=== PATIENT | male | born 1965 | race Caucasian/White ===

== ENCOUNTER 2019-04-23 13:45 | Inpatient (IN) | payer OTHER ==
[~2019-04-23] VITALS: Ht 172.7 cm; Wt 72.6 kg
[2019-04-23 15:04] LABS: BASO % 0 % (0-3); EOS # 0.4 x10^3/uL (0.0-0.7); EOS % 5 % (0-3); HEMATOCRIT 30.9 % (39.0-53.0); HEMOGLOBIN 10.3 g/dL (13.0-17.5); LYMPH % 12 % (24-48); MEAN CORPUSCULAR HEMOGLOBIN 29 pg (25-35); MEAN CORPUSCULAR HGB CONC 33 g/dL (31-37); MEAN CORPUSCULAR VOLUME 88 fL (79-100); MONO # 0.8 x10^3/uL (0.0-1.1); MONO % 10 % (0-9); NEUT % 73 % (31-73); PLATELET COUNT 408 x10^3/uL (140-400); RED BLOOD COUNT 3.52 x10^6/uL (4.30-5.70); RED CELL DISTRIBUTION WIDTH 15.2 % (11.5-14.5); WHITE BLOOD COUNT 8.2 x10^3/uL (4.0-11.0)
[2019-04-23 15:12] LABS: CALCIUM 8.6 mg/dL (8.5-10.1); CREATININE 0.8 mg/dL (0.7-1.3); GFR 100.4; POTASSIUM 4.1 mmol/L (3.5-5.1)
[2019-04-23 15:13] LABS: PROTHROMBIN TIME PATIENT 14.2 SEC (11.7-14.0)
[2019-04-23 15:22] LABS: ALBUMIN/GLOBULIN RATIO 0.5 (1.0-1.7); TOTAL BILIRUBIN 0.3 mg/dL (0.2-1.0); TOTAL PROTEIN 6.1 g/dL (6.4-8.2)
[2019-04-23] MEDS ORDERED: IV NORMAL SALINE 1000ML BAG 1,000 ML IV ONE (16:00)
[2019-04-23] MEDS ORDERED: IOHEXOL 300 MG/ML 100ML VIAL. IV ONE (16:00)
[2019-04-23] MEDS ORDERED: CONTRAST GIVEN. MC PRN (16:00)
[2019-04-23] MEDS ORDERED: ONDANSETRON PF 4 MG/2 ML VIAL. IV ONE (16:00)
[2019-04-23] MEDS ORDERED: MORPHINE SULFATE 4 MG/ML VIAL. IV ONE (16:00)
--- NOTE | 2019-04-23 16:48 | RAD ---
CT ABD PELV W/ IV CONTRST ONLY Indication: Ulcerative colitis. Abdominal pain. Weight loss. Bloody stools. Exposure: One or more of the following individualized dose reduction techniques were utilized for this examination: 1. Automated exposure control 2. Adjustment of the mA and/or kV according to patient size 3. Use of iterative reconstruction technique. Technique: Intravenous contrast was given. No oral contrast per request. Comparison: March 14, 2014. FINDINGS: A small left lung base posterior groundglass opacity only partially visualized on the uppermost slice, about 8 mm. Minimal nodularity in the right lung base, measures 2 mm. Low-density lesion of the right lobe of the liver measuring 3.2 cm, with another lesion posterior to this measuring 2.7 cm. In retrospect these are probably unchanged since the noncontrast exam of March 14, 2014. These likely represent hemangiomas. The spleen is not enlarged. Pancreas unremarkable. No evidence of adrenal mass. Kidneys demonstrate symmetric enhancement without hydronephrosis. Tiny subcentimeter lesion upper pole left kidney too small to characterize but possibly a cyst. No calcified gallstone. Aorta is calcified and ectatic, no evidence of aneurysm. Small mesenteric lymph nodes measure up to 7 mm short axis on the right. No pathologic lymph node enlargement is seen. No significant small bowel distention. Moderate wall thickening and edema throughout the entire colon and rectum. There is not much stranding in the paracolonic fat. The appendix appears unremarkable. Mild wall thickening and submucosal edema is seen within the distalmost terminal ileum. No evidence of pneumoperitoneum or ascites. Prostate gland measures 5.1 cm wide. Urinary bladder is not distended. There are degenerative changes of the spine. IMPRESSION: 1. Diffuse moderate wall thickening and edema of the entire colon and rectum, most compatible with acute colitis. Mild adjacent ileitis. 2. Small groundglass opacity in the left lung base only partially visualized uncertain etiology. Follow-up CT chest in 2 or 3 months could be of benefit for further evaluation, and could also evaluate the nodularity in the right lung base. 3. Low-density lesions in the liver, most likely hemangiomas and appears similar at least as compared with the prior noncontrast CT scan. Electronically signed by: Armando Bernstein MD (04/23/2019 4:45 PM) [id number]
--- NOTE | 2019-04-23 16:51 | PHYS DOC ---
Past Medical History Past Medical History: Other Additional Past Medical Histor: ulcerative colitis, retinal detachment Past Surgical History: Other Additional Past Surgical Histo: colonoscopy, eye surg Alcohol Use: None Drug Use: None Adult General Chief Complaint Chief Complaint: ABDOMINAL PAIN, [facility] HPI Patient is a 53 year old male who presented ER for evaluation of abdominal pain, nausea vomiting, diarrhea for about 3 weeks. Symptom had getting progressively worse the last few day. Patient was down in [place] for work, was seen and admitted to hospital., Had CT scan of abdomen and pelvic, colonoscopy done, evaluated by GI specialist, diagnosed with ulcerative colitis, put on bentyl and prednisone tapered dose. He was then seen by Dr. COLLADO, GI specialist here, put on APRISO. Patient is not getting better so he came here for evaluation. Review of Systems Review of Systems Constitutional: Denies fever or chills [] Eyes: Denies change in visual acuity, redness, or eye pain [] HENT: Denies nasal congestion or sore throat [] Respiratory: Denies cough or shortness of breath [] Cardiovascular: No additional information not addressed in HPI [] GI: POSITIVE FOR abdominal pain, nausea, vomiting, bloody stools or diarrhea [] : Denies dysuria or hematuria [] Musculoskeletal: Denies back pain or joint pain [] Integument: Denies rash or skin lesions [] Neurologic: Denies headache, focal weakness or sensory changes [] Endocrine: Denies polyuria or polydipsia [] All other systems were reviewed and found to be within normal limits, except as documented in this note. Current Medications Current Medications Current Medications Medications (Trade) Dose Ordered Sig/[facility] Start Time Stop Time Status Last Admin Dose Admin Fentanyl Citrate (Fentanyl 2ml Vial) 75 mcg 1X ONCE 04/23/19 17:30 04/23/19 17:31 Info (CONTRAST GIVEN -- Rx MONITORING) 1 each PRN DAILY PRN 04/23/19 16:00 04/25/19 15:59 Iohexol (Omnipaque 300 Mg/ml) 75 ml 1X ONCE 04/23/19 16:00 04/23/19 16:01 DC 04/23/19 16:11 75 ML Methylprednisolone Sodium Succinate (SOLU-Medrol 125MG VIAL) 125 mg 1X ONCE 04/23/19 17:30 04/23/19 17:31 Morphine Sulfate (Morphine Sulfate) 4 mg 1X ONCE 04/23/19 16:00 04/23/19 16:01 DC 04/23/19 16:25 4 MG Ondansetron HCl (Zofran) 8 mg 1X ONCE 04/23/19 16:00 04/23/19 16:01 DC 04/23/19 16:24 8 MG Sodium Chloride 1,000 ml @ 1,000 mls/hr 1X ONCE 04/23/19 16:00 04/23/19 16:59 DC 04/23/19 16:25 1,000 MLS/HR Allergies Allergies Allergies Coded Allergies Type Severity Reaction Last Updated Verified No Known Drug Allergies 04/23/19 No Physical Exam Physical Exam Constitutional: Well developed, well nourished, no acute distress, non-toxic appearance. [] HENT: Normocephalic, atraumatic, bilateral external ears normal, oropharynx is Dry. no oral exudates, nose normal. [] Eyes: PERRLA, EOMI, conjunctiva normal, no discharge. [] Neck: Normal range of motion, no tenderness, supple, no stridor. [] Cardiovascular:Heart rate regular rhythm, no murmur [] Lungs & Thorax: Bilateral breath sounds clear to auscultation [] Abdomen: Bowel sounds normal, soft, There is diffuse abdominal tenderness to palpation, no masses, no pulsatile masses. [] Skin: Warm, dry, no erythema, no rash. [] Back: No tenderness, no CVA tenderness. [] Extremities: No tenderness, no cyanosis, no clubbing, ROM intact, no edema. [] Neurologic: Alert and oriented X 3, normal motor function, normal sensory function, no focal deficits noted. [] Psychologic: Affect normal, judgement normal, mood normal. [] Current Patient Data Vital Signs Vital Signs Date Time Temp Pulse Resp B/P (MAP) Pulse Ox O2 Delivery O2 Flow Rate FiO2 04/23/19 17:00 78 16 113/66 (82) 96 Room Air 04/23/19 13:52 98.2 98.2 Lab Values Laboratory Tests Test 04/23/19 14:55 White Blood Count 8.2 x10^3/uL (4.0-11.0) Red Blood Count 3.52 x10^6/uL (4.30-5.70) L Hemoglobin 10.3 g/dL (13.0-17.5) L Hematocrit 30.9 % (39.0-53.0) L Mean Corpuscular Volume 88 fL (79-100) Mean Corpuscular Hemoglobin 29 pg (25-35) Mean Corpuscular Hemoglobin Concent 33 g/dL (31-37) Red Cell Distribution Width 15.2 % (11.5-14.5) H Platelet Count 408 x10^3/uL (140-400) H Neutrophils (%) (Auto) 73 % (31-73) Lymphocytes (%) (Auto) 12 % (24-48) L Monocytes (%) (Auto) 10 % (0-9) H Eosinophils (%) (Auto) 5 % (0-3) H Basophils (%) (Auto) 0 % (0-3) Neutrophils # (Auto) 6.0 x10^3uL (1.8-7.7) Lymphocytes # (Auto) 1.0 x10^3/uL (1.0-4.8) Monocytes # (Auto) 0.8 x10^3/uL (0.0-1.1) Eosinophils # (Auto) 0.4 x10^3/uL (0.0-0.7) Basophils # (Auto) 0.0 x10^3/uL (0.0-0.2) Prothrombin Time 14.2 SEC (11.7-14.0) H Prothrombin Time INR 1.1 (0.8-1.1) PTT 30 SEC (24-38) Sodium Level 136 mmol/L (136-145) Potassium Level 4.1 mmol/L (3.5-5.1) Chloride Level 100 mmol/L (98-107) Carbon Dioxide Level 30 mmol/L (21-32) Anion Gap 6 (6-14) Blood Urea Nitrogen 11 mg/dL (8-26) Creatinine 0.8 mg/dL (0.7-1.3) Estimated GFR (Cockcroft-Gault) 100.4 BUN/Creatinine Ratio 14 (6-20) Glucose Level 100 mg/dL (70-99) H Calcium Level 8.6 mg/dL (8.5-10.1) Total Bilirubin 0.3 mg/dL (0.2-1.0) Aspartate Amino Transferase (AST) 17 U/L (15-37) Alanine Aminotransferase (ALT) 38 U/L (16-63) Alkaline Phosphatase 93 U/L (46-116) Total Protein 6.1 g/dL (6.4-8.2) L Albumin 2.0 g/dL (3.4-5.0) L Albumin/Globulin Ratio 0.5 (1.0-1.7) L Lipase 634 U/L (73-393) H Laboratory Tests 04/23/19 14:55 Laboratory Tests 04/23/19 14:55 EKG EKG [] Radiology/Procedures Radiology/Procedures [][facility] [address] [place] [address] IMAGING REPORT Signed PATIENT: SANDRINE VELAZQUEZ ACCOUNT: [id number] : 1965 LOCATION: ER AGE: 53 SEX: M EXAM STATUS: REG ER ORD. PHYSICIAN: DIANA SORTO DO REASON: ABDOMINAL PAIN PROCEDURE: CT ABD PELV W/ IV CONTRST ONLY CT ABD PELV W/ IV CONTRST ONLY Indication: Ulcerative colitis. Abdominal pain. Weight loss. Bloody stools. Exposure: One or more of the following individualized dose reduction techniques were utilized for this examination: 1. Automated exposure control 2. Adjustment of the mA and/or kV according to patient size 3. Use of iterative reconstruction technique. Technique: Intravenous contrast was given. No oral contrast per request. Comparison: March 14, 2014. FINDINGS: A small left lung base posterior groundglass opacity only partially visualized on the uppermost slice, about 8 mm. Minimal nodularity in the right lung base, measures 2 mm. Low-density lesion of the right lobe of the liver measuring 3.2 cm, with another lesion posterior to this measuring 2.7 cm. In retrospect these are probably unchanged since the noncontrast exam of March 14, 2014. These likely represent hemangiomas. The spleen is not enlarged. Pancreas unremarkable. No evidence of adrenal mass. Kidneys demonstrate symmetric enhancement without hydronephrosis. Tiny subcentimeter lesion upper pole left kidney too small to characterize but possibly a cyst. No calcified gallstone. Aorta is calcified and ectatic, no evidence of aneurysm. Small mesenteric lymph nodes measure up to 7 mm short axis on the right. No pathologic lymph node enlargement is seen. No significant small bowel distention. Moderate wall thickening and edema throughout the entire colon and rectum. There is not much stranding in the paracolonic fat. The appendix appears unremarkable. Mild wall thickening and submucosal edema is seen within the distalmost terminal ileum. No evidence of pneumoperitoneum or ascites. Prostate gland measures 5.1 cm wide. Urinary bladder is not distended. There are degenerative changes of the spine. IMPRESSION: 1. Diffuse moderate wall thickening and edema of the entire colon and rectum, most compatible with acute colitis. Mild adjacent ileitis. 2. Small groundglass opacity in the left lung base only partially visualized uncertain etiology. Follow-up CT chest in 2 or 3 months could be of benefit for further evaluation, and could also evaluate the nodularity in the right lung base. 3. Low-density lesions in the liver, most likely hemangiomas and appears similar at least as compared with the prior noncontrast CT scan. Electronically signed by: Armando Bernstein MD (04/23/2019 4:45 PM) [facility] DICTATED and SIGNED BY: ARMANDO BERNSTEIN MD DATE: 04/23/19 164 Course & Med Decision Making Course & Med Decision Making Pertinent Labs and Imaging studies reviewed. (See chart for details) [] Dragon Disclaimer Dragon Disclaimer This electronic medical record was generated, in whole or in part, using a voice recognition dictation system. Departure Departure Impression: Primary Impression: Ulcerative colitis Disposition: ADMITTED INPATIENT Admitting Physician: NIRAJ Condition: STABLE Referrals: NON,STAFF (PCP) DIANA SORTO DO Apr 23, 2019 16:51
[2019-04-23] MEDS ORDERED: ONDANSETRON PF 4 MG/2 ML VIAL. IV PRN ×2 (17:30→17:45)
[2019-04-23] MEDS ORDERED: methylPREDNISolone SOD SUCC PF 125 MG/2 ML VIAL. IV ONE (17:30)
[2019-04-23] MEDS ORDERED: fentaNYL PF VIAL 100 MCG/2 ML VIAL IV ONE (17:30)
[2019-04-23] MEDS ORDERED: MORPHINE SULFATE 4 MG/ML VIAL. IV PRN (17:30)
[2019-04-23] MEDS ORDERED: diphenhydrAMINE 50 MG/ML VIAL IVP PRN (17:45)
--- NOTE | 2019-04-23 17:47 | PDOC1 ---
History and Physical Date of Admission Date of Admission DATE: 04/23/19 TIME: 17:43 Identification/Chief Complaint Chief Complaint Bloody diarrhea and diffuse abdominal pain Source Source: Caregiver, Chart review, Patient History of Present Illness History of Present Illness 53-year-old white male, recently diagnosed with ulcerative colitis in [place] when he was there for work, dx via colonoscopy, appropriately discharged on Bentyl, mesalamine and pred etc. Symptoms started a week ago but worsened this weekend including diffuse abdominal pain, bloody diarrhea, 1 out of 3 bowels are bloody, moves 8 bowels today So far potassium and creatinine okay, hemoglobin 10, hemodynamically stable, but diffuse tenderness on mild palpation. CAT scan shows whole large colon is edematous Initially did not want to be nothing by mouth but after discussion of CAT scan findings and education, agreeable Agreeable to be admitted with GI consult, nothing by mouth, IV fluids Full code I see at the ER with family at bedside NO fx of of IBD He has no other history aside from recent diagnosis of UC Past Medical History Cardiovascular: No pertinent hx Pulmonary: No pertinent hx GI: Inflam bowel disease, Other Heme/Onc: No pertinent hx Hepatobiliary: No pertinent hx Psych: No pertinent hx Rheumatologic: No pertinent hx Infectious disease: No pertinent hx ENT: No pertinent hx Renal/: No pertinent hx Endocrine: No pertinent hx Dermatology: No pertinent hx Past Surgical History Past Surgical History: No pertinent history Family History Family History: No Significant Social History Smoke: Quit ALCOHOL: none Drugs: None Current Problem List Problem List Problems Medical Problems: (1) Ulcerative colitis Status: Acute Current Medications Current Medications Current Medications Sodium Chloride 1,000 ml @ 1,000 mls/hr 1X ONCE IV Last administered on 04/23/19at 16:25; Start 04/23/19 at 16:00; Stop 04/23/19 at 16:59; Status DC Ondansetron HCl (Zofran) 8 mg 1X ONCE IV Last administered on 04/23/19at 16:24; Start 04/23/19 at 16:00; Stop 04/23/19 at 16:01; Status DC Morphine Sulfate (Morphine Sulfate) 4 mg 1X ONCE IV Last administered on 04/23/19at 16:25; Start 04/23/19 at 16:00; Stop 04/23/19 at 16:01; Status DC Iohexol (Omnipaque 300 Mg/ml) 75 ml 1X ONCE IV Last administered on 04/23/19at 16:11; Start 04/23/19 at 16:00; Stop 04/23/19 at 16:01; Status DC Info (CONTRAST GIVEN -- Rx MONITORING) 1 each PRN DAILY PRN MC SEE COMMENTS; Start 04/23/19 at 16:00; Stop 04/25/19 at 15:59 Methylprednisolone Sodium Succinate (SOLU-Medrol 125MG VIAL) 125 mg 1X ONCE IV ; Start 04/23/19 at 17:30; Stop 04/23/19 at 17:31; Status DC Fentanyl Citrate (Fentanyl 2ml Vial) 75 mcg 1X ONCE IV ; Start 04/23/19 at 17:30; Stop 04/23/19 at 17:31; Status DC Ondansetron HCl (Zofran) 4 mg PRN Q8HRS PRN IV NAUSEA/VOMITING; Start 04/23/19 at 17:30; Stop 04/24/19 at 17:29 Morphine Sulfate (Morphine Sulfate) 4 mg PRN Q6HRS PRN IV PAIN; Start 04/23/19 at 17:30; Stop 04/24/19 at 17:29 Sodium Chloride 1,000 ml @ 100 mls/hr Q10H IV ; Start 04/23/19 at 18:00; Stop 04/24/19 at 17:59 Allergies Allergies: Coded Allergies: No Known Drug Allergies (Unverified , 04/23/19) ROS Review of System As per history of present illness, the rest of ROS 14 point negative Physical Exam General: Alert, Oriented X3, Cooperative, No acute distress HEENT: Atraumatic, PERRLA Lungs: Clear to auscultation, Normal air movement Heart: S1S2, RRR, no thrills, no rubs, no gallops, no murmurs Cardiovascular: S1 Abdomen: Soft, Other (diffuse tenderness on light touch, normoactive bowel sounds, but not an acute abdomen) Male Genitals Exam: normal genitalia, normal prostate PELVIC: Nml ext genitalia Extremities: No clubbing, No cyanosis, No edema, Normal pulses, No tenderness/swelling Skin: No rashes, No breakdown, No significant lesion Neuro: Normal gait, Normal speech, Strength at 5/5 X4 ext, Normal tone, Sensation intact, Cranial nerves 3-12 NL, Reflexes 2+ Psych/Mental Status: Mental status NL, Mood NL Vitals Vitals Vital Signs Date Time Temp Pulse Resp B/P (MAP) Pulse Ox O2 Delivery O2 Flow Rate FiO2 04/23/19 17:00 78 16 113/66 (82) 96 Room Air 04/23/19 13:52 98.2 98.2 Labs Labs Laboratory Tests Test 04/23/19 14:55 White Blood Count 8.2 x10^3/uL (4.0-11.0) Red Blood Count 3.52 x10^6/uL (4.30-5.70) Hemoglobin 10.3 g/dL (13.0-17.5) Hematocrit 30.9 % (39.0-53.0) Mean Corpuscular Volume 88 fL (79-100) Mean Corpuscular Hemoglobin 29 pg (25-35) Mean Corpuscular Hemoglobin Concent 33 g/dL (31-37) Red Cell Distribution Width 15.2 % (11.5-14.5) Platelet Count 408 x10^3/uL (140-400) Neutrophils (%) (Auto) 73 % (31-73) Lymphocytes (%) (Auto) 12 % (24-48) Monocytes (%) (Auto) 10 % (0-9) Eosinophils (%) (Auto) 5 % (0-3) Basophils (%) (Auto) 0 % (0-3) Neutrophils # (Auto) 6.0 x10^3uL (1.8-7.7) Lymphocytes # (Auto) 1.0 x10^3/uL (1.0-4.8) Monocytes # (Auto) 0.8 x10^3/uL (0.0-1.1) Eosinophils # (Auto) 0.4 x10^3/uL (0.0-0.7) Basophils # (Auto) 0.0 x10^3/uL (0.0-0.2) Prothrombin Time 14.2 SEC (11.7-14.0) Prothromb Time International Ratio 1.1 (0.8-1.1) Activated Partial Thromboplast Time 30 SEC (24-38) Sodium Level 136 mmol/L (136-145) Potassium Level 4.1 mmol/L (3.5-5.1) Chloride Level 100 mmol/L (98-107) Carbon Dioxide Level 30 mmol/L (21-32) Anion Gap 6 (6-14) Blood Urea Nitrogen 11 mg/dL (8-26) Creatinine 0.8 mg/dL (0.7-1.3) Estimated GFR (Cockcroft-Gault) 100.4 BUN/Creatinine Ratio 14 (6-20) Glucose Level 100 mg/dL (70-99) Calcium Level 8.6 mg/dL (8.5-10.1) Total Bilirubin 0.3 mg/dL (0.2-1.0) Aspartate Amino Transf (AST/SGOT) 17 U/L (15-37) Alanine Aminotransferase (ALT/SGPT) 38 U/L (16-63) Alkaline Phosphatase 93 U/L (46-116) Total Protein 6.1 g/dL (6.4-8.2) Albumin 2.0 g/dL (3.4-5.0) Albumin/Globulin Ratio 0.5 (1.0-1.7) Lipase 634 U/L (73-393) Laboratory Tests Test 04/23/19 14:55 White Blood Count 8.2 x10^3/uL (4.0-11.0) Red Blood Count 3.52 x10^6/uL (4.30-5.70) Hemoglobin 10.3 g/dL (13.0-17.5) Hematocrit 30.9 % (39.0-53.0) Mean Corpuscular Volume 88 fL (79-100) Mean Corpuscular Hemoglobin 29 pg (25-35) Mean Corpuscular Hemoglobin Concent 33 g/dL (31-37) Red Cell Distribution Width 15.2 % (11.5-14.5) Platelet Count 408 x10^3/uL (140-400) Neutrophils (%) (Auto) 73 % (31-73) Lymphocytes (%) (Auto) 12 % (24-48) Monocytes (%) (Auto) 10 % (0-9) Eosinophils (%) (Auto) 5 % (0-3) Basophils (%) (Auto) 0 % (0-3) Neutrophils # (Auto) 6.0 x10^3uL (1.8-7.7) Lymphocytes # (Auto) 1.0 x10^3/uL (1.0-4.8) Monocytes # (Auto) 0.8 x10^3/uL (0.0-1.1) Eosinophils # (Auto) 0.4 x10^3/uL (0.0-0.7) Basophils # (Auto) 0.0 x10^3/uL (0.0-0.2) Prothrombin Time 14.2 SEC (11.7-14.0) Prothromb Time International Ratio 1.1 (0.8-1.1) Activated Partial Thromboplast Time 30 SEC (24-38) Sodium Level 136 mmol/L (136-145) Potassium Level 4.1 mmol/L (3.5-5.1) Chloride Level 100 mmol/L (98-107) Carbon Dioxide Level 30 mmol/L (21-32) Anion Gap 6 (6-14) Blood Urea Nitrogen 11 mg/dL (8-26) Creatinine 0.8 mg/dL (0.7-1.3) Estimated GFR (Cockcroft-Gault) 100.4 BUN/Creatinine Ratio 14 (6-20) Glucose Level 100 mg/dL (70-99) Calcium Level 8.6 mg/dL (8.5-10.1) Total Bilirubin 0.3 mg/dL (0.2-1.0) Aspartate Amino Transf (AST/SGOT) 17 U/L (15-37) Alanine Aminotransferase (ALT/SGPT) 38 U/L (16-63) Alkaline Phosphatase 93 U/L (46-116) Total Protein 6.1 g/dL (6.4-8.2) Albumin 2.0 g/dL (3.4-5.0) Albumin/Globulin Ratio 0.5 (1.0-1.7) Lipase 634 U/L (73-393) VTE Prophylaxis Ordered VTE Prophylaxis Devices: Contraindicated VTE Pharmacological Prophylaxi: Contraindicated Assessment/Plan Assessment/Plan Ulcerative colitis flare whole large intestines are edematous on CT SIRS POA, no sepsis Anemia secondary to blood loss, bloody diarrhea Ex-smoker PLAN: bowel rest, IVF, pain control, consult GI Check H&H tomorrow, transfuse if needed Solu-Medrol IV Pain control I defer mesalamine suppository to GI if needed 2 MN FUll code Seen at ER LANEY DIXON MD Apr 23, 2019 17:47
[2019-04-23] MEDS: IV NORMAL SALINE 1000ML BAG 1,000 ML IV SCH (18:00)
[2019-04-23 19:00] VITALS: BP 109/63
[2019-04-23] MEDS: FAMOTIDINE 20 MG/2 ML VIAL IVP SCH (21:24)
[2019-04-23] MEDS ORDERED: MESA0.372 PO (21:28)
[2019-04-23] MEDS ORDERED: DICY10CA3 PO (21:29)
[2019-04-23 23:00] VITALS: BP 99/61
[2019-04-23] MEDS: methylPREDNISolone SOD SUCC PF 40 MG/ML VIAL. IV SCH (23:00)
[2019-04-24] MEDS: IV NORMAL SALINE 1000ML BAG 1,000 ML IV SCH ×3 (01:25→20:51)
[2019-04-24] MEDS: fentaNYL PF VIAL 100 MCG/2 ML VIAL IV PRN ×3 (01:37→22:22)
[2019-04-24 03:00] VITALS: BP 90/58
[2019-04-24 04:02] LABS: HEMOGLOBIN 9.2 g/dL (13.0-17.5)
[2019-04-24] MEDS: methylPREDNISolone SOD SUCC PF 40 MG/ML VIAL. IV SCH ×3 (05:59→21:53)
[2019-04-24 07:00] VITALS: BP 93/59
[2019-04-24] MEDS ORDERED: C.DIFF MED SCREEN BY RX. MC ONE (09:00)
[2019-04-24] MEDS: FAMOTIDINE 20 MG/2 ML VIAL IVP SCH ×2 (09:07→20:42)
--- NOTE | 2019-04-24 09:59 | PDOC2 ---
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 Cannot remember extent of disease on colonoscopy. Also had a CT. Was prescribed an antibiotic, mesalamine, dicyclomine, and prednisone taper. Follow-up w/ Dr. Llanes 1-2 weeks ago and was given Apriso. Symptoms were getting slightly better but then much worse after ran out of prednisone while taking 20mg QD (started w/ 40mg) on Tuesday. Diffuse abd pain, gas (worse in evening), liquid stools (8-10 daily - small w/ red blood every third stool), tenesmus, decreased appetite, weight loss (30 pounds), insomnia, fatigue. H/o GERD controlled w/ Prilosec (hasn't taken x 4 days). No dysphagia, vomiting, or hematemesis. No melena. Had EGD ~20 years ago maybe. Reports normal colonoscopy w/ Dr. Llanes except for a couple polyps ~2 years ago. No GB, liver, pancreas, or PUD history. NPO w/ IV steroids and H2 sienna here. C Diff ordered. Hgb 10.3 to 9.2, normal LFTs, lipase 634. CT as below. PMH: PMH: GERD, UC, retinal detachment/surgery FH: Family History: Cancer (paternal uncle - pancreatic) Social History: Smoke: Quit ALCOHOL: rare Drugs: None ROS: GEN: +fatigue HEENT: Denies blurred vision, sore throat CV: Denies chest pain RESP: Denies shortness of air, cough GI: Per HPI : Denies hematuria, dysuria ENDO: +weight loss NEURO: Denies confusion, dizziness MSK: Denies weakness, joint pain/swelling SKIN: Denies jaundice, pruritus Vitals: Vitals: Vital Signs Date Time Temp Pulse Resp B/P (MAP) Pulse Ox O2 Delivery O2 Flow Rate FiO2 04/24/19 07:00 97.9 60 14 93/59 (70) 93 Room Air 97.9 Labs: Labs: Laboratory Tests Test 04/23/19 14:55 04/24/19 03:25 White Blood Count 8.2 x10^3/uL (4.0-11.0) Red Blood Count 3.52 x10^6/uL (4.30-5.70) Hemoglobin 10.3 g/dL (13.0-17.5) 9.2 g/dL (13.0-17.5) Hematocrit 30.9 % (39.0-53.0) 28.0 % (39.0-53.0) Mean Corpuscular Volume 88 fL (79-100) Mean Corpuscular Hemoglobin 29 pg (25-35) Mean Corpuscular Hemoglobin Concent 33 g/dL (31-37) 33 g/dL (31-37) Red Cell Distribution Width 15.2 % (11.5-14.5) Platelet Count 408 x10^3/uL (140-400) Neutrophils (%) (Auto) 73 % (31-73) Lymphocytes (%) (Auto) 12 % (24-48) Monocytes (%) (Auto) 10 % (0-9) Eosinophils (%) (Auto) 5 % (0-3) Basophils (%) (Auto) 0 % (0-3) Neutrophils # (Auto) 6.0 x10^3uL (1.8-7.7) Lymphocytes # (Auto) 1.0 x10^3/uL (1.0-4.8) Monocytes # (Auto) 0.8 x10^3/uL (0.0-1.1) Eosinophils # (Auto) 0.4 x10^3/uL (0.0-0.7) Basophils # (Auto) 0.0 x10^3/uL (0.0-0.2) Erythrocyte Sedimentation Rate 8 (0-15) Prothrombin Time 14.2 SEC (11.7-14.0) Prothromb Time International Ratio 1.1 (0.8-1.1) Activated Partial Thromboplast Time 30 SEC (24-38) Sodium Level 136 mmol/L (136-145) Potassium Level 4.1 mmol/L (3.5-5.1) Chloride Level 100 mmol/L (98-107) Carbon Dioxide Level 30 mmol/L (21-32) Anion Gap 6 (6-14) Blood Urea Nitrogen 11 mg/dL (8-26) Creatinine 0.8 mg/dL (0.7-1.3) Estimated GFR (Cockcroft-Gault) 100.4 BUN/Creatinine Ratio 14 (6-20) Glucose Level 100 mg/dL (70-99) Calcium Level 8.6 mg/dL (8.5-10.1) Total Bilirubin 0.3 mg/dL (0.2-1.0) Aspartate Amino Transf (AST/SGOT) 17 U/L (15-37) Alanine Aminotransferase (ALT/SGPT) 38 U/L (16-63) Alkaline Phosphatase 93 U/L (46-116) Total Protein 6.1 g/dL (6.4-8.2) Albumin 2.0 g/dL (3.4-5.0) Albumin/Globulin Ratio 0.5 (1.0-1.7) Lipase 634 U/L (73-393) Allergies: Coded Allergies: No Known Drug Allergies (Unverified , 04/23/19) Medications: Current Medications Medications (Trade) Dose Ordered Sig/Laurent Route PRN Reason Start Time Stop Time Status Last Admin Dose Admin Sodium Chloride 1,000 ml @ 1,000 mls/hr 1X ONCE IV 04/23/19 16:00 04/23/19 16:59 DC 04/23/19 16:25 Ondansetron HCl (Zofran) 8 mg 1X ONCE IV 04/23/19 16:00 04/23/19 16:01 DC 04/23/19 16:24 Morphine Sulfate (Morphine Sulfate) 4 mg 1X ONCE IV 04/23/19 16:00 04/23/19 16:01 DC 04/23/19 16:25 Iohexol (Omnipaque 300 Mg/ml) 75 ml 1X ONCE IV 04/23/19 16:00 04/23/19 16:01 DC 04/23/19 16:11 Methylprednisolone Sodium Succinate (SOLU-Medrol 125MG VIAL) 125 mg 1X ONCE IV 04/23/19 17:30 04/23/19 17:31 DC 04/23/19 17:30 Fentanyl Citrate (Fentanyl 2ml Vial) 75 mcg 1X ONCE IV 04/23/19 17:30 04/23/19 17:31 DC 04/23/19 17:30 Morphine Sulfate (Morphine Sulfate) 4 mg PRN Q6HRS PRN IV PAIN 04/23/19 17:30 04/24/19 17:29 04/24/19 09:40 Sodium Chloride 1,000 ml @ 100 mls/hr Q10H IV 04/23/19 18:00 04/24/19 17:59 04/24/19 01:25 Famotidine (Pepcid Vial) 20 mg BID IVP 04/23/19 21:00 04/24/19 09:07 Fentanyl Citrate (Fentanyl 2ml Vial) 50 mcg PRN Q2HR PRN IV PAIN 04/23/19 17:45 04/24/19 01:37 Methylprednisolone Sodium Succinate (SOLU-Medrol 40MG VIAL) 40 mg Q8HRS IV 04/23/19 22:00 04/24/19 05:59 Imaging: Imaging: CT A/P IMPRESSION: 1. Diffuse moderate wall thickening and edema of the entire colon and rectum, most compatible with acute colitis. Mild adjacent ileitis. 2. Small groundglass opacity in the left lung base only partially visualized uncertain etiology. Follow-up CT chest in 2 or 3 months could be of benefit for further evaluation, and could also evaluate the nodularity in the right lung base. 3. Low-density lesions in the liver, most likely hemangiomas and appears similar at least as compared with the prior noncontrast CT scan. PE: GEN: NAD HEENT: Atraumatic, PERRL LUNGS: CTAB HEART: RRR ABD: NABS, S/ND, diffusely sore, periumbilical area worse EXTREMITY: No edema SKIN: No rashes, no jaundice NEURO/PSYCH: A & O �3 A/P: A/P: Abd pain, diarrhea, anorexia Recent UC diagnosis Abnormal CT w/ pancolitis and ileitis Anemia Mildly elevated lipase - unclear significance GERD - controlled w/ PPI CRC screen - UTD -- Try clears. Agree w/ steroids and acid-visitor information assistant. Await C Diff. Will ask for records from [place]. Can resume mesalamine, will add stool culture, etc. HALIE GROSS Apr 24, 2019 09:59
[2019-04-24 11:00] VITALS: BP 99/63
--- NOTE | 2019-04-24 11:42 | PDOC ---
[employer] PROGRESS NOTE Chief Complaint Chief Complaint Ulcerative colitis flare History of Present Illness History of Present Illness Patient seen and examined Vitals Vitals Vital Signs Date Time Temp Pulse Resp B/P (MAP) Pulse Ox O2 Delivery O2 Flow Rate FiO2 04/24/19 08:00 Room Air 04/24/19 07:00 97.9 60 14 93/59 (70) 93 97.9 Physical Exam General: Alert, Oriented X3, Cooperative, No acute distress Heart: Regular rate, Normal S1 Lungs: Clear Abdomen: Soft, Other (diffuse tenderness on light touch, normoactive bowel sounds, but not an acute abdomen) Extremities: No clubbing, No cyanosis, No edema, Normal pulses, No tenderness/swelling Skin: No rashes, No breakdown, No significant lesion Labs Labs: Laboratory Tests Test 04/23/19 14:55 04/24/19 03:25 White Blood Count 8.2 x10^3/uL (4.0-11.0) Red Blood Count 3.52 x10^6/uL (4.30-5.70) Hemoglobin 10.3 g/dL (13.0-17.5) 9.2 g/dL (13.0-17.5) Hematocrit 30.9 % (39.0-53.0) 28.0 % (39.0-53.0) Mean Corpuscular Volume 88 fL (79-100) Mean Corpuscular Hemoglobin 29 pg (25-35) Mean Corpuscular Hemoglobin Concent 33 g/dL (31-37) 33 g/dL (31-37) Red Cell Distribution Width 15.2 % (11.5-14.5) Platelet Count 408 x10^3/uL (140-400) Neutrophils (%) (Auto) 73 % (31-73) Lymphocytes (%) (Auto) 12 % (24-48) Monocytes (%) (Auto) 10 % (0-9) Eosinophils (%) (Auto) 5 % (0-3) Basophils (%) (Auto) 0 % (0-3) Neutrophils # (Auto) 6.0 x10^3uL (1.8-7.7) Lymphocytes # (Auto) 1.0 x10^3/uL (1.0-4.8) Monocytes # (Auto) 0.8 x10^3/uL (0.0-1.1) Eosinophils # (Auto) 0.4 x10^3/uL (0.0-0.7) Basophils # (Auto) 0.0 x10^3/uL (0.0-0.2) Erythrocyte Sedimentation Rate 8 (0-15) Prothrombin Time 14.2 SEC (11.7-14.0) Prothromb Time International Ratio 1.1 (0.8-1.1) Activated Partial Thromboplast Time 30 SEC (24-38) Sodium Level 136 mmol/L (136-145) Potassium Level 4.1 mmol/L (3.5-5.1) Chloride Level 100 mmol/L (98-107) Carbon Dioxide Level 30 mmol/L (21-32) Anion Gap 6 (6-14) Blood Urea Nitrogen 11 mg/dL (8-26) Creatinine 0.8 mg/dL (0.7-1.3) Estimated GFR (Cockcroft-Gault) 100.4 BUN/Creatinine Ratio 14 (6-20) Glucose Level 100 mg/dL (70-99) Calcium Level 8.6 mg/dL (8.5-10.1) Total Bilirubin 0.3 mg/dL (0.2-1.0) Aspartate Amino Transf (AST/SGOT) 17 U/L (15-37) Alanine Aminotransferase (ALT/SGPT) 38 U/L (16-63) Alkaline Phosphatase 93 U/L (46-116) Total Protein 6.1 g/dL (6.4-8.2) Albumin 2.0 g/dL (3.4-5.0) Albumin/Globulin Ratio 0.5 (1.0-1.7) Lipase 634 U/L (73-393) Assessment and Plan Assessmemt and Plan Problems Medical Problems: (1) Ulcerative colitis Status: Acute Ulcerative colitis flare whole large intestines are edematous on CT SIRS POA, no sepsis Anemia secondary to blood loss, bloody diarrhea Ex-smoker PLAN: bowel rest, IVF, pain control, consult GI Labs Solu-Medrol IV Pain control GI following Comment Review of Relevant I have reviewed the following items maria teresa (where applicable) has been applied. Labs Laboratory Tests Test 04/23/19 14:55 04/24/19 03:25 White Blood Count 8.2 x10^3/uL (4.0-11.0) Red Blood Count 3.52 x10^6/uL (4.30-5.70) Hemoglobin 10.3 g/dL (13.0-17.5) 9.2 g/dL (13.0-17.5) Hematocrit 30.9 % (39.0-53.0) 28.0 % (39.0-53.0) Mean Corpuscular Volume 88 fL (79-100) Mean Corpuscular Hemoglobin 29 pg (25-35) Mean Corpuscular Hemoglobin Concent 33 g/dL (31-37) 33 g/dL (31-37) Red Cell Distribution Width 15.2 % (11.5-14.5) Platelet Count 408 x10^3/uL (140-400) Neutrophils (%) (Auto) 73 % (31-73) Lymphocytes (%) (Auto) 12 % (24-48) Monocytes (%) (Auto) 10 % (0-9) Eosinophils (%) (Auto) 5 % (0-3) Basophils (%) (Auto) 0 % (0-3) Neutrophils # (Auto) 6.0 x10^3uL (1.8-7.7) Lymphocytes # (Auto) 1.0 x10^3/uL (1.0-4.8) Monocytes # (Auto) 0.8 x10^3/uL (0.0-1.1) Eosinophils # (Auto) 0.4 x10^3/uL (0.0-0.7) Basophils # (Auto) 0.0 x10^3/uL (0.0-0.2) Erythrocyte Sedimentation Rate 8 (0-15) Prothrombin Time 14.2 SEC (11.7-14.0) Prothromb Time International Ratio 1.1 (0.8-1.1) Activated Partial Thromboplast Time 30 SEC (24-38) Sodium Level 136 mmol/L (136-145) Potassium Level 4.1 mmol/L (3.5-5.1) Chloride Level 100 mmol/L (98-107) Carbon Dioxide Level 30 mmol/L (21-32) Anion Gap 6 (6-14) Blood Urea Nitrogen 11 mg/dL (8-26) Creatinine 0.8 mg/dL (0.7-1.3) Estimated GFR (Cockcroft-Gault) 100.4 BUN/Creatinine Ratio 14 (6-20) Glucose Level 100 mg/dL (70-99) Calcium Level 8.6 mg/dL (8.5-10.1) Total Bilirubin 0.3 mg/dL (0.2-1.0) Aspartate Amino Transf (AST/SGOT) 17 U/L (15-37) Alanine Aminotransferase (ALT/SGPT) 38 U/L (16-63) Alkaline Phosphatase 93 U/L (46-116) Total Protein 6.1 g/dL (6.4-8.2) Albumin 2.0 g/dL (3.4-5.0) Albumin/Globulin Ratio 0.5 (1.0-1.7) Lipase 634 U/L (73-393) Laboratory Tests Test 04/23/19 14:55 04/24/19 03:25 White Blood Count 8.2 x10^3/uL (4.0-11.0) Red Blood Count 3.52 x10^6/uL (4.30-5.70) Hemoglobin 10.3 g/dL (13.0-17.5) 9.2 g/dL (13.0-17.5) Hematocrit 30.9 % (39.0-53.0) 28.0 % (39.0-53.0) Mean Corpuscular Volume 88 fL (79-100) Mean Corpuscular Hemoglobin 29 pg (25-35) Mean Corpuscular Hemoglobin Concent 33 g/dL (31-37) 33 g/dL (31-37) Red Cell Distribution Width 15.2 % (11.5-14.5) Platelet Count 408 x10^3/uL (140-400) Neutrophils (%) (Auto) 73 % (31-73) Lymphocytes (%) (Auto) 12 % (24-48) Monocytes (%) (Auto) 10 % (0-9) Eosinophils (%) (Auto) 5 % (0-3) Basophils (%) (Auto) 0 % (0-3) Neutrophils # (Auto) 6.0 x10^3uL (1.8-7.7) Lymphocytes # (Auto) 1.0 x10^3/uL (1.0-4.8) Monocytes # (Auto) 0.8 x10^3/uL (0.0-1.1) Eosinophils # (Auto) 0.4 x10^3/uL (0.0-0.7) Basophils # (Auto) 0.0 x10^3/uL (0.0-0.2) Erythrocyte Sedimentation Rate 8 (0-15) Prothrombin Time 14.2 SEC (11.7-14.0) Prothromb Time International Ratio 1.1 (0.8-1.1) Activated Partial Thromboplast Time 30 SEC (24-38) Sodium Level 136 mmol/L (136-145) Potassium Level 4.1 mmol/L (3.5-5.1) Chloride Level 100 mmol/L (98-107) Carbon Dioxide Level 30 mmol/L (21-32) Anion Gap 6 (6-14) Blood Urea Nitrogen 11 mg/dL (8-26) Creatinine 0.8 mg/dL (0.7-1.3) Estimated GFR (Cockcroft-Gault) 100.4 BUN/Creatinine Ratio 14 (6-20) Glucose Level 100 mg/dL (70-99) Calcium Level 8.6 mg/dL (8.5-10.1) Total Bilirubin 0.3 mg/dL (0.2-1.0) Aspartate Amino Transf (AST/SGOT) 17 U/L (15-37) Alanine Aminotransferase (ALT/SGPT) 38 U/L (16-63) Alkaline Phosphatase 93 U/L (46-116) Total Protein 6.1 g/dL (6.4-8.2) Albumin 2.0 g/dL (3.4-5.0) Albumin/Globulin Ratio 0.5 (1.0-1.7) Lipase 634 U/L (73-393) Medications Current Medications Sodium Chloride 1,000 ml @ 1,000 mls/hr 1X ONCE IV Last administered on 04/23/19at 16:25; Start 04/23/19 at 16:00; Stop 04/23/19 at 16:59; Status DC Ondansetron HCl (Zofran) 8 mg 1X ONCE IV Last administered on 04/23/19at 16:24; Start 04/23/19 at 16:00; Stop 04/23/19 at 16:01; Status DC Morphine Sulfate (Morphine Sulfate) 4 mg 1X ONCE IV Last administered on 04/23/19at 16:25; Start 04/23/19 at 16:00; Stop 04/23/19 at 16:01; Status DC Iohexol (Omnipaque 300 Mg/ml) 75 ml 1X ONCE IV Last administered on 04/23/19at 16:11; Start 04/23/19 at 16:00; Stop 04/23/19 at 16:01; Status DC Info (CONTRAST GIVEN -- Rx MONITORING) 1 each PRN DAILY PRN MC SEE COMMENTS; Start 04/23/19 at 16:00; Stop 04/25/19 at 15:59 Methylprednisolone Sodium Succinate (SOLU-Medrol 125MG VIAL) 125 mg 1X ONCE IV Last administered on 04/23/19at 17:30; Start 04/23/19 at 17:30; Stop 04/23/19 at 17:31; Status DC Fentanyl Citrate (Fentanyl 2ml Vial) 75 mcg 1X ONCE IV Last administered on 04/23/19at 17:30; Start 04/23/19 at 17:30; Stop 04/23/19 at 17:31; Status DC Ondansetron HCl (Zofran) 4 mg PRN Q8HRS PRN IV NAUSEA/VOMITING; Start 04/23/19 at 17:30; Stop 04/23/19 at 17:43; Status DC Morphine Sulfate (Morphine Sulfate) 4 mg PRN Q6HRS PRN IV PAIN Last administered on 04/24/19at 09:40; Start 04/23/19 at 17:30; Stop 04/24/19 at 17:29 Sodium Chloride 1,000 ml @ 100 mls/hr Q10H IV Last administered on 04/24/19at 01:25; Start 04/23/19 at 18:00; Stop 04/24/19 at 17:59 Ondansetron HCl (Zofran) 4 mg PRN Q6HRS PRN IV NAUSEA/VOMITING; Start 04/23/19 at 17:45 Famotidine (Pepcid Vial) 20 mg BID IVP Last administered on 04/24/19at 09:07; Start 04/23/19 at 21:00 Fentanyl Citrate (Fentanyl 2ml Vial) 50 mcg PRN Q2HR PRN IV PAIN Last administered on 04/24/19at 01:37; Start 04/23/19 at 17:45 Methylprednisolone Sodium Succinate (SOLU-Medrol 40MG VIAL) 40 mg Q8HRS IV Last administered on 04/24/19at 05:59; Start 04/23/19 at 22:00 Diphenhydramine HCl (Benadryl) 25 mg PRN QHS PRN IVP INSOMNIA; Start 04/23/19 at 17:45 Pharmacy Consult (C.diff Med Screen By Rx) 1 each 1X ONCE MC Last administered on 04/24/19at 09:00; Start 04/24/19 at 09:00; Stop 04/24/19 at 09:01; Status DC Mesalamine (Delzicol) 800 mg TID PO ; Start 04/24/19 at 14:00 Active Scripts Active Reported Dicyclomine Hcl 10 Mg Capsule 1 Cap PO TID Apriso (Mesalamine) 0.375 Gm Cap.er.24h 2 Cap PO BID Vitals/I & O Vital Sign - Last 24 Hours 04/23/19 04/23/19 04/23/19 04/23/19 13:52 15:45 16:25 17:00 Temp 98.2 98.2 Pulse 89 75 78 Resp 16 16 16 16 B/P (MAP) 120/74 (89) 115/64 (81) 113/66 (82) Pulse Ox 96 95 98 96 O2 Delivery Room Air Room Air Room Air Room Air 04/23/19 04/23/19 04/23/19 04/23/19 17:30 18:45 19:00 23:00 Temp 98.4 98.1 98.4 98.1 Pulse 87 75 71 Resp 16 16 18 18 B/P (MAP) 122/76 (91) 109/63 (78) 99/61 (74) Pulse Ox 95 95 95 95 O2 Delivery Room Air Room Air Room Air Room Air 04/24/19 04/24/19 04/24/19 03:00 07:00 08:00 Temp 97.7 97.9 97.7 97.9 Pulse 61 60 Resp 18 14 B/P (MAP) 90/58 (69) 93/59 (70) Pulse Ox 97 93 O2 Delivery Room Air Room Air Room Air Intake and Output 04/23/19 04/23/19 04/24/19 14:59 22:59 06:59 Intake Total 0 ml 1000 ml Balance 0 ml 1000 ml PEARL MACK K III DO Apr 24, 2019 11:42
--- NOTE | 2019-04-24 14:16 | NUR ---
Pharmacy Medication Review S: Consulted for medication review re: C.diff Risk Assessment score of 5 O: SANDRINE VELAZQUEZ is a 53 year old with: Previous C.diff infection: No Previous hospitalization: Within 30 days Recent antibiotics: Within 30 days Use of gastric acid suppressor: Yes Transfer from CT/LTAC: No Current antibiotic regimen: NONE Current acid suppression regimen: FAMOTIDINE A: Patient has been identified as having risk factors for C.diff infection as noted above. P: Antibiotic Regimen recommendation made: N/A Probiotic ordered: N/A PPI changed to [id number]: N/A LASHAY PATEL [facility], 04/24/19 [id number]
[2019-04-24] MEDS: MESALAMINE 400 MG CAP.DRTAB. PO SCH ×2 (14:32→20:41)
[2019-04-24 15:00] VITALS: BP 106/63
[2019-04-24 19:00] VITALS: BP 97/57
[2019-04-24 23:00] VITALS: BP 105/62
[2019-04-25 03:00] VITALS: BP 105/57
[2019-04-25] MEDS: methylPREDNISolone SOD SUCC PF 40 MG/ML VIAL. IV SCH ×3 (05:58→21:59)
[2019-04-25] MEDS: IV NORMAL SALINE 1000ML BAG 1,000 ML IV SCH ×2 (06:58→17:36)
[2019-04-25 07:00] VITALS: BP 110/70
[2019-04-25] MEDS: MESALAMINE 400 MG CAP.DRTAB. PO SCH ×3 (08:22→19:35)
[2019-04-25] MEDS: FAMOTIDINE 20 MG/2 ML VIAL IVP SCH ×2 (08:22→19:36)
[2019-04-25] MEDS: fentaNYL PF VIAL 100 MCG/2 ML VIAL IV PRN ×4 (09:08→21:58)
--- NOTE | 2019-04-25 09:13 | PDOC ---
Subjective: Subjective: Feels "terrible." Has gas pains, diarrhea ongoing (says twice overnight - small amounts w/ non-productive urges), using Fentanyl for pain. Jello and sprite are "crap," cold water makes everything worse. Wants to know how long he's going to be here because this is costing him money. Does admit he's sleeping better. Objective: Objective: No records received from [place]. I review the papers he has in his backpack - list of stool tests (he does not know results). He was prescribed prednisone and Lialda (which was too expensive - later started on Apriso w/ Dr. Llanes). Vital Signs: Vital Signs Date Time Temp Pulse Resp B/P (MAP) Pulse Ox O2 Delivery O2 Flow Rate FiO2 04/25/19 07:00 98.4 56 16 110/70 (83) 91 Room Air 98.4 PE: GEN: NAD LUNGS: CTAB HEART: RRR ABD: BS+, soft, non-distended, tender from umbilicus and below NEURO/PSYCH: A & O �3 A/P: Abd pain, diarrhea, anorexia Recent UC diagnosis - pancolitis/ileitis on CT -- Pretty grumpy today. Await C Diff, recheck basic labs. Records requested from [place] (colonoscopy, CT) yesterday - not received. Getting Solu-Medrol 40mg TID, no atbx. Will review w/ Dr. Fowler. HALIE GROSS Apr 25, 2019 09:13
[2019-04-25 09:30] LABS: HEMATOCRIT 29.6 % (39.0-53.0); HEMOGLOBIN 9.5 g/dL (13.0-17.5); RED BLOOD COUNT 3.34 x10^6/uL (4.30-5.70); RED CELL DISTRIBUTION WIDTH 15.5 % (11.5-14.5); WHITE BLOOD COUNT 8.6 x10^3/uL (4.0-11.0)
[2019-04-25 09:44] LABS: ALBUMIN 1.7 g/dL (3.4-5.0); ALBUMIN/GLOBULIN RATIO 0.4 (1.0-1.7); CALCIUM 7.9 mg/dL (8.5-10.1); CREATININE 0.6 mg/dL (0.7-1.3); GFR 139.9; POTASSIUM 3.9 mmol/L (3.5-5.1); TOTAL BILIRUBIN 0.2 mg/dL (0.2-1.0); TOTAL PROTEIN 5.6 g/dL (6.4-8.2)
[2019-04-25 11:00] VITALS: BP 111/64
--- NOTE | 2019-04-25 12:14 | PDOC ---
[employer] PROGRESS NOTE Chief Complaint Chief Complaint Ulcerative colitis flare History of Present Illness History of Present Illness 6�19�2019 Patient seen and examined He is requesting clear liquid diet Patient seen and examined Vitals Vitals Vital Signs Date Time Temp Pulse Resp B/P (MAP) Pulse Ox O2 Delivery O2 Flow Rate FiO2 04/25/19 11:00 97.7 64 16 111/64 (80) 94 Room Air 97.7 Physical Exam General: Alert, Oriented X3, Cooperative, No acute distress Heart: Regular rate, Normal S1 Lungs: Clear Abdomen: Soft, Other (diffuse tenderness on light touch, normoactive bowel sounds, but not an acute abdomen) Extremities: No clubbing, No cyanosis, No edema, Normal pulses, No tenderness/swelling Skin: No rashes, No breakdown, No significant lesion Labs Labs: Laboratory Tests Test 04/25/19 09:00 White Blood Count 8.6 x10^3/uL (4.0-11.0) Red Blood Count 3.34 x10^6/uL (4.30-5.70) Hemoglobin 9.5 g/dL (13.0-17.5) Hematocrit 29.6 % (39.0-53.0) Mean Corpuscular Volume 89 fL (79-100) Mean Corpuscular Hemoglobin 29 pg (25-35) Mean Corpuscular Hemoglobin Concent 32 g/dL (31-37) Red Cell Distribution Width 15.5 % (11.5-14.5) Platelet Count 418 x10^3/uL (140-400) Sodium Level 136 mmol/L (136-145) Potassium Level 3.9 mmol/L (3.5-5.1) Chloride Level 102 mmol/L (98-107) Carbon Dioxide Level 27 mmol/L (21-32) Anion Gap 7 (6-14) Blood Urea Nitrogen 11 mg/dL (8-26) Creatinine 0.6 mg/dL (0.7-1.3) Estimated GFR (Cockcroft-Gault) 139.9 BUN/Creatinine Ratio 18 (6-20) Glucose Level 168 mg/dL (70-99) Calcium Level 7.9 mg/dL (8.5-10.1) Total Bilirubin 0.2 mg/dL (0.2-1.0) Aspartate Amino Transf (AST/SGOT) 13 U/L (15-37) Alanine Aminotransferase (ALT/SGPT) 26 U/L (16-63) Alkaline Phosphatase 81 U/L (46-116) Total Protein 5.6 g/dL (6.4-8.2) Albumin 1.7 g/dL (3.4-5.0) Albumin/Globulin Ratio 0.4 (1.0-1.7) Assessment and Plan Assessmemt and Plan Problems Medical Problems: (1) Ulcerative colitis Status: Acu Plan Clear liquid diet if okay with GI continue antibiotics Home meds DVT prophylaxis Full code Hope to discharge by the end of the week Comment Review of Relevant I have reviewed the following items maria teresa (where applicable) has been applied. Labs Laboratory Tests Test 04/23/19 14:55 04/24/19 03:25 04/25/19 09:00 White Blood Count 8.2 x10^3/uL (4.0-11.0) 8.6 x10^3/uL (4.0-11.0) Red Blood Count 3.52 x10^6/uL (4.30-5.70) 3.34 x10^6/uL (4.30-5.70) Hemoglobin 10.3 g/dL (13.0-17.5) 9.2 g/dL (13.0-17.5) 9.5 g/dL (13.0-17.5) Hematocrit 30.9 % (39.0-53.0) 28.0 % (39.0-53.0) 29.6 % (39.0-53.0) Mean Corpuscular Volume 88 fL (79-100) 89 fL (79-100) Mean Corpuscular Hemoglobin 29 pg (25-35) 29 pg (25-35) Mean Corpuscular Hemoglobin Concent 33 g/dL (31-37) 33 g/dL (31-37) 32 g/dL (31-37) Red Cell Distribution Width 15.2 % (11.5-14.5) 15.5 % (11.5-14.5) Platelet Count 408 x10^3/uL (140-400) 418 x10^3/uL (140-400) Neutrophils (%) (Auto) 73 % (31-73) Lymphocytes (%) (Auto) 12 % (24-48) Monocytes (%) (Auto) 10 % (0-9) Eosinophils (%) (Auto) 5 % (0-3) Basophils (%) (Auto) 0 % (0-3) Neutrophils # (Auto) 6.0 x10^3uL (1.8-7.7) Lymphocytes # (Auto) 1.0 x10^3/uL (1.0-4.8) Monocytes # (Auto) 0.8 x10^3/uL (0.0-1.1) Eosinophils # (Auto) 0.4 x10^3/uL (0.0-0.7) Basophils # (Auto) 0.0 x10^3/uL (0.0-0.2) Erythrocyte Sedimentation Rate 8 (0-15) Prothrombin Time 14.2 SEC (11.7-14.0) Prothromb Time International Ratio 1.1 (0.8-1.1) Activated Partial Thromboplast Time 30 SEC (24-38) Sodium Level 136 mmol/L (136-145) 136 mmol/L (136-145) Potassium Level 4.1 mmol/L (3.5-5.1) 3.9 mmol/L (3.5-5.1) Chloride Level 100 mmol/L (98-107) 102 mmol/L (98-107) Carbon Dioxide Level 30 mmol/L (21-32) 27 mmol/L (21-32) Anion Gap 6 (6-14) 7 (6-14) Blood Urea Nitrogen 11 mg/dL (8-26) 11 mg/dL (8-26) Creatinine 0.8 mg/dL (0.7-1.3) 0.6 mg/dL (0.7-1.3) Estimated GFR (Cockcroft-Gault) 100.4 139.9 BUN/Creatinine Ratio 14 (6-20) 18 (6-20) Glucose Level 100 mg/dL (70-99) 168 mg/dL (70-99) Calcium Level 8.6 mg/dL (8.5-10.1) 7.9 mg/dL (8.5-10.1) Total Bilirubin 0.3 mg/dL (0.2-1.0) 0.2 mg/dL (0.2-1.0) Aspartate Amino Transf (AST/SGOT) 17 U/L (15-37) 13 U/L (15-37) Alanine Aminotransferase (ALT/SGPT) 38 U/L (16-63) 26 U/L (16-63) Alkaline Phosphatase 93 U/L (46-116) 81 U/L (46-116) Total Protein 6.1 g/dL (6.4-8.2) 5.6 g/dL (6.4-8.2) Albumin 2.0 g/dL (3.4-5.0) 1.7 g/dL (3.4-5.0) Albumin/Globulin Ratio 0.5 (1.0-1.7) 0.4 (1.0-1.7) Lipase 634 U/L (73-393) Laboratory Tests Test 04/25/19 09:00 White Blood Count 8.6 x10^3/uL (4.0-11.0) Red Blood Count 3.34 x10^6/uL (4.30-5.70) Hemoglobin 9.5 g/dL (13.0-17.5) Hematocrit 29.6 % (39.0-53.0) Mean Corpuscular Volume 89 fL (79-100) Mean Corpuscular Hemoglobin 29 pg (25-35) Mean Corpuscular Hemoglobin Concent 32 g/dL (31-37) Red Cell Distribution Width 15.5 % (11.5-14.5) Platelet Count 418 x10^3/uL (140-400) Sodium Level 136 mmol/L (136-145) Potassium Level 3.9 mmol/L (3.5-5.1) Chloride Level 102 mmol/L (98-107) Carbon Dioxide Level 27 mmol/L (21-32) Anion Gap 7 (6-14) Blood Urea Nitrogen 11 mg/dL (8-26) Creatinine 0.6 mg/dL (0.7-1.3) Estimated GFR (Cockcroft-Gault) 139.9 BUN/Creatinine Ratio 18 (6-20) Glucose Level 168 mg/dL (70-99) Calcium Level 7.9 mg/dL (8.5-10.1) Total Bilirubin 0.2 mg/dL (0.2-1.0) Aspartate Amino Transf (AST/SGOT) 13 U/L (15-37) Alanine Aminotransferase (ALT/SGPT) 26 U/L (16-63) Alkaline Phosphatase 81 U/L (46-116) Total Protein 5.6 g/dL (6.4-8.2) Albumin 1.7 g/dL (3.4-5.0) Albumin/Globulin Ratio 0.4 (1.0-1.7) Medications Current Medications Sodium Chloride 1,000 ml @ 1,000 mls/hr 1X ONCE IV Last administered on 04/23/19 16:25; Start 04/23/19 at 16:00; Stop 04/23/19 at 16:59; Status DC Ondansetron HCl (Zofran) 8 mg 1X ONCE IV Last administered on 04/23/19at 16:24; Start 04/23/19 at 16:00; Stop 04/23/19 at 16:01; Status DC Morphine Sulfate (Morphine Sulfate) 4 mg 1X ONCE IV Last administered on 04/23/19 16:25; Start 04/23/19 at 16:00; Stop 04/23/19 at 16:01; Status DC Iohexol (Omnipaque 300 Mg/ml) 75 ml 1X ONCE IV Last administered on 04/23/19at 16:11; Start 04/23/19 at 16:00; Stop 04/23/19 at 16:01; Status DC Info (CONTRAST GIVEN -- Rx MONITORING) 1 each PRN DAILY PRN MC SEE COMMENTS; Start 04/23/19 at 16:00; Stop 04/25/19 at 15:59 Methylprednisolone Sodium Succinate (SOLU-Medrol 125MG VIAL) 125 mg 1X ONCE IV Last administered on 04/23/19at 17:30; Start 04/23/19 at 17:30; Stop 04/23/19 at 17:31; Status DC Fentanyl Citrate (Fentanyl 2ml Vial) 75 mcg 1X ONCE IV Last administered on 04/23/19at 17:30; Start 04/23/19 at 17:30; Stop 04/23/19 at 17:31; Status DC Ondansetron HCl (Zofran) 4 mg PRN Q8HRS PRN IV NAUSEA/VOMITING; Start 04/23/19 at 17:30; Stop 04/23/19 at 17:43; Status DC Morphine Sulfate (Morphine Sulfate) 4 mg PRN Q6HRS PRN IV PAIN Last administered on 04/24/19at 09:40; Start 04/23/19 at 17:30; Stop 04/24/19 at 17:29; Status DC Sodium Chloride 1,000 ml @ 100 mls/hr Q10H IV Last administered on 04/24/19 14:34; Start 04/23/19 at 18:00; Stop 04/24/19 at 17:59; Status DC Ondansetron HCl (Zofran) 4 mg PRN Q6HRS PRN IV NAUSEA/VOMITING; Start 04/23/19 at 17:45 Famotidine (Pepcid Vial) 20 mg BID IVP Last administered on 04/25/19 08:22; Start 04/23/19 at 21:00 Fentanyl Citrate (Fentanyl 2ml Vial) 50 mcg PRN Q2HR PRN IV PAIN Last administered on 04/25/19 09:08; Start 04/23/19 at 17:45 Methylprednisolone Sodium Succinate (SOLU-Medrol 40MG VIAL) 40 mg Q8HRS IV Last administered on 04/25/19 05:58; Start 04/23/19 at 22:00 Diphenhydramine HCl (Benadryl) 25 mg PRN QHS PRN IVP INSOMNIA; Start 04/23/19 at 17:45 Pharmacy Consult (C.diff Med Screen By Rx) 1 each 1X ONCE MC Last administered on 04/24/19 09:00; Start 04/24/19 at 09:00; Stop 04/24/19 at 09:01; Status DC Mesalamine (Delzicol) 800 mg TID PO Last administered on 04/25/19 08:22; Start 04/24/19 at 14:00 Sodium Chloride 1,000 ml @ 100 mls/hr Q10H IV Last administered on 04/25/19 06:58; Start 04/24/19 at 22:00 Active Scripts Active Reported Dicyclomine Hcl 10 Mg Capsule 1 Cap PO TID Apriso (Mesalamine) 0.375 Gm Cap.er.24h 2 Cap PO BID Vitals/I & O Vital Sign - Last 24 Hours 04/24/19 04/24/19 04/24/19 04/24/19 15:00 19:00 20:00 23:00 Temp 98.1 98.4 98.1 98.1 98.4 98.1 Pulse 62 54 59 Resp 16 18 18 B/P (MAP) 106/63 (77) 97/57 (70) 105/62 (76) Pulse Ox 97 96 100 O2 Delivery Room Air Room Air Room Air Room Air 04/25/19 04/25/19 04/25/19 04/25/19 03:00 07:00 08:00 11:00 Temp 98.1 98.4 97.7 98.1 98.4 97.7 Pulse 59 56 64 Resp 18 16 16 B/P (MAP) 105/57 (73) 110/70 (83) 111/64 (80) Pulse Ox 96 91 94 O2 Delivery Room Air Room Air Room Air Room Air Intake and Output 04/24/19 04/24/19 04/25/19 15:00 23:00 07:00 Intake Total 480 ml 1610 ml 1310 ml Balance 480 ml 1610 ml 1310 ml PEARL MACK III DO Apr 25, 2019 12:14
--- NOTE | 2019-04-25 12:25 | PN ---
DATE: 04/25/2019 ADDENDUM ASSESSMENT: Ulcerative colitis. PLAN: My previous notes stated that we needed to continue antibiotics, that was an error. We are actually continuing mesalamine 800 p.o. t.i.d. and Solu-Medrol 40 mg IV q 8. P.r.n. morphine, IV Pepcid. PEARL MACK DO DR: JOSÉ MIGUEL/katrina JOB#: [id number] / [id number]
[2019-04-25 15:00] VITALS: BP 106/62
--- NOTE | 2019-04-25 16:02 | NUR ---
SW consulted for AD. SW provided pt with AD form and informed pt to contact SW if he wants to complete form during hospital stay. Pt verbalized understanding. No other SW needs noted.
[2019-04-25 19:00] VITALS: BP 124/77
[2019-04-25 22:53] VITALS: BP 117/70
[2019-04-25] MEDS: SIMETHICONE 80 MG TAB.CHEW PO PRN (23:02)
[2019-04-26] MEDS: fentaNYL PF VIAL 100 MCG/2 ML VIAL IV PRN ×7 (02:24→23:39)
[2019-04-26] MEDS: IV NORMAL SALINE 1000ML BAG 1,000 ML IV SCH ×2 (03:15→14:36)
[2019-04-26 03:52] VITALS: BP 99/60
[2019-04-26] MEDS: methylPREDNISolone SOD SUCC PF 40 MG/ML VIAL. IV SCH (06:00)
[2019-04-26 07:00] VITALS: BP 102/63
[2019-04-26] MEDS: MESALAMINE 400 MG CAP.DRTAB. PO SCH ×3 (08:26→21:06)
[2019-04-26] MEDS: FAMOTIDINE 20 MG/2 ML VIAL IVP SCH (08:26)
--- NOTE | 2019-04-26 09:04 | PDOC ---
Subjective: Subjective: Feels the same, "I can't afford to be here." Lots of gas. Not as much diarrhea. Ongoing lower abd pain. Feels bad if he drinks clears or eats pudding and meg crackers but like pudding and crackers better. Objective: Objective: Reviewed records from [place]. 03/20/19 - seen for [facility] x 3 months - constipation, then leaking after stool softeners, n/v. Abd X-Ray: moderate colonic stool burden (right and transverse). CT: probable hepatic hemangiomas, normal GB, edema of rectosigmoid wall w/ mild adjacent inflammatory changes. Hgb 10.8, lipase 144 (range 8-78), +fecal occult. NO COLONOSCOPY RECORDS RECEIVED. After I saw, nurse reports C Diff + Vital Signs: Vital Signs Date Time Temp Pulse Resp B/P (MAP) Pulse Ox O2 Delivery O2 Flow Rate FiO2 04/26/19 08:22 Room Air 04/26/19 07:00 97.9 50 18 102/63 (76) 96 97.9 PE: GEN: NAD LUNGS: CTAB HEART: RRR ABD: infrequent bowel sounds, BLQ discomfort NEURO/PSYCH: A & O �3 A/P: C Diff ?UC - recently diagnosed in [place], no colonoscopy records received Pancolitis/ileitis on CT -- Vanco for C Diff, check KUB, recheck labs. Full liquids. Adjust steroids - change to PO w/ plans for 5 week taper when discharged. HALIE GROSS Apr 26, 2019 09:04
--- NOTE | 2019-04-26 09:47 | NUR ---
IP: Pt is C.diff + requiring contact plus precautions using brown sign.
[2019-04-26] MEDS: VANCOMYCIN 125 MG/2.5 ML ORAL SOLUTION. PO SCH ×4 (10:11→21:05)
--- NOTE | 2019-04-26 10:55 | PDOC ---
[employer] PROGRESS NOTE Chief Complaint Chief Complaint Ulcerative colitis flare C. difficile positive as of this morning History of Present Illness History of Present Illness 6�20�9 Patient seen and examined this morning He is now C. difficile positive Discussed with nurse Discussed with GI nurse practitioner Patient will anxious about his IV beeping and wants a more frequent shower 6�19�2019 Patient seen and examined He is requesting clear liquid diet Patient seen and examined Vitals Vitals Vital Signs Date Time Temp Pulse Resp B/P (MAP) Pulse Ox O2 Delivery O2 Flow Rate FiO2 04/26/19 08:22 Room Air 04/26/19 07:00 97.9 50 18 102/63 (76) 96 97.9 Physical Exam General: Alert, Oriented X3, Cooperative, No acute distress Heart: Regular rate, Normal S1 Lungs: Clear Abdomen: Soft, Other (diffuse tenderness on light touch, normoactive bowel sounds, but not an acute abdomen) Extremities: No clubbing, No cyanosis, No edema, Normal pulses, No tenderness/swelling Skin: No rashes, No breakdown, No significant lesion Assessment and Plan Assessmemt and Plan Problems Medical Problems: (1) Ulcerative colitis Status: Acute Ulcerative colitis C. difficile Plan Add by mouth vancomycin Clear liquid diet if okay with GI continue antibiotics Home meds DVT prophylaxis Full code Hope to discharge by the end of the week Comment Review of Relevant I have reviewed the following items maria teresa (where applicable) has been applied. Labs Laboratory Tests Test 04/25/19 09:00 White Blood Count 8.6 x10^3/uL (4.0-11.0) Red Blood Count 3.34 x10^6/uL (4.30-5.70) Hemoglobin 9.5 g/dL (13.0-17.5) Hematocrit 29.6 % (39.0-53.0) Mean Corpuscular Volume 89 fL (79-100) Mean Corpuscular Hemoglobin 29 pg (25-35) Mean Corpuscular Hemoglobin Concent 32 g/dL (31-37) Red Cell Distribution Width 15.5 % (11.5-14.5) Platelet Count 418 x10^3/uL (140-400) Sodium Level 136 mmol/L (136-145) Potassium Level 3.9 mmol/L (3.5-5.1) Chloride Level 102 mmol/L (98-107) Carbon Dioxide Level 27 mmol/L (21-32) Anion Gap 7 (6-14) Blood Urea Nitrogen 11 mg/dL (8-26) Creatinine 0.6 mg/dL (0.7-1.3) Estimated GFR (Cockcroft-Gault) 139.9 BUN/Creatinine Ratio 18 (6-20) Glucose Level 168 mg/dL (70-99) Calcium Level 7.9 mg/dL (8.5-10.1) Total Bilirubin 0.2 mg/dL (0.2-1.0) Aspartate Amino Transf (AST/SGOT) 13 U/L (15-37) Alanine Aminotransferase (ALT/SGPT) 26 U/L (16-63) Alkaline Phosphatase 81 U/L (46-116) Total Protein 5.6 g/dL (6.4-8.2) Albumin 1.7 g/dL (3.4-5.0) Albumin/Globulin Ratio 0.4 (1.0-1.7) Medications Current Medications Sodium Chloride 1,000 ml @ 1,000 mls/hr 1X ONCE IV Last administered on 04/23/19at 16:25; Start 04/23/19 at 16:00; Stop 04/23/19 at 16:59; Status DC Ondansetron HCl (Zofran) 8 mg 1X ONCE IV Last administered on 04/23/19at 16:24; Start 04/23/19 at 16:00; Stop 04/23/19 at 16:01; Status DC Morphine Sulfate (Morphine Sulfate) 4 mg 1X ONCE IV Last administered on 04/23/19at 16:25; Start 04/23/19 at 16:00; Stop 04/23/19 at 16:01; Status DC Iohexol (Omnipaque 300 Mg/ml) 75 ml 1X ONCE IV Last administered on 04/23/19at 16:11; Start 04/23/19 at 16:00; Stop 04/23/19 at 16:01; Status DC Info (CONTRAST GIVEN -- Rx MONITORING) 1 each PRN DAILY PRN MC SEE COMMENTS; Start 04/23/19 at 16:00; Stop 04/25/19 at 15:59; Status DC Methylprednisolone Sodium Succinate (SOLU-Medrol 125MG VIAL) 125 mg 1X ONCE IV Last administered on 04/23/19at 17:30; Start 04/23/19 at 17:30; Stop 04/23/19 at 17:31; Status DC Fentanyl Citrate (Fentanyl 2ml Vial) 75 mcg 1X ONCE IV Last administered on 04/23/19at 17:30; Start 04/23/19 at 17:30; Stop 04/23/19 at 17:31; Status DC Ondansetron HCl (Zofran) 4 mg PRN Q8HRS PRN IV NAUSEA/VOMITING; Start 04/23/19 at 17:30; Stop 04/23/19 at 17:43; Status DC Morphine Sulfate (Morphine Sulfate) 4 mg PRN Q6HRS PRN IV PAIN Last administered on 04/24/19at 09:40; Start 04/23/19 at 17:30; Stop 04/24/19 at 17:29; Status DC Sodium Chloride 1,000 ml @ 100 mls/hr Q10H IV Last administered on 04/24/19at 14:34; Start 04/23/19 at 18:00; Stop 04/24/19 at 17:59; Status DC Ondansetron HCl (Zofran) 4 mg PRN Q6HRS PRN IV NAUSEA/VOMITING Last administered on 04/25/19at 17:35; Start 04/23/19 at 17:45 Famotidine (Pepcid Vial) 20 mg BID IVP Last administered on 04/26/19at 08:26; Start 04/23/19 at 21:00; Stop 04/26/19 at 09:39; Status DC Fentanyl Citrate (Fentanyl 2ml Vial) 50 mcg PRN Q2HR PRN IV PAIN Last administered on 04/26/19at 06:50; Start 04/23/19 at 17:45 Methylprednisolone Sodium Succinate (SOLU-Medrol 40MG VIAL) 40 mg Q8HRS IV Last administered on 04/26/19at 06:00; Start 04/23/19 at 22:00; Stop 04/26/19 at 09:16; Status DC Diphenhydramine HCl (Benadryl) 25 mg PRN QHS PRN IVP INSOMNIA; Start 04/23/19 at 17:45 Pharmacy Consult (C.diff Med Screen By Rx) 1 each 1X ONCE MC Last administered on 04/24/19at 09:00; Start 04/24/19 at 09:00; Stop 04/24/19 at 09:01; Status DC Mesalamine (Delzicol) 800 mg TID PO Last administered on 04/26/19at 08:26; Start 04/24/19 at 14:00 Sodium Chloride 1,000 ml @ 100 mls/hr Q10H IV Last administered on 04/26/19at 03:15; Start 04/24/19 at 22:00 Simethicone (Gas-X) 80 mg PRN Q6HRS PRN PO GAS / BLOATING Last administered on 04/25/19at 23:02; Start 04/25/19 at 22:15 Vancomycin HCl (Vancomycin Oral Solution) 125 mg [id number] PO Last administered on 04/26/19at 10:11; Start 04/26/19 at 09:00 Methylprednisolone Sodium Succinate (SOLU-Medrol 40MG VIAL) 40 mg BID IV ; Start 04/26/19 at 21:00; Stop 04/26/19 at 21:00; Status DC Prednisone (Prednisone) 40 mg DAILY PO ; Start 04/27/19 at 09:00 Pantoprazole Sodium (Protonix) 40 mg DAILYAC PO ; Start 04/27/19 at 07:30 Active Scripts Active Reported Dicyclomine Hcl 10 Mg Capsule 1 Cap PO TID Apriso (Mesalamine) 0.375 Gm Cap.er.24h 2 Cap PO BID Vitals/I & O Vital Sign - Last 24 Hours 04/25/19 04/25/19 04/25/19 04/25/19 11:00 15:00 17:35 19:00 Temp 97.7 98.4 99.4 97.7 98.4 99.4 Pulse 64 50 46 Resp 16 16 18 B/P (MAP) 111/64 (80) 106/62 (77) 124/77 (93) Pulse Ox 94 96 96 94 O2 Delivery Room Air Room Air Room Air Room Air 04/25/19 04/25/19 04/25/19 04/25/19 19:34 20:00 21:58 22:53 Temp 97.7 97.7 Pulse 48 Resp 16 17 18 B/P (MAP) 117/70 (86) Pulse Ox 96 96 94 O2 Delivery Room Air Room Air Room Air Room Air 04/26/19 04/26/19 04/26/19 04/26/19 02:24 02:55 03:52 06:50 Temp 97.2 97.2 Pulse 45 Resp 14 18 16 B/P (MAP) 99/60 (73) Pulse Ox 94 94 94 O2 Delivery Room Air Room Air Room Air 04/26/19 04/26/19 04/26/19 07:00 08:00 08:22 Temp 97.9 97.9 Pulse 50 Resp 18 B/P (MAP) 102/63 (76) Pulse Ox 96 O2 Delivery Room Air Room Air Room Air Intake and Output 04/25/19 04/25/19 04/26/19 15:00 23:00 07:00 Intake Total 480 ml Balance 480 ml PEARL MACK III DO Apr 26, 2019 10:55
[2019-04-26 11:00] VITALS: BP 100/61
[2019-04-26 11:23] LABS: HEMATOCRIT 30.2 % (39.0-53.0); RED BLOOD COUNT 3.44 x10^6/uL (4.30-5.70); WHITE BLOOD COUNT 8.4 x10^3/uL (4.0-11.0)
[2019-04-26 11:40] LABS: CALCIUM 8.1 mg/dL (8.5-10.1); CREATININE 0.6 mg/dL (0.7-1.3); GFR 139.9; POTASSIUM 3.9 mmol/L (3.5-5.1)
[2019-04-26] MEDS: SIMETHICONE 80 MG TAB.CHEW PO PRN ×2 (13:37→21:06)
[2019-04-26 15:00] VITALS: BP 107/67
--- NOTE | 2019-04-26 16:04 | RAD ---
BOBBI, 04/26/2019: HISTORY: Abdominal pain, ulcerative colitis There is a small amount of gas in the GI tract in a nonspecific pattern. There is no evidence organomegaly. No abnormal abdominal calcification is seen. Scattered degenerative changes are present in the spine. IMPRESSION: No acute abdominal abnormality is detected. Electronically signed by: Jose Raul Mendez MD (04/26/2019 4:01 PM) [facility]
[2019-04-26 19:00] VITALS: BP 103/67
[2019-04-26] MEDS ORDERED: methylPREDNISolone SOD SUCC PF 40 MG/ML VIAL. IV SCH (21:00)
[2019-04-26] MEDS: LACTOBACILLUS RHAMNOSUS GG 1 CAPSULE. PO SCH (21:05)
[2019-04-26 23:00] VITALS: BP 98/60
[2019-04-27] MEDS: IV NORMAL SALINE 1000ML BAG 1,000 ML IV SCH ×3 (00:38→20:33)
[2019-04-27] MEDS: fentaNYL PF VIAL 100 MCG/2 ML VIAL IV PRN ×5 (01:41→21:46)
[2019-04-27 03:00] VITALS: BP 93/64
[2019-04-27] MEDS: DICYCLOMINE HCL 10 MG CAPSULE PO PRN ×2 (03:56→12:40)
[2019-04-27 07:00] VITALS: BP 101/66
[2019-04-27] MEDS: predniSONE 20 MG TABLET PO SCH (08:54)
[2019-04-27] MEDS: MESALAMINE 400 MG CAP.DRTAB. PO SCH ×3 (08:54→20:34)
[2019-04-27] MEDS: PANTOPRAZOLE 40 MG TABLET.DR. PO SCH (08:54)
[2019-04-27] MEDS: LACTOBACILLUS RHAMNOSUS GG 1 CAPSULE. PO SCH ×2 (08:54→20:34)
[2019-04-27] MEDS: VANCOMYCIN 125 MG/2.5 ML ORAL SOLUTION. PO SCH ×4 (08:59→20:36)
[2019-04-27 11:00] VITALS: BP 97/66
--- NOTE | 2019-04-27 12:35 | PDOC ---
Subjective: Subjective: A little better. Hasn't had pain meds since 6:00 a.m. Less cramping. Wants to eat more. Wants to follow-up w/ Dr. Fowler as outpt. Objective: Vital Signs: Vital Signs Date Time Temp Pulse Resp B/P (MAP) Pulse Ox O2 Delivery O2 Flow Rate FiO2 04/27/19 07:15 Room Air 04/27/19 07:00 98.3 61 12 101/66 (78) 99 98.3 Labs: STOOL CULTURE Final Final report STOOL CULT RES 1 Final Comment No Salmonella or Shigella recovered. Performed at: [address], [place], [place] [id number] Office Administration Instructor: GILLES Conroy MD, Phone: [phone] [facility] Preliminary Preliminary report CAMPY RES 1 Preliminary Comment No Campylobacter species isolated. Performed at: [address], [place], [place] [id number] Office Administration Instructor: GILLES Conroy MD, Phone: [phone] [facility] PENDING Imaging: KUB 04/26 IMPRESSION: No acute abdominal abnormality is detected. PE: GEN: NAD LUNGS: CTAB HEART: RRR ABD: less tender NEURO/PSYCH: A & O �3 A/P: C Diff, possible UC -- Improving. ADAT. Defer pain management to primary - maybe could transition to PO pain meds in preparation for DC. Has Bentyl as well. When discharged, please send on vanco and 5 week prednisone taper (56-53-46-10-5mg) and follow-up w/ Dr. Fowler in several weeks. D/w RN and left office phone number w/ pt (and will also have office call to schedule). Checked for colonoscopy records again - none received, though the hospital did receive a fax that indicates pt could access some records online if he creates an account. HALIE GROSS Apr 27, 2019 12:35
--- NOTE | 2019-04-27 13:27 | PDOC ---
[employer] PROGRESS NOTE Chief Complaint Chief Complaint Ulcerative colitis flare C. difficile positive History of Present Illness History of Present Illness 6�21�2019 Patient seen and examined again this morning He is still having loose stools Discussed with RN He is on by mouth Vanco mesalamine and steroids 6�20�2019 Patient seen and examined this morning He is now C. difficile positive Discussed with nurse Discussed with GI nurse practitioner Patient will anxious about his IV beeping and wants a more frequent shower 6�19�2019 Patient seen and examined He is requesting clear liquid diet Patient seen and examined Vitals Vitals Vital Signs Date Time Temp Pulse Resp B/P (MAP) Pulse Ox O2 Delivery O2 Flow Rate FiO2 04/27/19 11:00 98.5 60 14 97/66 (76) 94 Room Air 98.5 Physical Exam General: Alert, Oriented X3, Cooperative, No acute distress Heart: Regular rate, Normal S1 Lungs: Clear Abdomen: Soft, Other (diffuse tenderness on light touch, normoactive bowel sounds, but not an acute abdomen) Extremities: No clubbing, No cyanosis, No edema, Normal pulses, No tenderness/swelling Skin: No rashes, No breakdown, No significant lesion Assessment and Plan Assessmemt and Plan Problems Medical Problems: (1) Ulcerative colitis Status: Acute Ulcerative colitis C. difficile Plan By mouth vancomycin Recheck labs Clear liquid diet if okay with GI continue antibiotics Home meds DVT prophylaxis Full code Comment Review of Relevant I have reviewed the following items maria teresa (where applicable) has been applied. Labs Laboratory Tests Test 04/26/19 11:00 White Blood Count 8.4 x10^3/uL (4.0-11.0) Red Blood Count 3.44 x10^6/uL (4.30-5.70) Hemoglobin 10.0 g/dL (13.0-17.5) Hematocrit 30.2 % (39.0-53.0) Mean Corpuscular Volume 88 fL (79-100) Mean Corpuscular Hemoglobin 29 pg (25-35) Mean Corpuscular Hemoglobin Concent 33 g/dL (31-37) Red Cell Distribution Width 15.0 % (11.5-14.5) Platelet Count 409 x10^3/uL (140-400) Sodium Level 136 mmol/L (136-145) Potassium Level 3.9 mmol/L (3.5-5.1) Chloride Level 101 mmol/L (98-107) Carbon Dioxide Level 28 mmol/L (21-32) Anion Gap 7 (6-14) Blood Urea Nitrogen 9 mg/dL (8-26) Creatinine 0.6 mg/dL (0.7-1.3) Estimated GFR (Cockcroft-Gault) 139.9 Glucose Level 157 mg/dL (70-99) Calcium Level 8.1 mg/dL (8.5-10.1) Microbiology 04/25/19 Stool Culture - Final, Resulted 04/25/19 Stool Culture Result 1 ([facility]) - Final, Resulted 04/25/19 Campylobacter Antigen Assay - Preliminary, Resulted 04/25/19 Campylobactor Result 1 - Preliminary, Resulted 04/25/19 Shiga Toxin Test, Resulted Pending Medications Current Medications Sodium Chloride 1,000 ml @ 1,000 mls/hr 1X ONCE IV Last administered on 04/23/19at 16:25; Start 04/23/19 at 16:00; Stop 04/23/19 at 16:59; Status DC Ondansetron HCl (Zofran) 8 mg 1X ONCE IV Last administered on 04/23/19at 16:24; Start 04/23/19 at 16:00; Stop 04/23/19 at 16:01; Status DC Morphine Sulfate (Morphine Sulfate) 4 mg 1X ONCE IV Last administered on 04/23/19at 16:25; Start 04/23/19 at 16:00; Stop 04/23/19 at 16:01; Status DC Iohexol (Omnipaque 300 Mg/ml) 75 ml 1X ONCE IV Last administered on 04/23/19at 16:11; Start 04/23/19 at 16:00; Stop 04/23/19 at 16:01; Status DC Info (CONTRAST GIVEN -- Rx MONITORING) 1 each PRN DAILY PRN MC SEE COMMENTS; Start 04/23/19 at 16:00; Stop 04/25/19 at 15:59; Status DC Methylprednisolone Sodium Succinate (SOLU-Medrol 125MG VIAL) 125 mg 1X ONCE IV Last administered on 04/23/19at 17:30; Start 04/23/19 at 17:30; Stop 04/23/19 at 17:31; Status DC Fentanyl Citrate (Fentanyl 2ml Vial) 75 mcg 1X ONCE IV Last administered on 04/23/19at 17:30; Start 04/23/19 at 17:30; Stop 04/23/19 at 17:31; Status DC Ondansetron HCl (Zofran) 4 mg PRN Q8HRS PRN IV NAUSEA/VOMITING; Start 04/23/19 at 17:30; Stop 04/23/19 at 17:43; Status DC Morphine Sulfate (Morphine Sulfate) 4 mg PRN Q6HRS PRN IV PAIN Last administered on 04/24/19at 09:40; Start 04/23/19 at 17:30; Stop 04/24/19 at 17:29; Status DC Sodium Chloride 1,000 ml @ 100 mls/hr Q10H IV Last administered on 04/24/19at 14:34; Start 04/23/19 at 18:00; Stop 04/24/19 at 17:59; Status DC Ondansetron HCl (Zofran) 4 mg PRN Q6HRS PRN IV NAUSEA/VOMITING Last administered on 04/25/19at 17:35; Start 04/23/19 at 17:45 Famotidine (Pepcid Vial) 20 mg BID IVP Last administered on 04/26/19 08:26; Start 04/23/19 at 21:00; Stop 04/26/19 at 09:39; Status DC Fentanyl Citrate (Fentanyl 2ml Vial) 50 mcg PRN Q2HR PRN IV PAIN Last administered on 04/27/19at 06:34; Start 04/23/19 at 17:45 Methylprednisolone Sodium Succinate (SOLU-Medrol 40MG VIAL) 40 mg Q8HRS IV Last administered on 04/26/19at 06:00; Start 04/23/19 at 22:00; Stop 04/26/19 at 09:16; Status DC Diphenhydramine HCl (Benadryl) 25 mg PRN QHS PRN IVP INSOMNIA; Start 04/23/19 at 17:45 Pharmacy Consult (C.diff Med Screen By Rx) 1 each 1X ONCE MC Last administered on 04/24/19at 09:00; Start 04/24/19 at 09:00; Stop 04/24/19 at 09:01; Status DC Mesalamine (Delzicol) 800 mg TID PO Last administered on 04/27/19at 08:54; Start 04/24/19 at 14:00 Sodium Chloride 1,000 ml @ 100 mls/hr Q10H IV Last administered on 04/27/19at 10:50; Start 04/24/19 at 22:00 Simethicone (Gas-X) 80 mg PRN Q6HRS PRN PO GAS / BLOATING Last administered on 04/26/19 21:06; Start 04/25/19 at 22:15 Vancomycin HCl (Vancomycin Oral Solution) 125 mg [id number] PO Last administered on 04/27/19at 12:37; Start 04/26/19 at 09:00 Methylprednisolone Sodium Succinate (SOLU-Medrol 40MG VIAL) 40 mg BID IV ; Start 04/26/19 at 21:00; Stop 04/26/19 at 21:00; Status DC Prednisone (Prednisone) 40 mg DAILY PO Last administered on 04/27/19at 08:54; Start 04/27/19 at 09:00 Pantoprazole Sodium (Protonix) 40 mg DAILYAC PO Last administered on 04/27/19at 08:54; Start 04/27/19 at 07:30 Lactobacillus Rhamnosus (Culturelle) 1 cap BID PO Last administered on 04/27/19 08:54; Start 04/26/19 at 21:00 Dicyclomine HCl (Bentyl) 10 mg PRN TID PRN PO STOMACH CRAMPING Last administered on 04/27/19at 12:40; Start 04/27/19 at 03:45 Active Scripts Active Reported Dicyclomine Hcl 10 Mg Capsule 1 Cap PO TID Apriso (Mesalamine) 0.375 Gm Cap.er.24h 2 Cap PO BID Vitals/I & O Vital Sign - Last 24 Hours 04/26/19 04/26/19 04/26/19 04/26/19 13:32 15:00 16:56 19:00 Temp 98.0 98.1 98.0 98.1 Pulse 75 57 Resp 18 18 B/P (MAP) 107/67 (80) 103/67 (79) Pulse Ox 100 95 O2 Delivery Room Air Room Air Room Air Room Air 04/26/19 04/26/19 04/26/19 04/26/19 19:03 20:00 21:40 23:00 Temp 98.1 98.1 Pulse 67 Resp 16 18 B/P (MAP) 98/60 (73) Pulse Ox 95 97 O2 Delivery Room Air Room Air Room Air Room Air 04/26/19 04/27/19 04/27/19 04/27/19 23:39 01:41 03:00 03:56 Temp 97.9 97.9 Pulse 58 Resp 16 16 18 16 B/P (MAP) 93/64 (74) Pulse Ox 95 95 94 94 O2 Delivery Room Air Room Air Room Air Room Air 04/27/19 04/27/19 04/27/19 04/27/19 04:26 06:34 07:00 07:15 Temp 98.3 98.3 Pulse 61 Resp 13 14 12 B/P (MAP) 101/66 (78) Pulse Ox 94 94 99 O2 Delivery Room Air Room Air Room Air 04/27/19 11:00 Temp 98.5 98.5 Pulse 60 Resp 14 B/P (MAP) 97/66 (76) Pulse Ox 94 O2 Delivery Room Air Intake and Output 04/26/19 04/26/19 04/27/19 15:00 23:00 07:00 Intake Total 1670 ml 290 ml Balance 1670 ml 290 ml PEARL MACK III DO Apr 27, 2019 13:27
[2019-04-27 15:00] VITALS: BP 97/62
[2019-04-27 19:00] VITALS: BP 104/65
[2019-04-27 23:00] VITALS: BP 109/71
[2019-04-28] MEDS: fentaNYL PF VIAL 100 MCG/2 ML VIAL IV PRN ×5 (00:09→22:36)
[2019-04-28] MEDS: DICYCLOMINE HCL 10 MG CAPSULE PO PRN (00:12)
[2019-04-28 03:00] VITALS: BP 102/72
[2019-04-28 04:49] LABS: BASO % 0 % (0-3); EOS % 1 % (0-3); HEMATOCRIT 26.6 % (39.0-53.0); HEMOGLOBIN 8.8 g/dL (13.0-17.5); LYMPH # 0.7 x10^3/uL (1.0-4.8); LYMPH % 9 % (24-48); MEAN CORPUSCULAR HEMOGLOBIN 29 pg (25-35); MEAN CORPUSCULAR HGB CONC 33 g/dL (31-37); MEAN CORPUSCULAR VOLUME 88 fL (79-100); MONO # 0.6 x10^3/uL (0.0-1.1); MONO % 8 % (0-9); NEUT # 6.6 x10^3uL (1.8-7.7); NEUT % 82 % (31-73); PLATELET COUNT 357 x10^3/uL (140-400); RED BLOOD COUNT 3.04 x10^6/uL (4.30-5.70); RED CELL DISTRIBUTION WIDTH 15.2 % (11.5-14.5)
[2019-04-28 05:13] LABS: CALCIUM 7.3 mg/dL (8.5-10.1); CREATININE 0.6 mg/dL (0.7-1.3); GFR 139.9; POTASSIUM 3.3 mmol/L (3.5-5.1)
[2019-04-28] MEDS: IV NORMAL SALINE 1000ML BAG 1,000 ML IV SCH ×2 (06:18→16:51)
[2019-04-28 07:00] VITALS: BP 103/67
[2019-04-28] MEDS: LACTOBACILLUS RHAMNOSUS GG 1 CAPSULE. PO SCH ×2 (07:56→20:28)
[2019-04-28] MEDS: PANTOPRAZOLE 40 MG TABLET.DR. PO SCH (07:56)
[2019-04-28] MEDS: VANCOMYCIN 125 MG/2.5 ML ORAL SOLUTION. PO SCH ×4 (07:57→20:28)
[2019-04-28] MEDS: MESALAMINE 400 MG CAP.DRTAB. PO SCH ×3 (07:57→20:28)
[2019-04-28] MEDS: predniSONE 20 MG TABLET PO SCH (07:57)
--- NOTE | 2019-04-28 10:46 | PDOC ---
PROGRESS NOTES Chief Complaint Chief Complaint Ulcerative colitis flare C. difficile positive History of Present Illness History of Present Illness 6�21�2019 Patient seen and examined again this morning He is still having loose stools Discussed with RN He is on by mouth Vanco mesalamine and steroids 6�20�2019 Patient seen and examined this morning He is now C. difficile positive Discussed with nurse Discussed with GI nurse practitioner Patient will anxious about his IV beeping and wants a more frequent shower 6�19�2019 Patient seen and examined He is requesting clear liquid diet Patient seen and examined 04/28 crampy abdominal discomfort with diarrhea this morning, k low Vitals Vitals Vital Signs Date Time Temp Pulse Resp B/P (MAP) Pulse Ox O2 Delivery O2 Flow Rate FiO2 04/28/19 09:40 Room Air 04/28/19 07:00 98.2 64 18 103/67 (79) 97 98.2 Physical Exam General: Alert, Oriented X3, Cooperative, No acute distress Heart: Regular rate, Normal S1 Lungs: Clear Abdomen: Soft, Other (diffuse tenderness on light touch, normoactive bowel sounds, but not an acute abdomen) Extremities: No clubbing, No cyanosis, No edema, Normal pulses, No tenderness/swelling Skin: No rashes, No breakdown, No significant lesion Labs LABS Laboratory Tests Test 04/28/19 04:10 White Blood Count 8.0 x10^3/uL (4.0-11.0) Red Blood Count 3.04 x10^6/uL (4.30-5.70) Hemoglobin 8.8 g/dL (13.0-17.5) Hematocrit 26.6 % (39.0-53.0) Mean Corpuscular Volume 88 fL (79-100) Mean Corpuscular Hemoglobin 29 pg (25-35) Mean Corpuscular Hemoglobin Concent 33 g/dL (31-37) Red Cell Distribution Width 15.2 % (11.5-14.5) Platelet Count 357 x10^3/uL (140-400) Neutrophils (%) (Auto) 82 % (31-73) Lymphocytes (%) (Auto) 9 % (24-48) Monocytes (%) (Auto) 8 % (0-9) Eosinophils (%) (Auto) 1 % (0-3) Basophils (%) (Auto) 0 % (0-3) Neutrophils # (Auto) 6.6 x10^3uL (1.8-7.7) Lymphocytes # (Auto) 0.7 x10^3/uL (1.0-4.8) Monocytes # (Auto) 0.6 x10^3/uL (0.0-1.1) Eosinophils # (Auto) 0.0 x10^3/uL (0.0-0.7) Basophils # (Auto) 0.0 x10^3/uL (0.0-0.2) Sodium Level 137 mmol/L (136-145) Potassium Level 3.3 mmol/L (3.5-5.1) Chloride Level 103 mmol/L (98-107) Carbon Dioxide Level 29 mmol/L (21-32) Anion Gap 5 (6-14) Blood Urea Nitrogen 8 mg/dL (8-26) Creatinine 0.6 mg/dL (0.7-1.3) Estimated GFR (Cockcroft-Gault) 139.9 Glucose Level 96 mg/dL (70-99) Calcium Level 7.3 mg/dL (8.5-10.1) Assessment and Plan Assessmemt and Plan Problems Medical Problems: (1) Ulcerative colitis Status: Acute Comment Review of Relevant I have reviewed the following items maria teresa (where applicable) has been applied. Labs Laboratory Tests Test 04/26/19 11:00 04/28/19 04:10 White Blood Count 8.4 x10^3/uL (4.0-11.0) 8.0 x10^3/uL (4.0-11.0) Red Blood Count 3.44 x10^6/uL (4.30-5.70) 3.04 x10^6/uL (4.30-5.70) Hemoglobin 10.0 g/dL (13.0-17.5) 8.8 g/dL (13.0-17.5) Hematocrit 30.2 % (39.0-53.0) 26.6 % (39.0-53.0) Mean Corpuscular Volume 88 fL (79-100) 88 fL (79-100) Mean Corpuscular Hemoglobin 29 pg (25-35) 29 pg (25-35) Mean Corpuscular Hemoglobin Concent 33 g/dL (31-37) 33 g/dL (31-37) Red Cell Distribution Width 15.0 % (11.5-14.5) 15.2 % (11.5-14.5) Platelet Count 409 x10^3/uL (140-400) 357 x10^3/uL (140-400) Sodium Level 136 mmol/L (136-145) 137 mmol/L (136-145) Potassium Level 3.9 mmol/L (3.5-5.1) 3.3 mmol/L (3.5-5.1) Chloride Level 101 mmol/L (98-107) 103 mmol/L (98-107) Carbon Dioxide Level 28 mmol/L (21-32) 29 mmol/L (21-32) Anion Gap 7 (6-14) 5 (6-14) Blood Urea Nitrogen 9 mg/dL (8-26) 8 mg/dL (8-26) Creatinine 0.6 mg/dL (0.7-1.3) 0.6 mg/dL (0.7-1.3) Estimated GFR (Cockcroft-Gault) 139.9 139.9 Glucose Level 157 mg/dL (70-99) 96 mg/dL (70-99) Calcium Level 8.1 mg/dL (8.5-10.1) 7.3 mg/dL (8.5-10.1) Neutrophils (%) (Auto) 82 % (31-73) Lymphocytes (%) (Auto) 9 % (24-48) Monocytes (%) (Auto) 8 % (0-9) Eosinophils (%) (Auto) 1 % (0-3) Basophils (%) (Auto) 0 % (0-3) Neutrophils # (Auto) 6.6 x10^3uL (1.8-7.7) Lymphocytes # (Auto) 0.7 x10^3/uL (1.0-4.8) Monocytes # (Auto) 0.6 x10^3/uL (0.0-1.1) Eosinophils # (Auto) 0.0 x10^3/uL (0.0-0.7) Basophils # (Auto) 0.0 x10^3/uL (0.0-0.2) Laboratory Tests Test 04/28/19 04:10 White Blood Count 8.0 x10^3/uL (4.0-11.0) Red Blood Count 3.04 x10^6/uL (4.30-5.70) Hemoglobin 8.8 g/dL (13.0-17.5) Hematocrit 26.6 % (39.0-53.0) Mean Corpuscular Volume 88 fL (79-100) Mean Corpuscular Hemoglobin 29 pg (25-35) Mean Corpuscular Hemoglobin Concent 33 g/dL (31-37) Red Cell Distribution Width 15.2 % (11.5-14.5) Platelet Count 357 x10^3/uL (140-400) Neutrophils (%) (Auto) 82 % (31-73) Lymphocytes (%) (Auto) 9 % (24-48) Monocytes (%) (Auto) 8 % (0-9) Eosinophils (%) (Auto) 1 % (0-3) Basophils (%) (Auto) 0 % (0-3) Neutrophils # (Auto) 6.6 x10^3uL (1.8-7.7) Lymphocytes # (Auto) 0.7 x10^3/uL (1.0-4.8) Monocytes # (Auto) 0.6 x10^3/uL (0.0-1.1) Eosinophils # (Auto) 0.0 x10^3/uL (0.0-0.7) Basophils # (Auto) 0.0 x10^3/uL (0.0-0.2) Sodium Level 137 mmol/L (136-145) Potassium Level 3.3 mmol/L (3.5-5.1) Chloride Level 103 mmol/L (98-107) Carbon Dioxide Level 29 mmol/L (21-32) Anion Gap 5 (6-14) Blood Urea Nitrogen 8 mg/dL (8-26) Creatinine 0.6 mg/dL (0.7-1.3) Estimated GFR (Cockcroft-Gault) 139.9 Glucose Level 96 mg/dL (70-99) Calcium Level 7.3 mg/dL (8.5-10.1) Microbiology 04/25/19 Stool Culture - Final, Resulted 04/25/19 Stool Culture Result 1 ([facility]) - Final, Resulted 04/25/19 Campylobacter Antigen Assay - Preliminary, Resulted 04/25/19 Campylobactor Result 1 - Preliminary, Resulted 04/25/19 Shiga Toxin Test - Final, Resulted Medications Current Medications Sodium Chloride 1,000 ml @ 1,000 mls/hr 1X ONCE IV Last administered on 04/23/19 16:25; Start 04/23/19 at 16:00; Stop 04/23/19 at 16:59; Status DC Ondansetron HCl (Zofran) 8 mg 1X ONCE IV Last administered on 04/23/19at 16:24; Start 04/23/19 at 16:00; Stop 04/23/19 at 16:01; Status DC Morphine Sulfate (Morphine Sulfate) 4 mg 1X ONCE IV Last administered on 04/23/19at 16:25; Start 04/23/19 at 16:00; Stop 04/23/19 at 16:01; Status DC Iohexol (Omnipaque 300 Mg/ml) 75 ml 1X ONCE IV Last administered on 04/23/19at 16:11; Start 04/23/19 at 16:00; Stop 04/23/19 at 16:01; Status DC Info (CONTRAST GIVEN -- Rx MONITORING) 1 each PRN DAILY PRN MC SEE COMMENTS; Start 04/23/19 at 16:00; Stop 04/25/19 at 15:59; Status DC Methylprednisolone Sodium Succinate (SOLU-Medrol 125MG VIAL) 125 mg 1X ONCE IV Last administered on 04/23/19at 17:30; Start 04/23/19 at 17:30; Stop 04/23/19 at 17:31; Status DC Fentanyl Citrate (Fentanyl 2ml Vial) 75 mcg 1X ONCE IV Last administered on 04/23/19at 17:30; Start 04/23/19 at 17:30; Stop 04/23/19 at 17:31; Status DC Ondansetron HCl (Zofran) 4 mg PRN Q8HRS PRN IV NAUSEA/VOMITING; Start 04/23/19 at 17:30; Stop 04/23/19 at 17:43; Status DC Morphine Sulfate (Morphine Sulfate) 4 mg PRN Q6HRS PRN IV PAIN Last administered on 04/24/19at 09:40; Start 04/23/19 at 17:30; Stop 04/24/19 at 17:29; Status DC Sodium Chloride 1,000 ml @ 100 mls/hr Q10H IV Last administered on 04/24/19at 14:34; Start 04/23/19 at 18:00; Stop 04/24/19 at 17:59; Status DC Ondansetron HCl (Zofran) 4 mg PRN Q6HRS PRN IV NAUSEA/VOMITING Last administered on 04/25/19at 17:35; Start 04/23/19 at 17:45 Famotidine (Pepcid Vial) 20 mg BID IVP Last administered on 04/26/19at 08:26; Start 04/23/19 at 21:00; Stop 04/26/19 at 09:39; Status DC Fentanyl Citrate (Fentanyl 2ml Vial) 50 mcg PRN Q2HR PRN IV PAIN Last administered on 04/28/19at 08:51; Start 04/23/19 at 17:45 Methylprednisolone Sodium Succinate (SOLU-Medrol 40MG VIAL) 40 mg Q8HRS IV Last administered on 04/26/19at 06:00; Start 04/23/19 at 22:00; Stop 04/26/19 at 09:16; Status DC Diphenhydramine HCl (Benadryl) 25 mg PRN QHS PRN IVP INSOMNIA; Start 04/23/19 at 17:45 Pharmacy Consult (C.diff Med Screen By Rx) 1 each 1X ONCE MC Last administered on 04/24/19at 09:00; Start 04/24/19 at 09:00; Stop 04/24/19 at 09:01; Status DC Mesalamine (Delzicol) 800 mg TID PO Last administered on 04/28/19at 07:57; Start 04/24/19 at 14:00 Sodium Chloride 1,000 ml @ 100 mls/hr Q10H IV Last administered on 04/28/19 06:18; Start 04/24/19 at 22:00 Simethicone (Gas-X) 80 mg PRN Q6HRS PRN PO GAS / BLOATING Last administered on 04/26/19at 21:06; Start 04/25/19 at 22:15 Vancomycin HCl (Vancomycin Oral Solution) 125 mg [id number] PO Last administered on 04/28/19at 07:57; Start 04/26/19 at 09:00 Methylprednisolone Sodium Succinate (SOLU-Medrol 40MG VIAL) 40 mg BID IV ; Start 04/26/19 at 21:00; Stop 04/26/19 at 21:00; Status DC Prednisone (Prednisone) 40 mg DAILY PO Last administered on 04/28/19at 07:57; Start 04/27/19 at 09:00 Pantoprazole Sodium (Protonix) 40 mg DAILYAC PO Last administered on 04/28/19at 07:56; Start 04/27/19 at 07:30 Lactobacillus Rhamnosus (Culturelle) 1 cap BID PO Last administered on 04/28/19at 07:56; Start 04/26/19 at 21:00 Dicyclomine HCl (Bentyl) 10 mg PRN TID PRN PO STOMACH CRAMPING Last administered on 04/28/19at 00:12; Start 04/27/19 at 03:45 Active Scripts Active Reported Dicyclomine Hcl 10 Mg Capsule 1 Cap PO TID Apriso (Mesalamine) 0.375 Gm Cap.er.24h 2 Cap PO BID Vitals/I & O Vital Sign - Last 24 Hours 04/27/19 04/27/19 04/27/19 04/27/19 11:00 14:42 15:00 19:00 Temp 98.5 98.9 98.5 98.5 98.9 98.5 Pulse 60 56 80 Resp 14 17 17 B/P (MAP) 97/66 (76) 97/62 (74) 104/65 (78) Pulse Ox 94 96 96 O2 Delivery Room Air Room Air Room Air Room Air 04/27/19 04/27/19 04/27/19 04/28/19 20:20 21:46 23:00 00:09 Temp 98.3 98.3 Pulse 65 Resp 20 17 20 B/P (MAP) 109/71 (84) Pulse Ox 96 O2 Delivery Room Air Room Air Room Air Room Air 04/28/19 04/28/19 04/28/19 04/28/19 03:00 06:17 06:47 07:00 Temp 98.1 98.2 98.1 98.2 Pulse 69 64 Resp 17 20 18 18 B/P (MAP) 102/72 (82) 103/67 (79) Pulse Ox 95 97 O2 Delivery Room Air Room Air Room Air 04/28/19 04/28/19 04/28/19 08:03 08:51 09:40 O2 Delivery Room Air Room Air Room Air Intake and Output 04/27/19 04/27/19 04/28/19 14:59 22:59 06:59 Intake Total 360 ml 1240 ml 1050 ml Balance 360 ml 1240 ml 1050 ml Nutrition Consultation Dietary Evaluation: Comments: advance diet as tolerated offer supplements prn Expected Outcomes/Goals: to meet > 75% est nutr needs Interpretation of weight loss: >7.5% in 3 months Malnutrition Findings: Food and Nutrition Intake (Sev: <50% est energy req 5days Weight Status: Appropriate JAZMÍN HALL MD Apr 28, 2019 10:46
[2019-04-28 11:00] VITALS: BP 101/62
--- NOTE | 2019-04-28 11:50 | PDOC ---
GI PROGRESS NOTES Date Date/Time DATE: 04/28/19 TIME: 11:47 Subjective Subjective Some worsening of crampy abdominal discomfort with diarrhea this morning after eating breakfast. He felt like he might be making some improvement yesterday. Dicyclomine apparently was helping but it was stopped for some reason. No bleeding is overtly reported Objective Vitals Vital Signs Date Time Temp Pulse Resp B/P (MAP) Pulse Ox O2 Delivery O2 Flow Rate FiO2 04/28/19 11:00 98.2 66 18 101/62 (75) 98 Room Air 98.2 04/28/19 09:40 Room Air 04/28/19 08:51 Room Air 04/28/19 08:03 Room Air 04/28/19 07:00 98.2 64 18 103/67 (79) 97 Room Air 98.2 04/28/19 06:47 18 04/28/19 06:17 20 Room Air 04/28/19 03:00 98.1 69 17 102/72 (82) 95 Room Air 98.1 04/28/19 00:09 20 Room Air 04/27/19 23:00 98.3 65 17 109/71 (84) 96 Room Air 98.3 04/27/19 21:46 20 Room Air 04/27/19 20:20 Room Air 04/27/19 19:00 98.5 80 17 104/65 (78) 96 Room Air 98.5 04/27/19 15:00 98.9 56 17 97/62 (74) 96 Room Air 98.9 04/27/19 14:42 Room Air Labs Labs Laboratory Tests Test 04/28/19 04:10 White Blood Count 8.0 x10^3/uL (4.0-11.0) Red Blood Count 3.04 x10^6/uL (4.30-5.70) Hemoglobin 8.8 g/dL (13.0-17.5) Hematocrit 26.6 % (39.0-53.0) Mean Corpuscular Volume 88 fL (79-100) Mean Corpuscular Hemoglobin 29 pg (25-35) Mean Corpuscular Hemoglobin Concent 33 g/dL (31-37) Red Cell Distribution Width 15.2 % (11.5-14.5) Platelet Count 357 x10^3/uL (140-400) Neutrophils (%) (Auto) 82 % (31-73) Lymphocytes (%) (Auto) 9 % (24-48) Monocytes (%) (Auto) 8 % (0-9) Eosinophils (%) (Auto) 1 % (0-3) Basophils (%) (Auto) 0 % (0-3) Neutrophils # (Auto) 6.6 x10^3uL (1.8-7.7) Lymphocytes # (Auto) 0.7 x10^3/uL (1.0-4.8) Monocytes # (Auto) 0.6 x10^3/uL (0.0-1.1) Eosinophils # (Auto) 0.0 x10^3/uL (0.0-0.7) Basophils # (Auto) 0.0 x10^3/uL (0.0-0.2) Sodium Level 137 mmol/L (136-145) Potassium Level 3.3 mmol/L (3.5-5.1) Chloride Level 103 mmol/L (98-107) Carbon Dioxide Level 29 mmol/L (21-32) Anion Gap 5 (6-14) Blood Urea Nitrogen 8 mg/dL (8-26) Creatinine 0.6 mg/dL (0.7-1.3) Estimated GFR (Cockcroft-Gault) 139.9 Glucose Level 96 mg/dL (70-99) Calcium Level 7.3 mg/dL (8.5-10.1) Physical Exam Physical Exam Flat affect Chest clear Abdomen soft and minimally tender without point tenderness or mass. Bowel sounds are present. Assessment Assessment Colitis. Cause is unclear but may be underlying ulcerative colitis however we now know he has superimposed C. difficile colitis. Whether he will continue to have chronic colitis is unclear. His symptoms have persisted in spite of adding vancomycin several days ago. Some of the worsening of his symptoms might be related to his diet. I would recommend a liquid or small portions, extremely low-fat bland diet to avoid any triggers for cramping and diarrhea. C. difficile. Plan Plan Continue vancomycin Continue dicyclomine Continue prednisone Small portions and low-fat meals or liquids. Signed once his symptoms have stabilized and he is able to manage on his own he can be discharged for outpatient monitoring evaluation. ENRRIQUE HAMMER MD Apr 28, 2019 11:50
[2019-04-28] MEDS: DICYCLOMINE HCL 10 MG CAPSULE PO SCH ×2 (13:11→16:51)
[2019-04-28 15:00] VITALS: BP 96/64
[2019-04-28] MEDS ORDERED: POTASSIUM CHLORIDE 20 MEQ TABLET.ER. PO ONE (18:00)
[2019-04-28 19:00] VITALS: BP 102/62
[2019-04-28 22:55] VITALS: BP 116/75
[2019-04-29] MEDS: fentaNYL PF VIAL 100 MCG/2 ML VIAL IV PRN ×2 (00:35→08:19)
[2019-04-29] MEDS: oxyCODONE/APAP 5/325 1 TAB TABLET PO PRN ×3 (01:59→21:41)
[2019-04-29] MEDS ORDERED: DICYCLOMINE HCL 10 MG CAPSULE PO PRN (02:00)
[2019-04-29] MEDS: IV NORMAL SALINE 1000ML BAG 1,000 ML IV SCH ×3 (02:31→21:42)
[2019-04-29 02:56] VITALS: BP 105/68
[2019-04-29 05:18] LABS: BASO % 0 % (0-3); EOS # 0.1 x10^3/uL (0.0-0.7); EOS % 2 % (0-3); HEMATOCRIT 24.1 % (39.0-53.0); LYMPH % 18 % (24-48); MEAN CORPUSCULAR HEMOGLOBIN 29 pg (25-35); MEAN CORPUSCULAR HGB CONC 33 g/dL (31-37); MEAN CORPUSCULAR VOLUME 87 fL (79-100); MONO # 0.6 x10^3/uL (0.0-1.1); MONO % 11 % (0-9); NEUT # 3.8 x10^3uL (1.8-7.7); NEUT % 70 % (31-73); PLATELET COUNT 334 x10^3/uL (140-400); RED BLOOD COUNT 2.78 x10^6/uL (4.30-5.70); RED CELL DISTRIBUTION WIDTH 15.2 % (11.5-14.5); WHITE BLOOD COUNT 5.5 x10^3/uL (4.0-11.0)
[2019-04-29 05:36] LABS: CALCIUM 7.5 mg/dL (8.5-10.1); CREATININE 0.5 mg/dL (0.7-1.3); GFR 172.6; POTASSIUM 3.5 mmol/L (3.5-5.1)
[2019-04-29 07:00] VITALS: BP 97/61
[2019-04-29] MEDS: PANTOPRAZOLE 40 MG TABLET.DR. PO SCH (08:19)
[2019-04-29] MEDS: predniSONE 20 MG TABLET PO SCH (08:19)
[2019-04-29] MEDS: LACTOBACILLUS RHAMNOSUS GG 1 CAPSULE. PO SCH ×2 (08:19→21:41)
[2019-04-29] MEDS: VANCOMYCIN 125 MG/2.5 ML ORAL SOLUTION. PO SCH ×4 (08:20→21:40)
[2019-04-29] MEDS: MESALAMINE 400 MG CAP.DRTAB. PO SCH ×3 (08:20→21:41)
[2019-04-29] MEDS ORDERED: DICYCLOMINE HCL 10 MG CAPSULE PO SCH (09:00)
[2019-04-29 11:00] VITALS: BP 101/63
--- NOTE | 2019-04-29 11:43 | PDOC ---
PROGRESS NOTES Chief Complaint Chief Complaint Ulcerative colitis flare C. difficile positive severe protein-caloric malnutrition History of Present Illness History of Present Illness 6�21�2019 Patient seen and examined again this morning He is still having loose stools Discussed with RN He is on by mouth Vanco mesalamine and steroids 8�55�9 Patient seen and examined this morning He is now C. difficile positive Discussed with nurse Discussed with GI nurse practitioner Patient will anxious about his IV beeping and wants a more frequent shower 6�19�2016 Patient seen and examined He is requesting clear liquid diet Patient seen and examined 04/28 crampy abdominal discomfort with diarrhea this morning, k low 04/29 still cramping a lot, uncomfortable at timesSIGMOIDOSCOPY with biopsies may be helpful and will be planned for tomorrow. 26 min pt exam, chart review, > 50% of time spent with exam, chart review, pt care coordination disease education Vitals Vitals Vital Signs Date Time Temp Pulse Resp B/P (MAP) Pulse Ox O2 Delivery O2 Flow Rate FiO2 04/29/19 09:00 97 Room Air 04/29/19 07:00 98.3 64 14 97/61 (73) 98.3 Physical Exam General: Alert, Oriented X3, Cooperative, No acute distress Heart: Regular rate, Normal S1 Lungs: Clear Abdomen: Soft, Other (diffuse tenderness on light touch, normoactive bowel sounds, but not an acute abdomen) Extremities: No clubbing, No cyanosis, No edema, Normal pulses, No tenderness/swelling Skin: No rashes, No breakdown, No significant lesion Labs LABS Laboratory Tests Test 04/29/19 04:30 White Blood Count 5.5 x10^3/uL (4.0-11.0) Red Blood Count 2.78 x10^6/uL (4.30-5.70) Hemoglobin 8.0 g/dL (13.0-17.5) Hematocrit 24.1 % (39.0-53.0) Mean Corpuscular Volume 87 fL (79-100) Mean Corpuscular Hemoglobin 29 pg (25-35) Mean Corpuscular Hemoglobin Concent 33 g/dL (31-37) Red Cell Distribution Width 15.2 % (11.5-14.5) Platelet Count 334 x10^3/uL (140-400) Neutrophils (%) (Auto) 70 % (31-73) Lymphocytes (%) (Auto) 18 % (24-48) Monocytes (%) (Auto) 11 % (0-9) Eosinophils (%) (Auto) 2 % (0-3) Basophils (%) (Auto) 0 % (0-3) Neutrophils # (Auto) 3.8 x10^3uL (1.8-7.7) Lymphocytes # (Auto) 1.0 x10^3/uL (1.0-4.8) Monocytes # (Auto) 0.6 x10^3/uL (0.0-1.1) Eosinophils # (Auto) 0.1 x10^3/uL (0.0-0.7) Basophils # (Auto) 0.0 x10^3/uL (0.0-0.2) Sodium Level 136 mmol/L (136-145) Potassium Level 3.5 mmol/L (3.5-5.1) Chloride Level 103 mmol/L (98-107) Carbon Dioxide Level 28 mmol/L (21-32) Anion Gap 5 (6-14) Blood Urea Nitrogen 6 mg/dL (8-26) Creatinine 0.5 mg/dL (0.7-1.3) Estimated GFR (Cockcroft-Gault) 172.6 Glucose Level 88 mg/dL (70-99) Calcium Level 7.5 mg/dL (8.5-10.1) Assessment and Plan Assessmemt and Plan Problems Medical Problems: (1) Ulcerative colitis Status: Acute Comment Review of Relevant I have reviewed the following items maria teresa (where applicable) has been applied. Labs Laboratory Tests Test 04/28/19 04:10 04/29/19 04:30 White Blood Count 8.0 x10^3/uL (4.0-11.0) 5.5 x10^3/uL (4.0-11.0) Red Blood Count 3.04 x10^6/uL (4.30-5.70) 2.78 x10^6/uL (4.30-5.70) Hemoglobin 8.8 g/dL (13.0-17.5) 8.0 g/dL (13.0-17.5) Hematocrit 26.6 % (39.0-53.0) 24.1 % (39.0-53.0) Mean Corpuscular Volume 88 fL (79-100) 87 fL (79-100) Mean Corpuscular Hemoglobin 29 pg (25-35) 29 pg (25-35) Mean Corpuscular Hemoglobin Concent 33 g/dL (31-37) 33 g/dL (31-37) Red Cell Distribution Width 15.2 % (11.5-14.5) 15.2 % (11.5-14.5) Platelet Count 357 x10^3/uL (140-400) 334 x10^3/uL (140-400) Neutrophils (%) (Auto) 82 % (31-73) 70 % (31-73) Lymphocytes (%) (Auto) 9 % (24-48) 18 % (24-48) Monocytes (%) (Auto) 8 % (0-9) 11 % (0-9) Eosinophils (%) (Auto) 1 % (0-3) 2 % (0-3) Basophils (%) (Auto) 0 % (0-3) 0 % (0-3) Neutrophils # (Auto) 6.6 x10^3uL (1.8-7.7) 3.8 x10^3uL (1.8-7.7) Lymphocytes # (Auto) 0.7 x10^3/uL (1.0-4.8) 1.0 x10^3/uL (1.0-4.8) Monocytes # (Auto) 0.6 x10^3/uL (0.0-1.1) 0.6 x10^3/uL (0.0-1.1) Eosinophils # (Auto) 0.0 x10^3/uL (0.0-0.7) 0.1 x10^3/uL (0.0-0.7) Basophils # (Auto) 0.0 x10^3/uL (0.0-0.2) 0.0 x10^3/uL (0.0-0.2) Sodium Level 137 mmol/L (136-145) 136 mmol/L (136-145) Potassium Level 3.3 mmol/L (3.5-5.1) 3.5 mmol/L (3.5-5.1) Chloride Level 103 mmol/L (98-107) 103 mmol/L (98-107) Carbon Dioxide Level 29 mmol/L (21-32) 28 mmol/L (21-32) Anion Gap 5 (6-14) 5 (6-14) Blood Urea Nitrogen 8 mg/dL (8-26) 6 mg/dL (8-26) Creatinine 0.6 mg/dL (0.7-1.3) 0.5 mg/dL (0.7-1.3) Estimated GFR (Cockcroft-Gault) 139.9 172.6 Glucose Level 96 mg/dL (70-99) 88 mg/dL (70-99) Calcium Level 7.3 mg/dL (8.5-10.1) 7.5 mg/dL (8.5-10.1) Laboratory Tests Test 04/29/19 04:30 White Blood Count 5.5 x10^3/uL (4.0-11.0) Red Blood Count 2.78 x10^6/uL (4.30-5.70) Hemoglobin 8.0 g/dL (13.0-17.5) Hematocrit 24.1 % (39.0-53.0) Mean Corpuscular Volume 87 fL (79-100) Mean Corpuscular Hemoglobin 29 pg (25-35) Mean Corpuscular Hemoglobin Concent 33 g/dL (31-37) Red Cell Distribution Width 15.2 % (11.5-14.5) Platelet Count 334 x10^3/uL (140-400) Neutrophils (%) (Auto) 70 % (31-73) Lymphocytes (%) (Auto) 18 % (24-48) Monocytes (%) (Auto) 11 % (0-9) Eosinophils (%) (Auto) 2 % (0-3) Basophils (%) (Auto) 0 % (0-3) Neutrophils # (Auto) 3.8 x10^3uL (1.8-7.7) Lymphocytes # (Auto) 1.0 x10^3/uL (1.0-4.8) Monocytes # (Auto) 0.6 x10^3/uL (0.0-1.1) Eosinophils # (Auto) 0.1 x10^3/uL (0.0-0.7) Basophils # (Auto) 0.0 x10^3/uL (0.0-0.2) Sodium Level 136 mmol/L (136-145) Potassium Level 3.5 mmol/L (3.5-5.1) Chloride Level 103 mmol/L (98-107) Carbon Dioxide Level 28 mmol/L (21-32) Anion Gap 5 (6-14) Blood Urea Nitrogen 6 mg/dL (8-26) Creatinine 0.5 mg/dL (0.7-1.3) Estimated GFR (Cockcroft-Gault) 172.6 Glucose Level 88 mg/dL (70-99) Calcium Level 7.5 mg/dL (8.5-10.1) Microbiology 04/25/19 Stool Culture - Final, Complete 04/25/19 Stool Culture Result 1 ([facility]) - Final, Complete 04/25/19 Campylobacter Antigen Assay - Final, Complete 04/25/19 Campylobactor Result 1 - Final, Complete 04/25/19 Shiga Toxin Test - Final, Complete Medications Current Medications Sodium Chloride 1,000 ml @ 1,000 mls/hr 1X ONCE IV Last administered on 04/23/19at 16:25; Start 04/23/19 at 16:00; Stop 04/23/19 at 16:59; Status DC Ondansetron HCl (Zofran) 8 mg 1X ONCE IV Last administered on 04/23/19at 16:24; Start 04/23/19 at 16:00; Stop 04/23/19 at 16:01; Status DC Morphine Sulfate (Morphine Sulfate) 4 mg 1X ONCE IV Last administered on 04/23/19at 16:25; Start 04/23/19 at 16:00; Stop 04/23/19 at 16:01; Status DC Iohexol (Omnipaque 300 Mg/ml) 75 ml 1X ONCE IV Last administered on 04/23/19at 16:11; Start 04/23/19 at 16:00; Stop 04/23/19 at 16:01; Status DC Info (CONTRAST GIVEN -- Rx MONITORING) 1 each PRN DAILY PRN MC SEE COMMENTS; Start 04/23/19 at 16:00; Stop 04/25/19 at 15:59; Status DC Methylprednisolone Sodium Succinate (SOLU-Medrol 125MG VIAL) 125 mg 1X ONCE IV Last administered on 04/23/19at 17:30; Start 04/23/19 at 17:30; Stop 04/23/19 at 17:31; Status DC Fentanyl Citrate (Fentanyl 2ml Vial) 75 mcg 1X ONCE IV Last administered on 04/23/19at 17:30; Start 04/23/19 at 17:30; Stop 04/23/19 at 17:31; Status DC Ondansetron HCl (Zofran) 4 mg PRN Q8HRS PRN IV NAUSEA/VOMITING; Start 04/23/19 at 17:30; Stop 04/23/19 at 17:43; Status DC Morphine Sulfate (Morphine Sulfate) 4 mg PRN Q6HRS PRN IV PAIN Last administered on 04/24/19at 09:40; Start 04/23/19 at 17:30; Stop 04/24/19 at 17:29; Status DC Sodium Chloride 1,000 ml @ 100 mls/hr Q10H IV Last administered on 04/24/19 14:34; Start 04/23/19 at 18:00; Stop 04/24/19 at 17:59; Status DC Ondansetron HCl (Zofran) 4 mg PRN Q6HRS PRN IV NAUSEA/VOMITING Last administered on 04/25/19at 17:35; Start 04/23/19 at 17:45 Famotidine (Pepcid Vial) 20 mg BID IVP Last administered on 04/26/19 08:26; Start 04/23/19 at 21:00; Stop 04/26/19 at 09:39; Status DC Fentanyl Citrate (Fentanyl 2ml Vial) 50 mcg PRN Q2HR PRN IV PAIN Last administered on 04/29/19 08:19; Start 04/23/19 at 17:45 Methylprednisolone Sodium Succinate (SOLU-Medrol 40MG VIAL) 40 mg Q8HRS IV Last administered on 04/26/19at 06:00; Start 04/23/19 at 22:00; Stop 04/26/19 at 09:16; Status DC Diphenhydramine HCl (Benadryl) 25 mg PRN QHS PRN IVP INSOMNIA; Start 04/23/19 at 17:45 Pharmacy Consult (C.diff Med Screen By Rx) 1 each 1X ONCE MC Last administered on 04/24/19at 09:00; Start 04/24/19 at 09:00; Stop 04/24/19 at 09:01; Status DC Mesalamine (Delzicol) 800 mg TID PO Last administered on 04/29/19 08:20; Start 04/24/19 at 14:00 Sodium Chloride 1,000 ml @ 100 mls/hr Q10H IV Last administered on 04/29/19at 02:31; Start 04/24/19 at 22:00 Simethicone (Gas-X) 80 mg PRN Q6HRS PRN PO GAS / BLOATING Last administered on 04/26/19 21:06; Start 04/25/19 at 22:15 Vancomycin HCl (Vancomycin Oral Solution) 125 mg [id number] PO Last administered on 04/29/19 08:20; Start 04/26/19 at 09:00 Methylprednisolone Sodium Succinate (SOLU-Medrol 40MG VIAL) 40 mg BID IV ; Start 04/26/19 at 21:00; Stop 04/26/19 at 21:00; Status DC Prednisone (Prednisone) 40 mg DAILY PO Last administered on 04/29/19 08:19; Start 04/27/19 at 09:00 Pantoprazole Sodium (Protonix) 40 mg DAILYAC PO Last administered on 04/29/19 08:19; Start 04/27/19 at 07:30 Lactobacillus Rhamnosus (Culturelle) 1 cap BID PO Last administered on 04/29/19 08:19; Start 04/26/19 at 21:00 Dicyclomine HCl (Bentyl) 10 mg PRN TID PRN PO STOMACH CRAMPING Last administered on 04/28/19at 00:12; Start 04/27/19 at 03:45; Stop 04/28/19 at 11:52; Status DC Dicyclomine HCl (Bentyl) 10 mg [id number] PO Last administered on 04/28/19at 16:51; Start 04/28/19 at 13:00; Stop 04/29/19 at 01:53; Status DC Potassium Chloride (Klor-Con) 40 meq 1X ONCE PO Last administered on 04/28/19 18:20; Start 04/28/19 at 18:00; Stop 04/28/19 at 18:01; Status DC Dicyclomine HCl (Bentyl) 10 mg QID PO Last administered on 04/29/19 08:20; Start 04/29/19 at 09:00 Dicyclomine HCl (Bentyl) 10 mg PRN Q6HRS PRN PO STOMACH CRAMPING Last administered on 04/29/19at 01:59; Start 04/29/19 at 02:00; Stop 04/29/19 at 09:00; Status DC Oxycodone/ Acetaminophen (Percocet 5/325) 1 tab PRN Q4HRS PRN PO SEVERE PAIN 7- 10 Last administered on 04/29/19at 01:59; Start 04/29/19 at 02:00 Active Scripts Active Reported Dicyclomine Hcl 10 Mg Capsule 1 Cap PO TID Apriso (Mesalamine) 0.375 Gm Cap.er.24h 2 Cap PO BID Vitals/I & O Vital Sign - Last 24 Hours 04/28/19 04/28/19 04/28/19 04/28/19 15:00 18:34 19:00 19:55 Temp 98.2 98.8 98.2 98.8 Pulse 65 59 Resp 18 17 B/P (MAP) 96/64 (75) 102/62 (75) Pulse Ox 98 96 O2 Delivery Room Air Room Air Room Air Room Air 04/28/19 04/28/19 04/29/19 04/29/19 22:36 22:55 00:35 01:59 Temp 98.5 98.5 Pulse 73 Resp 14 18 14 15 B/P (MAP) 116/75 (89) Pulse Ox 96 98 98 98 O2 Delivery Room Air Room Air Room Air Room Air 04/29/19 04/29/19 04/29/19 04/29/19 02:56 03:14 07:00 07:45 Temp 98.8 98.3 98.8 98.3 Pulse 63 64 Resp 17 14 B/P (MAP) 105/68 (80) 97/61 (73) Pulse Ox 97 97 97 O2 Delivery Room Air Room Air Room Air Room Air 04/29/19 04/29/19 08:19 09:00 Pulse Ox 97 O2 Delivery Room Air Room Air Intake and Output 04/28/19 04/28/19 04/29/19 15:00 23:00 07:00 Intake Total 500 ml 100 ml Output Total 0 ml Balance 500 ml 100 ml 0 ml Nutrition Consultation Dietary Evaluation: Comments: advance diet as tolerated offer supplements prn Expected Outcomes/Goals: to meet > 75% est nutr needs Interpretation of weight loss: >7.5% in 3 months Malnutrition Findings: Food and Nutrition Intake (Sev: <50% est energy req 5days Weight Status: Appropriate JAZMÍN HALL MD Apr 29, 2019 11:43
--- NOTE | 2019-04-29 12:55 | PDOC ---
GI PROGRESS NOTES Date Date/Time DATE: 04/29/19 TIME: 12:51 Subjective Subjective Still having significant crampy abdominal pain particularly at night. Limited response to dicyclomine. Still having loose stools although overall he thinks they are a little less and more formed than at the beginning of this infection. However he is frustrated about how long he's been in the hospital and wants some answers. Objective Vitals Vital Signs Date Time Temp Pulse Resp B/P (MAP) Pulse Ox O2 Delivery O2 Flow Rate FiO2 04/29/19 11:00 99.1 67 12 101/63 (76) 95 Room Air 99.1 04/29/19 09:00 97 Room Air 04/29/19 08:19 Room Air 04/29/19 07:45 Room Air 04/29/19 07:00 98.3 64 14 97/61 (73) 97 Room Air 98.3 04/29/19 03:14 97 Room Air 04/29/19 02:56 98.8 63 17 105/68 (80) 97 Room Air 98.8 04/29/19 01:59 15 98 Room Air 04/29/19 00:35 14 98 Room Air 04/28/19 22:55 98.5 73 18 116/75 (89) 98 Room Air 98.5 04/28/19 22:36 14 96 Room Air 04/28/19 19:55 Room Air 04/28/19 19:00 98.8 59 17 102/62 (75) 96 Room Air 98.8 04/28/19 18:34 Room Air 04/28/19 15:00 98.2 65 18 96/64 (75) 98 Room Air 98.2 Labs Labs Laboratory Tests Test 04/29/19 04:30 White Blood Count 5.5 x10^3/uL (4.0-11.0) Red Blood Count 2.78 x10^6/uL (4.30-5.70) Hemoglobin 8.0 g/dL (13.0-17.5) Hematocrit 24.1 % (39.0-53.0) Mean Corpuscular Volume 87 fL (79-100) Mean Corpuscular Hemoglobin 29 pg (25-35) Mean Corpuscular Hemoglobin Concent 33 g/dL (31-37) Red Cell Distribution Width 15.2 % (11.5-14.5) Platelet Count 334 x10^3/uL (140-400) Neutrophils (%) (Auto) 70 % (31-73) Lymphocytes (%) (Auto) 18 % (24-48) Monocytes (%) (Auto) 11 % (0-9) Eosinophils (%) (Auto) 2 % (0-3) Basophils (%) (Auto) 0 % (0-3) Neutrophils # (Auto) 3.8 x10^3uL (1.8-7.7) Lymphocytes # (Auto) 1.0 x10^3/uL (1.0-4.8) Monocytes # (Auto) 0.6 x10^3/uL (0.0-1.1) Eosinophils # (Auto) 0.1 x10^3/uL (0.0-0.7) Basophils # (Auto) 0.0 x10^3/uL (0.0-0.2) Sodium Level 136 mmol/L (136-145) Potassium Level 3.5 mmol/L (3.5-5.1) Chloride Level 103 mmol/L (98-107) Carbon Dioxide Level 28 mmol/L (21-32) Anion Gap 5 (6-14) Blood Urea Nitrogen 6 mg/dL (8-26) Creatinine 0.5 mg/dL (0.7-1.3) Estimated GFR (Cockcroft-Gault) 172.6 Glucose Level 88 mg/dL (70-99) Calcium Level 7.5 mg/dL (8.5-10.1) Physical Exam Physical Exam Chest clear Abdomen soft and minimally tender without point tenderness or mass. Bowel sounds are present. Assessment Assessment Persistent crampy abdominal pain in spite of dicyclomine. Most likely this is related to his significant colitis. The source of the colitis is not totally clear but certainly more recently is likely related to C. difficile infection. Underlying ulcerative colitis has been suggested but not proven. Unfortunately his response to vancomycin for treatment of his C. difficile has not been very rapid. He is frustrated with the persistence of crampy pain and loose stools. Colitis. Cause is unclear but may be underlying ulcerative colitis however we now know he has superimposed C. difficile colitis. Whether he will continue to have chronic colitis is unclear. His symptoms have persisted in spite of adding vancomycin several days ago. Some of the worsening of his symptoms might be related to his diet. I would recommend a liquid or small portions, extremely low-fat bland diet to avoid any triggers for cramping and diarrhea. C. difficile. Plan Plan Continue vancomycin DC dicyclomine and switch to hyoscyamine Continue prednisone He would like to proceed with colonoscopy. I don't think a full colonoscopy would be warranted at this time however due to his disproportionate persistent pain and diarrhea I think a SIGMOIDOSCOPY with biopsies may be helpful and will be planned for tomorrow. Will step back to a liquid diet today but going forward recommend Small portions and low-fat meals or liquids. Signed once his symptoms have stabilized and he is able to manage on his own he can be discharged for outpatient monitoring evaluation. ENRRIQUE HAMMER MD Apr 29, 2019 12:55
[2019-04-29] MEDS: HYOSCYAMINE 0.125 MG TAB.RAPDIS PO SCH ×2 (13:17→17:32)
[2019-04-29 15:00] VITALS: BP 98/62
[2019-04-29 19:00] VITALS: BP 96/59
[2019-04-29 22:45] VITALS: BP 105/65
[2019-04-30] MEDS: HYOSCYAMINE 0.125 MG TAB.RAPDIS PO SCH ×4 (00:25→21:09)
[2019-04-30 03:00] VITALS: BP 116/71
[2019-04-30] MEDS: oxyCODONE/APAP 5/325 1 TAB TABLET PO PRN ×4 (03:46→21:36)
[2019-04-30] MEDS: SIMETHICONE 80 MG TAB.CHEW PO PRN (03:47)
[2019-04-30] MEDS ORDERED: IV RINGERS,LACTATED 1000ML 1,000 ML IV SCH (07:08)
[2019-04-30] MEDS ORDERED: fentaNYL PF VIAL 100 MCG/2 ML VIAL IV PRN ×2 (07:15)
[2019-04-30] MEDS ORDERED: MIDAZOLAM HCL/PF 2 MG/2 ML VIAL. IV PRN (07:15)
[2019-04-30] MEDS ORDERED: LIDOCAINE 1% PF 2 ML VIAL. ID PRN (07:15)
[2019-04-30] MEDS ORDERED: MIDAZOLAM HCL/PF 5 MG/5 ML VIAL. ONE (07:48)
[2019-04-30] MEDS ORDERED: fentaNYL PF VIAL 100 MCG/2 ML VIAL ONE (07:48)
[2019-04-30] MEDS ORDERED: MIDAZOLAM HCL/PF 5 MG/5 ML VIAL. IV ONE ×3 (08:02→08:07)
[2019-04-30] MEDS ORDERED: fentaNYL PF VIAL 100 MCG/2 ML VIAL IV ONE ×2 (08:03→08:08)
--- NOTE | 2019-04-30 08:18 | PDOC4 ---
PROCEDURE Procedure Flexible Sigmoidoscopy persistent severe colitis C diff Fentanyl 100 mcg Versed 3 mg Findings- large tender but not thrombosed external hemorrhoids Severe colitis in rectum , sigmoid and descending colon - to extent of scope passage- no obvious pseudomembranes seen plan- go back to IV solumedrol ask ID to see about adequate C diff treatment ENRRIQUE HAMMER MD Apr 30, 2019 08:18
[2019-04-30] MEDS: LACTOBACILLUS RHAMNOSUS GG 1 CAPSULE. PO SCH ×2 (10:56→21:08)
[2019-04-30] MEDS: PANTOPRAZOLE 40 MG TABLET.DR. PO SCH (10:56)
[2019-04-30] MEDS: MESALAMINE 400 MG CAP.DRTAB. PO SCH ×3 (10:56→21:08)
[2019-04-30] MEDS: methylPREDNISolone SOD SUCC PF 40 MG/ML VIAL. IV SCH ×3 (10:57→21:53)
[2019-04-30] MEDS: IV NORMAL SALINE 1000ML BAG 1,000 ML IV SCH ×2 (10:57→21:04)
[2019-04-30 11:00] VITALS: BP 101/64
[2019-04-30] MEDS: VANCOMYCIN 125 MG/2.5 ML ORAL SOLUTION. PO SCH ×4 (11:16→21:06)
--- NOTE | 2019-04-30 11:43 | PDOC ---
Infectious Disease Note Vital Sign Vital Signs Vital Signs Date Time Temp Pulse Resp B/P (MAP) Pulse Ox O2 Delivery O2 Flow Rate FiO2 04/30/19 10:59 Room Air 04/30/19 09:00 65 18 123/64 95 04/30/19 08:45 97.8 97.8 04/30/19 08:15 2 Labs Micro Microbiology 04/25/19 Stool Culture - Final, Complete 04/25/19 Stool Culture Result 1 ([facility]) - Final, Complete 04/25/19 Campylobacter Antigen Assay - Final, Complete 04/25/19 Campylobactor Result 1 - Final, Complete 04/25/19 Shiga Toxin Test - Final, Complete Objective Assessment C-diff 04/24 Immunosuppression Ulcerative colitis Anemia Plan Plan of Care Cont Vanc but increase to 500 mg po QID Monitor response Thank you # [id number] BARBRA ZAMUDIO MD Apr 30, 2019 11:43
[2019-04-30 11:45] LABS: BASO % 0 % (0-3); EOS # 0.1 x10^3/uL (0.0-0.7); EOS % 1 % (0-3); HEMATOCRIT 29.3 % (39.0-53.0); HEMOGLOBIN 9.5 g/dL (13.0-17.5); LYMPH # 0.6 x10^3/uL (1.0-4.8); LYMPH % 8 % (24-48); MEAN CORPUSCULAR HEMOGLOBIN 28 pg (25-35); MEAN CORPUSCULAR HGB CONC 33 g/dL (31-37); MEAN CORPUSCULAR VOLUME 87 fL (79-100); MONO # 0.5 x10^3/uL (0.0-1.1); MONO % 7 % (0-9); NEUT # 6.6 x10^3uL (1.8-7.7); NEUT % 84 % (31-73); PLATELET COUNT 438 x10^3/uL (140-400); RED BLOOD COUNT 3.37 x10^6/uL (4.30-5.70); RED CELL DISTRIBUTION WIDTH 15.9 % (11.5-14.5); WHITE BLOOD COUNT 7.9 x10^3/uL (4.0-11.0)
[2019-04-30 11:58] LABS: CALCIUM 7.9 mg/dL (8.5-10.1); CREATININE 0.8 mg/dL (0.7-1.3); GFR 100.4; POTASSIUM 3.2 mmol/L (3.5-5.1)
--- NOTE | 2019-04-30 13:02 | CONS ---
DATE OF CONSULTATION: 04/30/2019 INFECTIOUS DISEASE CONSULTATION NOTE LOCATION: The patient is in room 512. REQUESTING PHYSICIAN: Dr. Fowler REASON FOR CONSULTATION: C. diff. HISTORY OF PRESENT ILLNESS: The patient is a 53-year-old gentleman diagnosed with ulcerative colitis in [place] based on a colonoscopy on 03/30/2019. He states around that time he had received some antibiotics as he was having complications with constipation and then diarrhea. He followed up in the outpatient setting by Dr. Mckeon, GI and was given Apriso, he was getting some better and he had been taking some prednisone, but then began to have diffuse abdominal pain, gas and greater than 8-10 stools a day with bloody stools and tenesmus. He has fatigue, insomnia, weight loss. No chill. Occasional sweats. No headache. No sore throat. No chest pain. No shortness of air. No dysuria or frequency. No rashes. He presented to [facility] on the , had a white count of 8.2. He had a C diff checked on the that was positive and he was placed on oral vancomycin 125 mg starting on the . Despite the antibiotics, he continued to have ongoing pain and loose stools. He underwent a flexible sigmoidoscopy today, was found to have large, tender, but not thrombosed external hemorrhoids. He has severe colitis in the rectum, sigmoid and descending colon. No obvious pseudomembranous was seen. With this, he was placed back on IV Solu-Medrol and prednisone was discontinued and I have been consulted. Currently, the patient is lying in bed and he continues to have some mild cramping and will have loose stools any time he eats. PAST MEDICAL HISTORY: Positive for gastroesophageal reflux disease, ulcerative colitis, and history of retinal detachment surgery. REVIEW OF SYSTEMS: Otherwise negative. ALLERGIES: No known drug allergies. SOCIAL HISTORY: He has a distant history of smoking. Rare alcohol. FAMILY HISTORY: Positive for pancreatic cancer. CURRENT MEDICATIONS: Include Benadryl, fentanyl, hyoscyamine, lactobacillus, mesalamine, Solu-Medrol 40 q.8, Protonix, simethicone, vancomycin 125 q.i.d. PHYSICAL EXAMINATION: VITAL SIGNS: He is afebrile, temperature 97.8, pulse 65, respirations 18, blood pressure 123/64, satting 95% on room air. CONSTITUTIONAL: He is cooperative. He looks tired, in no acute distress. He is lying in bed. Wears glasses. HEENT: Pupils are equal and reactive with normal conjunctivae. Oral cavity: Pharynx was clear. NECK: Supple. Good range of motion. LUNGS: Clear to auscultation. HEART: S1, S2. ABDOMEN: Mildly distended, soft. EXTREMITIES: No clubbing, cyanosis or gross edema. SKIN: Warm to touch without signs of rash. NEUROLOGIC: He is nonfocal. PSYCHIATRIC: Affect is appropriate. LABORATORY AND DIAGNOSTIC DATA: His white count 5.5, hemoglobin 8, platelets of 334, neutrophils 70, lymphs are 18, creatinine of 0.5, glucose was 88. C. diff is positive from the . KUB on the , no acute abnormality. Abdomen and pelvis CT, diffuse moderate wall thickening and edema of the entire colon and rectum, most compatible with acute colitis. IMPRESSION: 1. Clostridium difficile on 04/24/2019. 2. Immunosuppression. 3. Ulcerative colitis. 4. Anemia. RECOMMENDATIONS: For now, continue vancomycin, but will increase to 500 mg p.o. q.i.d. Monitor response. Thank you for allowing me to participate in the patient's care. Should you have any further questions, please do not hesitate to contact me. BARBRA ZAMUDIO MD DR: ISAURA/katrina JOB#: [id number] / [id number]
--- NOTE | 2019-04-30 13:06 | PDOC ---
PROGRESS NOTES Chief Complaint Chief Complaint Ulcerative colitis flare C. difficile positive severe protein-caloric malnutrition History of Present Illness History of Present Illness 04/30: Patient seen and examined. s/p sigmoidoscopy this AM. still will loose stools and abdominal cramping He is on by mouth Vanco (dose increased) mesalamine and steroids which will be continued. continue IV hydration. 26 min pt exam, chart review, > 50% of time spent with exam, chart review, pt care coordination disease education Vitals Vitals Vital Signs Date Time Temp Pulse Resp B/P (MAP) Pulse Ox O2 Delivery O2 Flow Rate FiO2 04/30/19 11:59 Room Air 04/30/19 11:00 97.9 86 16 101/64 (76) 94 97.9 04/30/19 08:15 2 Physical Exam General: Alert, Oriented X3, Cooperative, No acute distress Heart: Regular rate, Normal S1 Lungs: Clear Abdomen: Soft, Other (diffuse tenderness on light touch, normoactive bowel sounds, but not an acute abdomen) Extremities: No clubbing, No cyanosis, No edema, Normal pulses, No tenderness/swelling Skin: No rashes, No breakdown, No significant lesion Labs LABS Laboratory Tests Test 04/30/19 11:40 White Blood Count 7.9 x10^3/uL (4.0-11.0) Red Blood Count 3.37 x10^6/uL (4.30-5.70) Hemoglobin 9.5 g/dL (13.0-17.5) Hematocrit 29.3 % (39.0-53.0) Mean Corpuscular Volume 87 fL (79-100) Mean Corpuscular Hemoglobin 28 pg (25-35) Mean Corpuscular Hemoglobin Concent 33 g/dL (31-37) Red Cell Distribution Width 15.9 % (11.5-14.5) Platelet Count 438 x10^3/uL (140-400) Neutrophils (%) (Auto) 84 % (31-73) Lymphocytes (%) (Auto) 8 % (24-48) Monocytes (%) (Auto) 7 % (0-9) Eosinophils (%) (Auto) 1 % (0-3) Basophils (%) (Auto) 0 % (0-3) Neutrophils # (Auto) 6.6 x10^3uL (1.8-7.7) Lymphocytes # (Auto) 0.6 x10^3/uL (1.0-4.8) Monocytes # (Auto) 0.5 x10^3/uL (0.0-1.1) Eosinophils # (Auto) 0.1 x10^3/uL (0.0-0.7) Basophils # (Auto) 0.0 x10^3/uL (0.0-0.2) Sodium Level 134 mmol/L (136-145) Potassium Level 3.2 mmol/L (3.5-5.1) Chloride Level 98 mmol/L (98-107) Carbon Dioxide Level 29 mmol/L (21-32) Anion Gap 7 (6-14) Blood Urea Nitrogen 7 mg/dL (8-26) Creatinine 0.8 mg/dL (0.7-1.3) Estimated GFR (Cockcroft-Gault) 100.4 Glucose Level 126 mg/dL (70-99) Calcium Level 7.9 mg/dL (8.5-10.1) Assessment and Plan Assessmemt and Plan Problems Medical Problems: (1) Ulcerative colitis Status: Acute Comment Review of Relevant I have reviewed the following items maria teresa (where applicable) has been applied. Labs Laboratory Tests Test 04/29/19 04:30 04/30/19 11:40 White Blood Count 5.5 x10^3/uL (4.0-11.0) 7.9 x10^3/uL (4.0-11.0) Red Blood Count 2.78 x10^6/uL (4.30-5.70) 3.37 x10^6/uL (4.30-5.70) Hemoglobin 8.0 g/dL (13.0-17.5) 9.5 g/dL (13.0-17.5) Hematocrit 24.1 % (39.0-53.0) 29.3 % (39.0-53.0) Mean Corpuscular Volume 87 fL (79-100) 87 fL (79-100) Mean Corpuscular Hemoglobin 29 pg (25-35) 28 pg (25-35) Mean Corpuscular Hemoglobin Concent 33 g/dL (31-37) 33 g/dL (31-37) Red Cell Distribution Width 15.2 % (11.5-14.5) 15.9 % (11.5-14.5) Platelet Count 334 x10^3/uL (140-400) 438 x10^3/uL (140-400) Neutrophils (%) (Auto) 70 % (31-73) 84 % (31-73) Lymphocytes (%) (Auto) 18 % (24-48) 8 % (24-48) Monocytes (%) (Auto) 11 % (0-9) 7 % (0-9) Eosinophils (%) (Auto) 2 % (0-3) 1 % (0-3) Basophils (%) (Auto) 0 % (0-3) 0 % (0-3) Neutrophils # (Auto) 3.8 x10^3uL (1.8-7.7) 6.6 x10^3uL (1.8-7.7) Lymphocytes # (Auto) 1.0 x10^3/uL (1.0-4.8) 0.6 x10^3/uL (1.0-4.8) Monocytes # (Auto) 0.6 x10^3/uL (0.0-1.1) 0.5 x10^3/uL (0.0-1.1) Eosinophils # (Auto) 0.1 x10^3/uL (0.0-0.7) 0.1 x10^3/uL (0.0-0.7) Basophils # (Auto) 0.0 x10^3/uL (0.0-0.2) 0.0 x10^3/uL (0.0-0.2) Sodium Level 136 mmol/L (136-145) 134 mmol/L (136-145) Potassium Level 3.5 mmol/L (3.5-5.1) 3.2 mmol/L (3.5-5.1) Chloride Level 103 mmol/L (98-107) 98 mmol/L (98-107) Carbon Dioxide Level 28 mmol/L (21-32) 29 mmol/L (21-32) Anion Gap 5 (6-14) 7 (6-14) Blood Urea Nitrogen 6 mg/dL (8-26) 7 mg/dL (8-26) Creatinine 0.5 mg/dL (0.7-1.3) 0.8 mg/dL (0.7-1.3) Estimated GFR (Cockcroft-Gault) 172.6 100.4 Glucose Level 88 mg/dL (70-99) 126 mg/dL (70-99) Calcium Level 7.5 mg/dL (8.5-10.1) 7.9 mg/dL (8.5-10.1) Laboratory Tests Test 04/30/19 11:40 White Blood Count 7.9 x10^3/uL (4.0-11.0) Red Blood Count 3.37 x10^6/uL (4.30-5.70) Hemoglobin 9.5 g/dL (13.0-17.5) Hematocrit 29.3 % (39.0-53.0) Mean Corpuscular Volume 87 fL (79-100) Mean Corpuscular Hemoglobin 28 pg (25-35) Mean Corpuscular Hemoglobin Concent 33 g/dL (31-37) Red Cell Distribution Width 15.9 % (11.5-14.5) Platelet Count 438 x10^3/uL (140-400) Neutrophils (%) (Auto) 84 % (31-73) Lymphocytes (%) (Auto) 8 % (24-48) Monocytes (%) (Auto) 7 % (0-9) Eosinophils (%) (Auto) 1 % (0-3) Basophils (%) (Auto) 0 % (0-3) Neutrophils # (Auto) 6.6 x10^3uL (1.8-7.7) Lymphocytes # (Auto) 0.6 x10^3/uL (1.0-4.8) Monocytes # (Auto) 0.5 x10^3/uL (0.0-1.1) Eosinophils # (Auto) 0.1 x10^3/uL (0.0-0.7) Basophils # (Auto) 0.0 x10^3/uL (0.0-0.2) Sodium Level 134 mmol/L (136-145) Potassium Level 3.2 mmol/L (3.5-5.1) Chloride Level 98 mmol/L (98-107) Carbon Dioxide Level 29 mmol/L (21-32) Anion Gap 7 (6-14) Blood Urea Nitrogen 7 mg/dL (8-26) Creatinine 0.8 mg/dL (0.7-1.3) Estimated GFR (Cockcroft-Gault) 100.4 Glucose Level 126 mg/dL (70-99) Calcium Level 7.9 mg/dL (8.5-10.1) Microbiology 04/25/19 Stool Culture - Final, Complete 04/25/19 Stool Culture Result 1 ([facility]) - Final, Complete 04/25/19 Campylobacter Antigen Assay - Final, Complete 04/25/19 Campylobactor Result 1 - Final, Complete 04/25/19 Shiga Toxin Test - Final, Complete Medications Current Medications Sodium Chloride 1,000 ml @ 1,000 mls/hr 1X ONCE IV Last administered on 04/23/19at 16:25; Start 04/23/19 at 16:00; Stop 04/23/19 at 16:59; Status DC Ondansetron HCl (Zofran) 8 mg 1X ONCE IV Last administered on 04/23/19at 16:24; Start 04/23/19 at 16:00; Stop 04/23/19 at 16:01; Status DC Morphine Sulfate (Morphine Sulfate) 4 mg 1X ONCE IV Last administered on 04/23/19at 16:25; Start 04/23/19 at 16:00; Stop 04/23/19 at 16:01; Status DC Iohexol (Omnipaque 300 Mg/ml) 75 ml 1X ONCE IV Last administered on 04/23/19at 16:11; Start 04/23/19 at 16:00; Stop 04/23/19 at 16:01; Status DC Info (CONTRAST GIVEN -- Rx MONITORING) 1 each PRN DAILY PRN MC SEE COMMENTS; Start 04/23/19 at 16:00; Stop 04/25/19 at 15:59; Status DC Methylprednisolone Sodium Succinate (SOLU-Medrol 125MG VIAL) 125 mg 1X ONCE IV Last administered on 04/23/19at 17:30; Start 04/23/19 at 17:30; Stop 04/23/19 at 17:31; Status DC Fentanyl Citrate (Fentanyl 2ml Vial) 75 mcg 1X ONCE IV Last administered on 04/23/19at 17:30; Start 04/23/19 at 17:30; Stop 04/23/19 at 17:31; Status DC Ondansetron HCl (Zofran) 4 mg PRN Q8HRS PRN IV NAUSEA/VOMITING; Start 04/23/19 at 17:30; Stop 04/23/19 at 17:43; Status DC Morphine Sulfate (Morphine Sulfate) 4 mg PRN Q6HRS PRN IV PAIN Last administered on 04/24/19 09:40; Start 04/23/19 at 17:30; Stop 04/24/19 at 17:29 ; Status DC Sodium Chloride 1,000 ml @ 100 mls/hr Q10H IV Last administered on 04/24/19 14:34; Start 04/23/19 at 18:00; Stop 04/24/19 at 17:59; Status DC Ondansetron HCl (Zofran) 4 mg PRN Q6HRS PRN IV NAUSEA/VOMITING Last administered on 04/25/19at 17:35; Start 04/23/19 at 17:45 Famotidine (Pepcid Vial) 20 mg BID IVP Last administered on 04/26/19 08:26; Start 04/23/19 at 21:00; Stop 04/26/19 at 09:39; Status DC Fentanyl Citrate (Fentanyl 2ml Vial) 50 mcg PRN Q2HR PRN IV PAIN Last administered on 04/29/19 08:19; Start 04/23/19 at 17:45 Methylprednisolone Sodium Succinate (SOLU-Medrol 40MG VIAL) 40 mg Q8HRS IV Last administered on 04/26/19 06:00; Start 04/23/19 at 22:00; Stop 04/26/19 at 09:16; Status DC Diphenhydramine HCl (Benadryl) 25 mg PRN QHS PRN IVP INSOMNIA; Start 04/23/19 at 17:45 Pharmacy Consult (C.diff Med Screen By Rx) 1 each 1X ONCE MC Last administered on 04/24/19 09:00; Start 04/24/19 at 09:00; Stop 04/24/19 at 09:01; Status DC Mesalamine (Delzicol) 800 mg TID PO Last administered on 04/30/19 10:56; Start 04/24/19 at 14:00 Sodium Chloride 1,000 ml @ 100 mls/hr Q10H IV Last administered on 04/30/19 10:57; Start 04/24/19 at 22:00 Simethicone (Gas-X) 80 mg PRN Q6HRS PRN PO GAS / BLOATING Last administered on 04/30/19 03:47; Start 04/25/19 at 22:15 Vancomycin HCl (Vancomycin Oral Solution) 125 mg [id number] PO Last administered on 04/30/19 11:16; Start 04/26/19 at 09:00; Stop 04/30/19 at 11:36; Status DC Methylprednisolone Sodium Succinate (SOLU-Medrol 40MG VIAL) 40 mg BID IV ; Start 04/26/19 at 21:00; Stop 04/26/19 at 21:00; Status DC Prednisone (Prednisone) 40 mg DAILY PO Last administered on 04/29/19 08:19; Start 04/27/19 at 09:00; Stop 04/30/19 at 08:19; Status DC Pantoprazole Sodium (Protonix) 40 mg DAILYAC PO Last administered on 04/30/19 10:56; Start 04/27/19 at 07:30 Lactobacillus Rhamnosus (Culturelle) 1 cap BID PO Last administered on 10:56; Start 04/26/19 at 21:00 Dicyclomine HCl (Bentyl) 10 mg PRN TID PRN PO STOMACH CRAMPING Last administered on 04/28/19at 00:12; Start 04/27/19 at 03:45; Stop 04/28/19 at 11:52; Status DC Dicyclomine HCl (Bentyl) 10 mg [id number] PO Last administered on 04/28/19at 16:51; Start 04/28/19 at 13:00; Stop 04/29/19 at 01:53; Status DC Potassium Chloride (Klor-Con) 40 meq 1X ONCE PO Last administered on 04/28/19at 18:20; Start 04/28/19 at 18:00; Stop 04/28/19 at 18:01; Status DC Dicyclomine HCl (Bentyl) 10 mg QID PO Last administered on 04/29/19 08:20; Start 04/29/19 at 09:00; Stop 04/29/19 at 12:51; Status DC Dicyclomine HCl (Bentyl) 10 mg PRN Q6HRS PRN PO STOMACH CRAMPING Last administered on 04/29/19at 01:59; Start 04/29/19 at 02:00; Stop 04/29/19 at 09:00; Status DC Oxycodone/ Acetaminophen (Percocet 5/325) 1 tab PRN Q4HRS PRN PO SEVERE PAIN 7- 10 Last administered on 04/30/19at 10:59; Start 04/29/19 at 02:00 Hyoscyamine (Anaspaz) 0.125 mg Q6HRS PO Last administered on 04/30/19at 06:31; Start 04/29/19 at 13:00 Midazolam HCl (Versed) 2 mg PRN 1X PRN IV PRIOR TO PROCEDURE; Start 04/30/19 at 07:15; Stop 05/01/19 at 07:14 Fentanyl Citrate (Fentanyl 2ml Vial) 25 mcg PRN Q5MIN PRN IV X 2 DOSES FOR PAIN; Start 04/30/19 at 07:15; Stop 05/01/19 at 07:14 Fentanyl Citrate (Fentanyl 2ml Vial) 50 mcg PRN Q5MIN PRN IV X 2 DOSES FOR PAIN; Start 04/30/19 at 07:15; Stop 05/01/19 at 07:14 Ringer's Solution 1,000 ml @ 125 mls/hr Q8H IV Last administered on 04/30/19at 07:08; Start 04/30/19 at 07:08; Stop 04/30/19 at 19:07 Lidocaine HCl (Xylocaine-Mpf 1% 2ml Vial) 2 ml 1X PRN PRN ID IV START; Start 04/30/19 at 07:15; Stop 05/01/19 at 07:14 Midazolam HCl (Versed) 5 mg STK-MED ONCE .ROUTE ; Start 04/30/19 at 07:48; Stop 04/30/19 at 07:49; Status DC Fentanyl Citrate (Fentanyl 2ml Vial) 100 mcg STK-MED ONCE .ROUTE ; Start 04/30/19 at 07:48; Stop 04/30/19 at 07:49; Status DC Midazolam HCl (Versed) 5 mg STK-MED ONCE IV Last administered on 04/30/19at 08:02; Start 04/30/19 at 08:02; Stop 04/30/19 at 08:06; Status DC Fentanyl Citrate (Fentanyl 2ml Vial) 100 mcg STK-MED ONCE IV Last administered on 04/30/19at 08:03; Start 04/30/19 at 08:03; Stop 04/30/19 at 08:06; Status DC Midazolam HCl (Versed) 5 mg STK-MED ONCE IV Last administered on 04/30/19at 08:05; Start 04/30/19 at 08:05; Stop 04/30/19 at 08:06; Status DC Midazolam HCl (Versed) 5 mg STK-MED ONCE IV Last administered on 04/30/19at 08:07; Start 04/30/19 at 08:07; Stop 04/30/19 at 08:09; Status DC Fentanyl Citrate (Fentanyl 2ml Vial) 100 mcg STK-MED ONCE IV Last administered on 04/30/19at 08:08; Start 04/30/19 at 08:08; Stop 04/30/19 at 08:09; Status DC Methylprednisolone Sodium Succinate (SOLU-Medrol 40MG VIAL) 40 mg Q8HRS IV Last administered on 04/30/19at 10:57; Start 04/30/19 at 08:30 Vancomycin HCl (Vancomycin Oral Solution) 500 mg [id number] PO ; Start 04/30/19 at 13:00 Active Scripts Active Reported Dicyclomine Hcl 10 Mg Capsule 1 Cap PO TID Apriso (Mesalamine) 0.375 Gm Cap.er.24h 2 Cap PO BID Vitals/I & O Vital Sign - Last 24 Hours 04/29/19 04/29/19 04/29/19 04/29/19 15:00 17:32 19:00 19:30 Temp 98.6 98.5 98.6 98.5 Pulse 57 52 Resp 12 19 B/P (MAP) 98/62 (74) 96/59 (71) Pulse Ox 96 96 O2 Delivery Room Air Room Air Room Air Room Air 04/29/19 04/29/19 04/30/19 04/30/19 21:41 22:45 03:00 03:46 Temp 98.3 98.3 98.3 98.3 Pulse 53 75 Resp 16 17 18 16 B/P (MAP) 105/65 (78) 116/71 (86) Pulse Ox 96 96 95 95 O2 Delivery Room Air Room Air Room Air Room Air 04/30/19 04/30/19 04/30/19 04/30/19 04:50 07:09 07:12 08:00 Temp 98.6 98.6 Pulse 62 55 Resp 16 20 18 Pulse Ox 95 95 99 O2 Delivery Room Air Room Air O2 Flow Rate 2 04/30/19 04/30/19 04/30/19 04/30/19 08:05 08:10 08:15 08:30 Pulse 70 76 64 67 Resp 18 16 18 18 B/P (MAP) 111/64 103/59 Pulse Ox 98 99 99 94 O2 Delivery Nasal Cannula Nasal Cannula Nasal Cannula Room Air O2 Flow Rate 2 2 2 04/30/19 04/30/19 04/30/19 04/30/19 08:45 09:00 10:59 11:00 Temp 97.8 97.9 97.8 97.9 Pulse 65 65 86 Resp 18 18 16 B/P (MAP) 102/62 123/64 101/64 (76) Pulse Ox 95 95 94 O2 Delivery Room Air Room Air Room Air Room Air 04/30/19 11:59 O2 Delivery Room Air Intake and Output 04/29/19 04/29/19 04/30/19 15:00 23:00 07:00 Intake Total 480 ml 240 ml Balance 480 ml 240 ml Nutrition Consultation Dietary Evaluation: Comments: advance diet as tolerated offer supplements prn Expected Outcomes/Goals: to meet > 75% est nutr needs Interpretation of weight loss: >7.5% in 3 months Malnutrition Findings: Food and Nutrition Intake (Sev: <50% est energy req 5days Weight Status: Appropriate HOMERO CHASE MD Apr 30, 2019 13:06
[2019-04-30 15:00] VITALS: BP 99/55
[2019-04-30 19:00] VITALS: BP 89/54
[2019-04-30 23:00] VITALS: BP 97/61
[2019-05-01] MEDS: oxyCODONE/APAP 5/325 1 TAB TABLET PO PRN ×2 (02:36→16:30)
[2019-05-01] MEDS: HYOSCYAMINE 0.125 MG TAB.RAPDIS PO SCH ×5 (02:38→17:39)
[2019-05-01 02:59] VITALS: BP 127/57
[2019-05-01] MEDS: methylPREDNISolone SOD SUCC PF 40 MG/ML VIAL. IV SCH ×3 (05:15→21:00)
[2019-05-01] MEDS: IV NORMAL SALINE 1000ML BAG 1,000 ML IV SCH ×2 (05:19→14:17)
[2019-05-01 07:00] VITALS: BP 98/57
[2019-05-01 08:07] LABS: BASO % 0 % (0-3); EOS % 0 % (0-3); HEMATOCRIT 24.2 % (39.0-53.0); HEMOGLOBIN 7.9 g/dL (13.0-17.5); LYMPH # 0.4 x10^3/uL (1.0-4.8); LYMPH % 5 % (24-48); MEAN CORPUSCULAR HEMOGLOBIN 28 pg (25-35); MEAN CORPUSCULAR HGB CONC 33 g/dL (31-37); MEAN CORPUSCULAR VOLUME 87 fL (79-100); MONO # 0.3 x10^3/uL (0.0-1.1); MONO % 4 % (0-9); NEUT # 7.8 x10^3uL (1.8-7.7); NEUT % 92 % (31-73); PLATELET COUNT 360 x10^3/uL (140-400); RED BLOOD COUNT 2.79 x10^6/uL (4.30-5.70); RED CELL DISTRIBUTION WIDTH 15.3 % (11.5-14.5); WHITE BLOOD COUNT 8.5 x10^3/uL (4.0-11.0)
[2019-05-01] MEDS: MESALAMINE 400 MG CAP.DRTAB. PO SCH ×3 (08:08→21:00)
[2019-05-01] MEDS: PANTOPRAZOLE 40 MG TABLET.DR. PO SCH (08:08)
[2019-05-01] MEDS: LACTOBACILLUS RHAMNOSUS GG 1 CAPSULE. PO SCH (08:08)
[2019-05-01] MEDS: VANCOMYCIN 125 MG/2.5 ML ORAL SOLUTION. PO SCH ×4 (08:09→21:01)
[2019-05-01 08:15] LABS: CALCIUM 7.8 mg/dL (8.5-10.1); CREATININE 0.5 mg/dL (0.7-1.3); GFR 172.6; POTASSIUM 3.8 mmol/L (3.5-5.1)
--- NOTE | 2019-05-01 09:21 | PDOC ---
Subjective: Subjective: Had a much better night. Pain 1/10 - mostly associated w/ gas. Very small stool overnight. Tolerating PO - appetite is much better, trying to eat small portions of low fat diet. Trying to just use PO pain meds and stay away from IV w/ discharge in mind. Objective: Vital Signs: Vital Signs Date Time Temp Pulse Resp B/P (MAP) Pulse Ox O2 Delivery O2 Flow Rate FiO2 05/01/19 08:00 Room Air 05/01/19 07:00 97.9 58 16 98/57 (71) 97 97.9 05/01/19 02:36 2.0 Labs: Laboratory Tests Test 04/30/19 11:40 05/01/19 07:20 White Blood Count 7.9 x10^3/uL 8.5 x10^3/uL Red Blood Count 3.37 x10^6/uL 2.79 x10^6/uL Hemoglobin 9.5 g/dL 7.9 g/dL Hematocrit 29.3 % 24.2 % Mean Corpuscular Volume 87 fL 87 fL Mean Corpuscular Hemoglobin 28 pg 28 pg Mean Corpuscular Hemoglobin Concent 33 g/dL 33 g/dL Red Cell Distribution Width 15.9 % 15.3 % Platelet Count 438 x10^3/uL 360 x10^3/uL Neutrophils (%) (Auto) 84 % 92 % Lymphocytes (%) (Auto) 8 % 5 % Monocytes (%) (Auto) 7 % 4 % Eosinophils (%) (Auto) 1 % 0 % Basophils (%) (Auto) 0 % 0 % Neutrophils # (Auto) 6.6 x10^3uL 7.8 x10^3uL Lymphocytes # (Auto) 0.6 x10^3/uL 0.4 x10^3/uL Monocytes # (Auto) 0.5 x10^3/uL 0.3 x10^3/uL Eosinophils # (Auto) 0.1 x10^3/uL 0.0 x10^3/uL Basophils # (Auto) 0.0 x10^3/uL 0.0 x10^3/uL Sodium Level 134 mmol/L 136 mmol/L Potassium Level 3.2 mmol/L 3.8 mmol/L Chloride Level 98 mmol/L 102 mmol/L Carbon Dioxide Level 29 mmol/L 28 mmol/L Anion Gap 7 6 Blood Urea Nitrogen 7 mg/dL 10 mg/dL Creatinine 0.8 mg/dL 0.5 mg/dL Estimated GFR (Cockcroft-Gault) 100.4 172.6 Glucose Level 126 mg/dL 129 mg/dL Calcium Level 7.9 mg/dL 7.8 mg/dL Platelet Estimate Pending Imaging: FS 04/30 Findings- large tender but not thrombosed external hemorrhoids Severe colitis in rectum , sigmoid and descending colon - to extent of scope passage- no obvious pseudomembranes seen PE: GEN: NAD LUNGS: CTAB HEART: RRR, ABD: NABS, S/ND, some tenderness BLQ NEURO/PSYCH: A & O �3 A/P: Severe colitis - flex sig as above, also recent colonoscopy in [place] reportedly w/ ulcerative colitis (records requested but not received) C Diff - vanco dose increased yesterday per ID External hemorrhoids -- Better overall. Continue vanco per ID. Will review steroids w/ Dr. Fowler re: when to transition back to PO. HALIE GROSS May 01, 2019 09:20
--- NOTE | 2019-05-01 10:02 | PDOC ---
Infectious Disease Note Subjective Subjective Better. less stool and cramps Slept better No F/C/s/N/V/SOA Eating some ROS ROS o/w neg Vital Sign Vital Signs Vital Signs Date Time Temp Pulse Resp B/P (MAP) Pulse Ox O2 Delivery O2 Flow Rate FiO2 05/01/19 08:00 Room Air 05/01/19 07:00 97.9 58 16 98/57 (71) 97 97.9 05/01/19 02:36 2.0 Physical Exam PHYSICAL EXAM CONSTITUTIONAL: He is cooperative. He looks better, in no acute distress. He is lying in bed. Wears glasses. HEENT: Pupils are equal and reactive with normal conjunctivae. Oral cavity: Pharynx was clear. NECK: Supple. Good range of motion. LUNGS: Clear to auscultation. HEART: S1, S2. ABDOMEN: Mildly distended, soft. EXTREMITIES: No clubbing, cyanosis or gross edema. SKIN: Warm to touch without signs of rash. NEUROLOGIC: He is nonfocal. PSYCHIATRIC: Affect is appropriate. Labs Lab Laboratory Tests Test 04/30/19 11:40 05/01/19 07:20 White Blood Count 7.9 x10^3/uL (4.0-11.0) 8.5 x10^3/uL (4.0-11.0) Red Blood Count 3.37 x10^6/uL (4.30-5.70) 2.79 x10^6/uL (4.30-5.70) Hemoglobin 9.5 g/dL (13.0-17.5) 7.9 g/dL (13.0-17.5) Hematocrit 29.3 % (39.0-53.0) 24.2 % (39.0-53.0) Mean Corpuscular Volume 87 fL (79-100) 87 fL (79-100) Mean Corpuscular Hemoglobin 28 pg (25-35) 28 pg (25-35) Mean Corpuscular Hemoglobin Concent 33 g/dL (31-37) 33 g/dL (31-37) Red Cell Distribution Width 15.9 % (11.5-14.5) 15.3 % (11.5-14.5) Platelet Count 438 x10^3/uL (140-400) 360 x10^3/uL (140-400) Neutrophils (%) (Auto) 84 % (31-73) 92 % (31-73) Lymphocytes (%) (Auto) 8 % (24-48) 5 % (24-48) Monocytes (%) (Auto) 7 % (0-9) 4 % (0-9) Eosinophils (%) (Auto) 1 % (0-3) 0 % (0-3) Basophils (%) (Auto) 0 % (0-3) 0 % (0-3) Neutrophils # (Auto) 6.6 x10^3uL (1.8-7.7) 7.8 x10^3uL (1.8-7.7) Lymphocytes # (Auto) 0.6 x10^3/uL (1.0-4.8) 0.4 x10^3/uL (1.0-4.8) Monocytes # (Auto) 0.5 x10^3/uL (0.0-1.1) 0.3 x10^3/uL (0.0-1.1) Eosinophils # (Auto) 0.1 x10^3/uL (0.0-0.7) 0.0 x10^3/uL (0.0-0.7) Basophils # (Auto) 0.0 x10^3/uL (0.0-0.2) 0.0 x10^3/uL (0.0-0.2) Sodium Level 134 mmol/L (136-145) 136 mmol/L (136-145) Potassium Level 3.2 mmol/L (3.5-5.1) 3.8 mmol/L (3.5-5.1) Chloride Level 98 mmol/L (98-107) 102 mmol/L (98-107) Carbon Dioxide Level 29 mmol/L (21-32) 28 mmol/L (21-32) Anion Gap 7 (6-14) 6 (6-14) Blood Urea Nitrogen 7 mg/dL (8-26) 10 mg/dL (8-26) Creatinine 0.8 mg/dL (0.7-1.3) 0.5 mg/dL (0.7-1.3) Estimated GFR (Cockcroft-Gault) 100.4 172.6 Glucose Level 126 mg/dL (70-99) 129 mg/dL (70-99) Calcium Level 7.9 mg/dL (8.5-10.1) 7.8 mg/dL (8.5-10.1) Micro Microbiology 04/25/19 Stool Culture - Final, Complete 04/25/19 Stool Culture Result 1 ([facility]) - Final, Complete 04/25/19 Campylobacter Antigen Assay - Final, Complete 04/25/19 Campylobactor Result 1 - Final, Complete 04/25/19 Shiga Toxin Test - Final, Complete Objective Assessment C-diff 04/24 Immunosuppression Ulcerative colitis Anemia Plan Plan of Care Cont Vanc but increase to 500 mg po QID 04/30 Monitor response Will need IV steroid adjusted per GI Hopeful d/c 05/02 D/w nursing BARBRA ZAMUDIO MD May 01, 2019 10:02
[2019-05-01 11:00] VITALS: BP 90/48
--- NOTE | 2019-05-01 12:20 | PDOC ---
PROGRESS NOTES Chief Complaint Chief Complaint Severe colitis - flex sig done: large tender but not thrombosed external hemorrhoids; Severe colitis in rectum , sigmoid and descending colon - to extent of scope passage- no obvious pseudomembranes seen - recent colonoscopy in [place] reportedly w/ ulcerative colitis. continue IV steroids per GI C. difficile positive--continuing PO vanc severe protein-caloric malnutrition Immunosuppression Anemia History of Present Illness History of Present Illness feels better today. less cramping, tolerating PO slowly. 26 min pt exam, chart review, > 50% of time spent with exam, chart review, pt care coordination disease education Vitals Vitals Vital Signs Date Time Temp Pulse Resp B/P (MAP) Pulse Ox O2 Delivery O2 Flow Rate FiO2 05/01/19 11:00 98.1 64 19 90/48 (62) 94 Room Air 98.1 05/01/19 02:36 2.0 Physical Exam Physical Exam CONSTITUTIONAL: He is cooperative. He looks better, in no acute distress. He is lying in bed. Wears glasses. HEENT: Pupils are equal and reactive with normal conjunctivae. Oral cavity: Pharynx was clear. NECK: Supple. Good range of motion. LUNGS: Clear to auscultation. HEART: S1, S2. ABDOMEN: Mildly distended, soft. EXTREMITIES: No clubbing, cyanosis or gross edema. SKIN: Warm to touch without signs of rash. NEUROLOGIC: He is nonfocal. PSYCHIATRIC: Affect is appropriate. General: Alert, Oriented X3, Cooperative, No acute distress Heart: Regular rate, Normal S1 Lungs: Clear Abdomen: Soft, Other (diffuse tenderness on light touch, normoactive bowel sounds, but not an acute abdomen) Extremities: No clubbing, No cyanosis, No edema, Normal pulses, No tenderness/swelling Skin: No rashes, No breakdown, No significant lesion Labs LABS Laboratory Tests Test 05/01/19 07:20 White Blood Count 8.5 x10^3/uL (4.0-11.0) Red Blood Count 2.79 x10^6/uL (4.30-5.70) Hemoglobin 7.9 g/dL (13.0-17.5) Hematocrit 24.2 % (39.0-53.0) Mean Corpuscular Volume 87 fL (79-100) Mean Corpuscular Hemoglobin 28 pg (25-35) Mean Corpuscular Hemoglobin Concent 33 g/dL (31-37) Red Cell Distribution Width 15.3 % (11.5-14.5) Platelet Count 360 x10^3/uL (140-400) Neutrophils (%) (Auto) 92 % (31-73) Lymphocytes (%) (Auto) 5 % (24-48) Monocytes (%) (Auto) 4 % (0-9) Eosinophils (%) (Auto) 0 % (0-3) Basophils (%) (Auto) 0 % (0-3) Neutrophils # (Auto) 7.8 x10^3uL (1.8-7.7) Lymphocytes # (Auto) 0.4 x10^3/uL (1.0-4.8) Monocytes # (Auto) 0.3 x10^3/uL (0.0-1.1) Eosinophils # (Auto) 0.0 x10^3/uL (0.0-0.7) Basophils # (Auto) 0.0 x10^3/uL (0.0-0.2) Sodium Level 136 mmol/L (136-145) Potassium Level 3.8 mmol/L (3.5-5.1) Chloride Level 102 mmol/L (98-107) Carbon Dioxide Level 28 mmol/L (21-32) Anion Gap 6 (6-14) Blood Urea Nitrogen 10 mg/dL (8-26) Creatinine 0.5 mg/dL (0.7-1.3) Estimated GFR (Cockcroft-Gault) 172.6 Glucose Level 129 mg/dL (70-99) Calcium Level 7.8 mg/dL (8.5-10.1) Assessment and Plan Assessmemt and Plan Problems Medical Problems: (1) Anemia due to blood loss Status: Acute (2) Anorexia Status: Acute (3) Bloody diarrhea Status: Acute (4) Colitis, Clostridium difficile Status: Acute (5) Ileitis Status: Acute (6) Pancolitis Status: Acute (7) Severe protein-calorie malnutrition Status: Acute (8) SIRS (systemic inflammatory response syndrome) Status: Acute (9) Ulcerative colitis Status: Acute Comment Review of Relevant I have reviewed the following items maria teresa (where applicable) has been applied. Labs Laboratory Tests Test 04/30/19 11:40 05/01/19 07:20 White Blood Count 7.9 x10^3/uL (4.0-11.0) 8.5 x10^3/uL (4.0-11.0) Red Blood Count 3.37 x10^6/uL (4.30-5.70) 2.79 x10^6/uL (4.30-5.70) Hemoglobin 9.5 g/dL (13.0-17.5) 7.9 g/dL (13.0-17.5) Hematocrit 29.3 % (39.0-53.0) 24.2 % (39.0-53.0) Mean Corpuscular Volume 87 fL (79-100) 87 fL (79-100) Mean Corpuscular Hemoglobin 28 pg (25-35) 28 pg (25-35) Mean Corpuscular Hemoglobin Concent 33 g/dL (31-37) 33 g/dL (31-37) Red Cell Distribution Width 15.9 % (11.5-14.5) 15.3 % (11.5-14.5) Platelet Count 438 x10^3/uL (140-400) 360 x10^3/uL (140-400) Neutrophils (%) (Auto) 84 % (31-73) 92 % (31-73) Lymphocytes (%) (Auto) 8 % (24-48) 5 % (24-48) Monocytes (%) (Auto) 7 % (0-9) 4 % (0-9) Eosinophils (%) (Auto) 1 % (0-3) 0 % (0-3) Basophils (%) (Auto) 0 % (0-3) 0 % (0-3) Neutrophils # (Auto) 6.6 x10^3uL (1.8-7.7) 7.8 x10^3uL (1.8-7.7) Lymphocytes # (Auto) 0.6 x10^3/uL (1.0-4.8) 0.4 x10^3/uL (1.0-4.8) Monocytes # (Auto) 0.5 x10^3/uL (0.0-1.1) 0.3 x10^3/uL (0.0-1.1) Eosinophils # (Auto) 0.1 x10^3/uL (0.0-0.7) 0.0 x10^3/uL (0.0-0.7) Basophils # (Auto) 0.0 x10^3/uL (0.0-0.2) 0.0 x10^3/uL (0.0-0.2) Sodium Level 134 mmol/L (136-145) 136 mmol/L (136-145) Potassium Level 3.2 mmol/L (3.5-5.1) 3.8 mmol/L (3.5-5.1) Chloride Level 98 mmol/L (98-107) 102 mmol/L (98-107) Carbon Dioxide Level 29 mmol/L (21-32) 28 mmol/L (21-32) Anion Gap 7 (6-14) 6 (6-14) Blood Urea Nitrogen 7 mg/dL (8-26) 10 mg/dL (8-26) Creatinine 0.8 mg/dL (0.7-1.3) 0.5 mg/dL (0.7-1.3) Estimated GFR (Cockcroft-Gault) 100.4 172.6 Glucose Level 126 mg/dL (70-99) 129 mg/dL (70-99) Calcium Level 7.9 mg/dL (8.5-10.1) 7.8 mg/dL (8.5-10.1) Laboratory Tests Test 05/01/19 07:20 White Blood Count 8.5 x10^3/uL (4.0-11.0) Red Blood Count 2.79 x10^6/uL (4.30-5.70) Hemoglobin 7.9 g/dL (13.0-17.5) Hematocrit 24.2 % (39.0-53.0) Mean Corpuscular Volume 87 fL (79-100) Mean Corpuscular Hemoglobin 28 pg (25-35) Mean Corpuscular Hemoglobin Concent 33 g/dL (31-37) Red Cell Distribution Width 15.3 % (11.5-14.5) Platelet Count 360 x10^3/uL (140-400) Neutrophils (%) (Auto) 92 % (31-73) Lymphocytes (%) (Auto) 5 % (24-48) Monocytes (%) (Auto) 4 % (0-9) Eosinophils (%) (Auto) 0 % (0-3) Basophils (%) (Auto) 0 % (0-3) Neutrophils # (Auto) 7.8 x10^3uL (1.8-7.7) Lymphocytes # (Auto) 0.4 x10^3/uL (1.0-4.8) Monocytes # (Auto) 0.3 x10^3/uL (0.0-1.1) Eosinophils # (Auto) 0.0 x10^3/uL (0.0-0.7) Basophils # (Auto) 0.0 x10^3/uL (0.0-0.2) Sodium Level 136 mmol/L (136-145) Potassium Level 3.8 mmol/L (3.5-5.1) Chloride Level 102 mmol/L (98-107) Carbon Dioxide Level 28 mmol/L (21-32) Anion Gap 6 (6-14) Blood Urea Nitrogen 10 mg/dL (8-26) Creatinine 0.5 mg/dL (0.7-1.3) Estimated GFR (Cockcroft-Gault) 172.6 Glucose Level 129 mg/dL (70-99) Calcium Level 7.8 mg/dL (8.5-10.1) Microbiology 04/25/19 Stool Culture - Final, Complete 04/25/19 Stool Culture Result 1 ([facility]) - Final, Complete 04/25/19 Campylobacter Antigen Assay - Final, Complete 04/25/19 Campylobactor Result 1 - Final, Complete 04/25/19 Shiga Toxin Test - Final, Complete Medications Current Medications Sodium Chloride 1,000 ml @ 1,000 mls/hr 1X ONCE IV Last administered on 04/23/19at 16:25; Start 04/23/19 at 16:00; Stop 04/23/19 at 16:59; Status DC Ondansetron HCl (Zofran) 8 mg 1X ONCE IV Last administered on 04/23/19at 16:24; Start 04/23/19 at 16:00; Stop 04/23/19 at 16:01; Status DC Morphine Sulfate (Morphine Sulfate) 4 mg 1X ONCE IV Last administered on 04/23/19at 16:25; Start 04/23/19 at 16:00; Stop 04/23/19 at 16:01; Status DC Iohexol (Omnipaque 300 Mg/ml) 75 ml 1X ONCE IV Last administered on 04/23/19at 16:11; Start 04/23/19 at 16:00; Stop 04/23/19 at 16:01; Status DC Info (CONTRAST GIVEN -- Rx MONITORING) 1 each PRN DAILY PRN MC SEE COMMENTS; Start 04/23/19 at 16:00; Stop 04/25/19 at 15:59; Status DC Methylprednisolone Sodium Succinate (SOLU-Medrol 125MG VIAL) 125 mg 1X ONCE IV Last administered on 04/23/19at 17:30; Start 04/23/19 at 17:30; Stop 04/23/19 at 17:31; Status DC Fentanyl Citrate (Fentanyl 2ml Vial) 75 mcg 1X ONCE IV Last administered on 04/23/19at 17:30; Start 04/23/19 at 17:30; Stop 04/23/19 at 17:31; Status DC Ondansetron HCl (Zofran) 4 mg PRN Q8HRS PRN IV NAUSEA/VOMITING; Start 04/23/19 at 17:30; Stop 04/23/19 at 17:43; Status DC Morphine Sulfate (Morphine Sulfate) 4 mg PRN Q6HRS PRN IV PAIN Last administered on 04/24/19at 09:40; Start 04/23/19 at 17:30; Stop 04/24/19 at 17:29; Status DC Sodium Chloride 1,000 ml @ 100 mls/hr Q10H IV Last administered on 04/24/19at 14:34; Start 04/23/19 at 18:00; Stop 04/24/19 at 17:59; Status DC Ondansetron HCl (Zofran) 4 mg PRN Q6HRS PRN IV NAUSEA/VOMITING Last administered on 04/25/19at 17:35; Start 04/23/19 at 17:45 Famotidine (Pepcid Vial) 20 mg BID IVP Last administered on 04/26/19at 08:26; Start 04/23/19 at 21:00; Stop 04/26/19 at 09:39; Status DC Fentanyl Citrate (Fentanyl 2ml Vial) 50 mcg PRN Q2HR PRN IV PAIN Last administered on 04/29/19at 08:19; Start 04/23/19 at 17:45 Methylprednisolone Sodium Succinate (SOLU-Medrol 40MG VIAL) 40 mg Q8HRS IV Last administered on 04/26/19at 06:00; Start 04/23/19 at 22:00; Stop 04/26/19 at 09:16; Status DC Diphenhydramine HCl (Benadryl) 25 mg PRN QHS PRN IVP INSOMNIA; Start 04/23/19 at 17:45 Pharmacy Consult (C.diff Med Screen By Rx) 1 each 1X ONCE MC Last administered on 04/24/19at 09:00; Start 04/24/19 at 09:00; Stop 04/24/19 at 09:01; Status DC Mesalamine (Delzicol) 800 mg TID PO Last administered on 05/01/19 08:08; Start 04/24/19 at 14:00 Sodium Chloride 1,000 ml @ 100 mls/hr Q10H IV Last administered on 05/01/19 05:19; Start 04/24/19 at 22:00 Simethicone (Gas-X) 80 mg PRN Q6HRS PRN PO GAS / BLOATING Last administered on 04/30/19at 03:47; Start 04/25/19 at 22:15 Vancomycin HCl (Vancomycin Oral Solution) 125 mg [id number] PO Last administered on 04/30/19at 11:16; Start 04/26/19 at 09:00; Stop 04/30/19 at 11:36; Status DC Methylprednisolone Sodium Succinate (SOLU-Medrol 40MG VIAL) 40 mg BID IV ; Start 04/26/19 at 21:00; Stop 04/26/19 at 21:00; Status DC Prednisone (Prednisone) 40 mg DAILY PO Last administered on 04/29/19at 08:19; Start 04/27/19 at 09:00; Stop 04/30/19 at 08:19; Status DC Pantoprazole Sodium (Protonix) 40 mg DAILYAC PO Last administered on 05/01/19 08:08; Start 04/27/19 at 07:30 Lactobacillus Rhamnosus (Culturelle) 1 cap BID PO Last administered on 05/01/19 08:08; Start 04/26/19 at 21:00 Dicyclomine HCl (Bentyl) 10 mg PRN TID PRN PO STOMACH CRAMPING Last administered on 04/28/19at 00:12; Start 04/27/19 at 03:45; Stop 04/28/19 at 11:52; Status DC Dicyclomine HCl (Bentyl) 10 mg [id number] PO Last administered on 04/28/19at 16:51; Start 04/28/19 at 13:00; Stop 04/29/19 at 01:53; Status DC Potassium Chloride (Klor-Con) 40 meq 1X ONCE PO Last administered on 04/28/19at 18:20; Start 04/28/19 at 18:00; Stop 04/28/19 at 18:01; Status DC Dicyclomine HCl (Bentyl) 10 mg QID PO Last administered on 04/29/19at 08:20; Start 04/29/19 at 09:00; Stop 04/29/19 at 12:51; Status DC Dicyclomine HCl (Bentyl) 10 mg PRN Q6HRS PRN PO STOMACH CRAMPING Last admi nistered on 04/29/19at 01:59; Start 04/29/19 at 02:00; Stop 04/29/19 at 09:00; Status DC Oxycodone/ Acetaminophen (Percocet 5/325) 1 tab PRN Q4HRS PRN PO SEVERE PAIN 7- 10 Last administered on 05/01/19at 02:36; Start 04/29/19 at 02:00 Hyoscyamine (Anaspaz) 0.125 mg Q6HRS PO Last administered on 05/01/19at 11:58; Start 04/29/19 at 13:00 Midazolam HCl (Versed) 2 mg PRN 1X PRN IV PRIOR TO PROCEDURE; Start 04/30/19 at 07:15; Stop 04/30/19 at 14:50; Status DC Fentanyl Citrate (Fentanyl 2ml Vial) 25 mcg PRN Q5MIN PRN IV X 2 DOSES FOR PAIN; Start 04/30/19 at 07:15; Stop 04/30/19 at 14:50; Status DC Fentanyl Citrate (Fentanyl 2ml Vial) 50 mcg PRN Q5MIN PRN IV X 2 DOSES FOR PAIN; Start 04/30/19 at 07:15; Stop 04/30/19 at 14:50; Status DC Ringer's Solution 1,000 ml @ 125 mls/hr Q8H IV Last administered on 04/30/19at 07:08; Start 04/30/19 at 07:08; Stop 04/30/19 at 14:50; Status DC Lidocaine HCl (Xylocaine-Mpf 1% 2ml Vial) 2 ml 1X PRN PRN ID IV START; Start 04/30/19 at 07:15; Stop 04/30/19 at 14:50; Status DC Midazolam HCl (Versed) 5 mg STK-MED ONCE .ROUTE ; Start 04/30/19 at 07:48; Stop 04/30/19 at 07:49; Status DC Fentanyl Citrate (Fentanyl 2ml Vial) 100 mcg STK-MED ONCE .ROUTE ; Start 04/30/19 at 07:48; Stop 04/30/19 at 07:49; Status DC Midazolam HCl (Versed) 5 mg STK-MED ONCE IV Last administered on 04/30/19at 08:02; Start 04/30/19 at 08:02; Stop 04/30/19 at 08:06; Status DC Fentanyl Citrate (Fentanyl 2ml Vial) 100 mcg STK-MED ONCE IV Last administered on 04/30/19at 08:03; Start 04/30/19 at 08:03; Stop 04/30/19 at 08:06; Status DC Midazolam HCl (Versed) 5 mg STK-MED ONCE IV Last administered on 04/30/19at 08:05; Start 04/30/19 at 08:05; Stop 04/30/19 at 08:06; Status DC Midazolam HCl (Versed) 5 mg STK-MED ONCE IV Last administered on 04/30/19at 08:07; Start 04/30/19 at 08:07; Stop 04/30/19 at 08:09; Status DC Fentanyl Citrate (Fentanyl 2ml Vial) 100 mcg STK-MED ONCE IV Last administered on 04/30/19at 08:08; Start 04/30/19 at 08:08; Stop 04/30/19 at 08:09; Status DC Methylprednisolone Sodium Succinate (SOLU-Medrol 40MG VIAL) 40 mg Q8HRS IV Last administered on 05/01/19at 05:15; Start 04/30/19 at 08:30 Vancomycin HCl (Vancomycin Oral Solution) 500 mg [id number] PO Last administered on 05/01/19at 11:58; Start 04/30/19 at 13:00 Active Scripts Active Reported Dicyclomine Hcl 10 Mg Capsule 1 Cap PO TID Apriso (Mesalamine) 0.375 Gm Cap.er.24h 2 Cap PO BID Vitals/I & O Vital Sign - Last 24 Hours 04/30/19 04/30/19 04/30/19 04/30/19 15:00 17:40 19:00 20:00 Temp 97.8 98.5 97.8 98.5 Pulse 97 50 Resp 16 18 B/P (MAP) 99/55 (70) 89/54 (66) Pulse Ox 97 97 O2 Delivery Room Air Room Air Room Air Room Air 04/30/19 04/30/19 04/30/19 05/01/19 21:36 22:36 23:00 02:36 Temp 98.4 98.4 Pulse 53 Resp 18 18 18 18 B/P (MAP) 97/61 (73) Pulse Ox 97 97 96 96 O2 Delivery Room Air Room Air Room Air Room Air O2 Flow Rate 2.0 2.0 05/01/19 05/01/19 05/01/19 05/01/19 02:59 07:00 08:00 11:00 Temp 97.7 97.9 98.1 97.7 97.9 98.1 Pulse 55 58 64 Resp 18 16 19 B/P (MAP) 127/57 (80) 98/57 (71) 90/48 (62) Pulse Ox 97 97 94 O2 Delivery Room Air Room Air Room Air Room Air Intake and Output 04/30/19 04/30/19 05/01/19 15:00 23:00 07:00 Intake Total 690 ml 480 ml Balance 690 ml 480 ml Nutrition Consultation Dietary Evaluation: Comments: advance diet as tolerated offer supplements prn Expected Outcomes/Goals: to meet > 75% est nutr needs Interpretation of weight loss: >7.5% in 3 months Malnutrition Findings: Food and Nutrition Intake (Sev: <50% est energy req 5days Weight Status: Appropriate HOMERO CHASE MD May 01, 2019 12:20
[2019-05-01 13:56] LABS: % LYMPHS 8 % (24-48); % MONOS 1 % (0-10); % SEGS 91 % (35-66); HYPOCHROMIA SLIGHT; PLT ESTIMATE ADEQUATE (ADEQUATE)
[2019-05-01 15:00] VITALS: BP 103/67
--- NOTE | 2019-05-01 17:06 | PATHOLOGY ---
[facility] Accession Number: [id number] . 01 Material submitted: . colon - BX COLON . 01 Clinical history: . Colitis versus C. diff colitis . 02 Diagnosis: Colonic mucosa, colon biopsies: - Marked active chronic colitis without granulomas or specific features. . (JPM:mml; 05/01/2019) [facility]/05/01/2019 . 02 Comment: Sections of the colon biopsies reveal segments of colonic mucosa showing marked active chronic inflammation. There is crypt architectural distortion and focal acute cryptitis. There are no granulomas. The findings are supportive of the diagnosis of active chronic ulcerative colitis. There is no dysplasia or evidence of malignancy. . (JPM:mml; 05/01/2019) . 02 Electronically signed: . Anthony Crabtree MD, Pathologist NPI- [id number] . 01 Gross description: . The specimen is received in formalin, labeled "Moody Nesbitt, BX colon Colitis" and consists of multiple fragments of pink-casas tissue measuring 1.3 x 0.5 x 0.2 cm in aggregate which are entirely submitted in A1. (SDY; 04/30/2019) SYU/SYU . 02 Pathologist provided ICD-10: K52.9 . 02 CPT . 819137 Specimen Comment: A courtesy copy of this report has been sent to Specimen Comment: [phone], . Specimen Comment: Report sent to / DR DIXON Performed at: 01 [facility] [address], [address], [place] [id number] MD Rock Chance MD Phone: [phone] Performed at: 02 [facility] [address], [place] [id number] MD Anthony Crabtree MD Phone: [phone]
[2019-05-01 19:00] VITALS: BP 112/68
[2019-05-01 23:04] VITALS: BP 114/71
[2019-05-02] MEDS: IV NORMAL SALINE 1000ML BAG 1,000 ML IV SCH ×3 (00:12→21:50)
[2019-05-02] MEDS: HYOSCYAMINE 0.125 MG TAB.RAPDIS PO SCH ×5 (00:12→23:44)
[2019-05-02 03:00] VITALS: BP 103/69
[2019-05-02 04:09] LABS: BASO % 0 % (0-3); EOS % 0 % (0-3); HEMATOCRIT 26.9 % (39.0-53.0); HEMOGLOBIN 8.7 g/dL (13.0-17.5); LYMPH # 0.6 x10^3/uL (1.0-4.8); LYMPH % 9 % (24-48); MEAN CORPUSCULAR HEMOGLOBIN 28 pg (25-35); MEAN CORPUSCULAR HGB CONC 32 g/dL (31-37); MEAN CORPUSCULAR VOLUME 87 fL (79-100); MONO # 0.3 x10^3/uL (0.0-1.1); MONO % 5 % (0-9); NEUT # 5.6 x10^3uL (1.8-7.7); NEUT % 86 % (31-73); PLATELET COUNT 468 x10^3/uL (140-400); RED BLOOD COUNT 3.11 x10^6/uL (4.30-5.70); RED CELL DISTRIBUTION WIDTH 15.4 % (11.5-14.5); WHITE BLOOD COUNT 6.6 x10^3/uL (4.0-11.0)
[2019-05-02 04:24] LABS: CALCIUM 8.1 mg/dL (8.5-10.1); CREATININE 0.6 mg/dL (0.7-1.3); GFR 139.9; POTASSIUM 3.6 mmol/L (3.5-5.1)
[2019-05-02] MEDS: methylPREDNISolone SOD SUCC PF 40 MG/ML VIAL. IV SCH ×3 (05:48→21:52)
[2019-05-02] MEDS: oxyCODONE/APAP 5/325 1 TAB TABLET PO PRN (05:50)
[2019-05-02 07:00] VITALS: BP 123/66
[2019-05-02] MEDS: PANTOPRAZOLE 40 MG TABLET.DR. PO SCH (07:30)
[2019-05-02] MEDS: fentaNYL PF VIAL 100 MCG/2 ML VIAL IV PRN ×4 (08:13→21:57)
--- NOTE | 2019-05-02 08:28 | NUR ---
c/o nausea, stomach cramps /, 2+ episodes of diarrhea thhis morning, denies vomiting. Fentanyl administered. Will continue to monitor
[2019-05-02] MEDS: VANCOMYCIN 125 MG/2.5 ML ORAL SOLUTION. PO SCH ×4 (09:00→21:52)
[2019-05-02] MEDS: MESALAMINE 400 MG CAP.DRTAB. PO SCH ×3 (09:00→21:51)
--- NOTE | 2019-05-02 09:00 | PDOC ---
Subjective: Subjective: Worse since 3:30 a.m. - had diarrhea ("getting thicker") x 1 w/ lower abd cramps. Percocet didn't help, Fentanyl did - now feels better. Hasn't eaten yet. Objective: Vital Signs: Vital Signs Date Time Temp Pulse Resp B/P (MAP) Pulse Ox O2 Delivery O2 Flow Rate FiO2 05/02/19 08:13 18 Room Air 05/02/19 07:00 98.1 50 123/66 (85) 99 98.1 Labs: Laboratory Tests Test 05/02/19 03:55 White Blood Count 6.6 x10^3/uL Red Blood Count 3.11 x10^6/uL Hemoglobin 8.7 g/dL Hematocrit 26.9 % Mean Corpuscular Volume 87 fL Mean Corpuscular Hemoglobin 28 pg Mean Corpuscular Hemoglobin Concent 32 g/dL Red Cell Distribution Width 15.4 % Platelet Count 468 x10^3/uL Neutrophils (%) (Auto) 86 % Lymphocytes (%) (Auto) 9 % Monocytes (%) (Auto) 5 % Eosinophils (%) (Auto) 0 % Basophils (%) (Auto) 0 % Neutrophils # (Auto) 5.6 x10^3uL Lymphocytes # (Auto) 0.6 x10^3/uL Monocytes # (Auto) 0.3 x10^3/uL Eosinophils # (Auto) 0.0 x10^3/uL Basophils # (Auto) 0.0 x10^3/uL Sodium Level 138 mmol/L Potassium Level 3.6 mmol/L Chloride Level 102 mmol/L Carbon Dioxide Level 28 mmol/L Anion Gap 8 Blood Urea Nitrogen 10 mg/dL Creatinine 0.6 mg/dL Estimated GFR (Cockcroft-Gault) 139.9 Glucose Level 151 mg/dL Calcium Level 8.1 mg/dL Material submitted: . colon - BX COLON Clinical history: . Colitis versus C. diff colitis Diagnosis: Colonic mucosa, colon biopsies: - Marked active chronic colitis without granulomas or specific features. Comment: Sections of the colon biopsies reveal segments of colonic mucosa showing marked active chronic inflammation. There is crypt architectural distortion and focal acute cryptitis. There are no granulomas. The findings are supportive of the diagnosis of active chronic ulcerative colitis. There is no dysplasia or evidence of malignancy. PE: GEN: NAD - was asleep LUNGS: CTAB HEART: RRR ABD: NABS, S/ND - currently not tender NEURO/PSYCH: A & O �3 A/P: UC, C Diff -- Increased pain overnight - controlled w/ Fentanyl IV. Seems reasonable to continue same for now. Continue vanco per ID. Continue IV steroids for now - change to PO taper on discharge as previously discussed. Pain control per primary. HALIE GROSS May 02, 2019 09:00
--- NOTE | 2019-05-02 09:26 | PDOC ---
Infectious Disease Note Subjective Subjective Better. Only 2 loose stools this am but occ blood still and severe cramps. Stools are forming Slept better No F/C/s/N/V/SOA Eating some Vital Sign Vital Signs Vital Signs Date Time Temp Pulse Resp B/P (MAP) Pulse Ox O2 Delivery O2 Flow Rate FiO2 05/02/19 08:13 18 Room Air 05/02/19 07:00 98.1 50 123/66 (85) 99 98.1 Physical Exam PHYSICAL EXAM CONSTITUTIONAL: He is cooperative. He looks better, in no acute distress. He is lying in bed. Wears glasses. HEENT: Pupils are equal and reactive with normal conjunctivae. Oral cavity: Pharynx was clear. NECK: Supple. Good range of motion. LUNGS: Clear to auscultation. HEART: S1, S2. ABDOMEN: Mildly distended, soft. EXTREMITIES: No clubbing, cyanosis or gross edema. SKIN: Warm to touch without signs of rash. NEUROLOGIC: He is nonfocal. PSYCHIATRIC: Affect is appropriate. Labs Lab Laboratory Tests Test 05/02/19 03:55 White Blood Count 6.6 x10^3/uL (4.0-11.0) Red Blood Count 3.11 x10^6/uL (4.30-5.70) Hemoglobin 8.7 g/dL (13.0-17.5) Hematocrit 26.9 % (39.0-53.0) Mean Corpuscular Volume 87 fL (79-100) Mean Corpuscular Hemoglobin 28 pg (25-35) Mean Corpuscular Hemoglobin Concent 32 g/dL (31-37) Red Cell Distribution Width 15.4 % (11.5-14.5) Platelet Count 468 x10^3/uL (140-400) Neutrophils (%) (Auto) 86 % (31-73) Lymphocytes (%) (Auto) 9 % (24-48) Monocytes (%) (Auto) 5 % (0-9) Eosinophils (%) (Auto) 0 % (0-3) Basophils (%) (Auto) 0 % (0-3) Neutrophils # (Auto) 5.6 x10^3uL (1.8-7.7) Lymphocytes # (Auto) 0.6 x10^3/uL (1.0-4.8) Monocytes # (Auto) 0.3 x10^3/uL (0.0-1.1) Eosinophils # (Auto) 0.0 x10^3/uL (0.0-0.7) Basophils # (Auto) 0.0 x10^3/uL (0.0-0.2) Sodium Level 138 mmol/L (136-145) Potassium Level 3.6 mmol/L (3.5-5.1) Chloride Level 102 mmol/L (98-107) Carbon Dioxide Level 28 mmol/L (21-32) Anion Gap 8 (6-14) Blood Urea Nitrogen 10 mg/dL (8-26) Creatinine 0.6 mg/dL (0.7-1.3) Estimated GFR (Cockcroft-Gault) 139.9 Glucose Level 151 mg/dL (70-99) Calcium Level 8.1 mg/dL (8.5-10.1) Micro Microbiology 04/25/19 Stool Culture - Final, Complete 04/25/19 Stool Culture Result 1 ([facility]) - Final, Complete 04/25/19 Campylobacter Antigen Assay - Final, Complete 04/25/19 Campylobactor Result 1 - Final, Complete 04/25/19 Shiga Toxin Test - Final, Complete Objective Assessment C-diff 04/24 Immunosuppression Ulcerative colitis Anemia Plan Plan of Care Cont Vanc but increase to 500 mg po QID 04/30 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
--- NOTE | 2019-05-02 10:15 | NUR ---
RE: Assumed patient care from TJ Dumont
--- NOTE | 2019-05-02 10:30 | NUR ---
psych therapist meds not given before nurse exchange
[2019-05-02 10:45] VITALS: BP 97/43
--- NOTE | 2019-05-02 11:30 | PDOC ---
PROGRESS NOTES Chief Complaint Chief Complaint Severe colitis - flex sig done: large tender but not thrombosed external hemorrhoids; Severe colitis in rectum , sigmoid and descending colon - to extent of scope passage- no obvious pseudomembranes seen - recent colonoscopy in [place] reportedly w/ ulcerative colitis. continue IV steroids per GI C. difficile positive--continuing PO vanc at increased dose severe protein-caloric malnutrition Immunosuppression with IV steroids Anemia History of Present Illness History of Present Illness two loose stools this AM. still cramping. increase IVF to 100 cc/hr since decreased PO intake. prn IV fentanyl for pain 26 min pt exam, chart review, > 50% of time spent with exam, chart review, pt care coordination disease education Vitals Vitals Vital Signs Date Time Temp Pulse Resp B/P (MAP) Pulse Ox O2 Delivery O2 Flow Rate FiO2 05/02/19 10:45 97.7 47 18 97/43 (61) 98 Nasal Cannula 2.0 97.7 Physical Exam Physical Exam CONSTITUTIONAL: He is cooperative. He looks better, in no acute distress. He is lying in bed. Wears glasses. HEENT: Pupils are equal and reactive with normal conjunctivae. Oral cavity: Pharynx was clear. NECK: Supple. Good range of motion. LUNGS: Clear to auscultation. HEART: S1, S2. ABDOMEN: Mildly distended, soft. EXTREMITIES: No clubbing, cyanosis or gross edema. SKIN: Warm to touch without signs of rash. NEUROLOGIC: He is nonfocal. PSYCHIATRIC: Affect is appropriate. General: Alert, Oriented X3, Cooperative, No acute distress Heart: Regular rate, Normal S1 Lungs: Clear Abdomen: Soft, Other (diffuse tenderness on light touch, normoactive bowel sounds, but not an acute abdomen) Extremities: No clubbing, No cyanosis, No edema, Normal pulses, No tenderness/swelling Skin: No rashes, No breakdown, No significant lesion Labs LABS Laboratory Tests Test 05/02/19 03:55 White Blood Count 6.6 x10^3/uL (4.0-11.0) Red Blood Count 3.11 x10^6/uL (4.30-5.70) Hemoglobin 8.7 g/dL (13.0-17.5) Hematocrit 26.9 % (39.0-53.0) Mean Corpuscular Volume 87 fL (79-100) Mean Corpuscular Hemoglobin 28 pg (25-35) Mean Corpuscular Hemoglobin Concent 32 g/dL (31-37) Red Cell Distribution Width 15.4 % (11.5-14.5) Platelet Count 468 x10^3/uL (140-400) Neutrophils (%) (Auto) 86 % (31-73) Lymphocytes (%) (Auto) 9 % (24-48) Monocytes (%) (Auto) 5 % (0-9) Eosinophils (%) (Auto) 0 % (0-3) Basophils (%) (Auto) 0 % (0-3) Neutrophils # (Auto) 5.6 x10^3uL (1.8-7.7) Lymphocytes # (Auto) 0.6 x10^3/uL (1.0-4.8) Monocytes # (Auto) 0.3 x10^3/uL (0.0-1.1) Eosinophils # (Auto) 0.0 x10^3/uL (0.0-0.7) Basophils # (Auto) 0.0 x10^3/uL (0.0-0.2) Sodium Level 138 mmol/L (136-145) Potassium Level 3.6 mmol/L (3.5-5.1) Chloride Level 102 mmol/L (98-107) Carbon Dioxide Level 28 mmol/L (21-32) Anion Gap 8 (6-14) Blood Urea Nitrogen 10 mg/dL (8-26) Creatinine 0.6 mg/dL (0.7-1.3) Estimated GFR (Cockcroft-Gault) 139.9 Glucose Level 151 mg/dL (70-99) Calcium Level 8.1 mg/dL (8.5-10.1) Assessment and Plan Assessmemt and Plan Problems Medical Problems: (1) Anemia due to blood loss Status: Acute (2) Anorexia Status: Acute (3) Bloody diarrhea Status: Acute (4) Colitis, Clostridium difficile Status: Acute (5) Ileitis Status: Acute (6) Pancolitis Status: Acute (7) Severe protein-calorie malnutrition Status: Acute (8) SIRS (systemic inflammatory response syndrome) Status: Acute (9) Ulcerative colitis Status: Acute Comment Review of Relevant I have reviewed the following items maria teresa (where applicable) has been applied. Labs Laboratory Tests Test 04/30/19 11:40 05/01/19 07:20 05/02/19 03:55 White Blood Count 7.9 x10^3/uL (4.0-11.0) 8.5 x10^3/uL (4.0-11.0) 6.6 x10^3/uL (4.0-11.0) Red Blood Count 3.37 x10^6/uL (4.30-5.70) 2.79 x10^6/uL (4.30-5.70) 3.11 x10^6/uL (4.30-5.70) Hemoglobin 9.5 g/dL (13.0-17.5) 7.9 g/dL (13.0-17.5) 8.7 g/dL (13.0-17.5) Hematocrit 29.3 % (39.0-53.0) 24.2 % (39.0-53.0) 26.9 % (39.0-53.0) Mean Corpuscular Volume 87 fL (79-100) 87 fL (79-100) 87 fL (79-100) Mean Corpuscular Hemoglobin 28 pg (25-35) 28 pg (25-35) 28 pg (25-35) Mean Corpuscular Hemoglobin Concent 33 g/dL (31-37) 33 g/dL (31-37) 32 g/dL (31-37) Red Cell Distribution Width 15.9 % (11.5-14.5) 15.3 % (11.5-14.5) 15.4 % (11.5-14.5) Platelet Count 438 x10^3/uL (140-400) 360 x10^3/uL (140-400) 468 x10^3/uL (140-400) Neutrophils (%) (Auto) 84 % (31-73) 92 % (31-73) 86 % (31-73) Lymphocytes (%) (Auto) 8 % (24-48) 5 % (24-48) 9 % (24-48) Monocytes (%) (Auto) 7 % (0-9) 4 % (0-9) 5 % (0-9) Eosinophils (%) (Auto) 1 % (0-3) 0 % (0-3) 0 % (0-3) Basophils (%) (Auto) 0 % (0-3) 0 % (0-3) 0 % (0-3) Neutrophils # (Auto) 6.6 x10^3uL (1.8-7.7) 7.8 x10^3uL (1.8-7.7) 5.6 x10^3uL (1.8-7.7) Lymphocytes # (Auto) 0.6 x10^3/uL (1.0-4.8) 0.4 x10^3/uL (1.0-4.8) 0.6 x10^3/uL (1.0-4.8) Monocytes # (Auto) 0.5 x10^3/uL (0.0-1.1) 0.3 x10^3/uL (0.0-1.1) 0.3 x10^3/uL (0.0-1.1) Eosinophils # (Auto) 0.1 x10^3/uL (0.0-0.7) 0.0 x10^3/uL (0.0-0.7) 0.0 x10^3/uL (0.0-0.7) Basophils # (Auto) 0.0 x10^3/uL (0.0-0.2) 0.0 x10^3/uL (0.0-0.2) 0.0 x10^3/uL (0.0-0.2) Sodium Level 134 mmol/L (136-145) 136 mmol/L (136-145) 138 mmol/L (136-145) Potassium Level 3.2 mmol/L (3.5-5.1) 3.8 mmol/L (3.5-5.1) 3.6 mmol/L (3.5-5.1) Chloride Level 98 mmol/L (98-107) 102 mmol/L (98-107) 102 mmol/L (98-107) Carbon Dioxide Level 29 mmol/L (21-32) 28 mmol/L (21-32) 28 mmol/L (21-32) Anion Gap 7 (6-14) 6 (6-14) 8 (6-14) Blood Urea Nitrogen 7 mg/dL (8-26) 10 mg/dL (8-26) 10 mg/dL (8-26) Creatinine 0.8 mg/dL (0.7-1.3) 0.5 mg/dL (0.7-1.3) 0.6 mg/dL (0.7-1.3) Estimated GFR (Cockcroft-Gault) 100.4 172.6 139.9 Glucose Level 126 mg/dL (70-99) 129 mg/dL (70-99) 151 mg/dL (70-99) Calcium Level 7.9 mg/dL (8.5-10.1) 7.8 mg/dL (8.5-10.1) 8.1 mg/dL (8.5-10.1) Segmented Neutrophils % 91 % (35-66) Lymphocytes % 8 % (24-48) Monocytes % 1 % (0-10) Platelet Estimate Adequate (ADEQUATE) Hypochromasia Slight Laboratory Tests Test 05/02/19 03:55 White Blood Count 6.6 x10^3/uL (4.0-11.0) Red Blood Count 3.11 x10^6/uL (4.30-5.70) Hemoglobin 8.7 g/dL (13.0-17.5) Hematocrit 26.9 % (39.0-53.0) Mean Corpuscular Volume 87 fL (79-100) Mean Corpuscular Hemoglobin 28 pg (25-35) Mean Corpuscular Hemoglobin Concent 32 g/dL (31-37) Red Cell Distribution Width 15.4 % (11.5-14.5) Platelet Count 468 x10^3/uL (140-400) Neutrophils (%) (Auto) 86 % (31-73) Lymphocytes (%) (Auto) 9 % (24-48) Monocytes (%) (Auto) 5 % (0-9) Eosinophils (%) (Auto) 0 % (0-3) Basophils (%) (Auto) 0 % (0-3) Neutrophils # (Auto) 5.6 x10^3uL (1.8-7.7) Lymphocytes # (Auto) 0.6 x10^3/uL (1.0-4.8) Monocytes # (Auto) 0.3 x10^3/uL (0.0-1.1) Eosinophils # (Auto) 0.0 x10^3/uL (0.0-0.7) Basophils # (Auto) 0.0 x10^3/uL (0.0-0.2) Sodium Level 138 mmol/L (136-145) Potassium Level 3.6 mmol/L (3.5-5.1) Chloride Level 102 mmol/L (98-107) Carbon Dioxide Level 28 mmol/L (21-32) Anion Gap 8 (6-14) Blood Urea Nitrogen 10 mg/dL (8-26) Creatinine 0.6 mg/dL (0.7-1.3) Estimated GFR (Cockcroft-Gault) 139.9 Glucose Level 151 mg/dL (70-99) Calcium Level 8.1 mg/dL (8.5-10.1) Microbiology 04/25/19 Stool Culture - Final, Complete 04/25/19 Stool Culture Result 1 ([facility]) - Final, Complete 04/25/19 Campylobacter Antigen Assay - Final, Complete 04/25/19 Campylobactor Result 1 - Final, Complete 04/25/19 Shiga Toxin Test - Final, Complete Medications Current Medications Sodium Chloride 1,000 ml @ 1,000 mls/hr 1X ONCE IV Last administered on 04/23/19at 16:25; Start 04/23/19 at 16:00; Stop 04/23/19 at 16:59; Status DC Ondansetron HCl (Zofran) 8 mg 1X ONCE IV Last administered on 04/23/19at 16:24; Start 04/23/19 at 16:00; Stop 04/23/19 at 16:01; Status DC Morphine Sulfate (Morphine Sulfate) 4 mg 1X ONCE IV Last administered on 04/23/19at 16:25; Start 04/23/19 at 16:00; Stop 04/23/19 at 16:01; Status DC Iohexol (Omnipaque 300 Mg/ml) 75 ml 1X ONCE IV Last administered on 04/23/19at 16:11; Start 04/23/19 at 16:00; Stop 04/23/19 at 16:01; Status DC Info (CONTRAST GIVEN -- Rx MONITORING) 1 each PRN DAILY PRN MC SEE COMMENTS; Start 04/23/19 at 16:00; Stop 04/25/19 at 15:59; Status DC Methylprednisolone Sodium Succinate (SOLU-Medrol 125MG VIAL) 125 mg 1X ONCE IV Last administered on 04/23/19at 17:30; Start 04/23/19 at 17:30; Stop 04/23/19 at 17:31; Status DC Fentanyl Citrate (Fentanyl 2ml Vial) 75 mcg 1X ONCE IV Last administered on 04/23/19at 17:30; Start 04/23/19 at 17:30; Stop 04/23/19 at 17:31; Status DC Ondansetron HCl (Zofran) 4 mg PRN Q8HRS PRN IV NAUSEA/VOMITING; Start 04/23/19 at 17:30; Stop 04/23/19 at 17:43; Status DC Morphine Sulfate (Morphine Sulfate) 4 mg PRN Q6HRS PRN IV PAIN Last administered on 04/24/19 09:40; Start 04/23/19 at 17:30; Stop 04/24/19 at 17:29; Status DC Sodium Chloride 1,000 ml @ 100 mls/hr Q10H IV Last administered on 04/24/19at 14:34; Start 04/23/19 at 18:00; Stop 04/24/19 at 17:59; Status DC Ondansetron HCl (Zofran) 4 mg PRN Q6HRS PRN IV NAUSEA/VOMITING Last administered on 04/25/19at 17:35; Start 04/23/19 at 17:45 Famotidine (Pepcid Vial) 20 mg BID IVP Last administered on 04/26/19 08:26; Start 04/23/19 at 21:00; Stop 04/26/19 at 09:39; Status DC Fentanyl Citrate (Fentanyl 2ml Vial) 50 mcg PRN Q2HR PRN IV PAIN Last administered on 05/02/19at 08:13; Start 04/23/19 at 17:45 Methylprednisolone Sodium Succinate (SOLU-Medrol 40MG VIAL) 40 mg Q8HRS IV Last administered on 04/26/19 06:00; Start 04/23/19 at 22:00; Stop 04/26/19 at 09:16; Status DC Diphenhydramine HCl (Benadryl) 25 mg PRN QHS PRN IVP INSOMNIA; Start 04/23/19 at 17:45 Pharmacy Consult (C.diff Med Screen By Rx) 1 each 1X ONCE MC Last administered on 04/24/19at 09:00; Start 04/24/19 at 09:00; Stop 04/24/19 at 09:01; Status DC Mesalamine (Delzicol) 800 mg TID PO Last administered on 05/01/19at 21:00; Start 04/24/19 at 14:00 Sodium Chloride 1,000 ml @ 100 mls/hr Q10H IV Last administered on 05/02/19at 00:12; Start 04/24/19 at 22:00 Simethicone (Gas-X) 80 mg PRN Q6HRS PRN PO GAS / BLOATING Last administered on 04/30/19at 03:47; Start 04/25/19 at 22:15 Vancomycin HCl (Vancomycin Oral Solution) 125 mg [id number] PO Last administered on 04/30/19at 11:16; Start 04/26/19 at 09:00; Stop 04/30/19 at 11:36; Status DC Methylprednisolone Sodium Succinate (SOLU-Medrol 40MG VIAL) 40 mg BID IV ; Start 04/26/19 at 21:00; Stop 04/26/19 at 21:00; Status DC Prednisone (Prednisone) 40 mg DAILY PO Last administered on 04/29/19at 08:19; Start 04/27/19 at 09:00; Stop 04/30/19 at 08:19; Status DC Pantoprazole Sodium (Protonix) 40 mg DAILYAC PO Last administered on 05/01/19at 08:08; Start 04/27/19 at 07:30 Lactobacillus Rhamnosus (Culturelle) 1 cap BID PO Last administered on 05/01/19at 08:08; Start 04/26/19 at 21:00; Stop 05/01/19 at 15:21; Status DC Dicyclomine HCl (Bentyl) 10 mg PRN TID PRN PO STOMACH CRAMPING Last administered on 04/28/19at 00:12; Start 04/27/19 at 03:45; Stop 04/28/19 at 11:52; Status DC Dicyclomine HCl (Bentyl) 10 mg [id number] PO Last administered on 04/28/19at 16:51; Start 04/28/19 at 13:00; Stop 04/29/19 at 01:53; Status DC Potassium Chloride (Klor-Con) 40 meq 1X ONCE PO Last administered on 04/28/19at 18:20; Start 04/28/19 at 18:00; Stop 04/28/19 at 18:01; Status DC Dicyclomine HCl (Bentyl) 10 mg QID PO Last administered on 04/29/19at 08:20; Start 04/29/19 at 09:00; Stop 04/29/19 at 12:51; Status DC Dicyclomine HCl (Bentyl) 10 mg PRN Q6HRS PRN PO STOMACH CRAMPING Last administered on 04/29/19at 01:59; Start 04/29/19 at 02:00; Stop 04/29/19 at 09:00; Status DC Oxycodone/ Acetaminophen (Percocet 5/325) 1 tab PRN Q4HRS PRN PO SEVERE PAIN 7- 10 Last administered on 05/02/19at 05:50; Start 04/29/19 at 02:00 Hyoscyamine (Anaspaz) 0.125 mg Q6HRS PO Last administered on 05/02/19at 05:48; Start 04/29/19 at 13:00 Midazolam HCl (Versed) 2 mg PRN 1X PRN IV PRIOR TO PROCEDURE; Start 04/30/19 at 07:15; Stop 04/30/19 at 14:50; Status DC Fentanyl Citrate (Fentanyl 2ml Vial) 25 mcg PRN Q5MIN PRN IV X 2 DOSES FOR PAIN; Start 04/30/19 at 07:15; Stop 04/30/19 at 14:50; Status DC Fentanyl Citrate (Fentanyl 2ml Vial) 50 mcg PRN Q5MIN PRN IV X 2 DOSES FOR PAIN; Start 04/30/19 at 07:15; Stop 04/30/19 at 14:50; Status DC Ringer's Solution 1,000 ml @ 125 mls/hr Q8H IV Last administered on 04/30/19at 07:08; Start 04/30/19 at 07:08; Stop 04/30/19 at 14:50; Status DC Lidocaine HCl (Xylocaine-Mpf 1% 2ml Vial) 2 ml 1X PRN PRN ID IV START; Start 04/30/19 at 07:15; Stop 04/30/19 at 14:50; Status DC Midazolam HCl (Versed) 5 mg STK-MED ONCE .ROUTE ; Start 04/30/19 at 07:48; Stop 04/30/19 at 07:49; Status DC Fentanyl Citrate (Fentanyl 2ml Vial) 100 mcg STK-MED ONCE .ROUTE ; Start 04/30/19 at 07:48; Stop 04/30/19 at 07:49; Status DC Midazolam HCl (Versed) 5 mg STK-MED ONCE IV Last administered on 04/30/19at 08:02; Start 04/30/19 at 08:02; Stop 04/30/19 at 08:06; Status DC Fentanyl Citrate (Fentanyl 2ml Vial) 100 mcg STK-MED ONCE IV Last administered on 04/30/19at 08:03; Start 04/30/19 at 08:03; Stop 04/30/19 at 08:06; Status DC Midazolam HCl (Versed) 5 mg STK-MED ONCE IV Last administered on 04/30/19at 08:05; Start 04/30/19 at 08:05; Stop 04/30/19 at 08:06; Status DC Midazolam HCl (Versed) 5 mg STK-MED ONCE IV Last administered on 04/30/19at 08:07; Start 04/30/19 at 08:07; Stop 04/30/19 at 08:09; Status DC Fentanyl Citrate (Fentanyl 2ml Vial) 100 mcg STK-MED ONCE IV Last administered on 04/30/19at 08:08; Start 04/30/19 at 08:08; Stop 04/30/19 at 08:09; Status DC Methylprednisolone Sodium Succinate (SOLU-Medrol 40MG VIAL) 40 mg Q8HRS IV Last administered on 05/02/19at 05:48; Start 04/30/19 at 08:30 Vancomycin HCl (Vancomycin Oral Solution) 500 mg [id number] PO Last administered on 05/01/19at 21:01; Start 04/30/19 at 13:00 Active Scripts Active Reported Dicyclomine Hcl 10 Mg Capsule 1 Cap PO TID Apriso (Mesalamine) 0.375 Gm Cap.er.24h 2 Cap PO BID Vitals/I & O Vital Sign - Last 24 Hours 05/01/19 05/01/19 05/01/19 05/01/19 15:00 16:30 19:00 20:07 Temp 98.3 98.2 98.3 98.2 Pulse 74 73 Resp 19 20 B/P (MAP) 103/67 (79) 112/68 (83) Pulse Ox 94 99 O2 Delivery Room Air Room Air Room Air Room Air 05/01/19 05/02/19 05/02/19 05/02/19 23:04 03:00 05:50 06:50 Temp 98.2 97.7 98.2 97.7 Pulse 60 54 Resp 20 18 16 18 B/P (MAP) 114/71 (85) 103/69 (80) Pulse Ox 98 98 98 O2 Delivery Room Air Room Air Room Air Room Air 05/02/19 05/02/19 05/02/19 07:00 08:13 10:45 Temp 98.1 97.7 98.1 97.7 Pulse 50 47 Resp 21 18 18 B/P (MAP) 123/66 (85) 97/43 (61) Pulse Ox 99 98 O2 Delivery Room Air Room Air Nasal Cannula O2 Flow Rate 2.0 Intake and Output 05/01/19 05/01/19 05/02/19 15:00 23:00 07:00 Intake Total 200 ml 440 ml Balance 200 ml 440 ml Nutrition Consultation Dietary Evaluation: Comments: continue low fat diet pt to ask for snacks/ supplements from unit prn Expected Outcomes/Goals: to meet > 75% est nutr needs- goal ongoing Interpretation of weight loss: >7.5% in 3 months Malnutrition Findings: Food and Nutrition Intake (Sev: <50% est energy req 5days Weight Status: Appropriate HOMERO CHASE MD May 02, 2019 11:30
[2019-05-02 14:33] VITALS: BP 100/64
[2019-05-02 19:00] VITALS: BP 102/63
[2019-05-02 22:55] VITALS: BP 104/69
[2019-05-03 02:56] VITALS: BP 96/64
[2019-05-03] MEDS: methylPREDNISolone SOD SUCC PF 40 MG/ML VIAL. IV SCH (06:15)
[2019-05-03] MEDS: HYOSCYAMINE 0.125 MG TAB.RAPDIS PO SCH ×4 (06:15→23:54)
[2019-05-03 06:21] LABS: BASO % 0 % (0-3); EOS % 0 % (0-3); HEMATOCRIT 23.8 % (39.0-53.0); HEMOGLOBIN 7.6 g/dL (13.0-17.5); LYMPH # 0.5 x10^3/uL (1.0-4.8); LYMPH % 11 % (24-48); MEAN CORPUSCULAR HEMOGLOBIN 28 pg (25-35); MEAN CORPUSCULAR HGB CONC 32 g/dL (31-37); MEAN CORPUSCULAR VOLUME 86 fL (79-100); MONO # 0.4 x10^3/uL (0.0-1.1); MONO % 8 % (0-9); NEUT # 3.8 x10^3uL (1.8-7.7); NEUT % 81 % (31-73); PLATELET COUNT 398 x10^3/uL (140-400); RED BLOOD COUNT 2.76 x10^6/uL (4.30-5.70); RED CELL DISTRIBUTION WIDTH 15.5 % (11.5-14.5); WHITE BLOOD COUNT 4.7 x10^3/uL (4.0-11.0)
[2019-05-03 06:29] LABS: CREATININE 0.5 mg/dL (0.7-1.3); GFR 172.6; POTASSIUM 3.6 mmol/L (3.5-5.1)
[2019-05-03 07:00] VITALS: BP 104/66
[2019-05-03] MEDS: MESALAMINE 400 MG CAP.DRTAB. PO SCH ×3 (08:19→21:03)
[2019-05-03] MEDS: PANTOPRAZOLE 40 MG TABLET.DR. PO SCH (08:19)
[2019-05-03] MEDS: IV NORMAL SALINE 1000ML BAG 1,000 ML IV SCH ×2 (08:22→17:31)
[2019-05-03] MEDS: oxyCODONE/APAP 5/325 1 TAB TABLET PO PRN ×2 (08:29→21:04)
[2019-05-03] MEDS: VANCOMYCIN 125 MG/2.5 ML ORAL SOLUTION. PO SCH ×4 (08:30→21:03)
--- NOTE | 2019-05-03 10:20 | PDOC ---
Infectious Disease Note Subjective Subjective Stools better Had levy with eating - spasm like with swallowing Slept better No F/C/s/N/V/SOA Eating some Vital Sign Vital Signs Vital Signs Date Time Temp Pulse Resp B/P (MAP) Pulse Ox O2 Delivery O2 Flow Rate FiO2 05/03/19 08:29 16 Room Air 05/03/19 08:00 2.0 05/03/19 07:00 97.7 48 104/66 (79) 96 97.7 Physical Exam PHYSICAL EXAM CONSTITUTIONAL: He is cooperative. He looks better, in no acute distress. He is lying in bed. Wears glasses. HEENT: Pupils are equal and reactive with normal conjunctivae. Oral cavity: Pharynx was clear - no thrush. NECK: Supple. Good range of motion. LUNGS: Clear to auscultation. HEART: S1, S2. ABDOMEN: Mildly distended, soft. EXTREMITIES: No clubbing, cyanosis or gross edema. SKIN: Warm to touch without signs of rash. NEUROLOGIC: He is nonfocal. PSYCHIATRIC: Affect is appropriate. Labs Lab Laboratory Tests Test 05/03/19 06:00 White Blood Count 4.7 x10^3/uL (4.0-11.0) Red Blood Count 2.76 x10^6/uL (4.30-5.70) Hemoglobin 7.6 g/dL (13.0-17.5) Hematocrit 23.8 % (39.0-53.0) Mean Corpuscular Volume 86 fL (79-100) Mean Corpuscular Hemoglobin 28 pg (25-35) Mean Corpuscular Hemoglobin Concent 32 g/dL (31-37) Red Cell Distribution Width 15.5 % (11.5-14.5) Platelet Count 398 x10^3/uL (140-400) Neutrophils (%) (Auto) 81 % (31-73) Lymphocytes (%) (Auto) 11 % (24-48) Monocytes (%) (Auto) 8 % (0-9) Eosinophils (%) (Auto) 0 % (0-3) Basophils (%) (Auto) 0 % (0-3) Neutrophils # (Auto) 3.8 x10^3uL (1.8-7.7) Lymphocytes # (Auto) 0.5 x10^3/uL (1.0-4.8) Monocytes # (Auto) 0.4 x10^3/uL (0.0-1.1) Eosinophils # (Auto) 0.0 x10^3/uL (0.0-0.7) Basophils # (Auto) 0.0 x10^3/uL (0.0-0.2) Sodium Level 138 mmol/L (136-145) Potassium Level 3.6 mmol/L (3.5-5.1) Chloride Level 103 mmol/L (98-107) Carbon Dioxide Level 30 mmol/L (21-32) Anion Gap 5 (6-14) Blood Urea Nitrogen 6 mg/dL (8-26) Creatinine 0.5 mg/dL (0.7-1.3) Estimated GFR (Cockcroft-Gault) 172.6 Glucose Level 110 mg/dL (70-99) Calcium Level 8.0 mg/dL (8.5-10.1) C-Reactive Protein, Quantitative 17.9 mg/L (0-3.3) Micro Microbiology 04/25/19 Stool Culture - Final, Complete 04/25/19 Stool Culture Result 1 ([facility]) - Final, Complete 04/25/19 Campylobacter Antigen Assay - Final, Complete 04/25/19 Campylobactor Result 1 - Final, Complete 04/25/19 Shiga Toxin Test - Final, Complete Objective Assessment C-diff 04/24 - improving Immunosuppression Ulcerative colitis Anemia Plan Plan of Care Cont Vanc 500 mg po QID 04/30 Fancy Sewer to eval cost Rx in chart -d/w this am Gi spasms/cramps per GI - d/w Justyna ELLIS Monitor response Will need IV steroid adjusted per GI D/w nursing BARBRA ZAMUDIO MD May 03, 2019 10:20
[2019-05-03 11:00] VITALS: BP 98/60
--- NOTE | 2019-05-03 11:35 | NUR ---
SW consulted to check benefits for PO Vanc. Orders faxed to pt's Pharmacy, [facility]. Awaiting to hear back on benefits.
--- NOTE | 2019-05-03 11:45 | PDOC ---
Subjective: Subjective: Slept well. Lower cramping w/ gas and a little stool this morning - better overall. Then UPPER abd cramping (epigastrium) and globus (midchest) w/ swallowing oatmeal (two bites). He says that's been going on the whole time and that's the reason he came to the hospital in the first place. Does not happen w/ every meal, probably occurs w/ solids. No issues w/ pills. Objective: Objective: On PPI prior to and throughout admission. Vital Signs: Vital Signs Date Time Temp Pulse Resp B/P (MAP) Pulse Ox O2 Delivery O2 Flow Rate FiO2 05/03/19 09:29 14 96 Room Air 2.0 05/03/19 07:00 97.7 48 104/66 (79) 97.7 Labs: Laboratory Tests Test 05/03/19 06:00 White Blood Count 4.7 x10^3/uL Red Blood Count 2.76 x10^6/uL Hemoglobin 7.6 g/dL Hematocrit 23.8 % Mean Corpuscular Volume 86 fL Mean Corpuscular Hemoglobin 28 pg Mean Corpuscular Hemoglobin Concent 32 g/dL Red Cell Distribution Width 15.5 % Platelet Count 398 x10^3/uL Neutrophils (%) (Auto) 81 % Lymphocytes (%) (Auto) 11 % Monocytes (%) (Auto) 8 % Eosinophils (%) (Auto) 0 % Basophils (%) (Auto) 0 % Neutrophils # (Auto) 3.8 x10^3uL Lymphocytes # (Auto) 0.5 x10^3/uL Monocytes # (Auto) 0.4 x10^3/uL Eosinophils # (Auto) 0.0 x10^3/uL Basophils # (Auto) 0.0 x10^3/uL Sodium Level 138 mmol/L Potassium Level 3.6 mmol/L Chloride Level 103 mmol/L Carbon Dioxide Level 30 mmol/L Anion Gap 5 Blood Urea Nitrogen 6 mg/dL Creatinine 0.5 mg/dL Estimated GFR (Cockcroft-Gault) 172.6 Glucose Level 110 mg/dL Calcium Level 8.0 mg/dL C-Reactive Protein, Quantitative 17.9 mg/L PE: GEN: NAD LUNGS: CTAB HEART: RRR ABD: soft, NABS, mostly right periumbilical/RLQ discomfort curerntly NEURO/PSYCH: A & O �3 A/P: UC, C Diff - CRP elevated, Hep panel pending, Quantiferon ordered (note this order changed to T spot by lab - called to confirm with them) H/o GERD, globus, upper abd pain Anemia -- Colitis symptoms wax and wane - I do think improved overall - change to PO steroids. Manjula per ID. Will review globus/upper abd pain w/ Dr. Fowler. Continue PPI. HALIE GROSS May 03, 2019 11:45
--- NOTE | 2019-05-03 12:46 | PDOC ---
PROGRESS NOTES Chief Complaint Chief Complaint Severe colitis - flex sig done: large tender but not thrombosed external hemorrhoids; Severe colitis in rectum , sigmoid and descending colon - to extent of scope passage- no obvious pseudomembranes seen. recent colonoscopy in [place] reportedly w/ ulcerative colitis. IV steroids changed to PO steroids 05/03 by GI C. difficile positive--continuing PO vanc at increased dose severe protein-caloric malnutrition Immunosuppression with steroids Anemia anticipate dc once pain improved, off IV pain meds. History of Present Illness History of Present Illness ate 1/2 cup of soup and bagel at lunch yesterday. dinner less amount. this AM had oatmeal. states pain this AM. given fentanyl dose IV this AM. 26 min pt exam, chart review, > 50% of time spent with exam, chart review, pt care coordination disease education Vitals Vitals Vital Signs Date Time Temp Pulse Resp B/P (MAP) Pulse Ox O2 Delivery O2 Flow Rate FiO2 05/03/19 09:29 14 96 Room Air 2.0 05/03/19 07:00 97.7 48 104/66 (79) 97.7 Physical Exam Physical Exam CONSTITUTIONAL: He is cooperative. He looks better, in no acute distress. He is lying in bed. Wears glasses. HEENT: Pupils are equal and reactive with normal conjunctivae. Oral cavity: Pharynx was clear - no thrush. NECK: Supple. Good range of motion. LUNGS: Clear to auscultation. HEART: S1, S2. ABDOMEN: Mildly distended, soft. EXTREMITIES: No clubbing, cyanosis or gross edema. SKIN: Warm to touch without signs of rash. NEUROLOGIC: He is nonfocal. PSYCHIATRIC: Affect is appropriate. General: Alert, Oriented X3, Cooperative, No acute distress Heart: Regular rate, Normal S1 Lungs: Clear Abdomen: Soft, Other (diffuse tenderness on light touch, normoactive bowel sounds, but not an acute abdomen) Extremities: No clubbing, No cyanosis, No edema, Normal pulses, No tenderness/swelling Skin: No rashes, No breakdown, No significant lesion Labs LABS Laboratory Tests Test 05/03/19 06:00 White Blood Count 4.7 x10^3/uL (4.0-11.0) Red Blood Count 2.76 x10^6/uL (4.30-5.70) Hemoglobin 7.6 g/dL (13.0-17.5) Hematocrit 23.8 % (39.0-53.0) Mean Corpuscular Volume 86 fL (79-100) Mean Corpuscular Hemoglobin 28 pg (25-35) Mean Corpuscular Hemoglobin Concent 32 g/dL (31-37) Red Cell Distribution Width 15.5 % (11.5-14.5) Platelet Count 398 x10^3/uL (140-400) Neutrophils (%) (Auto) 81 % (31-73) Lymphocytes (%) (Auto) 11 % (24-48) Monocytes (%) (Auto) 8 % (0-9) Eosinophils (%) (Auto) 0 % (0-3) Basophils (%) (Auto) 0 % (0-3) Neutrophils # (Auto) 3.8 x10^3uL (1.8-7.7) Lymphocytes # (Auto) 0.5 x10^3/uL (1.0-4.8) Monocytes # (Auto) 0.4 x10^3/uL (0.0-1.1) Eosinophils # (Auto) 0.0 x10^3/uL (0.0-0.7) Basophils # (Auto) 0.0 x10^3/uL (0.0-0.2) Sodium Level 138 mmol/L (136-145) Potassium Level 3.6 mmol/L (3.5-5.1) Chloride Level 103 mmol/L (98-107) Carbon Dioxide Level 30 mmol/L (21-32) Anion Gap 5 (6-14) Blood Urea Nitrogen 6 mg/dL (8-26) Creatinine 0.5 mg/dL (0.7-1.3) Estimated GFR (Cockcroft-Gault) 172.6 Glucose Level 110 mg/dL (70-99) Calcium Level 8.0 mg/dL (8.5-10.1) C-Reactive Protein, Quantitative 17.9 mg/L (0-3.3) Hepatitis A IgM Antibody Nonreactive (Nonreactive) Hepatitis B Surface Antigen Nonreactive (Nonreactive) Hepatitis B Core IgM Antibody Nonreactive (Nonreactive) Hepatitis C IgG Antibody Nonreactive (Nonreactive) Assessment and Plan Assessmemt and Plan Problems Medical Problems: (1) Anemia due to blood loss Status: Acute (2) Anorexia Status: Acute (3) Bloody diarrhea Status: Acute (4) Colitis, Clostridium difficile Status: Acute (5) Ileitis Status: Acute (6) Pancolitis Status: Acute (7) Severe protein-calorie malnutrition Status: Acute (8) SIRS (systemic inflammatory response syndrome) Status: Acute (9) Ulcerative colitis Status: Acute Comment Review of Relevant I have reviewed the following items maria teresa (where applicable) has been applied. Labs Laboratory Tests Test 05/02/19 03:55 05/03/19 06:00 White Blood Count 6.6 x10^3/uL (4.0-11.0) 4.7 x10^3/uL (4.0-11.0) Red Blood Count 3.11 x10^6/uL (4.30-5.70) 2.76 x10^6/uL (4.30-5.70) Hemoglobin 8.7 g/dL (13.0-17.5) 7.6 g/dL (13.0-17.5) Hematocrit 26.9 % (39.0-53.0) 23.8 % (39.0-53.0) Mean Corpuscular Volume 87 fL (79-100) 86 fL (79-100) Mean Corpuscular Hemoglobin 28 pg (25-35) 28 pg (25-35) Mean Corpuscular Hemoglobin Concent 32 g/dL (31-37) 32 g/dL (31-37) Red Cell Distribution Width 15.4 % (11.5-14.5) 15.5 % (11.5-14.5) Platelet Count 468 x10^3/uL (140-400) 398 x10^3/uL (140-400) Neutrophils (%) (Auto) 86 % (31-73) 81 % (31-73) Lymphocytes (%) (Auto) 9 % (24-48) 11 % (24-48) Monocytes (%) (Auto) 5 % (0-9) 8 % (0-9) Eosinophils (%) (Auto) 0 % (0-3) 0 % (0-3) Basophils (%) (Auto) 0 % (0-3) 0 % (0-3) Neutrophils # (Auto) 5.6 x10^3uL (1.8-7.7) 3.8 x10^3uL (1.8-7.7) Lymphocytes # (Auto) 0.6 x10^3/uL (1.0-4.8) 0.5 x10^3/uL (1.0-4.8) Monocytes # (Auto) 0.3 x10^3/uL (0.0-1.1) 0.4 x10^3/uL (0.0-1.1) Eosinophils # (Auto) 0.0 x10^3/uL (0.0-0.7) 0.0 x10^3/uL (0.0-0.7) Basophils # (Auto) 0.0 x10^3/uL (0.0-0.2) 0.0 x10^3/uL (0.0-0.2) Sodium Level 138 mmol/L (136-145) 138 mmol/L (136-145) Potassium Level 3.6 mmol/L (3.5-5.1) 3.6 mmol/L (3.5-5.1) Chloride Level 102 mmol/L (98-107) 103 mmol/L (98-107) Carbon Dioxide Level 28 mmol/L (21-32) 30 mmol/L (21-32) Anion Gap 8 (6-14) 5 (6-14) Blood Urea Nitrogen 10 mg/dL (8-26) 6 mg/dL (8-26) Creatinine 0.6 mg/dL (0.7-1.3) 0.5 mg/dL (0.7-1.3) Estimated GFR (Cockcroft-Gault) 139.9 172.6 Glucose Level 151 mg/dL (70-99) 110 mg/dL (70-99) Calcium Level 8.1 mg/dL (8.5-10.1) 8.0 mg/dL (8.5-10.1) C-Reactive Protein, Quantitative 17.9 mg/L (0-3.3) Hepatitis A IgM Antibody Nonreactive (Nonreactive) Hepatitis B Surface Antigen Nonreactive (Nonreactive) Hepatitis B Core IgM Antibody Nonreactive (Nonreactive) Hepatitis C IgG Antibody Nonreactive (Nonreactive) Laboratory Tests Test 05/03/19 06:00 White Blood Count 4.7 x10^3/uL (4.0-11.0) Red Blood Count 2.76 x10^6/uL (4.30-5.70) Hemoglobin 7.6 g/dL (13.0-17.5) Hematocrit 23.8 % (39.0-53.0) Mean Corpuscular Volume 86 fL (79-100) Mean Corpuscular Hemoglobin 28 pg (25-35) Mean Corpuscular Hemoglobin Concent 32 g/dL (31-37) Red Cell Distribution Width 15.5 % (11.5-14.5) Platelet Count 398 x10^3/uL (140-400) Neutrophils (%) (Auto) 81 % (31-73) Lymphocytes (%) (Auto) 11 % (24-48) Monocytes (%) (Auto) 8 % (0-9) Eosinophils (%) (Auto) 0 % (0-3) Basophils (%) (Auto) 0 % (0-3) Neutrophils # (Auto) 3.8 x10^3uL (1.8-7.7) Lymphocytes # (Auto) 0.5 x10^3/uL (1.0-4.8) Monocytes # (Auto) 0.4 x10^3/uL (0.0-1.1) Eosinophils # (Auto) 0.0 x10^3/uL (0.0-0.7) Basophils # (Auto) 0.0 x10^3/uL (0.0-0.2) Sodium Level 138 mmol/L (136-145) Potassium Level 3.6 mmol/L (3.5-5.1) Chloride Level 103 mmol/L (98-107) Carbon Dioxide Level 30 mmol/L (21-32) Anion Gap 5 (6-14) Blood Urea Nitrogen 6 mg/dL (8-26) Creatinine 0.5 mg/dL (0.7-1.3) Estimated GFR (Cockcroft-Gault) 172.6 Glucose Level 110 mg/dL (70-99) Calcium Level 8.0 mg/dL (8.5-10.1) C-Reactive Protein, Quantitative 17.9 mg/L (0-3.3) Hepatitis A IgM Antibody Nonreactive (Nonreactive) Hepatitis B Surface Antigen Nonreactive (Nonreactive) Hepatitis B Core IgM Antibody Nonreactive (Nonreactive) Hepatitis C IgG Antibody Nonreactive (Nonreactive) Microbiology 04/25/19 Stool Culture - Final, Complete 04/25/19 Stool Culture Result 1 ([facility]) - Final, Complete 04/25/19 Campylobacter Antigen Assay - Final, Complete 04/25/19 Campylobactor Result 1 - Final, Complete 04/25/19 Shiga Toxin Test - Final, Complete Medications Current Medications Sodium Chloride 1,000 ml @ 1,000 mls/hr 1X ONCE IV Last administered on 04/23/19at 16:25; Start 04/23/19 at 16:00; Stop 04/23/19 at 16:59; Status DC Ondansetron HCl (Zofran) 8 mg 1X ONCE IV Last administered on 04/23/19at 16:24; Start 04/23/19 at 16:00; Stop 04/23/19 at 16:01; Status DC Morphine Sulfate (Morphine Sulfate) 4 mg 1X ONCE IV Last administered on 04/23/19at 16:25; Start 04/23/19 at 16:00; Stop 04/23/19 at 16:01; Status DC Iohexol (Omnipaque 300 Mg/ml) 75 ml 1X ONCE IV Last administered on 04/23/19at 16:11; Start 04/23/19 at 16:00; Stop 04/23/19 at 16:01; Status DC Info (CONTRAST GIVEN -- Rx MONITORING) 1 each PRN DAILY PRN MC SEE COMMENTS; Start 04/23/19 at 16:00; Stop 04/25/19 at 15:59; Status DC Methylprednisolone Sodium Succinate (SOLU-Medrol 125MG VIAL) 125 mg 1X ONCE IV Last administered on 04/23/19at 17:30; Start 04/23/19 at 17:30; Stop 04/23/19 at 17:31; Status DC Fentanyl Citrate (Fentanyl 2ml Vial) 75 mcg 1X ONCE IV Last administered on 04/23/19at 17:30; Start 04/23/19 at 17:30; Stop 04/23/19 at 17:31; Status DC Ondansetron HCl (Zofran) 4 mg PRN Q8HRS PRN IV NAUSEA/VOMITING; Start 04/23/19 at 17:30; Stop 04/23/19 at 17:43; Status DC Morphine Sulfate (Morphine Sulfate) 4 mg PRN Q6HRS PRN IV PAIN Last administered on 04/24/19at 09:40; Start 04/23/19 at 17:30; Stop 04/24/19 at 17:29; Status DC Sodium Chloride 1,000 ml @ 100 mls/hr Q10H IV Last administered on 04/24/19 14:34; Start 04/23/19 at 18:00; Stop 04/24/19 at 17:59; Status DC Ondansetron HCl (Zofran) 4 mg PRN Q6HRS PRN IV NAUSEA/VOMITING Last administered on 04/25/19at 17:35; Start 04/23/19 at 17:45 Famotidine (Pepcid Vial) 20 mg BID IVP Last administered on 04/26/19 08:26; Start 04/23/19 at 21:00; Stop 04/26/19 at 09:39; Status DC Fentanyl Citrate (Fentanyl 2ml Vial) 50 mcg PRN Q2HR PRN IV PAIN Last administered on 05/02/19 21:57; Start 04/23/19 at 17:45 Methylprednisolone Sodium Succinate (SOLU-Medrol 40MG VIAL) 40 mg Q8HRS IV Last administered on 04/26/19 06:00; Start 04/23/19 at 22:00; Stop 04/26/19 at 09:16; Status DC Diphenhydramine HCl (Benadryl) 25 mg PRN QHS PRN IVP INSOMNIA; Start 04/23/19 at 17:45 Pharmacy Consult (C.diff Med Screen By Rx) 1 each 1X ONCE MC Last administered on 04/24/19 09:00; Start 04/24/19 at 09:00; Stop 04/24/19 at 09:01; Status DC Mesalamine (Delzicol) 800 mg TID PO Last administered on 05/03/19 08:19; Start 04/24/19 at 14:00 Sodium Chloride 1,000 ml @ 100 mls/hr Q10H IV Last administered on 05/03/19 08:22; Start 04/24/19 at 22:00 Simethicone (Gas-X) 80 mg PRN Q6HRS PRN PO GAS / BLOATING Last administered on 04/30/19 03:47; Start 04/25/19 at 22:15 Vancomycin HCl (Vancomycin Oral Solution) 125 mg [id number] PO Last administered on 6/24/19at 11:16; Start 04/26/19 at 09:00; Stop 04/30/19 at 11:36; Status DC Methylprednisolone Sodium Succinate (SOLU-Medrol 40MG VIAL) 40 mg BID IV ; Start 04/26/19 at 21:00; Stop 04/26/19 at 21:00; Status DC Prednisone (Prednisone) 40 mg DAILY PO Last administered on 04/29/19at 08:19; Start 04/27/19 at 09:00; Stop 04/30/19 at 08:19; Status DC Pantoprazole Sodium (Protonix) 40 mg DAILYAC PO Last administered on 05/03/19at 08:19; Start 04/27/19 at 07:30 Lactobacillus Rhamnosus (Culturelle) 1 cap BID PO Last administered on 05/01/19at 08:08; Start 04/26/19 at 21:00; Stop 05/01/19 at 15:21; Status DC Dicyclomine HCl (Bentyl) 10 mg PRN TID PRN PO STOMACH CRAMPING Last administered on 04/28/19at 00:12; Start 04/27/19 at 03:45; Stop 04/28/19 at 11:52; Status DC Dicyclomine HCl (Bentyl) 10 mg [id number] PO Last administered on 04/28/19at 16:51; Start 04/28/19 at 13:00; Stop 04/29/19 at 01:53; Status DC Potassium Chloride (Klor-Con) 40 meq 1X ONCE PO Last administered on 04/28/19at 18:20; Start 04/28/19 at 18:00; Stop 04/28/19 at 18:01; Status DC Dicyclomine HCl (Bentyl) 10 mg QID PO Last administered on 04/29/19at 08:20; Start 04/29/19 at 09:00; Stop 04/29/19 at 12:51; Status DC Dicyclomine HCl (Bentyl) 10 mg PRN Q6HRS PRN PO STOMACH CRAMPING Last administered on 04/29/19at 01:59; Start 04/29/19 at 02:00; Stop 04/29/19 at 09:00; Status DC Oxycodone/ Acetaminophen (Percocet 5/325) 1 tab PRN Q4HRS PRN PO SEVERE PAIN 7- 10 Last administered on 05/03/19at 08:29; Start 04/29/19 at 02:00 Hyoscyamine (Anaspaz) 0.125 mg Q6HRS PO Last administered on 05/03/19at 06:15; Start 04/29/19 at 13:00 Midazolam HCl (Versed) 2 mg PRN 1X PRN IV PRIOR TO PROCEDURE; Start 04/30/19 at 07:15; Stop 04/30/19 at 14:50; Status DC Fentanyl Citrate (Fentanyl 2ml Vial) 25 mcg PRN Q5MIN PRN IV X 2 DOSES FOR PAIN; Start 04/30/19 at 07:15; Stop 04/30/19 at 14:50; Status DC Fentanyl Citrate (Fentanyl 2ml Vial) 50 mcg PRN Q5MIN PRN IV X 2 DOSES FOR PAIN; Start 04/30/19 at 07:15; Stop 04/30/19 at 14:50; Status DC Ringer's Solution 1,000 ml @ 125 mls/hr Q8H IV Last administered on 04/30/19at 07:08; Start 04/30/19 at 07:08; Stop 04/30/19 at 14:50; Status DC Lidocaine HCl (Xylocaine-Mpf 1% 2ml Vial) 2 ml 1X PRN PRN ID IV START; Start 04/30/19 at 07:15; Stop 04/30/19 at 14:50; Status DC Midazolam HCl (Versed) 5 mg STK-MED ONCE .ROUTE ; Start 04/30/19 at 07:48; Stop 04/30/19 at 07:49; Status DC Fentanyl Citrate (Fentanyl 2ml Vial) 100 mcg STK-MED ONCE .ROUTE ; Start 04/30/19 at 07:48; Stop 04/30/19 at 07:49; Status DC Midazolam HCl (Versed) 5 mg STK-MED ONCE IV Last administered on 04/30/19at 08:02; Start 04/30/19 at 08:02; Stop 04/30/19 at 08:06; Status DC Fentanyl Citrate (Fentanyl 2ml Vial) 100 mcg STK-MED ONCE IV Last administered on 04/30/19at 08:03; Start 04/30/19 at 08:03; Stop 04/30/19 at 08:06; Status DC Midazolam HCl (Versed) 5 mg STK-MED ONCE IV Last administered on 04/30/19at 08:05; Start 04/30/19 at 08:05; Stop 04/30/19 at 08:06; Status DC Midazolam HCl (Versed) 5 mg STK-MED ONCE IV Last administered on 04/30/19at 08:07; Start 04/30/19 at 08:07; Stop 04/30/19 at 08:09; Status DC Fentanyl Citrate (Fentanyl 2ml Vial) 100 mcg STK-MED ONCE IV Last administered on 04/30/19at 08:08; Start 04/30/19 at 08:08; Stop 04/30/19 at 08:09; Status DC Methylprednisolone Sodium Succinate (SOLU-Medrol 40MG VIAL) 40 mg Q8HRS IV Last administered on 05/03/19at 06:15; Start 04/30/19 at 08:30; Stop 05/03/19 at 11:46; Status DC Vancomycin HCl (Vancomycin Oral Solution) 500 mg [id number] PO Last administered on 05/03/19at 08:30; Start 04/30/19 at 13:00 Prednisone (Prednisone) 40 mg DAILY PO ; Start 05/04/19 at 09:00 Active Scripts Active Reported Dicyclomine Hcl 10 Mg Capsule 1 Cap PO TID Apriso (Mesalamine) 0.375 Gm Cap.er.24h 2 Cap PO BID Vitals/I & O Vital Sign - Last 24 Hours 05/02/19 05/02/19 05/02/19 05/02/19 13:44 14:14 14:33 18:34 Temp 98.0 98.0 Pulse 59 Resp 18 B/P (MAP) 100/64 (76) Pulse Ox 98 98 96 96 O2 Delivery Room Air Room Air Room Air O2 Flow Rate 2.0 2.0 2.0 05/02/19 05/02/19 05/02/19 05/02/19 19:00 20:00 21:57 22:27 Temp 98.3 98.3 Pulse 67 Resp 16 B/P (MAP) 102/63 (76) Pulse Ox 96 O2 Delivery Room Air Room Air Room Air Room Air 05/02/19 05/03/19 05/03/19 05/03/19 22:55 02:56 07:00 08:00 Temp 97.9 98.3 97.7 97.9 98.3 97.7 Pulse 52 49 48 Resp 18 16 16 B/P (MAP) 104/69 (81) 96/64 (75) 104/66 (79) Pulse Ox 95 99 96 O2 Delivery Room Air Room Air Room Air Room Air O2 Flow Rate 2.0 05/03/19 05/03/19 08:29 09:29 Resp 16 14 Pulse Ox 96 O2 Delivery Room Air Room Air O2 Flow Rate 2.0 Intake and Output 05/02/19 05/02/19 05/03/19 15:00 23:00 07:00 Intake Total 100 ml Output Total 400 ml Balance -400 ml 100 ml Nutrition Consultation Dietary Evaluation: Comments: continue low fat diet pt to ask for snacks/ supplements from unit prn Expected Outcomes/Goals: to meet > 75% est nutr needs- goal ongoing Interpretation of weight loss: >7.5% in 3 months Malnutrition Findings: Food and Nutrition Intake (Sev: <50% est energy req 5days Weight Status: Appropriate HOMERO CHASE MD May 03, 2019 12:46
[2019-05-03 15:00] VITALS: BP 95/68
[2019-05-03 19:00] VITALS: BP 101/66
[2019-05-03 23:00] VITALS: BP 114/71
[2019-05-04 03:00] VITALS: BP 116/69
[2019-05-04] MEDS: fentaNYL PF VIAL 100 MCG/2 ML VIAL IV PRN ×2 (05:00→17:02)
[2019-05-04] MEDS: IV NORMAL SALINE 1000ML BAG 1,000 ML IV SCH ×3 (05:00→21:21)
[2019-05-04] MEDS: HYOSCYAMINE 0.125 MG TAB.RAPDIS PO SCH ×3 (05:29→17:03)
[2019-05-04 07:00] VITALS: BP 110/70
[2019-05-04] MEDS ORDERED: IV RINGERS,LACTATED 1000ML 1,000 ML IV SCH (07:00)
[2019-05-04] MEDS: PANTOPRAZOLE 40 MG TABLET.DR. PO SCH (07:30)
[2019-05-04] MEDS: oxyCODONE/APAP 5/325 1 TAB TABLET PO PRN ×3 (07:33→21:19)
[2019-05-04] MEDS: VANCOMYCIN 125 MG/2.5 ML ORAL SOLUTION. PO SCH ×4 (09:00→21:18)
[2019-05-04] MEDS: predniSONE 20 MG TABLET PO SCH (09:00)
[2019-05-04] MEDS: MESALAMINE 400 MG CAP.DRTAB. PO SCH ×3 (09:00→21:18)
[2019-05-04 10:03] LABS: BASO % 0 % (0-3); EOS % 0 % (0-3); HEMATOCRIT 24.8 % (39.0-53.0); HEMOGLOBIN 8.2 g/dL (13.0-17.5); LYMPH # 0.7 x10^3/uL (1.0-4.8); LYMPH % 9 % (24-48); MEAN CORPUSCULAR HEMOGLOBIN 28 pg (25-35); MEAN CORPUSCULAR HGB CONC 33 g/dL (31-37); MEAN CORPUSCULAR VOLUME 86 fL (79-100); MONO # 0.7 x10^3/uL (0.0-1.1); MONO % 10 % (0-9); NEUT # 5.9 x10^3uL (1.8-7.7); NEUT % 80 % (31-73); PLATELET COUNT 431 x10^3/uL (140-400); RED BLOOD COUNT 2.89 x10^6/uL (4.30-5.70); RED CELL DISTRIBUTION WIDTH 15.8 % (11.5-14.5); WHITE BLOOD COUNT 7.4 x10^3/uL (4.0-11.0)
[2019-05-04 10:23] LABS: CALCIUM 7.6 mg/dL (8.5-10.1); CREATININE 0.6 mg/dL (0.7-1.3); GFR 139.9
[2019-05-04 11:00] VITALS: BP 96/63
--- NOTE | 2019-05-04 11:01 | PDOC ---
Infectious Disease Note Subjective Subjective Stools loose this am Ate last pm ok. Still feels like things are sticking Awaiting EGD Slept better No F/C/s/N/V/SOA Vital Sign Vital Signs Vital Signs Date Time Temp Pulse Resp B/P (MAP) Pulse Ox O2 Delivery O2 Flow Rate FiO2 05/04/19 08:00 Room Air 05/04/19 07:00 97.4 54 18 110/70 (83) 97 97.4 05/04/19 05:00 2.0 Physical Exam PHYSICAL EXAM CONSTITUTIONAL: He is cooperative. He looks better, in no acute distress. He is lying in bed. Wears glasses. HEENT: Pupils are equal and reactive with normal conjunctivae. Oral cavity: Pharynx was clear - no thrush. NECK: Supple. Good range of motion. LUNGS: Clear to auscultation. HEART: S1, S2. ABDOMEN: Mildly distended, soft. EXTREMITIES: No clubbing, cyanosis or gross edema. SKIN: Warm to touch without signs of rash. NEUROLOGIC: He is nonfocal. PSYCHIATRIC: Affect is appropriate. Labs Lab Laboratory Tests Test 05/04/19 09:45 White Blood Count 7.4 x10^3/uL (4.0-11.0) Red Blood Count 2.89 x10^6/uL (4.30-5.70) Hemoglobin 8.2 g/dL (13.0-17.5) Hematocrit 24.8 % (39.0-53.0) Mean Corpuscular Volume 86 fL (79-100) Mean Corpuscular Hemoglobin 28 pg (25-35) Mean Corpuscular Hemoglobin Concent 33 g/dL (31-37) Red Cell Distribution Width 15.8 % (11.5-14.5) Platelet Count 431 x10^3/uL (140-400) Neutrophils (%) (Auto) 80 % (31-73) Lymphocytes (%) (Auto) 9 % (24-48) Monocytes (%) (Auto) 10 % (0-9) Eosinophils (%) (Auto) 0 % (0-3) Basophils (%) (Auto) 0 % (0-3) Neutrophils # (Auto) 5.9 x10^3uL (1.8-7.7) Lymphocytes # (Auto) 0.7 x10^3/uL (1.0-4.8) Monocytes # (Auto) 0.7 x10^3/uL (0.0-1.1) Eosinophils # (Auto) 0.0 x10^3/uL (0.0-0.7) Basophils # (Auto) 0.0 x10^3/uL (0.0-0.2) Sodium Level 137 mmol/L (136-145) Potassium Level 3.0 mmol/L (3.5-5.1) Chloride Level 102 mmol/L (98-107) Carbon Dioxide Level 33 mmol/L (21-32) Anion Gap 2 (6-14) Blood Urea Nitrogen 6 mg/dL (8-26) Creatinine 0.6 mg/dL (0.7-1.3) Estimated GFR (Cockcroft-Gault) 139.9 Glucose Level 81 mg/dL (70-99) Calcium Level 7.6 mg/dL (8.5-10.1) Micro Microbiology 04/25/19 Stool Culture - Final, Complete 04/25/19 Stool Culture Result 1 ([facility]) - Final, Complete 04/25/19 Campylobacter Antigen Assay - Final, Complete 04/25/19 Campylobactor Result 1 - Final, Complete 04/25/19 Shiga Toxin Test - Final, Complete Objective Assessment C-diff 04/24 - improving Immunosuppression Ulcerative colitis Anemia Plan Plan of Care Cont Vanc 500 mg po QID 04/30 for now. Cost unreasonable at [facility]. Will explore [facility]. Gave Rx to [facility] Await EGD Monitor response Will need IV steroid adjusted per GI D/w nursing BARBRA ZAMUDIO MD May 04, 2019 11:01
--- NOTE | 2019-05-04 12:19 | NUR ---
SW following pt. RN called in at [facility] and Rx was expensive. Discussed with ID and SW called [facility], and they requested RN to call in Rx so they can run benefits. SW provided RN with Rx and phone number to call Pharmacy.
--- NOTE | 2019-05-04 13:49 | PDOC ---
[employer] PROGRESS NOTE Chief Complaint Chief Complaint Severe colitis - flex sig done: large tender but not thrombosed external hemorrhoids; Severe colitis in rectum , sigmoid and descending colon - to extent of scope passage- no obvious pseudomembranes seen. recent colonoscopy in [place] reportedly w/ ulcerative colitis. IV steroids changed to PO steroids 05/03 by GI C. difficile positive--continuing PO vanc at increased dose severe protein-caloric malnutrition Immunosuppression with steroids Anemia anticipate dc once pain improved, off IV pain meds. History of Present Illness History of Present Illness 6�28�2019 Patient seen and examined Discussed with RN He is going for an EGD to today to evaluate dysphagia ate 1/2 cup of soup and bagel at lunch yesterday. dinner less amount. this AM had oatmeal. states pain this AM. given fentanyl dose IV this AM. 26 min pt exam, chart review, > 50% of time spent with exam, chart review, pt care coordination disease education Vitals Vitals Vital Signs Date Time Temp Pulse Resp B/P (MAP) Pulse Ox O2 Delivery O2 Flow Rate FiO2 05/04/19 11:00 97.5 52 18 96/63 (74) 98 Room Air 97.5 05/04/19 05:00 2.0 Physical Exam Physical Exam CONSTITUTIONAL: He is cooperative. He looks better, in no acute distress. He is lying in bed. Wears glasses. HEENT: Pupils are equal and reactive with normal conjunctivae. Oral cavity: Pharynx was clear - no thrush. NECK: Supple. Good range of motion. LUNGS: Clear to auscultation. HEART: S1, S2. ABDOMEN: Mildly distended, soft. EXTREMITIES: No clubbing, cyanosis or gross edema. SKIN: Warm to touch without signs of rash. NEUROLOGIC: He is nonfocal. PSYCHIATRIC: Affect is appropriate. General: Alert, Oriented X3, Cooperative, No acute distress Heart: Regular rate, Normal S1 Lungs: Clear Abdomen: Soft, Other (diffuse tenderness on light touch, normoactive bowel sounds, but not an acute abdomen) Extremities: No clubbing, No cyanosis, No edema, Normal pulses, No tenderness/swelling Skin: No rashes, No breakdown, No significant lesion Labs Labs: Laboratory Tests Test 05/04/19 09:45 White Blood Count 7.4 x10^3/uL (4.0-11.0) Red Blood Count 2.89 x10^6/uL (4.30-5.70) Hemoglobin 8.2 g/dL (13.0-17.5) Hematocrit 24.8 % (39.0-53.0) Mean Corpuscular Volume 86 fL (79-100) Mean Corpuscular Hemoglobin 28 pg (25-35) Mean Corpuscular Hemoglobin Concent 33 g/dL (31-37) Red Cell Distribution Width 15.8 % (11.5-14.5) Platelet Count 431 x10^3/uL (140-400) Neutrophils (%) (Auto) 80 % (31-73) Lymphocytes (%) (Auto) 9 % (24-48) Monocytes (%) (Auto) 10 % (0-9) Eosinophils (%) (Auto) 0 % (0-3) Basophils (%) (Auto) 0 % (0-3) Neutrophils # (Auto) 5.9 x10^3uL (1.8-7.7) Lymphocytes # (Auto) 0.7 x10^3/uL (1.0-4.8) Monocytes # (Auto) 0.7 x10^3/uL (0.0-1.1) Eosinophils # (Auto) 0.0 x10^3/uL (0.0-0.7) Basophils # (Auto) 0.0 x10^3/uL (0.0-0.2) Sodium Level 137 mmol/L (136-145) Potassium Level 3.0 mmol/L (3.5-5.1) Chloride Level 102 mmol/L (98-107) Carbon Dioxide Level 33 mmol/L (21-32) Anion Gap 2 (6-14) Blood Urea Nitrogen 6 mg/dL (8-26) Creatinine 0.6 mg/dL (0.7-1.3) Estimated GFR (Cockcroft-Gault) 139.9 Glucose Level 81 mg/dL (70-99) Calcium Level 7.6 mg/dL (8.5-10.1) Assessment and Plan Assessmemt and Plan Problems Medical Problems: (1) Anemia due to blood loss Status: Acute (2) Anorexia Status: Acute (3) Bloody diarrhea Status: Acute (4) Colitis, Clostridium difficile Status: Acute (5) Ileitis Status: Acute (6) Pancolitis Status: Acute (7) Severe protein-calorie malnutrition Status: Acute (8) SIRS (systemic inflammatory response syndrome) Status: Acute (9) Ulcerative colitis Status: Acute Severe colitis - flex sig done: large tender but not thrombosed external hemorrhoids; Severe colitis in rectum , sigmoid and descending colon - to extent of scope passage- no obvious pseudomembranes seen. recent colonoscopy in [place] reportedly w/ ulcerative colitis. IV steroids changed to PO steroids 05/03 by GI C. difficile positive--continuing PO vanc at increased dose severe protein-caloric malnutrition Immunosuppression with steroids Anemia Plan EGD today to evaluate his dysphagia Continue current meds IV fluids Home meds Full code DVT prophylaxis Hope to discharge on by mouth [employer] Comment Review of Relevant I have reviewed the following items maria teresa (where applicable) has been applied. Labs Laboratory Tests Test 05/03/19 06:00 05/04/19 09:45 White Blood Count 4.7 x10^3/uL (4.0-11.0) 7.4 x10^3/uL (4.0-11.0) Red Blood Count 2.76 x10^6/uL (4.30-5.70) 2.89 x10^6/uL (4.30-5.70) Hemoglobin 7.6 g/dL (13.0-17.5) 8.2 g/dL (13.0-17.5) Hematocrit 23.8 % (39.0-53.0) 24.8 % (39.0-53.0) Mean Corpuscular Volume 86 fL (79-100) 86 fL (79-100) Mean Corpuscular Hemoglobin 28 pg (25-35) 28 pg (25-35) Mean Corpuscular Hemoglobin Concent 32 g/dL (31-37) 33 g/dL (31-37) Red Cell Distribution Width 15.5 % (11.5-14.5) 15.8 % (11.5-14.5) Platelet Count 398 x10^3/uL (140-400) 431 x10^3/uL (140-400) Neutrophils (%) (Auto) 81 % (31-73) 80 % (31-73) Lymphocytes (%) (Auto) 11 % (24-48) 9 % (24-48) Monocytes (%) (Auto) 8 % (0-9) 10 % (0-9) Eosinophils (%) (Auto) 0 % (0-3) 0 % (0-3) Basophils (%) (Auto) 0 % (0-3) 0 % (0-3) Neutrophils # (Auto) 3.8 x10^3uL (1.8-7.7) 5.9 x10^3uL (1.8-7.7) Lymphocytes # (Auto) 0.5 x10^3/uL (1.0-4.8) 0.7 x10^3/uL (1.0-4.8) Monocytes # (Auto) 0.4 x10^3/uL (0.0-1.1) 0.7 x10^3/uL (0.0-1.1) Eosinophils # (Auto) 0.0 x10^3/uL (0.0-0.7) 0.0 x10^3/uL (0.0-0.7) Basophils # (Auto) 0.0 x10^3/uL (0.0-0.2) 0.0 x10^3/uL (0.0-0.2) Sodium Level 138 mmol/L (136-145) 137 mmol/L (136-145) Potassium Level 3.6 mmol/L (3.5-5.1) 3.0 mmol/L (3.5-5.1) Chloride Level 103 mmol/L (98-107) 102 mmol/L (98-107) Carbon Dioxide Level 30 mmol/L (21-32) 33 mmol/L (21-32) Anion Gap 5 (6-14) 2 (6-14) Blood Urea Nitrogen 6 mg/dL (8-26) 6 mg/dL (8-26) Creatinine 0.5 mg/dL (0.7-1.3) 0.6 mg/dL (0.7-1.3) Estimated GFR (Cockcroft-Gault) 172.6 139.9 Glucose Level 110 mg/dL (70-99) 81 mg/dL (70-99) Calcium Level 8.0 mg/dL (8.5-10.1) 7.6 mg/dL (8.5-10.1) C-Reactive Protein, Quantitative 17.9 mg/L (0-3.3) Hepatitis A IgM Antibody Nonreactive (Nonreactive) Hepatitis B Surface Antigen Nonreactive (Nonreactive) Hepatitis B Core IgM Antibody Nonreactive (Nonreactive) Hepatitis C IgG Antibody Nonreactive (Nonreactive) Laboratory Tests Test 05/04/19 09:45 White Blood Count 7.4 x10^3/uL (4.0-11.0) Red Blood Count 2.89 x10^6/uL (4.30-5.70) Hemoglobin 8.2 g/dL (13.0-17.5) Hematocrit 24.8 % (39.0-53.0) Mean Corpuscular Volume 86 fL (79-100) Mean Corpuscular Hemoglobin 28 pg (25-35) Mean Corpuscular Hemoglobin Concent 33 g/dL (31-37) Red Cell Distribution Width 15.8 % (11.5-14.5) Platelet Count 431 x10^3/uL (140-400) Neutrophils (%) (Auto) 80 % (31-73) Lymphocytes (%) (Auto) 9 % (24-48) Monocytes (%) (Auto) 10 % (0-9) Eosinophils (%) (Auto) 0 % (0-3) Basophils (%) (Auto) 0 % (0-3) Neutrophils # (Auto) 5.9 x10^3uL (1.8-7.7) Lymphocytes # (Auto) 0.7 x10^3/uL (1.0-4.8) Monocytes # (Auto) 0.7 x10^3/uL (0.0-1.1) Eosinophils # (Auto) 0.0 x10^3/uL (0.0-0.7) Basophils # (Auto) 0.0 x10^3/uL (0.0-0.2) Sodium Level 137 mmol/L (136-145) Potassium Level 3.0 mmol/L (3.5-5.1) Chloride Level 102 mmol/L (98-107) Carbon Dioxide Level 33 mmol/L (21-32) Anion Gap 2 (6-14) Blood Urea Nitrogen 6 mg/dL (8-26) Creatinine 0.6 mg/dL (0.7-1.3) Estimated GFR (Cockcroft-Gault) 139.9 Glucose Level 81 mg/dL (70-99) Calcium Level 7.6 mg/dL (8.5-10.1) Microbiology 04/25/19 Stool Culture - Final, Complete 04/25/19 Stool Culture Result 1 ([facility]) - Final, Complete 04/25/19 Campylobacter Antigen Assay - Final, Complete 04/25/19 Campylobactor Result 1 - Final, Complete 04/25/19 Shiga Toxin Test - Final, Complete Medications Current Medications Sodium Chloride 1,000 ml @ 1,000 mls/hr 1X ONCE IV Last administered on 04/23/19at 16:25; Start 04/23/19 at 16:00; Stop 04/23/19 at 16:59; Status DC Ondansetron HCl (Zofran) 8 mg 1X ONCE IV Last administered on 04/23/19at 16:24; Start 04/23/19 at 16:00; Stop 04/23/19 at 16:01; Status DC Morphine Sulfate (Morphine Sulfate) 4 mg 1X ONCE IV Last administered on 04/23/19at 16:25; Start 04/23/19 at 16:00; Stop 04/23/19 at 16:01; Status DC Iohexol (Omnipaque 300 Mg/ml) 75 ml 1X ONCE IV Last administered on 04/23/19at 16:11; Start 04/23/19 at 16:00; Stop 04/23/19 at 16:01; Status DC Info (CONTRAST GIVEN -- Rx MONITORING) 1 each PRN DAILY PRN MC SEE COMMENTS; Start 04/23/19 at 16:00; Stop 04/25/19 at 15:59; Status DC Methylprednisolone Sodium Succinate (SOLU-Medrol 125MG VIAL) 125 mg 1X ONCE IV Last administered on 04/23/19at 17:30; Start 04/23/19 at 17:30; Stop 04/23/19 at 17:31; Status DC Fentanyl Citrate (Fentanyl 2ml Vial) 75 mcg 1X ONCE IV Last administered on 04/23/19at 17:30; Start 04/23/19 at 17:30; Stop 04/23/19 at 17:31; Status DC Ondansetron HCl (Zofran) 4 mg PRN Q8HRS PRN IV NAUSEA/VOMITING; Start 04/23/19 at 17:30; Stop 04/23/19 at 17:43; Status DC Morphine Sulfate (Morphine Sulfate) 4 mg PRN Q6HRS PRN IV PAIN Last administered on 04/24/19 09:40; Start 04/23/19 at 17:30; Stop 04/24/19 at 17:29; Status DC Sodium Chloride 1,000 ml @ 100 mls/hr Q10H IV Last administered on 04/24/19 14:34; Start 04/23/19 at 18:00; Stop 04/24/19 at 17:59; Status DC Ondansetron HCl (Zofran) 4 mg PRN Q6HRS PRN IV NAUSEA/VOMITING Last administered on 04/25/19at 17:35; Start 04/23/19 at 17:45 Famotidine (Pepcid Vial) 20 mg BID IVP Last administered on 04/26/19 08:26; Start 04/23/19 at 21:00; Stop 04/26/19 at 09:39; Status DC Fentanyl Citrate (Fentanyl 2ml Vial) 50 mcg PRN Q2HR PRN IV PAIN Last administered on 05/04/19 05:00; Start 04/23/19 at 17:45 Methylprednisolone Sodium Succinate (SOLU-Medrol 40MG VIAL) 40 mg Q8HRS IV Last administered on 04/26/19 06:00; Start 04/23/19 at 22:00; Stop 04/26/19 at 09:16; Status DC Diphenhydramine HCl (Benadryl) 25 mg PRN QHS PRN IVP INSOMNIA; Start 04/23/19 at 17:45 Pharmacy Consult (C.diff Med Screen By Rx) 1 each 1X ONCE MC Last administered on 04/24/19at 09:00; Start 04/24/19 at 09:00; Stop 04/24/19 at 09:01; Status DC Mesalamine (Delzicol) 800 mg TID PO Last administered on 05/03/19 21:03; Start 04/24/19 at 14:00 Sodium Chloride 1,000 ml @ 100 mls/hr Q10H IV Last administered on 05/04/19 05:00; Start 04/24/19 at 22:00 Simethicone (Gas-X) 80 mg PRN Q6HRS PRN PO GAS / BLOATING Last administered on 04/30/19at 03:47; Start 04/25/19 at 22:15 Vancomycin HCl (Vancomycin Oral Solution) 125 mg [id number] PO Last administered on 04/30/19at 11:16; Start 04/26/19 at 09:00; Stop 04/30/19 at 11:36; Status DC Methylprednisolone Sodium Succinate (SOLU-Medrol 40MG VIAL) 40 mg BID IV ; Start 04/26/19 at 21:00; Stop 04/26/19 at 21:00; Status DC Prednisone (Prednisone) 40 mg DAILY PO Last administered on 04/29/19at 08:19; Start 04/27/19 at 09:00; Stop 04/30/19 at 08:19; Status DC Pantoprazole Sodium (Protonix) 40 mg DAILYAC PO Last administered on 05/03/19at 08:19; Start 04/27/19 at 07:30 Lactobacillus Rhamnosus (Culturelle) 1 cap BID PO Last administered on 05/01/19at 08:08; Start 04/26/19 at 21:00; Stop 05/01/19 at 15:21; Status DC Dicyclomine HCl (Bentyl) 10 mg PRN TID PRN PO STOMACH CRAMPING Last administered on 04/28/19at 00:12; Start 04/27/19 at 03:45; Stop 04/28/19 at 11:52; Status DC Dicyclomine HCl (Bentyl) 10 mg [id number] PO Last administered on 04/28/19at 16:51; Start 04/28/19 at 13:00; Stop 04/29/19 at 01:53; Status DC Potassium Chloride (Klor-Con) 40 meq 1X ONCE PO Last administered on 04/28/19at 18:20; Start 04/28/19 at 18:00; Stop 04/28/19 at 18:01; Status DC Dicyclomine HCl (Bentyl) 10 mg QID PO Last administered on 04/29/19at 08:20; Start 04/29/19 at 09:00; Stop 04/29/19 at 12:51; Status DC Dicyclomine HCl (Bentyl) 10 mg PRN Q6HRS PRN PO STOMACH CRAMPING Last administered on 04/29/19at 01:59; Start 04/29/19 at 02:00; Stop 04/29/19 at 09:00; Status DC Oxycodone/ Acetaminophen (Percocet 5/325) 1 tab PRN Q4HRS PRN PO SEVERE PAIN 7-10 Last administered on 05/04/19at 07:33; Start 04/29/19 at 02:00 Hyoscyamine (Anaspaz) 0.125 mg Q6HRS PO Last administered on 05/03/19at 23:54; Start 04/29/19 at 13:00 Midazolam HCl (Versed) 2 mg PRN 1X PRN IV PRIOR TO PROCEDURE; Start 04/30/19 at 07:15; Stop 04/30/19 at 14:50; Status DC Fentanyl Citrate (Fentanyl 2ml Vial) 25 mcg PRN Q5MIN PRN IV X 2 DOSES FOR PAIN; Start 04/30/19 at 07:15; Stop 04/30/19 at 14:50; Status DC Fentanyl Citrate (Fentanyl 2ml Vial) 50 mcg PRN Q5MIN PRN IV X 2 DOSES FOR PAIN ; Start 04/30/19 at 07:15; Stop 04/30/19 at 14:50; Status DC Ringer's Solution 1,000 ml @ 125 mls/hr Q8H IV Last administered on 04/30/19at 07:08; Start 04/30/19 at 07:08; Stop 04/30/19 at 14:50; Status DC Lidocaine HCl (Xylocaine-Mpf 1% 2ml Vial) 2 ml 1X PRN PRN ID IV START; Start 04/30/19 at 07:15; Stop 04/30/19 at 14:50; Status DC Midazolam HCl (Versed) 5 mg STK-MED ONCE .ROUTE ; Start 04/30/19 at 07:48; Stop 04/30/19 at 07:49; Status DC Fentanyl Citrate (Fentanyl 2ml Vial) 100 mcg STK-MED ONCE .ROUTE ; Start 04/30/19 at 07:48; Stop 04/30/19 at 07:49; Status DC Midazolam HCl (Versed) 5 mg STK-MED ONCE IV Last administered on 04/30/19at 08:02; Start 04/30/19 at 08:02; Stop 04/30/19 at 08:06; Status DC Fentanyl Citrate (Fentanyl 2ml Vial) 100 mcg STK-MED ONCE IV Last administered on 04/30/19at 08:03; Start 04/30/19 at 08:03; Stop 04/30/19 at 08:06; Status DC Midazolam HCl (Versed) 5 mg STK-MED ONCE IV Last administered on 04/30/19at 08:05; Start 04/30/19 at 08:05; Stop 04/30/19 at 08:06; Status DC Midazolam HCl (Versed) 5 mg STK-MED ONCE IV Last administered on 04/30/19at 08:07; Start 04/30/19 at 08:07; Stop 04/30/19 at 08:09; Status DC Fentanyl Citrate (Fentanyl 2ml Vial) 100 mcg STK-MED ONCE IV Last administered on 04/30/19at 08:08; Start 04/30/19 at 08:08; Stop 04/30/19 at 08:09; Status DC Methylprednisolone Sodium Succinate (SOLU-Medrol 40MG VIAL) 40 mg Q8HRS IV Last administered on 05/03/19at 06:15; Start 04/30/19 at 08:30; Stop 05/03/19 at 11:46; Status DC Vancomycin HCl (Vancomycin Oral Solution) 500 mg [id number] PO Last administered on 05/03/19at 21:03; Start 04/30/19 at 13:00 Prednisone (Prednisone) 40 mg DAILY PO ; Start 05/04/19 at 09:00 Ringer's Solution 1,000 ml @ 50 mls/hr Q20H IV ; Start 05/04/19 at 07:00; Stop 05/04/19 at 18:59 Active Scripts Active Reported Dicyclomine Hcl 10 Mg Capsule 1 Cap PO TID Apriso (Mesalamine) 0.375 Gm Cap.er.24h 2 Cap PO BID Vitals/I & O Vital Sign - Last 24 Hours 05/03/19 05/03/19 05/03/19 05/03/19 15:00 19:00 20:00 21:04 Temp 98.1 98.0 98.1 98.0 Pulse 45 56 Resp 18 18 16 B/P (MAP) 95/68 (77) 101/66 (78) Pulse Ox 94 98 O2 Delivery Room Air Room Air Room Air Room Air 05/03/19 05/03/19 05/04/19 05/04/19 22:05 23:00 03:00 05:00 Temp 98.0 97.6 98.0 97.6 Pulse 51 48 Resp 16 18 18 20 B/P (MAP) 114/71 (85) 116/69 (85) Pulse Ox 95 96 96 O2 Delivery Room Air Room Air Room Air Room Air O2 Flow Rate 2.0 05/04/19 05/04/19 05/04/19 05/04/19 05:29 07:00 07:33 08:00 Temp 97.4 97.4 Pulse 54 Resp 16 18 B/P (MAP) 110/70 (83) Pulse Ox 97 O2 Delivery Room Air Room Air Room Air Room Air 05/04/19 11:00 Temp 97.5 97.5 Pulse 52 Resp 18 B/P (MAP) 96/63 (74) Pulse Ox 98 O2 Delivery Room Air Intake and Output 05/03/19 05/03/19 05/04/19 14:59 22:59 06:59 Intake Total 120 ml 0 ml 1000 ml Balance 120 ml 0 ml 1000 ml PEARL MACK III DO May 04, 2019 13:49
[2019-05-04] MEDS ORDERED: LIDOCAINE 2% PF 5 ML VIAL. ONE (14:19)
[2019-05-04] MEDS ORDERED: PROPOFOL 20 ML IV ONE (14:19)
[2019-05-04] MEDS ORDERED: POTASSIUM CHLORIDE 20 MEQ TABLET.ER. PO ONE ×2 (14:45→21:00)
--- NOTE | 2019-05-04 14:45 | PDOC4 ---
PROCEDURE Procedure EGD with bx and dilation Dysphagia, abd pain Anesthesia- propofol Findings Esophagus- tortuosity, mild distal erythema but no stricture or ulceration- bx and dilated with 56 fr dawn Gastritis in antrum- no ulcers- bx Duod- normal Plan- Ok to d/c on prednisone, hyoscyamine- stay on low fat bland diet My office has started prior authorization for Humira treatment - he should call next next to check on progress and make appointment for OV in 10-14 days ENRRIQUE HAMMER MD May 04, 2019 14:45
[2019-05-04 15:00] VITALS: BP 108/60
[2019-05-04 19:00] VITALS: BP 89/56
[2019-05-04 23:00] VITALS: BP 90/56
[2019-05-05] MEDS: HYOSCYAMINE 0.125 MG TAB.RAPDIS PO SCH ×3 (00:15→12:09)
[2019-05-05] MEDS: oxyCODONE/APAP 5/325 1 TAB TABLET PO PRN ×2 (02:36→08:39)
[2019-05-05 03:00] VITALS: BP 115/71
[2019-05-05 07:00] VITALS: BP 104/65
[2019-05-05] MEDS: IV NORMAL SALINE 1000ML BAG 1,000 ML IV SCH (08:00)
[2019-05-05] MEDS: MESALAMINE 400 MG CAP.DRTAB. PO SCH ×2 (08:39→14:26)
[2019-05-05] MEDS: PANTOPRAZOLE 40 MG TABLET.DR. PO SCH (08:39)
[2019-05-05] MEDS: predniSONE 20 MG TABLET PO SCH (08:40)
[2019-05-05] MEDS: VANCOMYCIN 125 MG/2.5 ML ORAL SOLUTION. PO SCH ×2 (08:40→13:25)
--- NOTE | 2019-05-05 10:41 | PDOC ---
Infectious Disease Note Subjective Subjective Having frequent small loose stools with lots of gas and some cramps No F/C/S/N/V ROS ROS per HPI Vital Sign Vital Signs Vital Signs Date Time Temp Pulse Resp B/P (MAP) Pulse Ox O2 Delivery O2 Flow Rate FiO2 05/05/19 08:00 Room Air 05/05/19 07:00 98.4 66 18 104/65 (78) 97 98.4 05/04/19 14:44 2.0 Physical Exam PHYSICAL EXAM GENERAL: Propped up in bed, alert, NAD HEENT: Oral cavity clear NECK: Supple. LUNGS: Clear to auscultation. HEART: S1, S2. ABDOMEN: Nondistended, soft, nontender EXTREMITIES: No clubbing, cyanosis or gross edema. SKIN: Warm to touch without signs of rash. NEUROLOGIC: Alert and oriented Labs Micro Microbiology 04/25/19 Stool Culture - Final, Complete 04/25/19 Stool Culture Result 1 ([facility]) - Final, Complete 04/25/19 Campylobacter Antigen Assay - Final, Complete 04/25/19 Campylobactor Result 1 - Final, Complete 04/25/19 Shiga Toxin Test - Final, Complete Objective Assessment C-diff 04/24 Immunosuppression Ulcerative colitis Anemia Dysphagia, s/p EGD, mild distal erythema but no stricture or ulceration- bx and dilated, 05/04 Plan Plan of Care Cont Vanc 500 mg po QID 04/30 for now. Cost unreasonable at [facility]. Has a $50.00 copay w/ [facility]. Rx in chart. Unfortunately can't be delivered till Tuesday Maintain hydration Monitor response Hold discharge till able to get Rx. Nurse to call [facility] to see if delivery can be expedited. D/w nursing Attending Co-Sign The patient was seen and interviewed as well as examined at the bedside. The chart was reviewed. The case was discussed. Agree with the plan of care. LYNNETTE STONE APRN May 05, 2019 10:41 YUE ALBARRAN MD May 05, 2019 11:33
--- NOTE | 2019-05-05 10:55 | PDOC ---
PROGRESS NOTES Chief Complaint Chief Complaint Severe colitis - flex sig done: large tender but not thrombosed external hemorrhoids; Severe colitis in rectum , sigmoid and descending colon - to extent of scope passage- no obvious pseudomembranes seen. recent colonoscopy in [place] reportedly w/ ulcerative colitis. IV steroids changed to PO steroids 05/03 by GI C. difficile positive--continuing PO vanc 500mg at increased dose severe protein-caloric malnutrition Immunosuppression with steroids Anemia prn IV pain meds. loose stools with lots of gas and some cramps 05/05 d/c today ok with id and gi PROCEDURE Procedure EGD with bx and dilation Dysphagia, abd pain Anesthesia- propofol Findings Esophagus- tortuosity, mild distal erythema but no stricture or ulceration- bx and dilated with 56 fr dawn Gastritis in antrum- no ulcers- bx Duod- normal Plan- Ok to d/c on prednisone, hyoscyamine- stay on low fat bland diet My office has started prior authorization for Humira treatment - he should call next next to check on progress and make appointment for OV in 10-14 days History of Present Illness History of Present Illness 6�28�2019 Patient seen and examined Discussed with RN He is going for an EGD 05/04 to evaluate dysphagia given fentanyl dose IV this AM. 36 min pt exam d/c planning , chart review, > 50% of time spent with exam, chart review, pt care coordination disease education Vitals Vitals Vital Signs Date Time Temp Pulse Resp B/P (MAP) Pulse Ox O2 Delivery O2 Flow Rate FiO2 05/05/19 08:00 Room Air 05/05/19 07:00 98.4 66 18 104/65 (78) 97 98.4 05/04/19 14:44 2.0 Physical Exam Physical Exam GENERAL: Propped up in bed, alert, NAD HEENT: Oral cavity clear NECK: Supple. LUNGS: Clear to auscultation. HEART: S1, S2. ABDOMEN: Nondistended, soft, nontender EXTREMITIES: No clubbing, cyanosis or gross edema. SKIN: Warm to touch without signs of rash. NEUROLOGIC: Alert and oriented General: Alert, Oriented X3, Cooperative, No acute distress Heart: Regular rate, Normal S1 Lungs: Clear Abdomen: Soft, Other (diffuse tenderness on light touch, normoactive bowel sounds, but not an acute abdomen) Extremities: No clubbing, No cyanosis, No edema, Normal pulses, No tenderness/swelling Skin: No rashes, No breakdown, No significant lesion Assessment and Plan Assessmemt and Plan Problems Medical Problems: (1) Anemia due to blood loss Status: Acute (2) Anorexia Status: Acute (3) Bloody diarrhea Status: Acute (4) Colitis, Clostridium difficile Status: Acute (5) Ileitis Status: Acute (6) Pancolitis Status: Acute (7) Severe protein-calorie malnutrition Status: Acute (8) SIRS (systemic inflammatory response syndrome) Status: Acute (9) Ulcerative colitis Status: Acute Comment Review of Relevant I have reviewed the following items maria teresa (where applicable) has been applied. Labs Laboratory Tests Test 05/04/19 09:45 White Blood Count 7.4 x10^3/uL (4.0-11.0) Red Blood Count 2.89 x10^6/uL (4.30-5.70) Hemoglobin 8.2 g/dL (13.0-17.5) Hematocrit 24.8 % (39.0-53.0) Mean Corpuscular Volume 86 fL (79-100) Mean Corpuscular Hemoglobin 28 pg (25-35) Mean Corpuscular Hemoglobin Concent 33 g/dL (31-37) Red Cell Distribution Width 15.8 % (11.5-14.5) Platelet Count 431 x10^3/uL (140-400) Neutrophils (%) (Auto) 80 % (31-73) Lymphocytes (%) (Auto) 9 % (24-48) Monocytes (%) (Auto) 10 % (0-9) Eosinophils (%) (Auto) 0 % (0-3) Basophils (%) (Auto) 0 % (0-3) Neutrophils # (Auto) 5.9 x10^3uL (1.8-7.7) Lymphocytes # (Auto) 0.7 x10^3/uL (1.0-4.8) Monocytes # (Auto) 0.7 x10^3/uL (0.0-1.1) Eosinophils # (Auto) 0.0 x10^3/uL (0.0-0.7) Basophils # (Auto) 0.0 x10^3/uL (0.0-0.2) Sodium Level 137 mmol/L (136-145) Potassium Level 3.0 mmol/L (3.5-5.1) Chloride Level 102 mmol/L (98-107) Carbon Dioxide Level 33 mmol/L (21-32) Anion Gap 2 (6-14) Blood Urea Nitrogen 6 mg/dL (8-26) Creatinine 0.6 mg/dL (0.7-1.3) Estimated GFR (Cockcroft-Gault) 139.9 Glucose Level 81 mg/dL (70-99) Calcium Level 7.6 mg/dL (8.5-10.1) Microbiology 04/25/19 Stool Culture - Final, Complete 04/25/19 Stool Culture Result 1 ([facility]) - Final, Complete 04/25/19 Campylobacter Antigen Assay - Final, Complete 04/25/19 Campylobactor Result 1 - Final, Complete 04/25/19 Shiga Toxin Test - Final, Complete Medications Current Medications Sodium Chloride 1,000 ml @ 1,000 mls/hr 1X ONCE IV Last administered on 04/23/19at 16:25; Start 04/23/19 at 16:00; Stop 04/23/19 at 16:59; Status DC Ondansetron HCl (Zofran) 8 mg 1X ONCE IV Last administered on 04/23/19at 16:24; Start 04/23/19 at 16:00; Stop 04/23/19 at 16:01; Status DC Morphine Sulfate (Morphine Sulfate) 4 mg 1X ONCE IV Last administered on 04/23/19at 16:25; Start 04/23/19 at 16:00; Stop 04/23/19 at 16:01; Status DC Iohexol (Omnipaque 300 Mg/ml) 75 ml 1X ONCE IV Last administered on 04/23/19at 16:11; Start 04/23/19 at 16:00; Stop 04/23/19 at 16:01; Status DC Info (CONTRAST GIVEN -- Rx MONITORING) 1 each PRN DAILY PRN MC SEE COMMENTS; Start 04/23/19 at 16:00; Stop 04/25/19 at 15:59; Status DC Methylprednisolone Sodium Succinate (SOLU-Medrol 125MG VIAL) 125 mg 1X ONCE IV Last administered on 04/23/19at 17:30; Start 04/23/19 at 17:30; Stop 04/23/19 at 17:31; Status DC Fentanyl Citrate (Fentanyl 2ml Vial) 75 mcg 1X ONCE IV Last administered on 04/23/19 17:30; Start 04/23/19 at 17:30; Stop 04/23/19 at 17:31; Status DC Ondansetron HCl (Zofran) 4 mg PRN Q8HRS PRN IV NAUSEA/VOMITING; Start 04/23/19 at 17:30; Stop 04/23/19 at 17:43; Status DC Morphine Sulfate (Morphine Sulfate) 4 mg PRN Q6HRS PRN IV PAIN Last administered on 04/24/19 09:40; Start 04/23/19 at 17:30; Stop 04/24/19 at 17:29 ; Status DC Sodium Chloride 1,000 ml @ 100 mls/hr Q10H IV Last administered on 04/24/19 14:34; Start 04/23/19 at 18:00; Stop 04/24/19 at 17:59; Status DC Ondansetron HCl (Zofran) 4 mg PRN Q6HRS PRN IV NAUSEA/VOMITING Last administered on 04/25/19 17:35; Start 04/23/19 at 17:45 Famotidine (Pepcid Vial) 20 mg BID IVP Last administered on 04/26/19 08:26; Start 04/23/19 at 21:00; Stop 04/26/19 at 09:39; Status DC Fentanyl Citrate (Fentanyl 2ml Vial) 50 mcg PRN Q2HR PRN IV PAIN Last administered on 05/04/19 17:02; Start 04/23/19 at 17:45 Methylprednisolone Sodium Succinate (SOLU-Medrol 40MG VIAL) 40 mg Q8HRS IV Last administered on 04/26/19 06:00; Start 04/23/19 at 22:00; Stop 04/26/19 at 09:16; Status DC Diphenhydramine HCl (Benadryl) 25 mg PRN QHS PRN IVP INSOMNIA; Start 04/23/19 at 17:45 Pharmacy Consult (C.diff Med Screen By Rx) 1 each 1X ONCE MC Last administered on 04/24/19 09:00; Start 04/24/19 at 09:00; Stop 04/24/19 at 09:01; Status DC Mesalamine (Delzicol) 800 mg TID PO Last administered on 05/05/19 08:39; Start 04/24/19 at 14:00 Sodium Chloride 1,000 ml @ 100 mls/hr Q10H IV Last administered on 05/04/19 21:21; Start 04/24/19 at 22:00 Simethicone (Gas-X) 80 mg PRN Q6HRS PRN PO GAS / BLOATING Last administered on 04/30/19 03:47; Start 04/25/19 at 22:15 Vancomycin HCl (Vancomycin Oral Solution) 125 mg [id number] PO Last administered on 04/30/19 11:16; Start 04/26/19 at 09:00; Stop 04/30/19 at 11:36; Status DC Methylprednisolone Sodium Succinate (SOLU-Medrol 40MG VIAL) 40 mg BID IV ; Start 04/26/19 at 21:00; Stop 04/26/19 at 21:00; Status DC Prednisone (Prednisone) 40 mg DAILY PO Last administered on 04/29/19 08:19; Start 04/27/19 at 09:00; Stop 04/30/19 at 08:19; Status DC Pantoprazole Sodium (Protonix) 40 mg DAILYAC PO Last administered on 05/05/19 08:39; Start 04/27/19 at 07:30 Lactobacillus Rhamnosus (Culturelle) 1 cap BID PO Last administered on 08:08; Start 04/26/19 at 21:00; Stop 05/01/19 at 15:21; Status DC Dicyclomine HCl (Bentyl) 10 mg PRN TID PRN PO STOMACH CRAMPING Last administered on 04/28/19at 00:12; Start 04/27/19 at 03:45; Stop 04/28/19 at 11:52; Status DC Dicyclomine HCl (Bentyl) 10 mg [id number] PO Last administered on 04/28/19 16:51; Start 04/28/19 at 13:00; Stop 04/29/19 at 01:53; Status DC Potassium Chloride (Klor-Con) 40 meq 1X ONCE PO Last administered on 04/28/19 18:20; Start 04/28/19 at 18:00; Stop 04/28/19 at 18:01; Status DC Dicyclomine HCl (Bentyl) 10 mg QID PO Last administered on 6/23/19at 08:20; Start 04/29/19 at 09:00; Stop 04/29/19 at 12:51; Status DC Dicyclomine HCl (Bentyl) 10 mg PRN Q6HRS PRN PO STOMACH CRAMPING Last administered on 04/29/19at 01:59; Start 04/29/19 at 02:00; Stop 04/29/19 at 09:00; Status DC Oxycodone/ Acetaminophen (Percocet 5/325) 1 tab PRN Q4HRS PRN PO SEVERE PAIN 7- 10 Last administered on 05/05/19at 08:39; Start 04/29/19 at 02:00 Hyoscyamine (Anaspaz) 0.125 mg Q6HRS PO Last administered on 05/05/19at 06:04; Start 04/29/19 at 13:00 Midazolam HCl (Versed) 2 mg PRN 1X PRN IV PRIOR TO PROCEDURE; Start 04/30/19 at 07:15; Stop 04/30/19 at 14:50; Status DC Fentanyl Citrate (Fentanyl 2ml Vial) 25 mcg PRN Q5MIN PRN IV X 2 DOSES FOR PAIN; Start 04/30/19 at 07:15; Stop 04/30/19 at 14:50; Status DC Fentanyl Citrate (Fentanyl 2ml Vial) 50 mcg PRN Q5MIN PRN IV X 2 DOSES FOR PAIN; Start 04/30/19 at 07:15; Stop 04/30/19 at 14:50; Status DC Ringer's Solution 1,000 ml @ 125 mls/hr Q8H IV Last administered on 04/30/19at 07:08; Start 04/30/19 at 07:08; Stop 04/30/19 at 14:50; Status DC Lidocaine HCl (Xylocaine-Mpf 1% 2ml Vial) 2 ml 1X PRN PRN ID IV START; Start 04/30/19 at 07:15; Stop 04/30/19 at 14:50; Status DC Midazolam HCl (Versed) 5 mg STK-MED ONCE .ROUTE ; Start 04/30/19 at 07:48; Stop 04/30/19 at 07:49; Status DC Fentanyl Citrate (Fentanyl 2ml Vial) 100 mcg STK-MED ONCE .ROUTE ; Start 04/30/19 at 07:48; Stop 04/30/19 at 07:49; Status DC Midazolam HCl (Versed) 5 mg STK-MED ONCE IV Last administered on 04/30/19at 08:02; Start 04/30/19 at 08:02; Stop 04/30/19 at 08:06; Status DC Fentanyl Citrate (Fentanyl 2ml Vial) 100 mcg STK-MED ONCE IV Last administered on 04/30/19at 08:03; Start 04/30/19 at 08:03; Stop 04/30/19 at 08:06; Status DC Midazolam HCl (Versed) 5 mg STK-MED ONCE IV Last administered on 04/30/19at 08:05; Start 04/30/19 at 08:05; Stop 04/30/19 at 08:06; Status DC Midazolam HCl (Versed) 5 mg STK-MED ONCE IV Last administered on 04/30/19at 08:07; Start 04/30/19 at 08:07; Stop 04/30/19 at 08:09; Status DC Fentanyl Citrate (Fentanyl 2ml Vial) 100 mcg STK-MED ONCE IV Last administered on 04/30/19at 08:08; Start 04/30/19 at 08:08; Stop 04/30/19 at 08:09; Status DC Methylprednisolone Sodium Succinate (SOLU-Medrol 40MG VIAL) 40 mg Q8HRS IV Last administered on 05/03/19at 06:15; Start 04/30/19 at 08:30; Stop 05/03/19 at 11:46; Status DC Vancomycin HCl (Vancomycin Oral Solution) 500 mg [id number] PO Last administered on 05/05/19at 08:40; Start 04/30/19 at 13:00 Prednisone (Prednisone) 40 mg DAILY PO Last administered on 05/05/19at 08:40; Start 05/04/19 at 09:00 Ringer's Solution 1,000 ml @ 50 mls/hr Q20H IV Last administered on 05/04/19at 07:00; Start 05/04/19 at 07:00; Stop 05/04/19 at 18:59; Status DC Potassium Chloride (Klor-Con) 20 meq 1X ONCE PO ; Start 05/04/19 at 14:45; Stop 05/04/19 at 14:46; Status Cancel Potassium Chloride (Klor-Con) 20 meq 1X ONCE PO Last administered on 05/04/19at 21:18; Start 05/04/19 at 21:00; Stop 05/04/19 at 21:01; Status DC Active Scripts Active Reported Dicyclomine Hcl 10 Mg Capsule 1 Cap PO TID Apriso (Mesalamine) 0.375 Gm Cap.er.24h 2 Cap PO BID Vitals/I & O Vital Sign - Last 24 Hours 05/04/19 05/04/19 05/04/19 05/04/19 11:00 14:02 14:44 15:00 Temp 97.5 97.3 97.5 97.5 97.3 97.5 Pulse 52 65 55 56 Resp 18 16 18 B/P (MAP) 96/63 (74) 105/63 108/60 (76) Pulse Ox 98 97 100 97 O2 Delivery Room Air Room Air Room Air O2 Flow Rate 2.0 05/04/19 05/04/19 05/04/19 05/04/19 15:00 17:02 17:02 17:32 Pulse 60 Resp 16 24 24 20 B/P (MAP) 110/66 Pulse Ox 98 O2 Delivery Room Air Room Air Room Air 05/04/19 05/04/19 05/04/19 05/04/19 18:08 19:00 19:32 21:19 Temp 98.2 98.2 Pulse 82 Resp 20 18 B/P (MAP) 89/56 (67) Pulse Ox 96 O2 Delivery Room Air Room Air Room Air 05/04/19 05/05/19 05/05/19 05/05/19 23:00 03:00 03:36 07:00 Temp 98.4 98.1 98.4 98.4 98.1 98.4 Pulse 66 73 66 Resp 18 18 18 B/P (MAP) 90/56 (67) 115/71 (86) 104/65 (78) Pulse Ox 93 98 97 O2 Delivery Room Air Room Air Room Air Room Air 05/05/19 08:00 O2 Delivery Room Air Intake and Output 05/04/19 05/04/19 05/05/19 14:59 22:59 06:59 Intake Total 950 ml Output Total 2 ml 2 ml Balance -2 ml 948 ml Nutrition Consultation Dietary Evaluation: Comments: continue low fat diet pt to ask for snacks/ supplements from unit prn Expected Outcomes/Goals: to meet > 75% est nutr needs- goal ongoing Interpretation of weight loss: >7.5% in 3 months Malnutrition Findings: Food and Nutrition Intake (Sev: <50% est energy req 5days Weight Status: Appropriate JAZMÍN HALL MD May 05, 2019 10:55
[2019-05-05 11:00] VITALS: BP 89/53
--- NOTE | 2019-05-05 15:55 | PDOC3 ---
Discharge Summary Date of Admission: Apr 23, 2019 Date of Discharge: May 05, 2019 Follow-Up: Other (1 week) Admitting Diagnosis comment: discharge diagnosis Chief Complaint Severe acute colitis - flex sig done: large tender but not thrombosed external hemorrhoids; Severe colitis in rectum , sigmoid and descending colon - to extent of scope passage- no obvious pseudomembranes seen. recent colonoscopy in [place] reportedly w/ ulcerative colitis. IV steroids changed to PO steroids 05/03 by GI C. difficile positive--continuing PO vanc 500mg at increased dose severe protein-caloric malnutrition Immunosuppression with steroids Anemia prn IV pain meds. d/c loose stools with lots of gas and some cramps 05/05 d/c today ok with id and gi PROCEDURE Procedure EGD with bx and dilation Dysphagia, abd pain Anesthesia- propofol Findings Esophagus- tortuosity, mild distal erythema but no stricture or ulceration- bx and dilated with 56 fr dawn Gastritis in antrum- no ulcers- bx Duod- normal Plan- Ok to d/c on prednisone, hyoscyamine- stay on low fat bland diet My office has started prior authorization for Humira treatment - he should call next next to check on progress and make appointment for OV in 10-14 days History of Present Illness History of Present Illness 6�28�2019 Patient seen and examined Discussed with RN He is going for an EGD 05/04 to evaluate dysphagia given fentanyl dose IV this AM. 36 min pt exam d/c planning , chart review, > 50% of time spent with exam, chart review, pt care coordination disease education Vitals Vitals Vital Signs Date Time Temp Pulse Resp B/P (MAP) Pulse Ox O2 Delivery O2 Flow Rate FiO2 05/05/19 08:00 Room Air 05/05/19 07:00 98.4 66 18 104/65 (78) 97 98.4 05/04/19 14:44 2.0 Physical Exam Physical Exam GENERAL: Propped up in bed, alert, NAD HEENT: Oral cavity clear NECK: Supple. LUNGS: Clear to auscultation. HEART: S1, S2. ABDOMEN: Nondistended, soft, nontender EXTREMITIES: No clubbing, cyanosis or gross edema. SKIN: Warm to touch without signs of rash. NEUROLOGIC: Alert and oriented General: Alert, Oriented X3, Cooperative, No acute distress Heart: Regular rate, Normal S1 Lungs: Clear Abdomen: Soft, Other (diffuse tenderness on light touch, normoactive bowel sounds, but not an acute abdomen) Extremities: No clubbing, No cyanosis, No edema, Normal pulses, No tend erness/swelling Skin: No rashes, No breakdown, No significant lesion FINAL DIAGNOSIS Problems Medical Problems: (1) Anemia due to blood loss Status: Acute (2) Anorexia Status: Acute (3) Bloody diarrhea Status: Acute (4) Colitis, Clostridium difficile Status: Acute (5) Ileitis Status: Acute (6) Pancolitis Status: Acute (7) Severe protein-calorie malnutrition Status: Acute (8) SIRS (systemic inflammatory response syndrome) Status: Acute (9) Ulcerative colitis Status: Acute Brief Hospital Course Mr. Nesbitt is a 53 old [sex] who presented with [ acute colitis] CONDITION AT DISCHARGE: Improved Discharge Medications Current Medications Sodium Chloride 1,000 ml @ 1,000 mls/hr 1X ONCE IV Last administered on 04/23/19at 16:25; Start 04/23/19 at 16:00; Stop 04/23/19 at 16:59; Status DC Ondansetron HCl (Zofran) 8 mg 1X ONCE IV Last administered on 04/23/19at 16:24; Start 04/23/19 at 16:00; Stop 04/23/19 at 16:01; Status DC Morphine Sulfate (Morphine Sulfate) 4 mg 1X ONCE IV Last administered on 04/23/19at 16:25; Start 04/23/19 at 16:00; Stop 04/23/19 at 16:01; Status DC Iohexol (Omnipaque 300 Mg/ml) 75 ml 1X ONCE IV Last administered on 04/23/19at 16:11; Start 04/23/19 at 16:00; Stop 04/23/19 at 16:01; Status DC Info (CONTRAST GIVEN -- Rx MONITORING) 1 each PRN DAILY PRN MC SEE COMMENTS; Start 04/23/19 at 16:00; Stop 04/25/19 at 15:59; Status DC Methylprednisolone Sodium Succinate (SOLU-Medrol 125MG VIAL) 125 mg 1X ONCE IV Last administered on 04/23/19at 17:30; Start 04/23/19 at 17:30; Stop 04/23/19 at 17:31; Status DC Fentanyl Citrate (Fentanyl 2ml Vial) 75 mcg 1X ONCE IV Last administered on 04/23/19at 17:30; Start 04/23/19 at 17:30; Stop 04/23/19 at 17:31; Status DC Ondansetron HCl (Zofran) 4 mg PRN Q8HRS PRN IV NAUSEA/VOMITING; Start 04/23/19 at 17:30; Stop 04/23/19 at 17:43; Status DC Morphine Sulfate (Morphine Sulfate) 4 mg PRN Q6HRS PRN IV PAIN Last administered on 04/24/19 09:40; Start 04/23/19 at 17:30; Stop 04/24/19 at 17:29; Status DC Sodium Chloride 1,000 ml @ 100 mls/hr Q10H IV Last administered on 04/24/19 14:34; Start 04/23/19 at 18:00; Stop 04/24/19 at 17:59; Status DC Ondansetron HCl (Zofran) 4 mg PRN Q6HRS PRN IV NAUSEA/VOMITING Last administered on 04/25/19at 17:35; Start 04/23/19 at 17:45 Famotidine (Pepcid Vial) 20 mg BID IVP Last administered on 04/26/19 08:26; Start 04/23/19 at 21:00; Stop 04/26/19 at 09:39; Status DC Fentanyl Citrate (Fentanyl 2ml Vial) 50 mcg PRN Q2HR PRN IV PAIN Last administered on 05/04/19at 17:02; Start 04/23/19 at 17:45 Methylprednisolone Sodium Succinate (SOLU-Medrol 40MG VIAL) 40 mg Q8HRS IV Last administered on 04/26/19at 06:00; Start 04/23/19 at 22:00; Stop 04/26/19 at 09:16; Status DC Diphenhydramine HCl (Benadryl) 25 mg PRN QHS PRN IVP INSOMNIA; Start 04/23/19 at 17:45 Pharmacy Consult (C.diff Med Screen By Rx) 1 each 1X ONCE MC Last administered on 04/24/19 09:00; Start 04/24/19 at 09:00; Stop 04/24/19 at 09:01; Status DC Mesalamine (Delzicol) 800 mg TID PO Last administered on 05/05/19 14:26; Start 04/24/19 at 14:00 Sodium Chloride 1,000 ml @ 100 mls/hr Q10H IV Last administered on 05/04/19 21:21; Start 04/24/19 at 22:00 Simethicone (Gas-X) 80 mg PRN Q6HRS PRN PO GAS / BLOATING Last administered on 04/30/19 03:47; Start 04/25/19 at 22:15 Vancomycin HCl (Vancomycin Oral Solution) 125 mg [id number] PO Last administered on 04/30/19 11:16; Start 04/26/19 at 09:00; Stop 04/30/19 at 11:36; Status DC Methylprednisolone Sodium Succinate (SOLU-Medrol 40MG VIAL) 40 mg BID IV ; Start 04/26/19 at 21:00; Stop 04/26/19 at 21:00; Status DC Prednisone (Prednisone) 40 mg DAILY PO Last administered on 04/29/19at 08:19; Start 04/27/19 at 09:00; Stop 04/30/19 at 08:19; Status DC Pantoprazole Sodium (Protonix) 40 mg DAILYAC PO Last administered on 05/05/19at 08:39; Start 04/27/19 at 07:30 Lactobacillus Rhamnosus (Culturelle) 1 cap BID PO Last administered on 05/01/19at 08:08; Start 04/26/19 at 21:00; Stop 05/01/19 at 15:21; Status DC Dicyclomine HCl (Bentyl) 10 mg PRN TID PRN PO STOMACH CRAMPING Last adminis tered on 04/28/19at 00:12; Start 04/27/19 at 03:45; Stop 04/28/19 at 11:52; Status DC Dicyclomine HCl (Bentyl) 10 mg [id number] PO Last administered on 04/28/19at 16:51; Start 04/28/19 at 13:00; Stop 04/29/19 at 01:53; Status DC Potassium Chloride (Klor-Con) 40 meq 1X ONCE PO Last administered on 04/28/19at 18:20; Start 04/28/19 at 18:00; Stop 04/28/19 at 18:01; Status DC Dicyclomine HCl (Bentyl) 10 mg QID PO Last administered on 04/29/19at 08:20; Start 04/29/19 at 09:00; Stop 04/29/19 at 12:51; Status DC Dicyclomine HCl (Bentyl) 10 mg PRN Q6HRS PRN PO STOMACH CRAMPING Last administered on 04/29/19at 01:59; Start 04/29/19 at 02:00; Stop 04/29/19 at 09:00; Status DC Oxycodone/ Acetaminophen (Percocet 5/325) 1 tab PRN Q4HRS PRN PO SEVERE PAIN 7- 10 Last administered on 05/05/19at 08:39; Start 04/29/19 at 02:00 Hyoscyamine (Anaspaz) 0.125 mg Q6HRS PO Last administered on 05/05/19at 12:09; Start 04/29/19 at 13:00 Midazolam HCl (Versed) 2 mg PRN 1X PRN IV PRIOR TO PROCEDURE; Start 04/30/19 at 07:15; Stop 04/30/19 at 14:50; Status DC Fentanyl Citrate (Fentanyl 2ml Vial) 25 mcg PRN Q5MIN PRN IV X 2 DOSES FOR PAIN; Start 04/30/19 at 07:15; Stop 04/30/19 at 14:50; Status DC Fentanyl Citrate (Fentanyl 2ml Vial) 50 mcg PRN Q5MIN PRN IV X 2 DOSES FOR PAIN; Start 04/30/19 at 07:15; Stop 04/30/19 at 14:50; Status DC Ringer's Solution 1,000 ml @ 125 mls/hr Q8H IV Last administered on 04/30/19at 07:08; Start 04/30/19 at 07:08; Stop 04/30/19 at 14:50; Status DC Lidocaine HCl (Xylocaine-Mpf 1% 2ml Vial) 2 ml 1X PRN PRN ID IV START; Start 04/30/19 at 07:15; Stop 04/30/19 at 14:50; Status DC Midazolam HCl (Versed) 5 mg STK-MED ONCE .ROUTE ; Start 04/30/19 at 07:48; Stop 04/30/19 at 07:49; Status DC Fentanyl Citrate (Fentanyl 2ml Vial) 100 mcg STK-MED ONCE .ROUTE ; Start 04/30/19 at 07:48; Stop 04/30/19 at 07:49; Status DC Midazolam HCl (Versed) 5 mg STK-MED ONCE IV Last administered on 04/30/19at 08:02; Start 04/30/19 at 08:02; Stop 04/30/19 at 08:06; Status DC Fentanyl Citrate (Fentanyl 2ml Vial) 100 mcg STK-MED ONCE IV Last administered on 04/30/19at 08:03; Start 04/30/19 at 08:03; Stop 04/30/19 at 08:06; Status DC Midazolam HCl (Versed) 5 mg STK-MED ONCE IV Last administered on 04/30/19at 08:05; Start 04/30/19 at 08:05; Stop 04/30/19 at 08:06; Status DC Midazolam HCl (Versed) 5 mg STK-MED ONCE IV Last administered on 04/30/19at 08:07; Start 04/30/19 at 08:07; Stop 04/30/19 at 08:09; Status DC Fentanyl Citrate (Fentanyl 2ml Vial) 100 mcg STK-MED ONCE IV Last administered on 04/30/19at 08:08; Start 04/30/19 at 08:08; Stop 04/30/19 at 08:09; Status DC Methylprednisolone Sodium Succinate (SOLU-Medrol 40MG VIAL) 40 mg Q8HRS IV Last administered on 05/03/19at 06:15; Start 04/30/19 at 08:30; Stop 05/03/19 at 11:46; Status DC Vancomycin HCl (Vancomycin Oral Solution) 500 mg [id number] PO Last administered on 05/05/19at 13:25; Start 04/30/19 at 13:00 Prednisone (Prednisone) 40 mg DAILY PO Last administered on 05/05/19at 08:40; Start 05/04/19 at 09:00 Ringer's Solution 1,000 ml @ 50 mls/hr Q20H IV Last administered on 05/04/19at 07:00; Start 05/04/19 at 07:00; Stop 05/04/19 at 18:59; Status DC Potassium Chloride (Klor-Con) 20 meq 1X ONCE PO ; Start 05/04/19 at 14:45; Stop 05/04/19 at 14:46; Status Cancel Potassium Chloride (Klor-Con) 20 meq 1X ONCE PO Last administered on 05/04/19at 21:18; Start 05/04/19 at 21:00; Stop 05/04/19 at 21:01; Status DC Active Scripts Active Reported Dicyclomine Hcl 10 Mg Capsule 1 Cap PO TID Apriso (Mesalamine) 0.375 Gm Cap.er.24h 2 Cap PO BID Vital Signs Vital Signs Date Time Temp Pulse Resp B/P (MAP) Pulse Ox O2 Delivery O2 Flow Rate FiO2 05/05/19 11:00 98.2 63 18 89/53 (65) 100 Room Air 98.2 05/04/19 14:44 2.0 Labs Laboratory Tests Test 05/04/19 09:45 White Blood Count 7.4 x10^3/uL (4.0-11.0) Red Blood Count 2.89 x10^6/uL (4.30-5.70) Hemoglobin 8.2 g/dL (13.0-17.5) Hematocrit 24.8 % (39.0-53.0) Mean Corpuscular Volume 86 fL (79-100) Mean Corpuscular Hemoglobin 28 pg (25-35) Mean Corpuscular Hemoglobin Concent 33 g/dL (31-37) Red Cell Distribution Width 15.8 % (11.5-14.5) Platelet Count 431 x10^3/uL (140-400) Neutrophils (%) (Auto) 80 % (31-73) Lymphocytes (%) (Auto) 9 % (24-48) Monocytes (%) (Auto) 10 % (0-9) Eosinophils (%) (Auto) 0 % (0-3) Basophils (%) (Auto) 0 % (0-3) Neutrophils # (Auto) 5.9 x10^3uL (1.8-7.7) Lymphocytes # (Auto) 0.7 x10^3/uL (1.0-4.8) Monocytes # (Auto) 0.7 x10^3/uL (0.0-1.1) Eosinophils # (Auto) 0.0 x10^3/uL (0.0-0.7) Basophils # (Auto) 0.0 x10^3/uL (0.0-0.2) Sodium Level 137 mmol/L (136-145) Potassium Level 3.0 mmol/L (3.5-5.1) Chloride Level 102 mmol/L (98-107) Carbon Dioxide Level 33 mmol/L (21-32) Anion Gap 2 (6-14) Blood Urea Nitrogen 6 mg/dL (8-26) Creatinine 0.6 mg/dL (0.7-1.3) Estimated GFR (Cockcroft-Gault) 139.9 Glucose Level 81 mg/dL (70-99) Calcium Level 7.6 mg/dL (8.5-10.1) Allergies Allergies Coded Allergies Type Severity Reaction Last Updated Verified No Known Drug Allergies 04/30/19 No Disposition/Orders: D/C to Home Patient Instructions d/c planning 36 min JAZMÍN HALL MD May 05, 2019 15:55
[2019-05-05] MEDS ORDERED: OXYC1TAB15 PO (16:02)
[2019-05-05] MEDS ORDERED: VANC500V PO (16:02)
[2019-05-05] MEDS ORDERED: Pantoprazole PO (16:02)
[2019-05-05] MEDS ORDERED: PRED20TA PO (16:02)
[2019-05-05] MEDS ORDERED: SIME80TA14 PO (16:02)
[2019-05-05] MEDS ORDERED: HYOS0.12 PO (16:02)
--- NOTE | 2019-05-05 16:03 | DISCH ---
DISCHARGE INSTRUCTIONS Condition on Discharge Condition on Discharge: Stable Activity After Discharge Activity Instructions for Disc: Activity as tolerated Lifting Instructions after Dis: No heavy lifting, No pulling or pushing Driving Instructions after Dis: Do not drive Diet after Discharge Diet after Discharge: Regular Checks after Discharge Checks after discharge: Check blood press - daily Contacting the DR. after DC Call your doctor for: If your condition worsens JAZMÍN HALL MD May 05, 2019 16:03
--- NOTE | 2019-05-05 17:44 | NUR ---
Discharge Note: SANDRINE VELAZQUEZ [address] Discharge instructions and discharge home medications reviewed with Patient and a copy given. All questions have been answered and understanding verbalized. The following instructions and handouts were given: UC Discontinued lines and drains: Peripheral IV intact. Patient discharged to Home or Self Care with Family Member via Wheelchair Patient was given multi D/C medications, list went over with patient. Pervious day script was called into a [facility] in [place] that is not open on the weekends. [facility] on and [facility], was called by RN to verify that they had on hand his ABX needed for his C-Diff, they had 9 pills on hand, patient stated that he could order picker those 9 pills today and return within the time frame frame to order picker the remaining 11 pills. Patient did not voice any other concerns at D/C.
--- NOTE | 2019-05-07 15:06 | PATHOLOGY ---
[facility] Accession Number: [id number] . 01 Material submitted: . PART A: stomach - ANTRUM BIOPSY PART B: esophagus - DISTAL ESOPHAGEAL BIOPSY. Modifiers: distal . 01 Clinical history: . Colitis, globus A. R/O H. pylori B. R/O esophagitis . 02 Diagnosis: A. Gastric biopsy, antrum: - Chronic gastritis, mild. . B. Esophageal biopsy, distal esophagus: - Segment of gastric mucosa showing mild chronic inflammation. (JPM:rob; 05/07/2019) QMS/05/07/2019 . 02 Comment: Sections of the gastric biopsy reveal gastric body and antral-body transition mucosa showing mild chronic inflammation. A properly controlled immunoperoxidase stain for Helicobacter is negative for Helicobacter organisms. . Sections of the distal esophageal biopsy reveal gastric mucosa showing mild chronic inflammation. There is no squamous esophageal mucosa. There is no evidence of Phan's change, dysplasia, or malignancy. (JPM:rob; 05/07/2019) . . Special stain performed: Immunoperoxidase stain on A1. . 02 Electronically signed: . Anthony Crabtree MD, Pathologist NPI- [id number] . 01 Gross description: . A. The specimen is received in formalin, labeled "Moody Nesbitt, antral biopsy, R/O H. pylori". Received is a segment of pale casas soft tissue measuring 1.0 cm in maximum dimensions. The specimen is submitted entirely in cassette A1. . B. The specimen is received in formalin, labeled "Moody Millerman, distal esophagus, R/O esophagitis". Received are two segments of pale casas soft tissue ranging in size from 0.2 to 0.5 cm in maximum dimensions. The specimen is submitted entirely in cassette B1. (CAA; 05/04/2019) QAC/QAC . 02 Pathologist provided ICD-10: K29.50, K20.9 . 02 CPT . 906093, 744974, C84268 Specimen Comment: A courtesy copy of this report has been sent to Specimen Comment: [phone], , . Specimen Comment: Report sent to ,DR DIXON / DR SORTO Performed at: 01 [facility] [address] [place] [address] [address], [place] [id number] MD Rock Chance MD Phone: [phone] Performed at: 02 [facility] [address], [place] [id number] MD Anthony Crabtree MD Phone: [phone]
== END 2019-05-05 17:48 | disposition home or self-care (01) | DRG 371 ==
LOC: ER 13:45 → 5 NORTH 17:25
PROVIDERS: ADMIT Internal Medicine; ATTEND Internal Medicine
PROC: 0DBE8ZX Excision of Large Intestine, Via Natural or Artificial Opening Endoscopic, Diagnostic (ICD-10-PCS; principal; 2019-04-30 08:00)
PROC: 0D738ZZ Dilation of Lower Esophagus, Via Natural or Artificial Opening Endoscopic (ICD-10-PCS; 2019-05-04)
PROC: 0DB38ZX Excision of Lower Esophagus, Via Natural or Artificial Opening Endoscopic, Diagnostic (ICD-10-PCS; 2019-05-04)
PROC: 0DB78ZX Excision of Stomach, Pylorus, Via Natural or Artificial Opening Endoscopic, Diagnostic (ICD-10-PCS; 2019-05-04 14:30)
DX: A04.72 Enterocolitis due to Clostridium difficile, not specified as recurrent (principal); E43 Unspecified severe protein-calorie malnutrition; R65.10 Systemic inflammatory response syndrome (SIRS) of non-infectious origin without acute organ dysfunction; K51.00 Ulcerative (chronic) pancolitis without complications; K51.90 Ulcerative colitis, unspecified, without complications; D50.0 Iron deficiency anemia secondary to blood loss (chronic); K64.4 Residual hemorrhoidal skin tags; K21.9 Gastro-esophageal reflux disease without esophagitis; K29.70 Gastritis, unspecified, without bleeding; G47.00 Insomnia, unspecified; Z68.24 Body mass index [BMI] 24.0-24.9, adult; Z87.891 Personal history of nicotine dependence; Z80.0 Family history of malignant neoplasm of digestive organs
CPT/HCPCS: 36415; 43239; 43450; 45331; 74018; 74177; 80048; 80053; 83690; 85007; 85014; 85018; 85025; 85027; 85610; 85651; 85730; 86140; 86481; 86705; 86709; 86803; 87045; 87328; 87340; 87493; 88305; 88342; 96361; 96374; 96375; J2001; J2250; J2270; J2405; J2704; J2920; J2930; J3010; J3490; J7030; J7120; J7512; Q9967; 99285-25

== ENCOUNTER 2019-06-11 14:19 | Inpatient (IN) | payer OTHER ==
[~2019-06-11] VITALS: Ht 172.7 cm; Wt 65.8 kg
[2019-06-11] VITALS (8 sets, daily range): BP systolic 90–99; BP diastolic 48–63
[~2019-06-11 14:19] MED LIST: DICY10CA3 PO; HYOS0.12 PO; MESA0.372 PO; OXYC1TAB15 PO; PRED20TA PO; Pantoprazole PO; SIME80TA14 PO; VANC500V PO
--- NOTE | 2019-06-11 15:19 | PHYS DOC ---
Past Medical History Past Medical History: Other Additional Past Medical Histor: ulcerative colitis, retinal detachment Past Surgical History: Other Additional Past Surgical Histo: colonoscopy, eye surg Alcohol Use: None Drug Use: None Adult General Chief Complaint Chief Complaint: ANEMIA HPI HPI 53 y/o male presents to ER via POV for c/o generalized fatigue and ongoing blo tre diarrhea. Pt reports hx of ulcerative colitis and reports on Tuesday he had labs with H&H of 8.8/30.8. Pt reports he has mult. episodes of bloody stools today and feels his fatigue has increased. Pt denies CP/palpitations, N/V, fever, or urinary sxs. Pt reports he has had some exertional SOA- denies currently. Pt reports mid abd intermittent cramping. He denies alcohol/illicit drug use. He reports former smoker. He denies anticoagulants. Pt had been admitted in April with similar symptoms and had sigmoidoscopy and EGD done. Review of Systems Review of Systems Constitutional: Denies fever or chills. Reports gen. fatigue/weakness Eyes: Denies change in visual acuity, redness, or eye pain [] HENT: Denies nasal congestion or sore throat [] Respiratory: Denies cough. Reports exertional SOA Cardiovascular: No additional information not addressed in HPI [] GI: Denies nausea, vomiting. Reports mid abd cramping. Reports bloody diarrhea : Denies dysuria or hematuria [] Musculoskeletal: Denies back pain or joint pain [] Integument: Denies rash or skin lesions [] Neurologic: Denies headache, focal weakness or sensory changes [] Endocrine: Denies polyuria or polydipsia [] All other systems were reviewed and found to be within normal limits, except as documented in this note. Current Medications Current Medications Current Medications Medications (Trade) Dose Ordered Sig/Laurent Start Time Stop Time Status Last Admin Dose Admin Dicyclomine HCl (Bentyl) 20 mg 1X ONCE 06/11/19 15:45 06/11/19 15:46 DC 06/11/19 15:42 20 MG Sodium Chloride 1,000 ml @ 1,000 mls/hr 1X ONCE 06/11/19 15:45 06/11/19 16:44 DC 06/11/19 15:42 1,000 MLS/HR Allergies Allergies Allergies Coded Allergies Type Severity Reaction Last Updated Verified No Known Drug Allergies 04/30/19 No Physical Exam Physical Exam Constitutional: Well developed, well nourished, no acute distress, non-toxic appearance. Fatigued/pale appearance. Steady unassisted gait HENT: Normocephalic, atraumatic, mucous membranes pale/dry, no oral exudates, nose normal. [] Eyes: PERRLA, no nystagmus, conjunctiva normal, no discharge. [] Neck: Normal range of motion, no tenderness, supple, no stridor. [] Cardiovascular: Tachycardic heart rate regular rhythm, no murmur [] Lungs & Thorax: Bilateral breath sounds clear to auscultation- resp. equal/nonlabored Abdomen: Bowel sounds normal, soft, no rigidity/distention- tender mid umbilical, no masses, no pulsatile masses. [] Skin: Warm, dry, no erythema, no rash. [] Back: No tenderness, no CVA tenderness. [] Extremities: No tenderness, no cyanosis, no clubbing, ROM intact, no edema. [] Neurologic: Alert and oriented X 3, normal motor function, normal sensory function, no focal deficits noted. [] Psychologic: Affect normal, judgement normal, mood normal. [] Current Patient Data Vital Signs Vital Signs Date Time Temp Pulse Resp B/P (MAP) Pulse Ox O2 Delivery O2 Flow Rate FiO2 06/11/19 15:46 90 16 112/69 (83) 97 Room Air 06/11/19 14:52 99.2 99.2 Lab Values Laboratory Tests Test 06/11/19 15:17 White Blood Count 7.2 x10^3/uL (4.0-11.0) Red Blood Count 2.88 x10^6/uL (4.30-5.70) L Hemoglobin 6.9 g/dL (13.0-17.5) *L Hematocrit 22.3 % (39.0-53.0) L Mean Corpuscular Volume 77 fL (79-100) L Mean Corpuscular Hemoglobin 24 pg (25-35) L Mean Corpuscular Hemoglobin Concent 31 g/dL (31-37) Red Cell Distribution Width 18.7 % (11.5-14.5) H Platelet Count 579 x10^3/uL (140-400) H Neutrophils (%) (Auto) 69 % (31-73) Lymphocytes (%) (Auto) 19 % (24-48) L Monocytes (%) (Auto) 10 % (0-9) H Eosinophils (%) (Auto) 2 % (0-3) Basophils (%) (Auto) 1 % (0-3) Neutrophils # (Auto) 5.0 x10^3/uL (1.8-7.7) Lymphocytes # (Auto) 1.4 x10^3/uL (1.0-4.8) Monocytes # (Auto) 0.7 x10^3/uL (0.0-1.1) Eosinophils # (Auto) 0.1 x10^3/uL (0.0-0.7) Basophils # (Auto) 0.0 x10^3/uL (0.0-0.2) Prothrombin Time 13.0 SEC (11.7-14.0) Prothrombin Time INR 1.0 (0.8-1.1) PTT 26 SEC (24-38) Sodium Level 139 mmol/L (136-145) Potassium Level 4.4 mmol/L (3.5-5.1) Chloride Level 101 mmol/L (98-107) Carbon Dioxide Level 28 mmol/L (21-32) Anion Gap 10 (6-14) Blood Urea Nitrogen 21 mg/dL (8-26) Creatinine 1.0 mg/dL (0.7-1.3) Estimated GFR (Cockcroft-Gault) 77.6 BUN/Creatinine Ratio 21 (6-20) H Glucose Level 112 mg/dL (70-99) H Lactic Acid Level 2.4 mmol/L (0.4-2.0) H Calcium Level 8.6 mg/dL (8.5-10.1) Magnesium Level 2.1 mg/dL (1.8-2.4) Total Bilirubin 0.2 mg/dL (0.2-1.0) Aspartate Amino Transferase (AST) 17 U/L (15-37) Alanine Aminotransferase (ALT) 34 U/L (16-63) Alkaline Phosphatase 100 U/L (46-116) Total Protein 6.6 g/dL (6.4-8.2) Albumin 1.8 g/dL (3.4-5.0) L Albumin/Globulin Ratio 0.4 (1.0-1.7) L Lipase 127 U/L (73-393) Laboratory Tests 06/11/19 15:17 Laboratory Tests 06/11/19 15:17 EKG EKG [] Radiology/Procedures Radiology/Procedures [] Course & Med Decision Making Course & Med Decision Making Pertinent Labs reviewed. (See chart for details) Pt was evaluated in the ER for c/o bloody stools and fatigue/weakness. Pt had labs obtained and was IV fld bolus/dose of IM Bentyl. Pt had HR on triage on 110's following 500cc bolus NS HR improved to 80s. Pt had denied CP/dizziness/SOA during exam. Pt had labs obtained on Tue. by PCP and had H&H of 8.8/30.8. Today's labs show H&H 6.9/22.3. Pt was T&C for blood transfusion and PRBCs ordered. Discussed test results with pt and plans for admit- he is agreeable with plan. 1605: Spoke with Dr. Westfall, hospitalist and discussed pt's case/admit plan. [place] Disclaimer Dragon Disclaimer This electronic medical record was generated, in whole or in part, using a voice recognition dictation system. Departure Departure Impression: Primary Impression: GI bleed Additional Impression: Abdominal pain Disposition: ADMITTED INPATIENT Admitting Physician: NIRAJ Condition: STABLE Referrals: NO PCP (PCP) Problem Qualifiers JEAN-PIERRE MARTINEZ APRN Jun 11, 2019 15:19
[2019-06-11 15:32] LABS: BASO % 1 % (0-3); EOS # 0.1 x10^3/uL (0.0-0.7); EOS % 2 % (0-3); HEMATOCRIT 22.3 % (39.0-53.0); LYMPH # 1.4 x10^3/uL (1.0-4.8); LYMPH % 19 % (24-48); MEAN CORPUSCULAR HEMOGLOBIN 24 pg (25-35); MEAN CORPUSCULAR HGB CONC 31 g/dL (31-37); MEAN CORPUSCULAR VOLUME 77 fL (79-100); MONO # 0.7 x10^3/uL (0.0-1.1); MONO % 10 % (0-9); NEUT % 69 % (31-73); PLATELET COUNT 579 x10^3/uL (140-400); RED BLOOD COUNT 2.88 x10^6/uL (4.30-5.70); RED CELL DISTRIBUTION WIDTH 18.7 % (11.5-14.5); WHITE BLOOD COUNT 7.2 x10^3/uL (4.0-11.0)
[2019-06-11 15:41] LABS: HEMOGLOBIN 6.9 g/dL (13.0-17.5)
[2019-06-11] MEDS ORDERED: IV NORMAL SALINE 1000ML BAG 1,000 ML IV ONE (15:45)
[2019-06-11] MEDS ORDERED: DICYCLOMINE 20 MG/2 ML AMPUL. IM ONE (15:45)
[2019-06-11 15:51] LABS: CALCIUM 8.6 mg/dL (8.5-10.1); GFR 77.6; POTASSIUM 4.4 mmol/L (3.5-5.1)
[2019-06-11 16:01] LABS: ALBUMIN 1.8 g/dL (3.4-5.0); ALBUMIN/GLOBULIN RATIO 0.4 (1.0-1.7); MAGNESIUM 2.1 mg/dL (1.8-2.4); TOTAL BILIRUBIN 0.2 mg/dL (0.2-1.0); TOTAL PROTEIN 6.6 g/dL (6.4-8.2)
--- NOTE | 2019-06-11 16:12 | PDOC1 ---
History and Physical Date of Admission Date of Admission DATE: 06/11/19 TIME: 16:06 Identification/Chief Complaint Chief Complaint Bloody stools Source Source: Patient History of Present Illness History of Present Illness Mr Nesbitt is a 53 y/o male who was diagnosed w/ ulcerative colitis in [place] on 03/30/19 and recent diagnosis of c. difficile colitis 04/24/19 who comes in today with grossly bloody bowel movements. He was noted with Hb 6.9 in ED, lactate of 2.4 Diffuse abd pain, gas (worse in evening), liquid stools (8-10 daily - small w/ red blood every third stool), tenesmus, decreased appetite, weight loss (30 poun ds), insomnia, fatigue. Albumin is 1.8. Tuesday06/08/19 he had labs with H&H of 8.8/30.8. Pt reports he has multiple episodes of bloody stools today and feels his fatigue has increased. Pt denies CP/palpitations, N/V, fever, or urinary sxs. Pt reports he has had some exertional SOA- denies currently. Pt reports mid abd intermittent cramping. He denies alcohol/illicit drug use. He reports former smoker. He denies anticoagulants. H/o GERD controlled w/ Prilosec (hasn't taken x 4 days). No dysphagia, vomi ting, or hematemesis. No melena. Had EGD 05/04/19 with esophagitis and sigmoidoscopy on 04/30/19 with colitis, no granulomas noted. Had colonoscopy per Dr. Llanes except for a couple polyps ~2 years ago. No GB, liver, pancreas, or PUD history. 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 Past Medical History Cardiovascular: No pertinent hx Pulmonary: No pertinent hx GI: Inflam bowel disease, Other Heme/Onc: No pertinent hx Hepatobiliary: No pertinent hx Psych: No pertinent hx Rheumatologic: No pertinent hx Infectious disease: No pertinent hx Renal/: No pertinent hx Endocrine: No pertinent hx Past Surgical History Past Surgical History: No pertinent history Family History Family History: No Significant Social History Smoke: Quit ALCOHOL: rare Drugs: None Current Medications Current Medications Current Medications Sodium Chloride 1,000 ml @ 1,000 mls/hr 1X ONCE IV Last administered on 06/11/19at 15:42; Start 06/11/19 at 15:45; Stop 06/11/19 at 16:44 Dicyclomine HCl (Bentyl) 20 mg 1X ONCE IM Last administered on 06/11/19at 15:42; Start 06/11/19 at 15:45; Stop 06/11/19 at 15:46; Status DC Active Scripts Active Prednisone 20 Mg Tablet 40 Mg PO DAILY 14 Days [Pantoprazole] 40 MG Tablet.dr 40 Mg PO DAILYAC 30 Days Simethicone 80 Mg Tab.chew 80 Mg PO PRN Q6HRS PRN 30 Days Anaspaz (Hyoscyamine Sulfate) 0.125 Mg Tab.rapdis 0.125 Mg PO Q6HRS 10 Days Percocet 5-325 Mg Tablet (Oxycodone/Acetaminophen) 1 Each Tablet 1 Tab PO PRN Q4HRS PRN 14 Days Vancomycin Hcl 500 Mg Vial 500 Mg PO [id number] 28 Days Reported Dicyclomine Hcl 10 Mg Capsule 1 Cap PO TID Apriso (Mesalamine) 0.375 Gm Cap.er.24h 2 Cap PO BID Allergies Allergies: Coded Allergies: No Known Drug Allergies (Unverified , 04/30/19) ROS General: YES: Fatigue, Malaise; No: Chills, Night Sweats, Appetite, Other PSYCHOLOGICAL ROS: No: Anxiety, Behavioral Disorder, Concentration difficultie, Decreased libido, Depression, Disorientation, Hallucinations, Hostility, Irritablity, Memory difficulties, Mood Swings, Obsessive thoughts, Physical abuse, Sexual abuse, Sleep disturbances, Suicidal ideation, Other Eyes: No Blurry vision, No Decreased vision, No Double vision, No Dry eyes, No Excessive tearing, No Eye Pain, No Itchy Eyes, No Loss of vision, No Photophobia, No Scotomata, No Uses contacts, No Uses glasses, No Other HEENT: No: Heacaches, Visual Changes, Hearing change, Nasal congestion, Nasal discharge, Oral lesions, Sinus pain, Sore Throat, Epistaxis, Sneezing, Snoring, Tinnitus, Vertigo, Vocal changes, Other ALLERGY AND IMMUNOLOGY: No: Hives, Insect Bite Sensitivity, Itchy/Watery Eyes, Nasal Congestion, Post Nasal Drip, Seasonal Allergies, Other Hematological and Lymphatic: YES: Bleeding Problems; No: Blood Clots, Blood Transfusions, Brusing, Night Sweats, Pallor, Swollen Lymph Nodes, Other ENDOCRINE: No: Breast Changes, Galactorrhea, Hair Pattern Changes, Hot Flashes, Malaise/lethargy, Mood Swings, Palpitations, Polydipsia/polyuria, Skin Changes, Temperature Intolerance, Unexpected Weight Changes, Other Breast: No New/Changing Breast Lumps, No Nipple changes, No Nipple discharge, No Other Respiratory: No: Cough, Hemoptysis, Orthopnea, Pleuritic Pain, Shortness of breath, SOB with excertion, Sputum Changes, Stridor, Tachypnea, Wheezing, Other Cardiovascular: No Chest Pain, No Palpitations, No Orthopnea, No Paroxysmal Noc. Dyspnea, No Edema, No Lt Headedness, No Other Gastrointestinal: Yes Nausea, Yes Abdominal Pain, Yes Diarrhea, Yes Melena; No Vomiting, No Constipation, No Hematochezia, No Other Genitourinary: No Dysuria, No Frequency, No Incontinence, No Hematuria, No Retention, No Discharge, No Urgency, No Pain, No Flank Pain, No Other, No , No , No , No , No , No , No Musculoskeletal: No Gait Disturbance, No Joint Pain, No Joint Stiffness, No Joint Swelling, No Muscle Pain, No Muscular Weakness, No Pain In:, No Swelling In:, No Other Neurological: No Behavorial Changes, No Bowel/Bladder ControlChng, No Confusion, No Dizziness, No Gait Disturbance, No Headaches, No Impaired Coord/balance, No Memory Loss, No Numbness/Tingling, No Seizures, No Speech Problems, No Tremors, No Visual Changes, No Weakness, No Other Skin: No Dry Skin, No Eczema, No Hair Changes, No Lumps, No Mole Changes, No Mottling, No Nail Changes, No Pruritus, No Rash, No Skin Lesion Changes, No Other, No Acne Physical Exam General: Alert, Oriented X3, Cooperative, mild distress, Other (Pale) HEENT: Atraumatic, PERRLA, EOMI, Mucous membr. moist/pink Lungs: Clear to auscultation, Normal air movement Heart: S1S2, RRR, no gallops, no murmurs Abdomen: Normal bowel sounds, Soft, Other (Bilateral LQ tenderness) Rectal Exam: not examined Extremities: No clubbing, No cyanosis, No edema, Normal pulses, No tenderness/swelling Skin: No rashes, No breakdown, No significant lesion Neuro: Normal gait, Normal speech, Strength at 5/5 X4 ext, Normal tone, Sensation intact, Cranial nerves 3-12 NL, Reflexes 2+ Psych/Mental Status: Mental status NL, Mood NL Vitals Vitals Vital Signs Date Time Temp Pulse Resp B/P (MAP) Pulse Ox O2 Delivery O2 Flow Rate FiO2 06/11/19 14:52 99.2 108 16 107/64 (78) 96 Room Air 99.2 Labs Labs Laboratory Tests Test 06/11/19 15:17 White Blood Count 7.2 x10^3/uL (4.0-11.0) Red Blood Count 2.88 x10^6/uL (4.30-5.70) Hemoglobin 6.9 g/dL (13.0-17.5) Hematocrit 22.3 % (39.0-53.0) Mean Corpuscular Volume 77 fL (79-100) Mean Corpuscular Hemoglobin 24 pg (25-35) Mean Corpuscular Hemoglobin Concent 31 g/dL (31-37) Red Cell Distribution Width 18.7 % (11.5-14.5) Platelet Count 579 x10^3/uL (140-400) Neutrophils (%) (Auto) 69 % (31-73) Lymphocytes (%) (Auto) 19 % (24-48) Monocytes (%) (Auto) 10 % (0-9) Eosinophils (%) (Auto) 2 % (0-3) Basophils (%) (Auto) 1 % (0-3) Neutrophils # (Auto) 5.0 x10^3/uL (1.8-7.7) Lymphocytes # (Auto) 1.4 x10^3/uL (1.0-4.8) Monocytes # (Auto) 0.7 x10^3/uL (0.0-1.1) Eosinophils # (Auto) 0.1 x10^3/uL (0.0-0.7) Basophils # (Auto) 0.0 x10^3/uL (0.0-0.2) Sodium Level 139 mmol/L (136-145) Potassium Level 4.4 mmol/L (3.5-5.1) Chloride Level 101 mmol/L (98-107) Carbon Dioxide Level 28 mmol/L (21-32) Anion Gap 10 (6-14) Blood Urea Nitrogen 21 mg/dL (8-26) Creatinine 1.0 mg/dL (0.7-1.3) Estimated GFR (Cockcroft-Gault) 77.6 BUN/Creatinine Ratio 21 (6-20) Glucose Level 112 mg/dL (70-99) Lactic Acid Level 2.4 mmol/L (0.4-2.0) Calcium Level 8.6 mg/dL (8.5-10.1) Magnesium Level 2.1 mg/dL (1.8-2.4) Total Bilirubin 0.2 mg/dL (0.2-1.0) Aspartate Amino Transf (AST/SGOT) 17 U/L (15-37) Alanine Aminotransferase (ALT/SGPT) 34 U/L (16-63) Alkaline Phosphatase 100 U/L (46-116) Total Protein 6.6 g/dL (6.4-8.2) Albumin 1.8 g/dL (3.4-5.0) Albumin/Globulin Ratio 0.4 (1.0-1.7) Lipase 127 U/L (73-393) Laboratory Tests Test 06/11/19 15:17 White Blood Count 7.2 x10^3/uL (4.0-11.0) Red Blood Count 2.88 x10^6/uL (4.30-5.70) Hemoglobin 6.9 g/dL (13.0-17.5) Hematocrit 22.3 % (39.0-53.0) Mean Corpuscular Volume 77 fL (79-100) Mean Corpuscular Hemoglobin 24 pg (25-35) Mean Corpuscular Hemoglobin Concent 31 g/dL (31-37) Red Cell Distribution Width 18.7 % (11.5-14.5) Platelet Count 579 x10^3/uL (140-400) Neutrophils (%) (Auto) 69 % (31-73) Lymphocytes (%) (Auto) 19 % (24-48) Monocytes (%) (Auto) 10 % (0-9) Eosinophils (%) (Auto) 2 % (0-3) Basophils (%) (Auto) 1 % (0-3) Neutrophils # (Auto) 5.0 x10^3/uL (1.8-7.7) Lymphocytes # (Auto) 1.4 x10^3/uL (1.0-4.8) Monocytes # (Auto) 0.7 x10^3/uL (0.0-1.1) Eosinophils # (Auto) 0.1 x10^3/uL (0.0-0.7) Basophils # (Auto) 0.0 x10^3/uL (0.0-0.2) Sodium Level 139 mmol/L (136-145) Potassium Level 4.4 mmol/L (3.5-5.1) Chloride Level 101 mmol/L (98-107) Carbon Dioxide Level 28 mmol/L (21-32) Anion Gap 10 (6-14) Blood Urea Nitrogen 21 mg/dL (8-26) Creatinine 1.0 mg/dL (0.7-1.3) Estimated GFR (Cockcroft-Gault) 77.6 BUN/Creatinine Ratio 21 (6-20) Glucose Level 112 mg/dL (70-99) Lactic Acid Level 2.4 mmol/L (0.4-2.0) Calcium Level 8.6 mg/dL (8.5-10.1) Magnesium Level 2.1 mg/dL (1.8-2.4) Total Bilirubin 0.2 mg/dL (0.2-1.0) Aspartate Amino Transf (AST/SGOT) 17 U/L (15-37) Alanine Aminotransferase (ALT/SGPT) 34 U/L (16-63) Alkaline Phosphatase 100 U/L (46-116) Total Protein 6.6 g/dL (6.4-8.2) Albumin 1.8 g/dL (3.4-5.0) Albumin/Globulin Ratio 0.4 (1.0-1.7) Lipase 127 U/L (73-393) VTE Prophylaxis Ordered VTE Prophylaxis Devices: No VTE Pharmacological Prophylaxi: Contraindicated Assessment/Plan Assessment/Plan A/P: Acute blood loss anemia - Hb 6.9 from 8.2 over a month ago. Transfuse 2u PRBC now, H&H q8hrs Severe colitis - flex sig 04/30: large tender but not thrombosed external hemorrhoids; Severe colitis in rectum , sigmoid and descending colon - to extent of scope passage- no obvious pseudomembranes seen. recent colonoscopy in [place] reportedly w/ ulcerative colitis. Tapered on PO steroids History of C. difficile - s/p treatment from 04/24/19 culture positive. Will repeat c. 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 Lactic acidosis - likely from blood loss, will hydrate, transfuse 2 u PRBC, trend. FEN - NSS + clear liquid diet (no red jello) PPX - SCDs, PPI FULL CODE Inpatient for acute blood loss anemia, symptomatic RIFFEL,SAUNDRA Mack MD Jun 11, 2019 16:12
[2019-06-11] MEDS ORDERED: ONDANSETRON PF 4 MG/2 ML VIAL. IV PRN (17:00)
[2019-06-11] MEDS ORDERED: fentaNYL PF VIAL 100 MCG/2 ML VIAL IV PRN (17:00)
[2019-06-11 17:12] LABS: CLARITY,URINE CLEAR
[2019-06-11 17:22] LABS: COLOR,URINE ORANGE
[2019-06-11 17:29] LABS: BACTERIA,URINE 0 /HPF (0-FEW); RBC,URINE 0 /HPF (0-2); WBC,URINE OCC /HPF (0-4)
[2019-06-11 17:30] LABS: HYALINE CASTS, URINE MODERATE /HPF
[2019-06-11] MEDS ORDERED: MULT-658 PO (18:35)
[2019-06-11] MEDS ORDERED: OMEP40CA5 PO (18:35)
[2019-06-11] MEDS ORDERED: PSYL0.527 PO (18:35)
[2019-06-11] MEDS ORDERED: RED600CA2 PO (18:35)
[2019-06-11] MEDS ORDERED: NYST100054 PO (18:35)
[2019-06-11] MEDS ORDERED: FERR325T14 PO (18:35)
[2019-06-11] MEDS ORDERED: SIMETHICONE 80 MG TAB.CHEW PO PRN (20:15)
[2019-06-11] MEDS ORDERED: oxyCODONE/APAP 5/325 1 TAB TABLET PO PRN (20:15)
[2019-06-11] MEDS: DICYCLOMINE HCL 10 MG CAPSULE PO SCH (20:58)
[2019-06-11] MEDS: [UNRECOGNIZED DRUG - REMARK] PO SCH ×2 (20:59→21:19)
[2019-06-11] MEDS: HYOSCYAMINE 0.125 MG TAB.RAPDIS PO SCH ×2 (20:59→23:51)
[2019-06-11] MEDS ORDERED: C.DIFF MED SCREEN BY RX. MC ONE (22:15)
--- NOTE | 2019-06-11 22:50 | NUR ---
Unit of PRBC's complete. No adverse reaction seen. Will continue to monitor.
[2019-06-12] VITALS (15 sets, daily range): BP systolic 86–96; BP diastolic 51–64
[2019-06-12] MEDS: HYOSCYAMINE 0.125 MG TAB.RAPDIS PO SCH ×3 (06:00→18:19)
[2019-06-12] MEDS: FERROUS SULFATE 325 MG TABLET. PO SCH ×2 (08:00→08:47)
[2019-06-12] MEDS: [UNRECOGNIZED DRUG - REMARK] PO SCH ×2 (08:46→20:46)
[2019-06-12] MEDS: PSYLLIUM HUSK (SUGAR FREE) 1 PKT PACKET PO SCH (08:47)
[2019-06-12] MEDS: PANTOPRAZOLE 40 MG TABLET.DR. PO SCH (08:47)
[2019-06-12] MEDS: DICYCLOMINE HCL 10 MG CAPSULE PO SCH ×3 (08:47→20:46)
[2019-06-12 09:05] LABS: BASO % 1 % (0-3); EOS # 0.2 x10^3/uL (0.0-0.7); EOS % 3 % (0-3); LYMPH # 1.3 x10^3/uL (1.0-4.8); LYMPH % 21 % (24-48); MEAN CORPUSCULAR HEMOGLOBIN 25 pg (25-35); MEAN CORPUSCULAR HGB CONC 32 g/dL (31-37); MEAN CORPUSCULAR VOLUME 78 fL (79-100); MONO # 0.6 x10^3/uL (0.0-1.1); MONO % 10 % (0-9); NEUT % 66 % (31-73); PLATELET COUNT 441 x10^3/uL (140-400); RED BLOOD COUNT 2.59 x10^6/uL (4.30-5.70); RED CELL DISTRIBUTION WIDTH 18.2 % (11.5-14.5); WHITE BLOOD COUNT 6.1 x10^3/uL (4.0-11.0)
--- NOTE | 2019-06-12 09:05 | PDOC ---
PROGRESS NOTES Chief Complaint Chief Complaint A/P: Acute blood loss anemia - Hb 6.9 from 8.2 over a month ago. Transfused 1u PRBC overnight with Hb 6.4 now, will transfuse another 2 u PRBC Severe colitis - flex sig 04/30: large tender but not thrombosed external hemorrhoids; Severe colitis in rectum , sigmoid and descending colon - to extent of scope passage- no obvious pseudomembranes seen. recent colonoscopy in [place] reportedly w/ ulcerative colitis. Tapered on PO steroids History of C. difficile - s/p treatment from 04/24/19 culture positive. Repeat c. 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 Lactic acidosis - likely from blood loss, will hydrated, transfuse 1u PRBC, trend. FEN - NSS + clear liquid diet (no red jello) PPX - SCDs, PPI FULL CODE Inpatient for acute blood loss anemia, symptomatic History of Present Illness History of Present Illness Mr Nesbitt is a 53 y/o male who was diagnosed w/ ulcerative colitis in [place] on 03/30/19 and recent diagnosis of c. difficile colitis 04/24/19 who comes in today with grossly bloody bowel movements. He was noted with Hb 6.9 in ED, lactate of 2.4 Diffuse abd pain, gas (worse in evening), liquid stools (8-10 daily - small w/ red blood every third stool), tenesmus, decreased appetite, weight loss (30 pounds), insomnia, fatigue. Albumin is 1.8-->1.5 Tuesday06/08/19 he had labs with H&H of 8.8/30.8. Pt reports he has multiple episodes of bloody stools today and feels his fatigue has increased. Pt denies CP/palpitations, N/V, fever, or urinary sxs. Pt reports he has had some exertional SOA- denies currently. Pt reports mid abd intermittent cramping. Hb down to 6.4 overnight after 1u PRBC. He does not feel any better, still had a few bloody BM. He still has pain. No SOB or CP, but feels his heart racing and very weak, pale. Vitals Vitals Vital Signs Date Time Temp Pulse Resp B/P (MAP) Pulse Ox O2 Delivery O2 Flow Rate FiO2 8/6/19 07:00 98.5 77 17 86/53 (64) 95 Room Air 98.5 Physical Exam General: Alert, Oriented X3, Cooperative, mild distress, Other (Pale) Lungs: Clear Abdomen: Normal bowel sounds, Soft, Other (Bilateral LQ tenderness) Extremities: No clubbing, No cyanosis, No edema, Normal pulses, No t enderness/swelling Skin: No rashes, No breakdown, No significant lesion Labs LABS Laboratory Tests Test 06/11/19 15:17 06/11/19 16:53 06/11/19 21:15 White Blood Count 7.2 x10^3/uL (4.0-11.0) Red Blood Count 2.88 x10^6/uL (4.30-5.70) Hemoglobin 6.9 g/dL (13.0-17.5) Hematocrit 22.3 % (39.0-53.0) Mean Corpuscular Volume 77 fL (79-100) Mean Corpuscular Hemoglobin 24 pg (25-35) Mean Corpuscular Hemoglobin Concent 31 g/dL (31-37) Red Cell Distribution Width 18.7 % (11.5-14.5) Platelet Count 579 x10^3/uL (140-400) Neutrophils (%) (Auto) 69 % (31-73) Lymphocytes (%) (Auto) 19 % (24-48) Monocytes (%) (Auto) 10 % (0-9) Eosinophils (%) (Auto) 2 % (0-3) Basophils (%) (Auto) 1 % (0-3) Neutrophils # (Auto) 5.0 x10^3/uL (1.8-7.7) Lymphocytes # (Auto) 1.4 x10^3/uL (1.0-4.8) Monocytes # (Auto) 0.7 x10^3/uL (0.0-1.1) Eosinophils # (Auto) 0.1 x10^3/uL (0.0-0.7) Basophils # (Auto) 0.0 x10^3/uL (0.0-0.2) Prothrombin Time 13.0 SEC (11.7-14.0) Prothromb Time International Ratio 1.0 (0.8-1.1) Activated Partial Thromboplast Time 26 SEC (24-38) Sodium Level 139 mmol/L (136-145) Potassium Level 4.4 mmol/L (3.5-5.1) Chloride Level 101 mmol/L (98-107) Carbon Dioxide Level 28 mmol/L (21-32) Anion Gap 10 (6-14) Blood Urea Nitrogen 21 mg/dL (8-26) Creatinine 1.0 mg/dL (0.7-1.3) Estimated GFR (Cockcroft-Gault) 77.6 BUN/Creatinine Ratio 21 (6-20) Glucose Level 112 mg/dL (70-99) Lactic Acid Level 2.4 mmol/L (0.4-2.0) 0.9 mmol/L (0.4-2.0) Calcium Level 8.6 mg/dL (8.5-10.1) Magnesium Level 2.1 mg/dL (1.8-2.4) Total Bilirubin 0.2 mg/dL (0.2-1.0) Aspartate Amino Transf (AST/SGOT) 17 U/L (15-37) Alanine Aminotransferase (ALT/SGPT) 34 U/L (16-63) Alkaline Phosphatase 100 U/L (46-116) Total Protein 6.6 g/dL (6.4-8.2) Albumin 1.8 g/dL (3.4-5.0) Albumin/Globulin Ratio 0.4 (1.0-1.7) Lipase 127 U/L (73-393) Urine Collection Type Void Urine Color [place] Urine Clarity Clear Urine pH Urine Specific [place] Urine Protein mg/dL (NEG-TRACE) Urine Glucose (UA) mg/dL (NEG) Urine Ketones (Stick) mg/dL (NEG) Urine Blood (NEG) Urine Nitrite (NEG) Urine Bilirubin (NEG) Urine Urobilinogen Dipstick mg/dL (0.2 mg/dL) Urine Leukocyte Esterase (NEG) Urine RBC 0 /HPF (0-2) Urine WBC Occ /HPF (0-4) Urine Squamous Epithelial Cells None /LPF Urine Bacteria 0 /HPF (0-FEW) Urine Hyaline Casts Moderate /HPF Urine Mucus Marked /LPF Assessment and Plan Assessmemt and Plan Problems Medical Problems: (1) Abdominal pain Status: Acute (2) Anemia due to blood loss Status: Acute (3) Colitis Status: Acute (4) External hemorrhoids Status: Chronic (5) GI bleed Status: Acute (6) Severe protein-calorie malnutrition Status: Chronic Comment Review of Relevant I have reviewed the following items maria teresa (where applicable) has been applied. Labs Laboratory Tests Test 06/11/19 15:17 06/11/19 16:53 06/11/19 21:15 White Blood Count 7.2 x10^3/uL (4.0-11.0) Red Blood Count 2.88 x10^6/uL (4.30-5.70) Hemoglobin 6.9 g/dL (13.0-17.5) Hematocrit 22.3 % (39.0-53.0) Mean Corpuscular Volume 77 fL (79-100) Mean Corpuscular Hemoglobin 24 pg (25-35) Mean Corpuscular Hemoglobin Concent 31 g/dL (31-37) Red Cell Distribution Width 18.7 % (11.5-14.5) Platelet Count 579 x10^3/uL (140-400) Neutrophils (%) (Auto) 69 % (31-73) Lymphocytes (%) (Auto) 19 % (24-48) Monocytes (%) (Auto) 10 % (0-9) Eosinophils (%) (Auto) 2 % (0-3) Basophils (%) (Auto) 1 % (0-3) Neutrophils # (Auto) 5.0 x10^3/uL (1.8-7.7) Lymphocytes # (Auto) 1.4 x10^3/uL (1.0-4.8) Monocytes # (Auto) 0.7 x10^3/uL (0.0-1.1) Eosinophils # (Auto) 0.1 x10^3/uL (0.0-0.7) Basophils # (Auto) 0.0 x10^3/uL (0.0-0.2) Prothrombin Time 13.0 SEC (11.7-14.0) Prothromb Time International Ratio 1.0 (0.8-1.1) Activated Partial Thromboplast Time 26 SEC (24-38) Sodium Level 139 mmol/L (136-145) Potassium Level 4.4 mmol/L (3.5-5.1) Chloride Level 101 mmol/L (98-107) Carbon Dioxide Level 28 mmol/L (21-32) Anion Gap 10 (6-14) Blood Urea Nitrogen 21 mg/dL (8-26) Creatinine 1.0 mg/dL (0.7-1.3) Estimated GFR (Cockcroft-Gault) 77.6 BUN/Creatinine Ratio 21 (6-20) Glucose Level 112 mg/dL (70-99) Lactic Acid Level 2.4 mmol/L (0.4-2.0) 0.9 mmol/L (0.4-2.0) Calcium Level 8.6 mg/dL (8.5-10.1) Magnesium Level 2.1 mg/dL (1.8-2.4) Total Bilirubin 0.2 mg/dL (0.2-1.0) Aspartate Amino Transf (AST/SGOT) 17 U/L (15-37) Alanine Aminotransferase (ALT/SGPT) 34 U/L (16-63) Alkaline Phosphatase 100 U/L (46-116) Total Protein 6.6 g/dL (6.4-8.2) Albumin 1.8 g/dL (3.4-5.0) Albumin/Globulin Ratio 0.4 (1.0-1.7) Lipase 127 U/L (73-393) Urine Collection Type Void Urine Color [place] Urine Clarity Clear Urine pH Urine Specific [place] Urine Protein mg/dL (NEG-TRACE) Urine Glucose (UA) mg/dL (NEG) Urine Ketones (Stick) mg/dL (NEG) Urine Blood (NEG) Urine Nitrite (NEG) Urine Bilirubin (NEG) Urine Urobilinogen Dipstick mg/dL (0.2 mg/dL) Urine Leukocyte Esterase (NEG) Urine RBC 0 /HPF (0-2) Urine WBC Occ /HPF (0-4) Urine Squamous Epithelial Cells None /LPF Urine Bacteria 0 /HPF (0-FEW) Urine Hyaline Casts Moderate /HPF Urine Mucus Marked /LPF Laboratory Tests Test 06/11/19 15:17 06/11/19 16:53 06/11/19 21:15 White Blood Count 7.2 x10^3/uL (4.0-11.0) Red Blood Count 2.88 x10^6/uL (4.30-5.70) Hemoglobin 6.9 g/dL (13.0-17.5) Hematocrit 22.3 % (39.0-53.0) Mean Corpuscular Volume 77 fL (79-100) Mean Corpuscular Hemoglobin 24 pg (25-35) Mean Corpuscular Hemoglobin Concent 31 g/dL (31-37) Red Cell Distribution Width 18.7 % (11.5-14.5) Platelet Count 579 x10^3/uL (140-400) Neutrophils (%) (Auto) 69 % (31-73) Lymphocytes (%) (Auto) 19 % (24-48) Monocytes (%) (Auto) 10 % (0-9) Eosinophils (%) (Auto) 2 % (0-3) Basophils (%) (Auto) 1 % (0-3) Neutrophils # (Auto) 5.0 x10^3/uL (1.8-7.7) Lymphocytes # (Auto) 1.4 x10^3/uL (1.0-4.8) Monocytes # (Auto) 0.7 x10^3/uL (0.0-1.1) Eosinophils # (Auto) 0.1 x10^3/uL (0.0-0.7) Basophils # (Auto) 0.0 x10^3/uL (0.0-0.2) Prothrombin Time 13.0 SEC (11.7-14.0) Prothromb Time International Ratio 1.0 (0.8-1.1) Activated Partial Thromboplast Time 26 SEC (24-38) Sodium Level 139 mmol/L (136-145) Potassium Level 4.4 mmol/L (3.5-5.1) Chloride Level 101 mmol/L (98-107) Carbon Dioxide Level 28 mmol/L (21-32) Anion Gap 10 (6-14) Blood Urea Nitrogen 21 mg/dL (8-26) Creatinine 1.0 mg/dL (0.7-1.3) Estimated GFR (Cockcroft-Gault) 77.6 BUN/Creatinine Ratio 21 (6-20) Glucose Level 112 mg/dL (70-99) Lactic Acid Level 2.4 mmol/L (0.4-2.0) 0.9 mmol/L (0.4-2.0) Calcium Level 8.6 mg/dL (8.5-10.1) Magnesium Level 2.1 mg/dL (1.8-2.4) Total Bilirubin 0.2 mg/dL (0.2-1.0) Aspartate Amino Transf (AST/SGOT) 17 U/L (15-37) Alanine Aminotransferase (ALT/SGPT) 34 U/L (16-63) Alkaline Phosphatase 100 U/L (46-116) Total Protein 6.6 g/dL (6.4-8.2) Albumin 1.8 g/dL (3.4-5.0) Albumin/Globulin Ratio 0.4 (1.0-1.7) Lipase 127 U/L (73-393) Urine Collection Type Void Urine Color [place] Urine Clarity Clear Urine pH Urine Specific [place] Urine Protein mg/dL (NEG-TRACE) Urine Glucose (UA) mg/dL (NEG) Urine Ketones (Stick) mg/dL (NEG) Urine Blood (NEG) Urine Nitrite (NEG) Urine Bilirubin (NEG) Urine Urobilinogen Dipstick mg/dL (0.2 mg/dL) Urine Leukocyte Esterase (NEG) Urine RBC 0 /HPF (0-2) Urine WBC Occ /HPF (0-4) Urine Squamous Epithelial Cells None /LPF Urine Bacteria 0 /HPF (0-FEW) Urine Hyaline Casts Moderate /HPF Urine Mucus Marked /LPF Medications Current Medications Sodium Chloride 1,000 ml @ 1,000 mls/hr 1X ONCE IV Last administered on 06/11/19at 15:42; Start 06/11/19 at 15:45; Stop 06/11/19 at 16:44; Status DC Dicyclomine HCl (Bentyl) 20 mg 1X ONCE IM Last administered on 06/11/19at 15:42; Start 06/11/19 at 15:45; Stop 06/11/19 at 15:46; Status DC Ondansetron HCl (Zofran) 4 mg PRN Q8HRS PRN IV NAUSEA/VOMITING; Start 06/11/19 at 17:00; Stop 06/12/19 at 16:59 Fentanyl Citrate (Fentanyl 2ml Vial) 50 mcg PRN Q2HRS PRN IV PAIN; Start 06/11/19 at 17:00; Stop 06/12/19 at 16:59 Dicyclomine HCl (Bentyl) 10 mg TID PO Last administered on 06/12/19at 08:47; Start 06/11/19 at 21:00 Ferrous Sulfate (Feosol) 325 mg DAILY08 PO Last administered on 06/12/19 08:47; Start 06/12/19 at 08:00 Hyoscyamine (Anaspaz) 0.125 mg Q6HRS PO Last administered on 06/12/19at 08:46; Start 06/11/19 at 20:00 Oxycodone/ Acetaminophen (Percocet 5/325) 1 tab PRN Q4HRS PRN PO SEVERE PAIN 7- 10; Start 06/11/19 at 20:15 Simethicone (Gas-X) 80 mg PRN Q6HRS PRN PO GAS / BLOATING; Start 06/11/19 at 20:15 Non-Formulary Medication (Mesalamine (Apriso)) 2 cap BID PO Last administered on 06/12/19 08:47; Start 06/11/19 at 21:00 Pantoprazole Sodium (Protonix) 40 mg DAILYAC PO Last administered on 06/12/19at 08:48; Start 06/12/19 at 07:30 Psyllium Hydrophilic Mucilloid (Metamucil Fiber Packet) 1 pkt DAILY PO ; Start 06/12/19 at 09:00 Pharmacy Consult (C.diff Med Screen By Rx) 1 each 1X ONCE MC Last administered on 06/12/19at 08:36; Start 06/11/19 at 22:15; Stop 06/11/19 at 22:16; Status DC Active Scripts Active Simethicone 80 Mg Tab.chew 80 Mg PO PRN Q6HRS PRN 30 Days Anaspaz (Hyoscyamine Sulfate) 0.125 Mg Tab.rapdis 0.125 Mg PO Q6HRS 10 Days Percocet 5-325 Mg Tablet (Oxycodone/Acetaminophen) 1 Each Tablet 1 Tab PO PRN Q4HRS PRN 14 Days Reported Ferrous Sulfate 325 Mg Tablet 325 Mg PO DAILY Red Yeast Rice 600 Mg Capsule 600 Mg PO DAILY Fiber (Psyllium Husk) 0.52 Gm Capsule 0.52 Gm PO DAILY Omeprazole 40 Mg Capsule.dr 1 Cap PO DAILY Centrum Silver Tablet (Multivits-Min/Fa/Lycopene/Lut) 1 Each Tablet 1 Each PO DAILY Nystatin 100,000 Unit/1 Ml Oral.susp 10 Ml PO QID Dicyclomine Hcl 10 Mg Capsule 1 Cap PO TID Apriso (Mesalamine) 0.375 Gm Cap.er.24h 2 Cap PO BID Vitals/I & O Vital Sign - Last 24 Hours 06/11/19 06/11/19 06/11/19 06/11/19 14:52 15:16 15:41 15:46 Temp 99.2 99.2 Pulse 108 99 99 90 Resp 16 16 16 16 B/P (MAP) 107/64 (78) 106/72 (83) 109/74 (86) 112/69 (83) Pulse Ox 96 97 97 97 O2 Delivery Room Air Room Air Room Air Room Air 06/11/19 06/11/19 06/11/19 06/11/19 16:16 16:50 17:16 18:10 Temp 98.5 98.5 Pulse 92 88 85 84 Resp 16 16 16 20 B/P (MAP) 116/71 (86) 110/61 (77) 98/63 (75) 93/61 (72) Pulse Ox 98 98 98 98 O2 Delivery Room Air Room Air Room Air Room Air 06/11/19 06/11/19 06/11/19 06/11/19 18:21 19:10 20:36 20:51 Temp 98.8 99.0 98.8 99.0 Pulse 69 79 Resp 14 14 B/P (MAP) 97/56 (70) 92/58 92/59 O2 Delivery Room Air 06/11/19 06/11/19 06/11/19 06/11/19 21:50 22:50 22:58 23:50 Temp 98.8 98.8 98.8 99.3 98.8 98.8 98.8 99.3 Pulse 76 81 81 78 Resp 15 14 14 14 B/P (MAP) 90/53 90/48 90/48 (62) 99/63 Pulse Ox 95 O2 Delivery Room Air 06/12/19 06/12/19 02:55 07:00 Temp 99.0 98.5 99.0 98.5 Pulse 80 77 Resp 14 17 B/P (MAP) 95/51 (66) 86/53 (64) Pulse Ox 94 95 O2 Delivery Room Air Room Air Intake and Output 06/11/19 06/11/19 06/12/19 15:00 23:00 07:00 Intake Total 0 ml Balance 0 ml SAUNDRA ROGERS MD Jun 12, 2019 09:05
[2019-06-12 09:09] LABS: HEMATOCRIT 20.2 % (39.0-53.0); HEMOGLOBIN 6.4 g/dL (13.0-17.5)
[2019-06-12 09:17] LABS: ALBUMIN 1.5 g/dL (3.4-5.0); ALBUMIN/GLOBULIN RATIO 0.4 (1.0-1.7); CALCIUM 8.2 mg/dL (8.5-10.1); CREATININE 0.8 mg/dL (0.7-1.3); GFR 100.4; POTASSIUM 4.8 mmol/L (3.5-5.1); TOTAL BILIRUBIN 0.4 mg/dL (0.2-1.0); TOTAL PROTEIN 5.6 g/dL (6.4-8.2)
--- NOTE | 2019-06-12 09:31 | PDOC2 ---
GI CONSULT Reason For Consult: LGIB HPI: HPI: 53 y/o male, known to us. Diagnosed w/ UC in [place] in 03/2019 - had colonoscopy then and started on mesalamine and prednisone. (Also reported normal colonoscopy except for a couple polyps w/ Dr. Llanes ~2 years ago.) Admitted here in 04/2019 w/ diffuse abd pain, gas, diarrhea and bleeding, tenesmus, decreased appetite, weight loss, insomnia, and fatigue. +C Diff at that time - followed by ID, treated w/ vanco and then Dificid. Slow improvement of symptoms. Flex sig (Dr. Fowler) on 04/30/19 showed severe colitis in the rectum, sigmoid, and descending colon w/o obvious pseudomembranes - path c/s chronic active UC. EGD on 05/04/19 for dysphagia, abd pain, and h/o GERD showed some tortuosity in the esophagus, mild distal esophageal erythema (neg for Phan's), antral gastritis (neg for H. pylori), and normal duodenum. Empiric esophageal dilation to 56Fr. Started Humira last month (says due for third dose today) and has continued Apriso 2 pills BID. Hgb on 05/04 prior to discharge was 8.2. Per office records, Hgb was 8.7 on 05/21 and iron was 14. Was continued on prednisone (down to 10mg QD) and iron BID. 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 Now w/ worsening diarrhea (says small liquid or mushy stools hourly) and bleeding (red - not with every stool) x 2 weeks. Reports Hgb was 6.6 through PCP on 06/08 - presented to ER yesterday for this and was admitted. Some gas cramping but pain not as bad this time. Has a good appetite. Weight has been stable (though ~30 pounds prior to diagnosis of UC). H/o GERD on omeprazole QD - still has chest burning and globus. PMH: PMH: GERD, UC, C Diff, external hemorrhoids, retinal detachment/surgery FH: Family History: Cancer (paternal uncle - pancreatic) Social History: Smoke: Quit ALCOHOL: rare Drugs: None ROS: GEN: Denies fevers, chills, sweats HEENT: Denies blurred vision, sore throat CV: Denies chest pain RESP: Denies shortness of air, cough GI: Per HPI : Denies hematuria, dysuria ENDO: Denies weight changes NEURO: Denies confusion, dizziness MSK: Denies weakness, joint pain/swelling SKIN: Denies jaundice, pruritus Vitals: Vitals: Vital Signs Date Time Temp Pulse Resp B/P (MAP) Pulse Ox O2 Delivery O2 Flow Rate FiO2 06/12/19 07:00 98.5 77 17 86/53 (64) 95 Room Air 98.5 Labs: Labs: Laboratory Tests Test 06/11/19 15:17 06/11/19 16:53 06/11/19 21:15 06/12/19 07:30 White Blood Count 7.2 x10^3/uL (4.0-11.0) 6.1 x10^3/uL (4.0-11.0) Red Blood Count 2.88 x10^6/uL (4.30-5.70) 2.59 x10^6/uL (4.30-5.70) Hemoglobin 6.9 g/dL (13.0-17.5) 6.4 g/dL (13.0-17.5) Hematocrit 22.3 % (39.0-53.0) 20.2 % (39.0-53.0) Mean Corpuscular Volume 77 fL (79-100) 78 fL (79-100) Mean Corpuscular Hemoglobin 24 pg (25-35) 25 pg (25-35) Mean Corpuscular Hemoglobin Concent 31 g/dL (31-37) 32 g/dL (31-37) Red Cell Distribution Width 18.7 % (11.5-14.5) 18.2 % (11.5-14.5) Platelet Count 579 x10^3/uL (140-400) 441 x10^3/uL (140-400) Neutrophils (%) (Auto) 69 % (31-73) 66 % (31-73) Lymphocytes (%) (Auto) 19 % (24-48) 21 % (24-48) Monocytes (%) (Auto) 10 % (0-9) 10 % (0-9) Eosinophils (%) (Auto) 2 % (0-3) 3 % (0-3) Basophils (%) (Auto) 1 % (0-3) 1 % (0-3) Neutrophils # (Auto) 5.0 x10^3/uL (1.8-7.7) 4.0 x10^3/uL (1.8-7.7) Lymphocytes # (Auto) 1.4 x10^3/uL (1.0-4.8) 1.3 x10^3/uL (1.0-4.8) Monocytes # (Auto) 0.7 x10^3/uL (0.0-1.1) 0.6 x10^3/uL (0.0-1.1) Eosinophils # (Auto) 0.1 x10^3/uL (0.0-0.7) 0.2 x10^3/uL (0.0-0.7) Basophils # (Auto) 0.0 x10^3/uL (0.0-0.2) 0.0 x10^3/uL (0.0-0.2) Prothrombin Time 13.0 SEC (11.7-14.0) Prothromb Time International Ratio 1.0 (0.8-1.1) Activated Partial Thromboplast Time 26 SEC (24-38) Sodium Level 139 mmol/L (136-145) 137 mmol/L (136-145) Potassium Level 4.4 mmol/L (3.5-5.1) 4.8 mmol/L (3.5-5.1) Chloride Level 101 mmol/L (98-107) 101 mmol/L (98-107) Carbon Dioxide Level 28 mmol/L (21-32) 31 mmol/L (21-32) Anion Gap 10 (6-14) 5 (6-14) Blood Urea Nitrogen 21 mg/dL (8-26) 18 mg/dL (8-26) Creatinine 1.0 mg/dL (0.7-1.3) 0.8 mg/dL (0.7-1.3) Estimated GFR (Cockcroft-Gault) 77.6 100.4 BUN/Creatinine Ratio 21 (6-20) 23 (6-20) Glucose Level 112 mg/dL (70-99) 74 mg/dL (70-99) Lactic Acid Level 2.4 mmol/L (0.4-2.0) 0.9 mmol/L (0.4-2.0) Calcium Level 8.6 mg/dL (8.5-10.1) 8.2 mg/dL (8.5-10.1) Magnesium Level 2.1 mg/dL (1.8-2.4) Total Bilirubin 0.2 mg/dL (0.2-1.0) 0.4 mg/dL (0.2-1.0) Aspartate Amino Transf (AST/SGOT) 17 U/L (15-37) 14 U/L (15-37) Alanine Aminotransferase (ALT/SGPT) 34 U/L (16-63) 26 U/L (16-63) Alkaline Phosphatase 100 U/L (46-116) 88 U/L (46-116) Total Protein 6.6 g/dL (6.4-8.2) 5.6 g/dL (6.4-8.2) Albumin 1.8 g/dL (3.4-5.0) 1.5 g/dL (3.4-5.0) Albumin/Globulin Ratio 0.4 (1.0-1.7) 0.4 (1.0-1.7) Lipase 127 U/L (73-393) Urine Collection Type Void Urine Color [place] Urine Clarity Clear Urine pH Urine Specific [place] Urine Protein mg/dL (NEG-TRACE) Urine Glucose (UA) mg/dL (NEG) Urine Ketones (Stick) mg/dL (NEG) Urine Blood (NEG) Urine Nitrite (NEG) Urine Bilirubin (NEG) Urine Urobilinogen Dipstick mg/dL (0.2 mg/dL) Urine Leukocyte Esterase (NEG) Urine RBC 0 /HPF (0-2) Urine WBC Occ /HPF (0-4) Urine Squamous Epithelial Cells None /LPF Urine Bacteria 0 /HPF (0-FEW) Urine Hyaline Casts Moderate /HPF Urine Mucus Marked /LPF Allergies: Coded Allergies: No Known Drug Allergies (Unverified , 04/30/19) Medications: Current Medications Medications (Trade) Dose Ordered Sig/Laurent Route PRN Reason Start Time Stop Time Status Last Admin Dose Admin Sodium Chloride 1,000 ml @ 1,000 mls/hr 1X ONCE IV 06/11/19 15:45 06/11/19 16:44 DC 06/11/19 15:42 Dicyclomine HCl (Bentyl) 20 mg 1X ONCE IM 06/11/19 15:45 06/11/19 15:46 DC 06/11/19 15:42 Dicyclomine HCl (Bentyl) 10 mg TID PO 06/11/19 21:00 06/12/19 08:47 Ferrous Sulfate (Feosol) 325 mg DAILY08 PO 06/12/19 08:00 06/12/19 08:47 Hyoscyamine (Anaspaz) 0.125 mg Q6HRS PO 06/11/19 20:00 06/12/19 08:46 Non-Formulary Medication (Mesalamine (Apriso)) 2 cap BID PO 06/11/19 21:00 06/12/19 08:47 Pantoprazole Sodium (Protonix) 40 mg DAILYAC PO 06/12/19 07:30 06/12/19 08:48 Pharmacy Consult (C.diff Med Screen By Rx) 1 each 1X ONCE MC 06/11/19 22:15 06/11/19 22:16 DC 06/12/19 08:36 Imaging: Imaging: - PE: GEN: NAD HEENT: Atraumatic, PERRL LUNGS: CTAB HEART: RRR ABD: NABS, S/ND/NT EXTREMITY: No edema SKIN: No rashes, no jaundice NEURO/PSYCH: A & O �3 A/P: A/P: Diarrhea, hematochezia ANA H/o UC and C Diff - took vanco and Dificid in the past, recently started Humira and also takes prednisone and Apriso GERD, globus CRC - UTD -- Reviewed w/ Dr. Malcolm ponce to start diet. Add Solu-Medrol and plan for PO steroids tomorrow. Additionally give Venofer x 1. Await C Diff. Hgb not better today - note plans for additional transfusion, would recheck Hgb when complete. HALIE GROSS Jun 12, 2019 09:31
--- NOTE | 2019-06-12 10:59 | NUR ---
SW following pt for dc planning. Chart reviewed and discussed with RN. Pt lives at home with family. No SW needs or dc recommendation noted at this time. Pt has been at [facility] in April 2019 and was discharged with self care. Will continue to follow pending dc needs.
[2019-06-12] MEDS ORDERED: IRON SUCROSE COMPLEX 500 MG in IV NORMAL SALINE 250ML 250 ML IV ONE (11:00)
--- NOTE | 2019-06-12 12:45 | NUR ---
Pharmacy Medication Review S: Consulted for medication review re: C.diff Risk Assessment score of 6 O: SANDRINE VELAZQUEZ is a 53 year old with: Previous C.diff infection: <1yr ago Previous hospitalization: Within 60 days Recent antibiotics: Within 60 days Use of gastric acid suppressor: Yes Transfer from [place]/LTAC: No Current antibiotic regimen: None Current acid suppression regimen: Protonix 40mg po daily A: Patient has been identified as having risk factors for C.diff infection as noted above. P: Antibiotic Regimen recommendation made: n/a Probiotic ordered: No - patient recently started on immunosuppressive therapy with Humira PPI changed to [id number]: Not appropriate at this time (hematochezia) Candace Parra [facility], 06/12/19 [id number]
[2019-06-12] MEDS: methylPREDNISolone SOD SUCC PF 40 MG/ML VIAL. IV SCH ×2 (13:48→21:08)
[2019-06-12] MEDS ORDERED: VANCOMYCIN 125 MG/2.5 ML ORAL SOLUTION. PO SCH (14:30)
[2019-06-12] MEDS: VANCOMYCIN 125 MG/2.5 ML ORAL SOLUTION. PO SCH ×2 (14:59→20:48)
--- NOTE | 2019-06-12 15:06 | PDOC ---
Infectious Disease Note Vital Sign Vital Signs Vital Signs Date Time Temp Pulse Resp B/P (MAP) Pulse Ox O2 Delivery O2 Flow Rate FiO2 06/12/19 11:00 98.7 68 17 91/61 (71) 96 Room Air 98.7 Labs Lab Laboratory Tests Test 06/11/19 15:17 06/11/19 16:53 06/11/19 21:15 06/12/19 07:30 White Blood Count 7.2 x10^3/uL (4.0-11.0) 6.1 x10^3/uL (4.0-11.0) Red Blood Count 2.88 x10^6/uL (4.30-5.70) 2.59 x10^6/uL (4.30-5.70) Hemoglobin 6.9 g/dL (13.0-17.5) 6.4 g/dL (13.0-17.5) Hematocrit 22.3 % (39.0-53.0) 20.2 % (39.0-53.0) Mean Corpuscular Volume 77 fL (79-100) 78 fL (79-100) Mean Corpuscular Hemoglobin 24 pg (25-35) 25 pg (25-35) Mean Corpuscular Hemoglobin Concent 31 g/dL (31-37) 32 g/dL (31-37) Red Cell Distribution Width 18.7 % (11.5-14.5) 18.2 % (11.5-14.5) Platelet Count 579 x10^3/uL (140-400) 441 x10^3/uL (140-400) Neutrophils (%) (Auto) 69 % (31-73) 66 % (31-73) Lymphocytes (%) (Auto) 19 % (24-48) 21 % (24-48) Monocytes (%) (Auto) 10 % (0-9) 10 % (0-9) Eosinophils (%) (Auto) 2 % (0-3) 3 % (0-3) Basophils (%) (Auto) 1 % (0-3) 1 % (0-3) Neutrophils # (Auto) 5.0 x10^3/uL (1.8-7.7) 4.0 x10^3/uL (1.8-7.7) Lymphocytes # (Auto) 1.4 x10^3/uL (1.0-4.8) 1.3 x10^3/uL (1.0-4.8) Monocytes # (Auto) 0.7 x10^3/uL (0.0-1.1) 0.6 x10^3/uL (0.0-1.1) Eosinophils # (Auto) 0.1 x10^3/uL (0.0-0.7) 0.2 x10^3/uL (0.0-0.7) Basophils # (Auto) 0.0 x10^3/uL (0.0-0.2) 0.0 x10^3/uL (0.0-0.2) Prothrombin Time 13.0 SEC (11.7-14.0) Prothromb Time International Ratio 1.0 (0.8-1.1) Activated Partial Thromboplast Time 26 SEC (24-38) Sodium Level 139 mmol/L (136-145) 137 mmol/L (136-145) Potassium Level 4.4 mmol/L (3.5-5.1) 4.8 mmol/L (3.5-5.1) Chloride Level 101 mmol/L (98-107) 101 mmol/L (98-107) Carbon Dioxide Level 28 mmol/L (21-32) 31 mmol/L (21-32) Anion Gap 10 (6-14) 5 (6-14) Blood Urea Nitrogen 21 mg/dL (8-26) 18 mg/dL (8-26) Creatinine 1.0 mg/dL (0.7-1.3) 0.8 mg/dL (0.7-1.3) Estimated GFR (Cockcroft-Gault) 77.6 100.4 BUN/Creatinine Ratio 21 (6-20) 23 (6-20) Glucose Level 112 mg/dL (70-99) 74 mg/dL (70-99) Lactic Acid Level 2.4 mmol/L (0.4-2.0) 0.9 mmol/L (0.4-2.0) Calcium Level 8.6 mg/dL (8.5-10.1) 8.2 mg/dL (8.5-10.1) Magnesium Level 2.1 mg/dL (1.8-2.4) Total Bilirubin 0.2 mg/dL (0.2-1.0) 0.4 mg/dL (0.2-1.0) Aspartate Amino Transf (AST/SGOT) 17 U/L (15-37) 14 U/L (15-37) Alanine Aminotransferase (ALT/SGPT) 34 U/L (16-63) 26 U/L (16-63) Alkaline Phosphatase 100 U/L (46-116) 88 U/L (46-116) Total Protein 6.6 g/dL (6.4-8.2) 5.6 g/dL (6.4-8.2) Albumin 1.8 g/dL (3.4-5.0) 1.5 g/dL (3.4-5.0) Albumin/Globulin Ratio 0.4 (1.0-1.7) 0.4 (1.0-1.7) Lipase 127 U/L (73-393) Urine Collection Type Void Urine Color [place] Urine Clarity Clear Urine pH Urine Specific [place] Urine Protein mg/dL (NEG-TRACE) Urine Glucose (UA) mg/dL (NEG) Urine Ketones (Stick) mg/dL (NEG) Urine Blood (NEG) Urine Nitrite (NEG) Urine Bilirubin (NEG) Urine Urobilinogen Dipstick mg/dL (0.2 mg/dL) Urine Leukocyte Esterase (NEG) Urine RBC 0 /HPF (0-2) Urine WBC Occ /HPF (0-4) Urine Squamous Epithelial Cells None /LPF Urine Bacteria 0 /HPF (0-FEW) Urine Hyaline Casts Moderate /HPF Urine Mucus Marked /LPF Clostridium difficile Toxin B Gene Positive (Negative) Objective Assessment Hematochezia Ulcerative colitis Immunosuppression C-diff - / with h/o + 04/24 Anemia Recent thrush - no signs now Plan Plan of Care D/c Vanc 125 and increase to 500 mg with immunosuppression. Uncertain if C-diff is causing infection or colonization with UC flare Await further treatment for hemachezia Not a transplant candidate sec to immunosuppression F/u response D/w nursing Thank you # [id number] BARBRA ZAMUDIO MD Jun 12, 2019 15:06
[2019-06-13] MEDS: HYOSCYAMINE 0.125 MG TAB.RAPDIS PO SCH ×5 (00:05→23:50)
--- NOTE | 2019-06-13 01:39 | CONS ---
DATE OF CONSULTATION: 06/12/2019 INFECTIOUS DISEASE CONSULTATION ROOM: 510. REQUESTING PHYSICIAN: Anthony Oshea, nurse practitioner for GI. REASON FOR CONSULTATION: C. diff positive. HISTORY OF PRESENT ILLNESS: The patient is a 53-year-old gentleman diagnosed in March of this year with ulcerative colitis, initially on mesalamine and prednisone. He was admitted to [facility] in April secondary to abdominal pain, diarrhea, bleeding, tenesmus and was found to have C. diff colitis on 04/24. He had been treated with 125 mg of vancomycin; however, he continued to have excessive stools and given his immunosuppression, he was treated with 500 mg p.o. q.i.d. of vancomycin at that time. He then undergo a colonoscopy, was found to have severe colitis in the rectum at that time. He was discharged home on Dificid. He has started Humira last month and also on Apriso 2 pills b.i.d. He states about 2 weeks ago, he began to have some bloody stools. They then became worse, had become more liquid, and had not developed a significant odor. He is not having any fevers. Does have occasional chills, but he felt that might be secondary to his low hemoglobin and did have some sweats, but this was about 2 weeks ago. He presented to [facility] Emergency Room on the , was found to have hemoglobin of 6.9, since decreased to 6.4. His stool was rechecked from yesterday and today they turned positive for C. diff colitis again. Currently, he is lying in bed. He is a little bit frustrated. Denies any sinus congestion. No sore throat or cough or chest pain. No dysuria. Does have some issue sometimes with tenesmus. PAST MEDICAL HISTORY: Positive for gastroesophageal reflux disease, ulcerative colitis, the above-mentioned C. diff, external hemorrhoids, some antral gastritis, severe colitis seen on flex sig. PAST SURGICAL HISTORY: Positive for retinal detachment, also had esophageal dilatation. REVIEW OF SYSTEMS: He did have some recent thrush also and was started on nystatin last Tuesday. No signs of any thrush currently. Otherwise negative except for what is mentioned above. ALLERGIES: No known drug allergies. SOCIAL HISTORY: Distant history of smoking. Rare alcohol. FAMILY HISTORY: Positive for pancreatic cancer. CURRENT MEDICATIONS: Include vancomycin 125 q.i.d. He is on Bentyl, fentanyl, ferrous sulfate, hyoscyamine, Solu-Medrol 40 q.8, p.r.n. Percocet, Protonix, Metamucil, simethicone, and mesalamine. PHYSICAL EXAMINATION: VITAL SIGNS: He has been afebrile, temperature 97, pulse 68, respirations 17, blood pressure 91/61, satting 96% on room air. CONSTITUTIONAL: He is lying in bed. He is cooperative. He is in no acute distress. He does not look toxic. He does look a little tired. HEENT: Pupils are equal and reactive. He is in no acute distress. Oral cavity, pharynx is clear. No signs of thrush. He does have his dentures out. NECK: Supple. Good range of motion. LUNGS: Clear to auscultation bilaterally. HEART: S1, S2. ABDOMEN: Mildly distended, is soft. He has positive bowel sounds. No gross guarding. EXTREMITIES: No clubbing, cyanosis or gross edema. SKIN: Warm to touch without signs of rash. NEUROLOGIC: He is alert and oriented. PSYCHIATRIC: Affect is appropriate. LABORATORY DATA: White count 6.1, was 7.2 on admission, hemoglobin 6.4, platelets of 441, neutrophils 66, lymphs are 21. Creatinine 0.8, glucose 74, AST 14, ALT 26. Urine clean. C. diff positive. There is no imaging. IMPRESSION: 1. Hematochezia. 2. Ulcerative colitis. 3. Immunosuppression. 4. Clostridium difficile positive 06/11 with a history of positive on 04/24. 5. Anemia. 6. Recent thrush. No signs now. RECOMMENDATIONS: We will discontinue the vancomycin 125 mg, increased to 500 mg with immunosuppression. Uncertain, if C. diff is causing infection or if it is colonized with an ulcerative colitis flare. Await further treatment for his hematochezia. He is not a transplant candidate secondary to immunosuppression. We will follow up response. This was discussed with nursing. Thank you for allowing me to participate in the patient's care. Should have any further questions, please do not hesitate to contact me. BARBRA ZAMUDIO MD DR: ISAURA/katrina JOB#: [id number] / [id number]
[2019-06-13 03:00] VITALS: BP 95/61
[2019-06-13] MEDS: PANTOPRAZOLE 40 MG TABLET.DR. PO SCH (05:21)
[2019-06-13] MEDS: methylPREDNISolone SOD SUCC PF 40 MG/ML VIAL. IV SCH (05:21)
[2019-06-13 07:00] VITALS: BP 89/61
[2019-06-13] MEDS: DICYCLOMINE HCL 10 MG CAPSULE PO SCH ×3 (08:28→21:04)
[2019-06-13] MEDS: FERROUS SULFATE 325 MG TABLET. PO SCH ×2 (08:28→16:53)
[2019-06-13] MEDS: PSYLLIUM HUSK (SUGAR FREE) 1 PKT PACKET PO SCH ×2 (08:28→09:00)
[2019-06-13] MEDS: VANCOMYCIN 125 MG/2.5 ML ORAL SOLUTION. PO SCH ×4 (08:29→21:08)
[2019-06-13] MEDS: [UNRECOGNIZED DRUG - REMARK] PO SCH ×2 (08:30→21:05)
--- NOTE | 2019-06-13 09:27 | NUR ---
IP: Pt is C.diff + requiring contact plus precautions using brown sign.
[2019-06-13 10:07] LABS: BASO % 0 % (0-3); EOS % 0 % (0-3); HEMATOCRIT 28.4 % (39.0-53.0); LYMPH # 0.8 x10^3/uL (1.0-4.8); LYMPH % 12 % (24-48); MEAN CORPUSCULAR HEMOGLOBIN 26 pg (25-35); MEAN CORPUSCULAR HGB CONC 32 g/dL (31-37); MEAN CORPUSCULAR VOLUME 82 fL (79-100); MONO # 0.3 x10^3/uL (0.0-1.1); MONO % 4 % (0-9); NEUT # 5.9 x10^3/uL (1.8-7.7); NEUT % 85 % (31-73); PLATELET COUNT 436 x10^3/uL (140-400); RED BLOOD COUNT 3.47 x10^6/uL (4.30-5.70); RED CELL DISTRIBUTION WIDTH 19.5 % (11.5-14.5)
[2019-06-13 11:00] VITALS: BP 94/61
--- NOTE | 2019-06-13 12:31 | PDOC ---
Subjective: Subjective: Better today - still some diarrhea but "thicker," still some bleeding but less. More energy. No abd pain but discusses how in the past he called office about the urge to stool without much result and associated bloating/gas. Objective: Vital Signs: Vital Signs Date Time Temp Pulse Resp B/P (MAP) Pulse Ox O2 Delivery O2 Flow Rate FiO2 06/13/19 08:00 Room Air 06/13/19 07:00 98.0 58 17 89/61 (70) 92 98.0 Labs: Laboratory Tests Test 06/13/19 09:34 White Blood Count 7.0 x10^3/uL Red Blood Count 3.47 x10^6/uL Hemoglobin 9.0 g/dL Hematocrit 28.4 % Mean Corpuscular Volume 82 fL Mean Corpuscular Hemoglobin 26 pg Mean Corpuscular Hemoglobin Concent 32 g/dL Red Cell Distribution Width 19.5 % Platelet Count 436 x10^3/uL Neutrophils (%) (Auto) 85 % Lymphocytes (%) (Auto) 12 % Monocytes (%) (Auto) 4 % Eosinophils (%) (Auto) 0 % Basophils (%) (Auto) 0 % Neutrophils # (Auto) 5.9 x10^3/uL Lymphocytes # (Auto) 0.8 x10^3/uL Monocytes # (Auto) 0.3 x10^3/uL Eosinophils # (Auto) 0.0 x10^3/uL Basophils # (Auto) 0.0 x10^3/uL PE: GEN: NAD, eating lunch LUNGS: CTAB HEART: RRR ABD: soft, non-tender NEURO/PSYCH: A & O �3 A/P: Diarrhea, hematochezia ANA - better w/ transfusion (blood, iron) UC on Humira and steroids Recurrent C Diff -- Try PO steroids. Will review w/ Dr. Fowler. HALIE GROSS Jun 13, 2019 12:31
--- NOTE | 2019-06-13 13:24 | PDOC ---
PROGRESS NOTES Chief Complaint Chief Complaint A/P: Acute blood loss anemia - Hb 6.9 from 8.2 over a month ago. Transfused 1u PRBC overnight with Hb 6.4 --> 2 u PRBC --> Hb 9 Severe colitis - flex sig 04/30: large tender but not thrombosed external hemorrhoids; Severe colitis in rectum , sigmoid and descending colon - to extent of scope passage- no obvious pseudomembranes seen. recent colonoscopy in [place] reportedly w/ ulcerative colitis. Tapered on PO steroids History of C. difficile - s/p treatment from 04/24/19 culture positive. Repeat c. difficile now Severe protein-calorie malnutrition - will get government contracts manager involved now Immunosuppression - due for his injection today of remicade, will consult GI. Lactic acidosis - likely from blood loss, will hydrate FEN - NSS + clear liquid diet (no red jello) PPX - SCDs, PPI FULL CODE Inpatient for acute blood loss anemia, symptomatic History of Present Illness History of Present Illness Mr Nesbitt is a 53 y/o male who was diagnosed w/ ulcerative colitis in [place] on 03/30/19 and recent diagnosis of c. difficile colitis 04/24/19 who comes in today with grossly bloody bowel movements. He was noted with Hb 6.9 in ED, lactate of 2.4 Diffuse abd pain, gas (worse in evening), liquid stools (8-10 daily - small w/ red blood every third stool), tenesmus, decreased appetite, weight loss (30 pounds), insomnia, fatigue. Albumin is 1.8-->1.5 Tuesday06/08/19 he had labs with H&H of 8.8/30.8. Pt reports he has multiple episodes of bloody stools today and feels his fatigue has increased. Pt denies CP/palpitations, N/V, fever, or urinary sxs. Pt reports he has had some exertional SOA- denies currently. Pt reports mid abd intermittent cramping. 06/12: Hb down to 6.4 overnight after 1u PRBC. He does not feel any better, still had a few bloody BM. He still has pain. No SOB or CP, but feels his heart racing and very weak, pale. C. difficile returned positive Better today - still some diarrhea, more solid. Less blood. More energy. Associated bloating/gas. No SOB or CP Vitals Vitals Vital Signs Date Time Temp Pulse Resp B/P (MAP) Pulse Ox O2 Delivery O2 Flow Rate FiO2 06/13/19 11:00 98.5 61 17 94/61 (72) 95 Room Air 98.5 Physical Exam General: Alert, Oriented X3, Cooperative, mild distress, Other (Pale) Lungs: Clear Abdomen: Normal bowel sounds, Soft, Other (Bilateral LQ tenderness) Extremities: No clubbing, No cyanosis, No edema, Normal pulses, No tenderness/swelling Skin: No rashes, No breakdown, No significant lesion Labs LABS Laboratory Tests Test 06/13/19 09:34 White Blood Count 7.0 x10^3/uL (4.0-11.0) Red Blood Count 3.47 x10^6/uL (4.30-5.70) Hemoglobin 9.0 g/dL (13.0-17.5) Hematocrit 28.4 % (39.0-53.0) Mean Corpuscular Volume 82 fL (79-100) Mean Corpuscular Hemoglobin 26 pg (25-35) Mean Corpuscular Hemoglobin Concent 32 g/dL (31-37) Red Cell Distribution Width 19.5 % (11.5-14.5) Platelet Count 436 x10^3/uL (140-400) Neutrophils (%) (Auto) 85 % (31-73) Lymphocytes (%) (Auto) 12 % (24-48) Monocytes (%) (Auto) 4 % (0-9) Eosinophils (%) (Auto) 0 % (0-3) Basophils (%) (Auto) 0 % (0-3) Neutrophils # (Auto) 5.9 x10^3/uL (1.8-7.7) Lymphocytes # (Auto) 0.8 x10^3/uL (1.0-4.8) Monocytes # (Auto) 0.3 x10^3/uL (0.0-1.1) Eosinophils # (Auto) 0.0 x10^3/uL (0.0-0.7) Basophils # (Auto) 0.0 x10^3/uL (0.0-0.2) Assessment and Plan Assessmemt and Plan Problems Medical Problems: (1) Abdominal pain Status: Acute (2) Anemia due to blood loss Status: Acute (3) Colitis Status: Acute (4) External hemorrhoids Status: Chronic (5) GI bleed Status: Acute (6) Severe protein-calorie malnutrition Status: Chronic Comment Review of Relevant I have reviewed the following items maria teresa (where applicable) has been applied. Labs Laboratory Tests Test 06/11/19 15:17 06/11/19 16:53 06/11/19 21:15 06/12/19 07:30 White Blood Count 7.2 x10^3/uL (4.0-11.0) 6.1 x10^3/uL (4.0-11.0) Red Blood Count 2.88 x10^6/uL (4.30-5.70) 2.59 x10^6/uL (4.30-5.70) Hemoglobin 6.9 g/dL (13.0-17.5) 6.4 g/dL (13.0-17.5) Hematocrit 22.3 % (39.0-53.0) 20.2 % (39.0-53.0) Mean Corpuscular Volume 77 fL (79-100) 78 fL (79-100) Mean Corpuscular Hemoglobin 24 pg (25-35) 25 pg (25-35) Mean Corpuscular Hemoglobin Concent 31 g/dL (31-37) 32 g/dL (31-37) Red Cell Distribution Width 18.7 % (11.5-14.5) 18.2 % (11.5-14.5) Platelet Count 579 x10^3/uL (140-400) 441 x10^3/uL (140-400) Neutrophils (%) (Auto) 69 % (31-73) 66 % (31-73) Lymphocytes (%) (Auto) 19 % (24-48) 21 % (24-48) Monocytes (%) (Auto) 10 % (0-9) 10 % (0-9) Eosinophils (%) (Auto) 2 % (0-3) 3 % (0-3) Basophils (%) (Auto) 1 % (0-3) 1 % (0-3) Neutrophils # (Auto) 5.0 x10^3/uL (1.8-7.7) 4.0 x10^3/uL (1.8-7.7) Lymphocytes # (Auto) 1.4 x10^3/uL (1.0-4.8) 1.3 x10^3/uL (1.0-4.8) Monocytes # (Auto) 0.7 x10^3/uL (0.0-1.1) 0.6 x10^3/uL (0.0-1.1) Eosinophils # (Auto) 0.1 x10^3/uL (0.0-0.7) 0.2 x10^3/uL (0.0-0.7) Basophils # (Auto) 0.0 x10^3/uL (0.0-0.2) 0.0 x10^3/uL (0.0-0.2) Prothrombin Time 13.0 SEC (11.7-14.0) Prothromb Time International Ratio 1.0 (0.8-1.1) Activated Partial Thromboplast Time 26 SEC (24-38) Sodium Level 139 mmol/L (136-145) 137 mmol/L (136-145) Potassium Level 4.4 mmol/L (3.5-5.1) 4.8 mmol/L (3.5-5.1) Chloride Level 101 mmol/L (98-107) 101 mmol/L (98-107) Carbon Dioxide Level 28 mmol/L (21-32) 31 mmol/L (21-32) Anion Gap 10 (6-14) 5 (6-14) Blood Urea Nitrogen 21 mg/dL (8-26) 18 mg/dL (8-26) Creatinine 1.0 mg/dL (0.7-1.3) 0.8 mg/dL (0.7-1.3) Estimated GFR (Cockcroft-Gault) 77.6 100.4 BUN/Creatinine Ratio 21 (6-20) 23 (6-20) Glucose Level 112 mg/dL (70-99) 74 mg/dL (70-99) Lactic Acid Level 2.4 mmol/L (0.4-2.0) 0.9 mmol/L (0.4-2.0) Calcium Level 8.6 mg/dL (8.5-10.1) 8.2 mg/dL (8.5-10.1) Magnesium Level 2.1 mg/dL (1.8-2.4) Total Bilirubin 0.2 mg/dL (0.2-1.0) 0.4 mg/dL (0.2-1.0) Aspartate Amino Transf (AST/SGOT) 17 U/L (15-37) 14 U/L (15-37) Alanine Aminotransferase (ALT/SGPT) 34 U/L (16-63) 26 U/L (16-63) Alkaline Phosphatase 100 U/L (46-116) 88 U/L (46-116) Total Protein 6.6 g/dL (6.4-8.2) 5.6 g/dL (6.4-8.2) Albumin 1.8 g/dL (3.4-5.0) 1.5 g/dL (3.4-5.0) Albumin/Globulin Ratio 0.4 (1.0-1.7) 0.4 (1.0-1.7) Lipase 127 U/L (73-393) Urine Collection Type Void Urine Color [place] Urine Clarity Clear Urine pH Urine Specific [place] Urine Protein mg/dL (NEG-TRACE) Urine Glucose (UA) mg/dL (NEG) Urine Ketones (Stick) mg/dL (NEG) Urine Blood (NEG) Urine Nitrite (NEG) Urine Bilirubin (NEG) Urine Urobilinogen Dipstick mg/dL (0.2 mg/dL) Urine Leukocyte Esterase (NEG) Urine RBC 0 /HPF (0-2) Urine WBC Occ /HPF (0-4) Urine Squamous Epithelial Cells None /LPF Urine Bacteria 0 /HPF (0-FEW) Urine Hyaline Casts Moderate /HPF Urine Mucus Marked /LPF Clostridium difficile Toxin B Gene Positive (Negative) Test 06/13/19 09:34 White Blood Count 7.0 x10^3/uL (4.0-11.0) Red Blood Count 3.47 x10^6/uL (4.30-5.70) Hemoglobin 9.0 g/dL (13.0-17.5) Hematocrit 28.4 % (39.0-53.0) Mean Corpuscular Volume 82 fL (79-100) Mean Corpuscular Hemoglobin 26 pg (25-35) Mean Corpuscular Hemoglobin Concent 32 g/dL (31-37) Red Cell Distribution Width 19.5 % (11.5-14.5) Platelet Count 436 x10^3/uL (140-400) Neutrophils (%) (Auto) 85 % (31-73) Lymphocytes (%) (Auto) 12 % (24-48) Monocytes (%) (Auto) 4 % (0-9) Eosinophils (%) (Auto) 0 % (0-3) Basophils (%) (Auto) 0 % (0-3) Neutrophils # (Auto) 5.9 x10^3/uL (1.8-7.7) Lymphocytes # (Auto) 0.8 x10^3/uL (1.0-4.8) Monocytes # (Auto) 0.3 x10^3/uL (0.0-1.1) Eosinophils # (Auto) 0.0 x10^3/uL (0.0-0.7) Basophils # (Auto) 0.0 x10^3/uL (0.0-0.2) Laboratory Tests Test 06/13/19 09:34 White Blood Count 7.0 x10^3/uL (4.0-11.0) Red Blood Count 3.47 x10^6/uL (4.30-5.70) Hemoglobin 9.0 g/dL (13.0-17.5) Hematocrit 28.4 % (39.0-53.0) Mean Corpuscular Volume 82 fL (79-100) Mean Corpuscular Hemoglobin 26 pg (25-35) Mean Corpuscular Hemoglobin Concent 32 g/dL (31-37) Red Cell Distribution Width 19.5 % (11.5-14.5) Platelet Count 436 x10^3/uL (140-400) Neutrophils (%) (Auto) 85 % (31-73) Lymphocytes (%) (Auto) 12 % (24-48) Monocytes (%) (Auto) 4 % (0-9) Eosinophils (%) (Auto) 0 % (0-3) Basophils (%) (Auto) 0 % (0-3) Neutrophils # (Auto) 5.9 x10^3/uL (1.8-7.7) Lymphocytes # (Auto) 0.8 x10^3/uL (1.0-4.8) Monocytes # (Auto) 0.3 x10^3/uL (0.0-1.1) Eosinophils # (Auto) 0.0 x10^3/uL (0.0-0.7) Basophils # (Auto) 0.0 x10^3/uL (0.0-0.2) Medications Current Medications Sodium Chloride 1,000 ml @ 1,000 mls/hr 1X ONCE IV Last administered on 06/11/19 15:42; Start 06/11/19 at 15:45; Stop 06/11/19 at 16:44; Status DC Dicyclomine HCl (Bentyl) 20 mg 1X ONCE IM Last administered on 06/11/19at 15:42; Start 06/11/19 at 15:45; Stop 06/11/19 at 15:46; Status DC Ondansetron HCl (Zofran) 4 mg PRN Q8HRS PRN IV NAUSEA/VOMITING; Start 06/11/19 at 17:00; Stop 06/12/19 at 16:59; Status DC Fentanyl Citrate (Fentanyl 2ml Vial) 50 mcg PRN Q2HRS PRN IV PAIN; Start 06/11/19 at 17:00; Stop 06/12/19 at 16:59; Status DC Dicyclomine HCl (Bentyl) 10 mg TID PO Last administered on 06/13/19 08:35; Start 06/11/19 at 21:00 Ferrous Sulfate (Feosol) 325 mg DAILY08 PO Last administered on 06/13/19 08:35; Start 06/12/19 at 08:00; Stop 06/13/19 at 12:33; Status DC Hyoscyamine (Anaspaz) 0.125 mg Q6HRS PO Last administered on 06/13/19 12:34; Start 06/11/19 at 20:00 Oxycodone/ Acetaminophen (Percocet 5/325) 1 tab PRN Q4HRS PRN PO SEVERE PAIN 7- 10; Start 06/11/19 at 20:15 Simethicone (Gas-X) 80 mg PRN Q6HRS PRN PO GAS / BLOATING; Start 06/11/19 at 20:15 Non-Formulary Medication (Mesalamine (Apriso)) 2 cap BID PO Last administered on 06/13/19 08:35; Start 06/11/19 at 21:00 Pantoprazole Sodium (Protonix) 40 mg DAILYAC PO Last administered on 8/7/19at 05:24; Start 06/12/19 at 07:30 Psyllium Hydrophilic Mucilloid (Metamucil Fiber Packet) 1 pkt DAILY PO ; Start 06/12/19 at 09:00 Pharmacy Consult (C.diff Med Screen By Rx) 1 each 1X ONCE [facility] Last administered on 06/12/19at 08:36; Start 06/11/19 at 22:15; Stop 06/11/19 at 22:16; Status DC Iron Sucrose 500 mg/Sodium Chloride 275 ml @ 78.571 mls/ hr 1X ONCE IV Last administered on 06/12/19at 11:25; Start 06/12/19 at 11:00; Stop 06/12/19 at 14:29; Status DC Methylprednisolone Sodium Succinate (SOLU-Medrol 40MG VIAL) 40 mg Q8HRS IV Last administered on 06/13/19at 05:24; Start 06/12/19 at 14:00; Stop 06/13/19 at 12:33; Status DC Vancomycin HCl (Vancomycin Oral Solution) 125 mg [id number] PO ; Start 06/12/19 at 14:30; Stop 06/12/19 at 14:56; Status DC Vancomycin HCl (Vancomycin Oral Solution) 500 mg [id number] PO Last administered on 06/13/19at 12:34; Start 06/12/19 at 15:01 Ferrous Sulfate (Feosol) 325 mg BIDWMEALS PO ; Start 06/13/19 at 17:00 Prednisone (Prednisone) 60 mg DAILY PO ; Start 06/14/19 at 09:00 Active Scripts Active Simethicone 80 Mg Tab.chew 80 Mg PO PRN Q6HRS PRN 30 Days Anaspaz (Hyoscyamine Sulfate) 0.125 Mg Tab.rapdis 0.125 Mg PO Q6HRS 10 Days Percocet 5-325 Mg Tablet (Oxycodone/Acetaminophen) 1 Each Tablet 1 Tab PO PRN Q4HRS PRN 14 Days Reported Ferrous Sulfate 325 Mg Tablet 325 Mg PO DAILY Red Yeast Rice 600 Mg Capsule 600 Mg PO DAILY Fiber (Psyllium Husk) 0.52 Gm Capsule 0.52 Gm PO DAILY Omeprazole 40 Mg Capsule.dr 1 Cap PO DAILY Centrum Silver Tablet (Multivits-Min/Fa/Lycopene/Lut) 1 Each Tablet 1 Each PO DAILY Nystatin 100,000 Unit/1 Ml Oral.susp 10 Ml PO QID Dicyclomine Hcl 10 Mg Capsule 1 Cap PO TID Apriso (Mesalamine) 0.375 Gm Cap.er.24h 2 Cap PO BID Vitals/I & O Vital Sign - Last 24 Hours 06/12/19 06/12/19 06/12/19 06/12/19 15:00 15:47 16:00 17:02 Temp 98.5 98.5 97.9 98.8 98.5 98.5 97.9 98.8 Pulse 76 79 69 70 Resp 17 16 16 16 B/P (MAP) 87/53 (64) 87/53 96/57 87/56 Pulse Ox 94 O2 Delivery Room Air 06/12/19 06/12/19 06/12/19 06/12/19 18:00 18:46 19:00 19:05 Temp 98.4 98.6 98.3 98.3 98.4 98.6 98.3 98.3 Pulse 69 71 62 63 Resp 14 16 17 14 B/P (MAP) 87/53 87/55 94/64 (74) 87/58 Pulse Ox 92 O2 Delivery Room Air 06/12/19 06/12/19 06/12/19 06/12/19 20:00 20:00 20:05 21:06 Temp 99.1 98.6 98.7 99.1 98.6 98.7 Pulse 67 80 64 Resp 18 18 16 B/P (MAP) 86/56 91/56 93/57 O2 Delivery Room Air 06/12/19 06/13/19 06/13/19 06/13/19 23:00 03:00 07:00 08:00 Temp 98.6 97.9 98.0 98.6 97.9 98.0 Pulse 46 58 58 Resp 16 14 17 B/P (MAP) 90/60 (70) 95/61 (72) 89/61 (70) Pulse Ox 93 95 92 O2 Delivery Room Air Room Air Room Air Room Air 06/13/19 11:00 Temp 98.5 98.5 Pulse 61 Resp 17 B/P (MAP) 94/61 (72) Pulse Ox 95 O2 Delivery Room Air Intake and Output 06/12/19 06/12/19 06/13/19 14:59 22:59 06:59 Intake Total 1555 ml 150 ml Balance 1555 ml 150 ml SAUNDRA ROGESR MD Jun 13, 2019 13:24
[2019-06-13 15:00] VITALS: BP 94/63
--- NOTE | 2019-06-13 15:32 | PDOC ---
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 He is cooperative. He is in no acute distress. He does not look toxic. He does look a little tired. HEENT: Pupils are equal and reactive. He is in no acute distress. Oral cavity, pharynx is clear. No signs of thrush. He does have his dentures out. NECK: Supple. Good range of motion. LUNGS: Clear to auscultation bilaterally. HEART: S1, S2. ABDOMEN: Mildly distended, is soft. He has positive bowel sounds. No gross guarding. EXTREMITIES: No clubbing, cyanosis or gross edema. SKIN: Warm to touch without signs of rash. NEUROLOGIC: He is alert and oriented. PSYCHIATRIC: Affect is appropriate. Labs Lab Laboratory Tests Test 06/13/19 09:34 White Blood Count 7.0 x10^3/uL (4.0-11.0) Red Blood Count 3.47 x10^6/uL (4.30-5.70) Hemoglobin 9.0 g/dL (13.0-17.5) Hematocrit 28.4 % (39.0-53.0) Mean Corpuscular Volume 82 fL (79-100) Mean Corpuscular Hemoglobin 26 pg (25-35) Mean Corpuscular Hemoglobin Concent 32 g/dL (31-37) Red Cell Distribution Width 19.5 % (11.5-14.5) Platelet Count 436 x10^3/uL (140-400) Neutrophils (%) (Auto) 85 % (31-73) Lymphocytes (%) (Auto) 12 % (24-48) Monocytes (%) (Auto) 4 % (0-9) Eosinophils (%) (Auto) 0 % (0-3) Basophils (%) (Auto) 0 % (0-3) Neutrophils # (Auto) 5.9 x10^3/uL (1.8-7.7) Lymphocytes # (Auto) 0.8 x10^3/uL (1.0-4.8) Monocytes # (Auto) 0.3 x10^3/uL (0.0-1.1) Eosinophils # (Auto) 0.0 x10^3/uL (0.0-0.7) Basophils # (Auto) 0.0 x10^3/uL (0.0-0.2) Objective Assessment Hematochezia Ulcerative colitis Immunosuppression C-diff - 06/11 with h/o + 04/24 Anemia Recent thrush - no signs now Plan Plan of Care Cont Vanc 500 mg with immunosuppression. Uncertain if C-diff is causing infection or colonization with UC flare Await further treatment for hemachezia Neuro eval Not a transplant candidate sec to immunosuppression F/u response BARBRA ZAMUDIO MD Jun 13, 2019 15:32
--- NOTE | 2019-06-13 16:42 | PDOC2 ---
NEUROLOGY CONSULT Date of Admission Date of Admission DATE: 06/13/19 TIME: 16:41 Reason for Consult Reason for Consult: Transient visual loss Referring Physician Referring Physician: Dr. Mehta Attending: Dr. Westfall PCP: Dr. Gutierrez Source Source: Chart review, Patient History of Present Illness History of Present Illness The patient is a 53-year-old right-handed male who for the past 2 weeks has been having some transient visual obscurations in either eye when getting up rapidly. He is admitted for anemia from his ulcerative colitis and has received some transfusions, which have helped with the episodes. He did see Dr. Teixeira, electro optics engineer, who told him he was having transient ischemic attacks. The isabella gómez had echocardiogram and carotid Doppler studies done at another facility, which she was told were negative. There is no history of stroke, seizure, or head injury. Past Medical History GI: GERD (kidney stones), Inflam bowel disease (UC), Other (diarrhea) Heme/Onc: Anemia NOS Endocrine: Hypothyroidism Past Surgical History Past Surgical History: Cataract Removal, Other (retinal detachment) Family History Family History: Cancer, CAD Social History Social History Quit tobacco, occasional alcohol Current Medications Current Medications Current Medications Sodium Chloride 1,000 ml @ 1,000 mls/hr 1X ONCE IV Last administered on 06/11/19at 15:42; Start 06/11/19 at 15:45; Stop 06/11/19 at 16:44; Status DC Dicyclomine HCl (Bentyl) 20 mg 1X ONCE IM Last administered on 06/11/19at 15:42; Start 06/11/19 at 15:45; Stop 06/11/19 at 15:46; Status DC Ondansetron HCl (Zofran) 4 mg PRN Q8HRS PRN IV NAUSEA/VOMITING; Start 06/11/19 at 17:00; Stop 06/12/19 at 16:59; Status DC Fentanyl Citrate (Fentanyl 2ml Vial) 50 mcg PRN Q2HRS PRN IV PAIN; Start 06/11/19 at 17:00; Stop 06/12/19 at 16:59; Status DC Dicyclomine HCl (Bentyl) 10 mg TID PO Last administered on 06/13/19at 14:08; Start 06/11/19 at 21:00 Ferrous Sulfate (Feosol) 325 mg DAILY08 PO Last administered on 06/13/19 08:35; Start 06/12/19 at 08:00; Stop 06/13/19 at 12:33; Status DC Hyoscyamine (Anaspaz) 0.125 mg Q6HRS PO Last administered on 06/13/19at 12:34; Start 06/11/19 at 20:00 Oxycodone/ Acetaminophen (Percocet 5/325) 1 tab PRN Q4HRS PRN PO SEVERE PAIN 7- 10; Start 06/11/19 at 20:15 Simethicone (Gas-X) 80 mg PRN Q6HRS PRN PO GAS / BLOATING; Start 06/11/19 at 20:15 Non-Formulary Medication (Mesalamine (Apriso)) 2 cap BID PO Last administered on 06/13/19 08:35; Start 06/11/19 at 21:00 Pantoprazole Sodium (Protonix) 40 mg DAILYAC PO Last administered on 06/13/19 05:24; Start 06/12/19 at 07:30 Psyllium Hydrophilic Mucilloid (Metamucil Fiber Packet) 1 pkt DAILY PO ; Start 06/12/19 at 09:00 Pharmacy Consult (C.diff Med Screen By Rx) 1 each 1X ONCE [facility] Last administered on 06/12/19at 08:36; Start 06/11/19 at 22:15; Stop 06/11/19 at 22:16; Status DC Iron Sucrose 500 mg/Sodium Chloride 275 ml @ 78.571 mls/ hr 1X ONCE IV Last administered on 06/12/19at 11:25; Start 06/12/19 at 11:00; Stop 06/12/19 at 14:29; Status DC Methylprednisolone Sodium Succinate (SOLU-Medrol 40MG VIAL) 40 mg Q8HRS IV Last administered on 06/13/19 05:24; Start 06/12/19 at 14:00; Stop 06/13/19 at 12:33; Status DC Vancomycin HCl (Vancomycin Oral Solution) 125 mg [id number] PO ; Start 06/12/19 at 14:30; Stop 06/12/19 at 14:56; Status DC Vancomycin HCl (Vancomycin Oral Solution) 500 mg [id number] PO Last administered on 06/13/19at 12:34; Start 06/12/19 at 15:01 Ferrous Sulfate (Feosol) 325 mg BIDWMEALS PO ; Start 06/13/19 at 17:00 Prednisone (Prednisone) 60 mg DAILY PO ; Start 06/14/19 at 09:00 Active Scripts Active Simethicone 80 Mg Tab.chew 80 Mg PO PRN Q6HRS PRN 30 Days Anaspaz (Hyoscyamine Sulfate) 0.125 Mg Tab.rapdis 0.125 Mg PO Q6HRS 10 Days Percocet 5-325 Mg Tablet (Oxycodone/Acetaminophen) 1 Each Tablet 1 Tab PO PRN Q4HRS PRN 14 Days Reported Ferrous Sulfate 325 Mg Tablet 325 Mg PO DAILY Red Yeast Rice 600 Mg Capsule 600 Mg PO DAILY Fiber (Psyllium Husk) 0.52 Gm Capsule 0.52 Gm PO DAILY Omeprazole 40 Mg Capsule.dr 1 Cap PO DAILY Centrum Silver Tablet (Multivits-Min/Fa/Lycopene/Lut) 1 Each Tablet 1 Each PO DAILY Nystatin 100,000 Unit/1 Ml Oral.susp 10 Ml PO QID Dicyclomine Hcl 10 Mg Capsule 1 Cap PO TID Apriso (Mesalamine) 0.375 Gm Cap.er.24h 2 Cap PO BID Allergies Allergies: Coded Allergies: No Known Drug Allergies (Unverified , 04/30/19) ROS Review of System Negative for fever, chills, weight loss, shortness of breath, chest pain, indigestion, hematochezia, melena, and dysuria. Full 14-point review of systems is negative. Physical Exam Physical Examination General: Well-developed, well-nourished white male in no acute distress HEENT: Normocephalic and�atraumatic. Temporal arteries�pulsatile and nontender.�Fundoscopic exam unremarkable Neck: Supple without bruit, no meningismus� Musculoskeletal: Stability:�see neurologic. Gait exam:�see neurologic. Tone:�see neurologic.�Strength:�see neurologic.� Neurological: Mental Status:�intact, orientation, memory, attention span/concentration, language, fund of knowledge normal. Cranial Nerves:�Pupils equal and reactive to light, extraocular movements are�intact, visual genao are full to confrontation. Facial sensation is normal. There is no facial asymmetry. Vestibulo-ocular reflex is intact. Palate elevates and tongue protrudes in midline. All other cranial related problems are negative except as mentioned before.�Reflexes:�2+ and symmetric with flexor plantar responses. Motor:�5/5 strength with normal tone and bulk. Coordination:�Finger-nose finger and bons-qe-wubf testing are normal. Rapid alternating movements and fine finger movements are intact. Gait:�Normal, including tandem. Sensory:�Normal pinprick, vibration, light touch, proprioception.� Vitals VITALS Vital Signs Date Time Temp Pulse Resp B/P (MAP) Pulse Ox O2 Delivery O2 Flow Rate FiO2 06/13/19 15:00 97.5 71 17 94/63 (73) 96 Room Air 97.5 Labs Labs Laboratory Tests Test 06/11/19 16:53 06/11/19 21:15 06/12/19 07:30 06/13/19 09:34 Urine Collection Type Void Urine Color [place] Urine Clarity Clear Urine pH Urine Specific [place] Urine Protein mg/dL (NEG-TRACE) Urine Glucose (UA) mg/dL (NEG) Urine Ketones (Stick) mg/dL (NEG) Urine Blood (NEG) Urine Nitrite (NEG) Urine Bilirubin (NEG) Urine Urobilinogen Dipstick mg/dL (0.2 mg/dL) Urine Leukocyte Esterase (NEG) Urine RBC 0 /HPF (0-2) Urine WBC Occ /HPF (0-4) Urine Squamous Epithelial Cells None /LPF Urine Bacteria 0 /HPF (0-FEW) Urine Hyaline Casts Moderate /HPF Urine Mucus Marked /LPF Clostridium difficile Toxin B Gene Positive (Negative) Lactic Acid Level 0.9 mmol/L (0.4-2.0) White Blood Count 6.1 x10^3/uL (4.0-11.0) 7.0 x10^3/uL (4.0-11.0) Red Blood Count 2.59 x10^6/uL (4.30-5.70) 3.47 x10^6/uL (4.30-5.70) Hemoglobin 6.4 g/dL (13.0-17.5) 9.0 g/dL (13.0-17.5) Hematocrit 20.2 % (39.0-53.0) 28.4 % (39.0-53.0) Mean Corpuscular Volume 78 fL (79-100) 82 fL (79-100) Mean Corpuscular Hemoglobin 25 pg (25-35) 26 pg (25-35) Mean Corpuscular Hemoglobin Concent 32 g/dL (31-37) 32 g/dL (31-37) Red Cell Distribution Width 18.2 % (11.5-14.5) 19.5 % (11.5-14.5) Platelet Count 441 x10^3/uL (140-400) 436 x10^3/uL (140-400) Neutrophils (%) (Auto) 66 % (31-73) 85 % (31-73) Lymphocytes (%) (Auto) 21 % (24-48) 12 % (24-48) Monocytes (%) (Auto) 10 % (0-9) 4 % (0-9) Eosinophils (%) (Auto) 3 % (0-3) 0 % (0-3) Basophils (%) (Auto) 1 % (0-3) 0 % (0-3) Neutrophils # (Auto) 4.0 x10^3/uL (1.8-7.7) 5.9 x10^3/uL (1.8-7.7) Lymphocytes # (Auto) 1.3 x10^3/uL (1.0-4.8) 0.8 x10^3/uL (1.0-4.8) Monocytes # (Auto) 0.6 x10^3/uL (0.0-1.1) 0.3 x10^3/uL (0.0-1.1) Eosinophils # (Auto) 0.2 x10^3/uL (0.0-0.7) 0.0 x10^3/uL (0.0-0.7) Basophils # (Auto) 0.0 x10^3/uL (0.0-0.2) 0.0 x10^3/uL (0.0-0.2) Sodium Level 137 mmol/L (136-145) Potassium Level 4.8 mmol/L (3.5-5.1) Chloride Level 101 mmol/L (98-107) Carbon Dioxide Level 31 mmol/L (21-32) Anion Gap 5 (6-14) Blood Urea Nitrogen 18 mg/dL (8-26) Creatinine 0.8 mg/dL (0.7-1.3) Estimated GFR (Cockcroft-Gault) 100.4 BUN/Creatinine Ratio 23 (6-20) Glucose Level 74 mg/dL (70-99) Calcium Level 8.2 mg/dL (8.5-10.1) Total Bilirubin 0.4 mg/dL (0.2-1.0) Aspartate Amino Transf (AST/SGOT) 14 U/L (15-37) Alanine Aminotransferase (ALT/SGPT) 26 U/L (16-63) Alkaline Phosphatase 88 U/L (46-116) Total Protein 5.6 g/dL (6.4-8.2) Albumin 1.5 g/dL (3.4-5.0) Albumin/Globulin Ratio 0.4 (1.0-1.7) Laboratory Tests Test 06/13/19 09:34 White Blood Count 7.0 x10^3/uL (4.0-11.0) Red Blood Count 3.47 x10^6/uL (4.30-5.70) Hemoglobin 9.0 g/dL (13.0-17.5) Hematocrit 28.4 % (39.0-53.0) Mean Corpuscular Volume 82 fL (79-100) Mean Corpuscular Hemoglobin 26 pg (25-35) Mean Corpuscular Hemoglobin Concent 32 g/dL (31-37) Red Cell Distribution Width 19.5 % (11.5-14.5) Platelet Count 436 x10^3/uL (140-400) Neutrophils (%) (Auto) 85 % (31-73) Lymphocytes (%) (Auto) 12 % (24-48) Monocytes (%) (Auto) 4 % (0-9) Eosinophils (%) (Auto) 0 % (0-3) Basophils (%) (Auto) 0 % (0-3) Neutrophils # (Auto) 5.9 x10^3/uL (1.8-7.7) Lymphocytes # (Auto) 0.8 x10^3/uL (1.0-4.8) Monocytes # (Auto) 0.3 x10^3/uL (0.0-1.1) Eosinophils # (Auto) 0.0 x10^3/uL (0.0-0.7) Basophils # (Auto) 0.0 x10^3/uL (0.0-0.2) Assessment/Plan Assessment/Plan Impression: Transient visual obscurations, usually this short-lived are either intraocular or some sort of metabolic issue. In this case, he most likely has problems from anemia. Isolated problems with the eyes are unlikely to be related to transient ischemic attack, but I suppose she could have intracranial vascular disease despite the negative outpatient carotid Doppler studies. Cardioembolic phenomenon is unlikely to affect eyes over and over. Recommendations: MRI of the brain with MR angiogram and MR venogram Sedimentation rate Treatment of anemia Thank you for letting me help with the patient�s care. BHANU SOSA MD Jun 13, 2019 16:42
[2019-06-13] MEDS ORDERED: ONDANSETRON PF 4 MG/2 ML VIAL. IV PRN (18:45)
[2019-06-13 19:00] VITALS: BP 107/72
[2019-06-13] MEDS ORDERED: ASPIRIN ENTERIC COATED 81 MG TABLET.DR. PO STA (19:30)
--- NOTE | 2019-06-13 20:07 | RAD ---
PQRS Compliance Statement: One or more of the following individualized dose reduction techniques were utilized for this examination: 1. Automated exposure control 2. Adjustment of the mA and/or kV according to patient size 3. Use of iterative reconstruction technique CT head without contrast 06/13/2019 7:46 PM INDICATION: Left-sided weakness COMPARISON: None available TECHNIQUE: Multiple axial CT images of the head were obtained from skull base through the vertex without intravenous contrast. FINDINGS: Head: Ventricles, sulci and basal cisterns are within normal limits. There is no hydrocephalus. Nevarez-white matter differentiation is normal. There is no acute intracranial hemorrhage. There is no mass, mass effect or midline shift. Posterior fossa is normal in appearance. Visualized portions of the orbits are normal with exception of left lens replacement with scleral buckle. Paranasal sinuses are well aerated. Mastoid air cells are well aerated. Scalp and calvaria are normal. IMPRESSION: No acute intracranial hemorrhage. Electronically signed by: Mayuri Nava MD (06/13/2019 8:04 PM) [facility]
[2019-06-13 23:59] VITALS: BP 110/77
[2019-06-14 03:18] VITALS: BP 107/75
[2019-06-14] MEDS: HYOSCYAMINE 0.125 MG TAB.RAPDIS PO SCH ×3 (06:02→18:25)
[2019-06-14] MEDS: PANTOPRAZOLE 40 MG TABLET.DR. PO SCH (06:02)
[2019-06-14 06:13] LABS: BASO % 0 % (0-3); EOS % 1 % (0-3); HEMATOCRIT 26.8 % (39.0-53.0); HEMOGLOBIN 8.6 g/dL (13.0-17.5); LYMPH # 1.3 x10^3/uL (1.0-4.8); LYMPH % 20 % (24-48); MEAN CORPUSCULAR HEMOGLOBIN 26 pg (25-35); MEAN CORPUSCULAR HGB CONC 32 g/dL (31-37); MEAN CORPUSCULAR VOLUME 81 fL (79-100); MONO # 0.7 x10^3/uL (0.0-1.1); MONO % 12 % (0-9); NEUT # 4.3 x10^3/uL (1.8-7.7); NEUT % 67 % (31-73); PLATELET COUNT 349 x10^3/uL (140-400); RED BLOOD COUNT 3.29 x10^6/uL (4.30-5.70); RED CELL DISTRIBUTION WIDTH 19.2 % (11.5-14.5); WHITE BLOOD COUNT 6.4 x10^3/uL (4.0-11.0)
[2019-06-14 07:00] VITALS: BP 100/68
[2019-06-14] MEDS ORDERED: ASPIRIN ENTERIC COATED 81 MG TABLET.DR. PO SCH (08:00)
[2019-06-14] MEDS: [UNRECOGNIZED DRUG - REMARK] PO SCH ×2 (08:15→20:20)
[2019-06-14] MEDS: PSYLLIUM HUSK (SUGAR FREE) 1 PKT PACKET PO SCH (08:16)
[2019-06-14] MEDS: predniSONE 20 MG TABLET PO SCH (08:16)
[2019-06-14] MEDS: VANCOMYCIN 125 MG/2.5 ML ORAL SOLUTION. PO SCH ×4 (08:16→20:20)
[2019-06-14] MEDS: FERROUS SULFATE 325 MG TABLET. PO SCH ×2 (08:17→17:14)
[2019-06-14] MEDS: DICYCLOMINE HCL 10 MG CAPSULE PO SCH ×3 (08:17→20:20)
--- NOTE | 2019-06-14 08:43 | PDOC ---
PROGRESS NOTES Chief Complaint Chief Complaint A/P: Acute blood loss anemia - Hb 6.9 from 8.2 over a month ago. Transfused 1u PRBC overnight with Hb 6.4 --> 2 u PRBC --> Hb 9 Severe colitis - flex sig 04/30: large tender but not thrombosed external hemorrhoids; Severe colitis in rectum , sigmoid and descending colon - to extent of scope passage- no obvious pseudomembranes seen. recent colonoscopy in [place] reportedly w/ ulcerative colitis. Tapered on PO steroids History of C. difficile - s/p treatment from 04/24/19 culture positive. Repeat c. difficile now Severe protein-calorie malnutrition - will get school coordinator involved now Immunosuppression - due for his injection today of remicade, will consult GI. Lactic acidosis - likely from blood loss, will hydrate FEN - NSS + clear liquid diet (no red jello) PPX - SCDs, PPI FULL CODE Inpatient for acute blood loss anemia, symptomatic History of Present Illness History of Present Illness Mr Nesbitt is a 53 y/o male who was diagnosed w/ ulcerative colitis in [place] on 03/30/19 and recent diagnosis of c. difficile colitis 04/24/19 who comes in today with grossly bloody bowel movements. He was noted with Hb 6.9 in ED, lactate of 2.4 Diffuse abd pain, gas (worse in evening), liquid stools (8-10 daily - small w/ red blood every third stool), tenesmus, decreased appetite, weight loss (30 pounds), insomnia, fatigue. Albumin is 1.8-->1.5 Tuesday06/08/19 he had labs with H&H of 8.8/30.8. Pt reports he has multiple episodes of bloody stools today and feels his fatigue has increased. Pt denies CP/palpitations, N/V, fever, or urinary sxs. Pt reports he has had some exertional SOA- denies currently. Pt reports mid abd intermittent cramping. 06/12: Hb down to 6.4 overnight after 1u PRBC. He does not feel any better, still had a few bloody BM. He still has pain. No SOB or CP, but feels his heart racing and very weak, pale. C. difficile returned positive Better today - still some diarrhea, more solid. Less blood. More energy. Associated bloating/gas. No SOB or CP. Seen by neurology for transient left sided arm tingling up to shoulder and visual disturbances. CT head negative. He is very upset today, feels he should have had MRI brain 2 weeks ago when he told his outpatient physicians about his visual symptoms. His left arm tingling occurred yesterday after IV access Vitals Vitals Vital Signs Date Time Temp Pulse Resp B/P (MAP) Pulse Ox O2 Delivery O2 Flow Rate FiO2 06/14/19 07:00 98.8 67 16 100/68 (79) 94 Room Air 98.8 Physical Exam Physical Exam CONSTITUTIONAL: He is lying in bed. He is cooperative. He is in no acute distress. He does not look toxic. He does look a little tired. HEENT: Pupils are equal and reactive. He is in no acute distress. Oral cavity, pharynx is clear. No signs of thrush. He does have his dentures out. NECK: Supple. Good range of motion. LUNGS: Clear to auscultation bilaterally. HEART: S1, S2. ABDOMEN: Mildly distended, is soft. He has positive bowel sounds. No gross guarding. EXTREMITIES: No clubbing, cyanosis or gross edema. SKIN: Warm to touch without signs of rash. NEUROLOGIC: He is alert and oriented. PSYCHIATRIC: Affect is appropriate. General: Alert, Oriented X3, Cooperative, mild distress, Other (Pale) Heart: Regular rate, Normal S1, Normal S2 Lungs: Clear Abdomen: Normal bowel sounds, Soft, Other (Bilateral LQ tenderness) Extremities: No clubbing, No cyanosis, No edema, Normal pulses, No tenderness/swelling Skin: No rashes, No breakdown, No significant lesion Labs LABS Laboratory Tests Test 06/13/19 09:34 06/14/19 05:00 White Blood Count 7.0 x10^3/uL (4.0-11.0) 6.4 x10^3/uL (4.0-11.0) Red Blood Count 3.47 x10^6/uL (4.30-5.70) 3.29 x10^6/uL (4.30-5.70) Hemoglobin 9.0 g/dL (13.0-17.5) 8.6 g/dL (13.0-17.5) Hematocrit 28.4 % (39.0-53.0) 26.8 % (39.0-53.0) Mean Corpuscular Volume 82 fL (79-100) 81 fL (79-100) Mean Corpuscular Hemoglobin 26 pg (25-35) 26 pg (25-35) Mean Corpuscular Hemoglobin Concent 32 g/dL (31-37) 32 g/dL (31-37) Red Cell Distribution Width 19.5 % (11.5-14.5) 19.2 % (11.5-14.5) Platelet Count 436 x10^3/uL (140-400) 349 x10^3/uL (140-400) Neutrophils (%) (Auto) 85 % (31-73) 67 % (31-73) Lymphocytes (%) (Auto) 12 % (24-48) 20 % (24-48) Monocytes (%) (Auto) 4 % (0-9) 12 % (0-9) Eosinophils (%) (Auto) 0 % (0-3) 1 % (0-3) Basophils (%) (Auto) 0 % (0-3) 0 % (0-3) Neutrophils # (Auto) 5.9 x10^3/uL (1.8-7.7) 4.3 x10^3/uL (1.8-7.7) Lymphocytes # (Auto) 0.8 x10^3/uL (1.0-4.8) 1.3 x10^3/uL (1.0-4.8) Monocytes # (Auto) 0.3 x10^3/uL (0.0-1.1) 0.7 x10^3/uL (0.0-1.1) Eosinophils # (Auto) 0.0 x10^3/uL (0.0-0.7) 0.0 x10^3/uL (0.0-0.7) Basophils # (Auto) 0.0 x10^3/uL (0.0-0.2) 0.0 x10^3/uL (0.0-0.2) Assessment and Plan Assessmemt and Plan Problems Medical Problems: (1) Abdominal pain Status: Acute (2) Anemia due to blood loss Status: Acute (3) Colitis Status: Acute (4) External hemorrhoids Status: Chronic (5) GI bleed Status: Acute (6) Severe protein-calorie malnutrition Status: Chronic Comment Review of Relevant I have reviewed the following items maria teresa (where applicable) has been applied. Labs Laboratory Tests Test 06/13/19 09:34 06/14/19 05:00 White Blood Count 7.0 x10^3/uL (4.0-11.0) 6.4 x10^3/uL (4.0-11.0) Red Blood Count 3.47 x10^6/uL (4.30-5.70) 3.29 x10^6/uL (4.30-5.70) Hemoglobin 9.0 g/dL (13.0-17.5) 8.6 g/dL (13.0-17.5) Hematocrit 28.4 % (39.0-53.0) 26.8 % (39.0-53.0) Mean Corpuscular Volume 82 fL (79-100) 81 fL (79-100) Mean Corpuscular Hemoglobin 26 pg (25-35) 26 pg (25-35) Mean Corpuscular Hemoglobin Concent 32 g/dL (31-37) 32 g/dL (31-37) Red Cell Distribution Width 19.5 % (11.5-14.5) 19.2 % (11.5-14.5) Platelet Count 436 x10^3/uL (140-400) 349 x10^3/uL (140-400) Neutrophils (%) (Auto) 85 % (31-73) 67 % (31-73) Lymphocytes (%) (Auto) 12 % (24-48) 20 % (24-48) Monocytes (%) (Auto) 4 % (0-9) 12 % (0-9) Eosinophils (%) (Auto) 0 % (0-3) 1 % (0-3) Basophils (%) (Auto) 0 % (0-3) 0 % (0-3) Neutrophils # (Auto) 5.9 x10^3/uL (1.8-7.7) 4.3 x10^3/uL (1.8-7.7) Lymphocytes # (Auto) 0.8 x10^3/uL (1.0-4.8) 1.3 x10^3/uL (1.0-4.8) Monocytes # (Auto) 0.3 x10^3/uL (0.0-1.1) 0.7 x10^3/uL (0.0-1.1) Eosinophils # (Auto) 0.0 x10^3/uL (0.0-0.7) 0.0 x10^3/uL (0.0-0.7) Basophils # (Auto) 0.0 x10^3/uL (0.0-0.2) 0.0 x10^3/uL (0.0-0.2) Laboratory Tests Test 06/13/19 09:34 06/14/19 05:00 White Blood Count 7.0 x10^3/uL (4.0-11.0) 6.4 x10^3/uL (4.0-11.0) Red Blood Count 3.47 x10^6/uL (4.30-5.70) 3.29 x10^6/uL (4.30-5.70) Hemoglobin 9.0 g/dL (13.0-17.5) 8.6 g/dL (13.0-17.5) Hematocrit 28.4 % (39.0-53.0) 26.8 % (39.0-53.0) Mean Corpuscular Volume 82 fL (79-100) 81 fL (79-100) Mean Corpuscular Hemoglobin 26 pg (25-35) 26 pg (25-35) Mean Corpuscular Hemoglobin Concent 32 g/dL (31-37) 32 g/dL (31-37) Red Cell Distribution Width 19.5 % (11.5-14.5) 19.2 % (11.5-14.5) Platelet Count 436 x10^3/uL (140-400) 349 x10^3/uL (140-400) Neutrophils (%) (Auto) 85 % (31-73) 67 % (31-73) Lymphocytes (%) (Auto) 12 % (24-48) 20 % (24-48) Monocytes (%) (Auto) 4 % (0-9) 12 % (0-9) Eosinophils (%) (Auto) 0 % (0-3) 1 % (0-3) Basophils (%) (Auto) 0 % (0-3) 0 % (0-3) Neutrophils # (Auto) 5.9 x10^3/uL (1.8-7.7) 4.3 x10^3/uL (1.8-7.7) Lymphocytes # (Auto) 0.8 x10^3/uL (1.0-4.8) 1.3 x10^3/uL (1.0-4.8) Monocytes # (Auto) 0.3 x10^3/uL (0.0-1.1) 0.7 x10^3/uL (0.0-1.1) Eosinophils # (Auto) 0.0 x10^3/uL (0.0-0.7) 0.0 x10^3/uL (0.0-0.7) Basophils # (Auto) 0.0 x10^3/uL (0.0-0.2) 0.0 x10^3/uL (0.0-0.2) Medications Current Medications Sodium Chloride 1,000 ml @ 1,000 mls/hr 1X ONCE IV Last administered on 06/11/19at 15:42; Start 06/11/19 at 15:45; Stop 06/11/19 at 16:44; Status DC Dicyclomine HCl (Bentyl) 20 mg 1X ONCE IM Last administered on 06/11/19at 15:42; Start 06/11/19 at 15:45; Stop 06/11/19 at 15:46; Status DC Ondansetron HCl (Zofran) 4 mg PRN Q8HRS PRN IV NAUSEA/VOMITING; Start 06/11/19 at 17:00; Stop 06/12/19 at 16:59; Status DC Fentanyl Citrate (Fentanyl 2ml Vial) 50 mcg PRN Q2HRS PRN IV PAIN; Start 06/11/19 at 17:00; Stop 06/12/19 at 16:59; Status DC Dicyclomine HCl (Bentyl) 10 mg TID PO Last administered on 06/14/19at 08:19; Start 06/11/19 at 21:00 Ferrous Sulfate (Feosol) 325 mg DAILY08 PO Last administered on 06/13/19at 08:35; Start 06/12/19 at 08:00; Stop 06/13/19 at 12:33; Status DC Hyoscyamine (Anaspaz) 0.125 mg Q6HRS PO Last administered on 06/14/19 06:02; Start 06/11/19 at 20:00 Oxycodone/ Acetaminophen (Percocet 5/325) 1 tab PRN Q4HRS PRN PO SEVERE PAIN 7- 10; Start 06/11/19 at 20:15 Simethicone (Gas-X) 80 mg PRN Q6HRS PRN PO GAS / BLOATING; Start 06/11/19 at 20:15 Non-Formulary Medication (Mesalamine (Apriso)) 2 cap BID PO Last administered on 06/14/19 08:19; Start 06/11/19 at 21:00 Pantoprazole Sodium (Protonix) 40 mg DAILYAC PO Last administered on 06/14/19 06:02; Start 06/12/19 at 07:30 Psyllium Hydrophilic Mucilloid (Metamucil Fiber Packet) 1 pkt DAILY PO ; Start 06/12/19 at 09:00 Pharmacy Consult (C.diff Med Screen By Rx) 1 each 1X ONCE MC Last administered on 06/12/19at 08:36; Start 06/11/19 at 22:15; Stop 06/11/19 at 22:16; Status DC Iron Sucrose 500 mg/Sodium Chloride 275 ml @ 78.571 mls/ hr 1X ONCE IV Last administered on 06/12/19at 11:25; Start 06/12/19 at 11:00; Stop 06/12/19 at 14:29; Status DC Methylprednisolone Sodium Succinate (SOLU-Medrol 40MG VIAL) 40 mg Q8HRS IV Last administered on 06/13/19at 05:24; Start 06/12/19 at 14:00; Stop 06/13/19 at 12:33; Status DC Vancomycin HCl (Vancomycin Oral Solution) 125 mg [id number] PO ; Start 06/12/19 at 14:30; Stop 06/12/19 at 14:56; Status DC Vancomycin HCl (Vancomycin Oral Solution) 500 mg [id number] PO Last administered on 06/14/19 08:19; Start 06/12/19 at 15:01 Ferrous Sulfate (Feosol) 325 mg BIDWMEALS PO Last administered on 06/14/19 08:19; Start 06/13/19 at 17:00 Prednisone (Prednisone) 60 mg DAILY PO Last administered on 06/14/19at 08:19; Start 06/14/19 at 09:00 Ondansetron HCl (Zofran) 4 mg PRN Q6HRS PRN IV NAUSEA/VOMITING Last administered on 06/13/19at 18:59; Start 06/13/19 at 18:45 Aspirin (Ecotrin) 81 mg [id number] PO ; Start 06/14/19 at 08:00; Stop 06/13/19 at 19:30; Status DC Aspirin (Ecotrin) 81 mg 1X STAT PO Last administered on 06/13/19at 19:37; Start 06/13/19 at 19:30; Stop 06/13/19 at 19:33; Status DC Active Scripts Active Simethicone 80 Mg Tab.chew 80 Mg PO PRN Q6HRS PRN 30 Days Anaspaz (Hyoscyamine Sulfate) 0.125 Mg Tab.rapdis 0.125 Mg PO Q6HRS 10 Days Percocet 5-325 Mg Tablet (Oxycodone/Acetaminophen) 1 Each Tablet 1 Tab PO PRN Q4HRS PRN 14 Days Reported Ferrous Sulfate 325 Mg Tablet 325 Mg PO DAILY Red Yeast Rice 600 Mg Capsule 600 Mg PO DAILY Fiber (Psyllium Husk) 0.52 Gm Capsule 0.52 Gm PO DAILY Omeprazole 40 Mg Capsule.dr 1 Cap PO DAILY Centrum Silver Tablet (Multivits-Min/Fa/Lycopene/Lut) 1 Each Tablet 1 Each PO DAILY Nystatin 100,000 Unit/1 Ml Oral.susp 10 Ml PO QID Dicyclomine Hcl 10 Mg Capsule 1 Cap PO TID Apriso (Mesalamine) 0.375 Gm Cap.er.24h 2 Cap PO BID Vitals/I & O Vital Sign - Last 24 Hours 06/13/19 06/13/19 06/13/19 06/13/19 11:00 15:00 19:00 20:00 Temp 98.5 97.5 98.1 98.5 97.5 98.1 Pulse 61 71 66 Resp 17 17 17 B/P (MAP) 94/61 (72) 94/63 (73) 107/72 (84) Pulse Ox 95 96 99 O2 Delivery Room Air Room Air Room Air Room Air 06/13/19 06/14/19 06/14/19 23:59 03:18 07:00 Temp 98.1 97.3 98.8 98.1 97.3 98.8 Pulse 58 55 67 Resp 18 18 16 B/P (MAP) 110/77 (88) 107/75 (86) 100/68 (79) Pulse Ox 99 96 94 O2 Delivery Room Air Room Air Intake and Output 06/13/19 06/13/19 06/14/19 14:59 22:59 06:59 Intake Total 0 ml Balance 0 ml SAUNDRA ROGERS MD Jun 14, 2019 08:43
[2019-06-14 11:00] VITALS: BP 91/57
--- NOTE | 2019-06-14 11:19 | PDOC ---
Infectious Disease Note Subjective Subjective c/o 8-10 stools a day and cramps Dry heaves yesterday Appetite good Denies fever/chills ROS ROS per HPI Vital Sign Vital Signs Vital Signs Date Time Temp Pulse Resp B/P (MAP) Pulse Ox O2 Delivery O2 Flow Rate FiO2 06/14/19 07:00 98.8 67 16 100/68 (79) 94 Room Air 98.8 Physical Exam PHYSICAL EXAM GENERAL: Lying down, alert, NAD HEENT: Oral cavity, pharynx is clear. No signs of thrush. Edentulous NECK: Supple. Good range of motion. LUNGS: Clear to auscultation bilaterally. HEART: S1, S2. ABDOMEN: Mildly distended, soft, NT + BS no guarding. EXTREMITIES: No clubbing, cyanosis or gross edema. SKIN: Warm to touch without signs of rash. NEUROLOGIC: Alert and oriented. Labs Lab Laboratory Tests Test 06/14/19 05:00 White Blood Count 6.4 x10^3/uL (4.0-11.0) Red Blood Count 3.29 x10^6/uL (4.30-5.70) Hemoglobin 8.6 g/dL (13.0-17.5) Hematocrit 26.8 % (39.0-53.0) Mean Corpuscular Volume 81 fL (79-100) Mean Corpuscular Hemoglobin 26 pg (25-35) Mean Corpuscular Hemoglobin Concent 32 g/dL (31-37) Red Cell Distribution Width 19.2 % (11.5-14.5) Platelet Count 349 x10^3/uL (140-400) Neutrophils (%) (Auto) 67 % (31-73) Lymphocytes (%) (Auto) 20 % (24-48) Monocytes (%) (Auto) 12 % (0-9) Eosinophils (%) (Auto) 1 % (0-3) Basophils (%) (Auto) 0 % (0-3) Neutrophils # (Auto) 4.3 x10^3/uL (1.8-7.7) Lymphocytes # (Auto) 1.3 x10^3/uL (1.0-4.8) Monocytes # (Auto) 0.7 x10^3/uL (0.0-1.1) Eosinophils # (Auto) 0.0 x10^3/uL (0.0-0.7) Basophils # (Auto) 0.0 x10^3/uL (0.0-0.2) Erythrocyte Sedimentation Rate 50 (0-15) Micro CT head No acute intracranial hemorrhage. Objective Assessment Hematochezia Ulcerative colitis Immunosuppression C-diff - 06/11 with h/o + 04/24 Anemia Recent thrush - no signs now MRI reviewed and Neuro following Plan Plan of Care Cont Vanc 500 mg with immunosuppression. Uncertain if C-diff is causing infection or colonization with UC flare Await further treatment for hemachezia Not a transplant candidate sec to immunosuppression F/u response Attending Co-Sign Attending Co-Sign The patient was seen and interviewed as well as examined at the bedside. The chart was reviewed. The case was discussed. Agree with the plan of care. LYNNETTE STONE APRN Jun 14, 2019 11:18 BARBRA ZAMUDIO MD Jun 14, 2019 16:14
--- NOTE | 2019-06-14 11:46 | PDOC ---
Subjective: Subjective: "I've been telling you for two months that I have diarrhea and blood in my stools and it took me coming to the hospital for anyone to give a shit. I'm going to lose my job and my house because of all this and no one is f&%#ing doing anything about it." Tolerating PO, having gas cramping - "just the same symptoms I've been telling you about for months and we're doing the same old thing. What's the definition of stupid?" Has "altered sensation" in left arm w/ tingling and "coldness." Says "I don't have complete control of it." Objective: Objective: D/w nurse - has otherwise been pleasant with staff and other providers. Stool is reddish pinkish brownish. To have brain MRI today - LUE numbness yesterday after Zofran. Reviewed other notes and d/w HANNAH/Darline. Vital Signs: Vital Signs Date Time Temp Pulse Resp B/P (MAP) Pulse Ox O2 Delivery O2 Flow Rate FiO2 06/14/19 07:00 98.8 67 16 100/68 (79) 94 Room Air 98.8 Labs: Laboratory Tests Test 06/14/19 05:00 White Blood Count 6.4 x10^3/uL Red Blood Count 3.29 x10^6/uL Hemoglobin 8.6 g/dL Hematocrit 26.8 % Mean Corpuscular Volume 81 fL Mean Corpuscular Hemoglobin 26 pg Mean Corpuscular Hemoglobin Concent 32 g/dL Red Cell Distribution Width 19.2 % Platelet Count 349 x10^3/uL Neutrophils (%) (Auto) 67 % Lymphocytes (%) (Auto) 20 % Monocytes (%) (Auto) 12 % Eosinophils (%) (Auto) 1 % Basophils (%) (Auto) 0 % Neutrophils # (Auto) 4.3 x10^3/uL Lymphocytes # (Auto) 1.3 x10^3/uL Monocytes # (Auto) 0.7 x10^3/uL Eosinophils # (Auto) 0.0 x10^3/uL Basophils # (Auto) 0.0 x10^3/uL Erythrocyte Sedimentation Rate 50 Imaging: Head CT 06/13 IMPRESSION: No acute intracranial hemorrhage. PE: GEN: NAD LUNGS: room air NEURO/PSYCH: A & O �3, angry A/P: Chronic diarrhea and hematochezia w/ UC and recurrent C DIff ANA Altered sensation in LUE -- I reminded him of the workup he has had during the past 1.5 months and the treatments he has had for refractory UC and recurrent C Diff. It was not a productive conversation today - he is angry and cursing (completely different than yesterday) - but apparently has no issues w/ others. Awaiting neuro workup for left arm issues. When discharged, would send w/ prednisone 60mg QD - stay on this until he can see Dr. Fowler in the office. Take Humira at home. C Diff treatment per ID. HALIE GROSS Jun 14, 2019 11:45
--- NOTE | 2019-06-14 12:01 | PDOC ---
PROGRESS NOTES Assessment Problems Medical Problems: (1) Abdominal pain Status: Acute (2) Anemia due to blood loss Status: Acute (3) Colitis Status: Acute (4) External hemorrhoids Status: Chronic (5) GI bleed Status: Acute (6) Severe protein-calorie malnutrition Status: Chronic He had an episode of left arm numbness which the nurse called me about last night, following Zofran injection. He says that his entire left arm went numb. Distribution of sensory loss is nonorganic. Head CT last night was negative. Transient visual obscurations, usually this short-lived are either intraocular or some sort of metabolic issue. In this case, he most likely has problems from anemia. Isolated problems with the eyes are unlikely to be related to transient ischemic attack, but I suppose she could have intracranial vascular disease despite the negative outpatient carotid Doppler studies. Cardioembolic phenomenon is unlikely to affect eyes over and over. Sedimentation rate is 50 Plan Await MRI of the brain with MR angiogram and MR venogram I gave him one aspirin last night but won't continue it unless MRI findings abnormal, given the GI bleeding Subjective He says that it took 20 hours for a doctor to come see him about his left arm numbness. I pointed out to him that I was seeing him a little over 12 hours since onset of symptoms and that he had had thorough evaluation, monitoring, and tests so far are negative. Objective Vital Signs Date Time Temp Pulse Resp B/P (MAP) Pulse Ox O2 Delivery O2 Flow Rate FiO2 06/14/19 11:00 99.0 71 18 91/57 (68) 97 Room Air 99.0 Intake and Output 06/14/19 07:00 Intake Total 0 ml Balance 0 ml Intake Oral 0 ml # Voids 7 # Bowel Movements 3 PHYSICAL EXAM Alert. Oriented to time, place and person. PERRL. EOMI. CN: no focal findings. Muscle tone: normal. Muscle strength: 5/5, no pronator drift DTR: 2+ Plantar reflex: flexor Gait: not examined in bed. Sensory exam: Hypesthesia, entire left arm to level of shoulder. No cerebellar signs elicited. Review of Relevant I have reviewed the following items maria teresa (where applicable) has been applied. Labs Laboratory Tests Test 06/13/19 09:34 06/14/19 05:00 White Blood Count 7.0 x10^3/uL (4.0-11.0) 6.4 x10^3/uL (4.0-11.0) Red Blood Count 3.47 x10^6/uL (4.30-5.70) 3.29 x10^6/uL (4.30-5.70) Hemoglobin 9.0 g/dL (13.0-17.5) 8.6 g/dL (13.0-17.5) Hematocrit 28.4 % (39.0-53.0) 26.8 % (39.0-53.0) Mean Corpuscular Volume 82 fL (79-100) 81 fL (79-100) Mean Corpuscular Hemoglobin 26 pg (25-35) 26 pg (25-35) Mean Corpuscular Hemoglobin Concent 32 g/dL (31-37) 32 g/dL (31-37) Red Cell Distribution Width 19.5 % (11.5-14.5) 19.2 % (11.5-14.5) Platelet Count 436 x10^3/uL (140-400) 349 x10^3/uL (140-400) Neutrophils (%) (Auto) 85 % (31-73) 67 % (31-73) Lymphocytes (%) (Auto) 12 % (24-48) 20 % (24-48) Monocytes (%) (Auto) 4 % (0-9) 12 % (0-9) Eosinophils (%) (Auto) 0 % (0-3) 1 % (0-3) Basophils (%) (Auto) 0 % (0-3) 0 % (0-3) Neutrophils # (Auto) 5.9 x10^3/uL (1.8-7.7) 4.3 x10^3/uL (1.8-7.7) Lymphocytes # (Auto) 0.8 x10^3/uL (1.0-4.8) 1.3 x10^3/uL (1.0-4.8) Monocytes # (Auto) 0.3 x10^3/uL (0.0-1.1) 0.7 x10^3/uL (0.0-1.1) Eosinophils # (Auto) 0.0 x10^3/uL (0.0-0.7) 0.0 x10^3/uL (0.0-0.7) Basophils # (Auto) 0.0 x10^3/uL (0.0-0.2) 0.0 x10^3/uL (0.0-0.2) Erythrocyte Sedimentation Rate 50 (0-15) Laboratory Tests Test 06/14/19 05:00 White Blood Count 6.4 x10^3/uL (4.0-11.0) Red Blood Count 3.29 x10^6/uL (4.30-5.70) Hemoglobin 8.6 g/dL (13.0-17.5) Hematocrit 26.8 % (39.0-53.0) Mean Corpuscular Volume 81 fL (79-100) Mean Corpuscular Hemoglobin 26 pg (25-35) Mean Corpuscular Hemoglobin Concent 32 g/dL (31-37) Red Cell Distribution Width 19.2 % (11.5-14.5) Platelet Count 349 x10^3/uL (140-400) Neutrophils (%) (Auto) 67 % (31-73) Lymphocytes (%) (Auto) 20 % (24-48) Monocytes (%) (Auto) 12 % (0-9) Eosinophils (%) (Auto) 1 % (0-3) Basophils (%) (Auto) 0 % (0-3) Neutrophils # (Auto) 4.3 x10^3/uL (1.8-7.7) Lymphocytes # (Auto) 1.3 x10^3/uL (1.0-4.8) Monocytes # (Auto) 0.7 x10^3/uL (0.0-1.1) Eosinophils # (Auto) 0.0 x10^3/uL (0.0-0.7) Basophils # (Auto) 0.0 x10^3/uL (0.0-0.2) Erythrocyte Sedimentation Rate 50 (0-15) Medications Current Medications Sodium Chloride 1,000 ml @ 1,000 mls/hr 1X ONCE IV Last administered on 06/11/19at 15:42; Start 06/11/19 at 15:45; Stop 06/11/19 at 16:44; Status DC Dicyclomine HCl (Bentyl) 20 mg 1X ONCE IM Last administered on 06/11/19at 15:42; Start 06/11/19 at 15:45; Stop 06/11/19 at 15:46; Status DC Ondansetron HCl (Zofran) 4 mg PRN Q8HRS PRN IV NAUSEA/VOMITING; Start 06/11/19 at 17:00; Stop 06/12/19 at 16:59; Status DC Fentanyl Citrate (Fentanyl 2ml Vial) 50 mcg PRN Q2HRS PRN IV PAIN; Start 06/11/19 at 17:00; Stop 06/12/19 at 16:59; Status DC Dicyclomine HCl (Bentyl) 10 mg TID PO Last administered on 06/14/19 08:19; Start 06/11/19 at 21:00 Ferrous Sulfate (Feosol) 325 mg DAILY08 PO Last administered on 06/13/19 08:35; Start 06/12/19 at 08:00; Stop 06/13/19 at 12:33; Status DC Hyoscyamine (Anaspaz) 0.125 mg Q6HRS PO Last administered on 06/14/19 06:02; Start 06/11/19 at 20:00 Oxycodone/ Acetaminophen (Percocet 5/325) 1 tab PRN Q4HRS PRN PO SEVERE PAIN 7- 10; Start 06/11/19 at 20:15 Simethicone (Gas-X) 80 mg PRN Q6HRS PRN PO GAS / BLOATING; Start 06/11/19 at 20:15 Non-Formulary Medication (Mesalamine (Apriso)) 2 cap BID PO Last administered on 06/14/19 08:19; Start 06/11/19 at 21:00 Pantoprazole Sodium (Protonix) 40 mg DAILYAC PO Last administered on 06/14/19 06:02; Start 06/12/19 at 07:30 Psyllium Hydrophilic Mucilloid (Metamucil Fiber Packet) 1 pkt DAILY PO ; Start 06/12/19 at 09:00 Pharmacy Consult (C.diff Med Screen By Rx) 1 each 1X ONCE [facility] Last administered on 06/12/19at 08:36; Start 06/11/19 at 22:15; Stop 06/11/19 at 22:16; Status DC Iron Sucrose 500 mg/Sodium Chloride 275 ml @ 78.571 mls/ hr 1X ONCE IV Last administered on 06/12/19at 11:25; Start 06/12/19 at 11:00; Stop 06/12/19 at 14:29; Status DC Methylprednisolone Sodium Succinate (SOLU-Medrol 40MG VIAL) 40 mg Q8HRS IV Last administered on 06/13/19at 05:24; Start 06/12/19 at 14:00; Stop 06/13/19 at 12:33; Status DC Vancomycin HCl (Vancomycin Oral Solution) 125 mg [id number] PO ; Start 06/12/19 at 14:30; Stop 06/12/19 at 14:56; Status DC Vancomycin HCl (Vancomycin Oral Solution) 500 mg [id number] PO Last administered on 06/14/19at 08:19; Start 06/12/19 at 15:01 Ferrous Sulfate (Feosol) 325 mg BIDWMEALS PO Last administered on 06/14/19at 08: 19; Start 06/13/19 at 17:00 Prednisone (Prednisone) 60 mg DAILY PO Last administered on 06/14/19at 08:19; Start 06/14/19 at 09:00 Ondansetron HCl (Zofran) 4 mg PRN Q6HRS PRN IV NAUSEA/VOMITING Last administered on 06/13/19at 18:59; Start 06/13/19 at 18:45 Aspirin (Ecotrin) 81 mg DAILYWBKFT PO ; Start 06/14/19 at 08:00; Stop 06/13/19 at 19:30; Status DC Aspirin (Ecotrin) 81 mg 1X STAT PO Last administered on 06/13/19at 19:37; Start 06/13/19 at 19:30; Stop 06/13/19 at 19:33; Status DC Lactobacillus Rhamnosus (Culturelle) 1 cap BID PO ; Start 06/14/19 at 21:00 Active Scripts Active Simethicone 80 Mg Tab.chew 80 Mg PO PRN Q6HRS PRN 30 Days Anaspaz (Hyoscyamine Sulfate) 0.125 Mg Tab.rapdis 0.125 Mg PO Q6HRS 10 Days Percocet 5-325 Mg Tablet (Oxycodone/Acetaminophen) 1 Each Tablet 1 Tab PO PRN Q4HRS PRN 14 Days Reported Ferrous Sulfate 325 Mg Tablet 325 Mg PO DAILY Red Yeast Rice 600 Mg Capsule 600 Mg PO DAILY Fiber (Psyllium Husk) 0.52 Gm Capsule 0.52 Gm PO DAILY Omeprazole 40 Mg Capsule.dr 1 Cap PO DAILY Centrum Silver Tablet (Multivits-Min/Fa/Lycopene/Lut) 1 Each Tablet 1 Each PO DAILY Nystatin 100,000 Unit/1 Ml Oral.susp 10 Ml PO QID Dicyclomine Hcl 10 Mg Capsule 1 Cap PO TID Apriso (Mesalamine) 0.375 Gm Cap.er.24h 2 Cap PO BID Vitals/I & O Vital Sign - Last 24 Hours 06/13/19 06/13/19 06/13/19 06/13/19 15:00 19:00 20:00 23:59 Temp 97.5 98.1 98.1 97.5 98.1 98.1 Pulse 71 66 58 Resp 17 17 18 B/P (MAP) 94/63 (73) 107/72 (84) 110/77 (88) Pulse Ox 96 99 99 O2 Delivery Room Air Room Air Room Air Room Air 06/14/19 06/14/19 06/14/19 03:18 07:00 11:00 Temp 97.3 98.8 99.0 97.3 98.8 99.0 Pulse 55 67 71 Resp 18 16 18 B/P (MAP) 107/75 (86) 100/68 (79) 91/57 (68) Pulse Ox 96 94 97 O2 Delivery Room Air Room Air Intake and Output 06/13/19 06/13/19 06/14/19 15:00 23:00 07:00 Intake Total 0 ml Balance [address] head without contrast 06/13/2019 7:46 PM INDICATION: Left-sided weakness COMPARISON: None available TECHNIQUE: Multiple axial CT images of the head were obtained from skull base through the vertex without intravenous contrast. FINDINGS: Head: Ventricles, sulci and basal cisterns are within normal limits. There is no hydrocephalus. Nevarez-white matter differentiation is normal. There is no acute intracranial hemorrhage. There is no mass, mass effect or midline shift. Posterior fossa is normal in appearance. Visualized portions of the orbits are normal with exception of left lens replacement with scleral buckle. Paranasal sinuses are well aerated. Mastoid air cells are well aerated. Scalp and calvaria are normal. IMPRESSION: No acute intracranial hemorrhage. BHANU SOSA MD Jun 14, 2019 12:01
--- NOTE | 2019-06-14 12:55 | RAD ---
ANGIOGRAPHY BRAIN WO CONTRAST, ANGIOGRAPHY BRAIN WO CONTRAST, BRAIN W/O CONTRAST History: Transient visual difficulties. Technique: Multiplanar multisequence MRI of the brain without contrast. 3-D [id number] MR angiography was performed of the brain. 2-D [id number] MRV of the brain. 3-D reconstructions were performed. Determination of any degree of stenosis is based on NASCET criteria. Comparison: None Findings: MRI brain: Multifocal small infarcts involving the right posterior parietal and occipital lobes with additional infarcts involving the right frontal and parietal lobes including the deep white matter. Predominantly involving the right posterior watershed territory. Chronic small right cerebellar infarcts. Mild brain parenchymal volume loss. Postoperative changes left orbit. Mild scattered paranasal sinus mucosal thickening most prominent within the ethmoid sinuses. Mastoid air cells are clear. MRV: The superior sagittal sinus drains into the right transverse sinus exclusively. 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 No evidence of sinus venous thrombosis. MRA head: Internal carotid arteries: No stenosis, occlusion or aneurysm. Middle cerebral arteries: No stenosis, occlusion or aneurysm. Anterior cerebral arteries: No stenosis, occlusion or aneurysm. Posterior cerebral arteries: No stenosis, occlusion or aneurysm. Basilar artery: No stenosis, occlusion or aneurysm. Vertebral arteries: No stenosis, occlusion or aneurysm. Results discussed with patient's nurse at 12:50 PM on 06/14/2019. Impression: 1. Multiple acute right cerebral hemispheric infarcts predominantly posterior watershed territory. 2. Small chronic right cerebellar infarcts. 3. No intracranial arterial stenosis or occlusion. 4. No evidence of sinus venous thrombosis. 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 Electronically signed by: Brett Horowitz DO (06/14/2019 12:52 PM) [id number]
--- NOTE | 2019-06-14 12:55 | RAD ---
ANGIOGRAPHY BRAIN WO CONTRAST, ANGIOGRAPHY BRAIN WO CONTRAST, BRAIN W/O CONTRAST History: Transient visual difficulties. Technique: Multiplanar multisequence MRI of the brain without contrast. 3-D [id number] MR angiography was performed of the brain. 2-D [id number] MRV of the brain. 3-D reconstructions were performed. Determination of any degree of stenosis is based on NASCET criteria. Comparison: None Findings: MRI brain: Multifocal small infarcts involving the right posterior parietal and occipital lobes with additional infarcts involving the right frontal and parietal lobes including the deep white matter. Predominantly involving the right posterior watershed territory. Chronic small right cerebellar infarcts. Mild brain parenchymal volume loss. Postoperative changes left orbit. Mild scattered paranasal sinus mucosal thickening most prominent within the ethmoid sinuses. Mastoid air cells are clear. MRV: The superior sagittal sinus drains into the right transverse sinus exclusively. 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 No evidence of sinus venous thrombosis. MRA head: Internal carotid arteries: No stenosis, occlusion or aneurysm. Middle cerebral arteries: No stenosis, occlusion or aneurysm. Anterior cerebral arteries: No stenosis, occlusion or aneurysm. Posterior cerebral arteries: No stenosis, occlusion or aneurysm. Basilar artery: No stenosis, occlusion or aneurysm. Vertebral arteries: No stenosis, occlusion or aneurysm. Results discussed with patient's nurse at 12:50 PM on 06/14/2019. Impression: 1. Multiple acute right cerebral hemispheric infarcts predominantly posterior watershed territory. 2. Small chronic right cerebellar infarcts. 3. No intracranial arterial stenosis or occlusion. 4. No evidence of sinus venous thrombosis. 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 Electronically signed by: Brett Horowitz DO (06/14/2019 12:52 PM) [email or web address]
--- NOTE | 2019-06-14 12:55 | RAD ---
ANGIOGRAPHY BRAIN WO CONTRAST, ANGIOGRAPHY BRAIN WO CONTRAST, BRAIN W/O CONTRAST History: Transient visual difficulties. Technique: Multiplanar multisequence MRI of the brain without contrast. 3-D [id number] MR angiography was performed of the brain. 2-D [id number] MRV of the brain. 3-D reconstructions were performed. Determination of any degree of stenosis is based on NASCET criteria. Comparison: None Findings: MRI brain: Multifocal small infarcts involving the right posterior parietal and occipital lobes with additional infarcts involving the right frontal and parietal lobes including the deep white matter. Predominantly involving the right posterior watershed territory. Chronic small right cerebellar infarcts. Mild brain parenchymal volume loss. Postoperative changes left orbit. Mild scattered paranasal sinus mucosal thickening most prominent within the ethmoid sinuses. Mastoid air cells are clear. MRV: The superior sagittal sinus drains into the right transverse sinus exclusively. 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 No evidence of sinus venous thrombosis. MRA head: Internal carotid arteries: No stenosis, occlusion or aneurysm. Middle cerebral arteries: No stenosis, occlusion or aneurysm. Anterior cerebral arteries: No stenosis, occlusion or aneurysm. Posterior cerebral arteries: No stenosis, occlusion or aneurysm. Basilar artery: No stenosis, occlusion or aneurysm. Vertebral arteries: No stenosis, occlusion or aneurysm. Results discussed with patient's nurse at 12:50 PM on 06/14/2019. Impression: 1. Multiple acute right cerebral hemispheric infarcts predominantly posterior watershed territory. 2. Small chronic right cerebellar infarcts. 3. No intracranial arterial stenosis or occlusion. 4. No evidence of sinus venous thrombosis. 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 Electronically signed by: Brett Horowitz DO (06/14/2019 12:52 PM) [id number]
[2019-06-14] MEDS ORDERED: ACETAMINOPHEN 325 MG TABLET. PO PRN (13:15)
[2019-06-14] MEDS ORDERED: ACETAMINOPHEN 650 MG SUPP.RECT. PR PRN (13:15)
[2019-06-14 15:00] VITALS: BP 99/64
--- NOTE | 2019-06-14 15:52 | PDOC2 ---
BRYAN KEENAN LAND COMMISSIONER 06/14/19 1552: CARDIAC CONSULT DATE OF CONSULT Date of Consult DATE: 06/14/19 TIME: 15:44 REASON FOR CONSULT Reason for Consult: CVA, had echo at another facility, re-ordered. ? PFO REFERRING PHYSICIAN Referring Physician: Dr. Conley SOURCE Source: Chart review, Patient HISTORY OF PRESENT ILLNESS HISTORY OF PRESENT ILLNESS This is a 53 yo male, with a history of refractory ulcerative colitis and recurrent C Diff, who presented secondary to GI bleed and diarrhea. Noted with left arm weakness while hospitalized. MRI notable for acute stroke. ? cardioembolic; consult requested for further evaluation. Patient reports having routine echo last week. Began having brief blindness in his left eye upon standing a couple of weeks ago. Had routine appointment with chemist inorganic and potential for TIA was discusses. This was reported to PCP, who scheduled him to have echocardiogram and carotid study performed. No bubble study was performed per patients recollection. He denies any recent chest pain, shortness of breath, diaphoresis, or nausea/vomiting. Staff reporting him to be difficult and verbally abusive. Was pleasant during my encounter. PAST MEDICAL HISTORY Cardiovascular: Hyperlipidemia GI: GERD, Other (UC, C-diff) Heme/Onc: Anemia NOS Endocrine: Hypothyroidism PAST SURGICAL HISTORY Past Surgical History: Other (left eye surgery, dental extraction) FAMILY HISTORY Family History: Diabetes, Other (AFIB) SOCIAL HISTORY Smoke: Quit (2012) ALCOHOL: none Drugs: None Lives: with Family CURRENT MEDICATIONS CURRENT MEDICATIONS Current Medications Medications (Trade) Dose Ordered Sig/Laurent Route PRN Reason Start Time Stop Time Status Last Admin Dose Admin Ferrous Sulfate (Feosol) 325 mg BIDWMEALS PO 06/13/19 17:00 06/14/19 08:19 Prednisone (Prednisone) 60 mg DAILY PO 06/14/19 09:00 06/14/19 08:19 Ondansetron HCl (Zofran) 4 mg PRN Q6HRS PRN IV NAUSEA/VOMITING 06/13/19 18:45 06/13/19 18:59 Aspirin (Ecotrin) 81 mg 1X STAT PO 06/13/19 19:30 06/13/19 19:33 DC 06/13/19 19:37 ALLERGIES ALLERGIES: Coded Allergies: No Known Drug Allergies (Unverified , 04/30/19) ROS Review of System 14 point ROS conducted with pertinent positives noted above in HPI. PHYSICAL EXAM General: Alert, Oriented X3, Cooperative, No acute distress HEENT: Atraumatic, Mucous membr. moist/pink Lungs: Clear to auscultation Heart: Regular rate, Other Abdomen: Soft, No tenderness Extremities: No edema, Normal pulses Neuro: Normal speech, Sensation intact Psych/Mental Status: Mental status NL, Other (flat affect ) MUSCULOSKELETAL: Osteoarthritic changes both hands VITALS/I&O VITALS/I&O: Vital Signs Date Time Temp Pulse Resp B/P (MAP) Pulse Ox O2 Delivery O2 Flow Rate FiO2 06/14/19 11:00 99.0 71 18 91/57 (68) 97 Room Air 99.0 I & O 06/13/19 06/13/19 06/14/19 15:00 23:00 07:00 Intake Total 0 ml Balance 0 ml LABS Lab: Laboratory Tests Test 06/14/19 05:00 White Blood Count 6.4 x10^3/uL (4.0-11.0) Red Blood Count 3.29 x10^6/uL (4.30-5.70) L Hemoglobin 8.6 g/dL (13.0-17.5) L Hematocrit 26.8 % (39.0-53.0) L Mean Corpuscular Volume 81 fL (79-100) Mean Corpuscular Hemoglobin 26 pg (25-35) Mean Corpuscular Hemoglobin Concent 32 g/dL (31-37) Red Cell Distribution Width 19.2 % (11.5-14.5) H Platelet Count 349 x10^3/uL (140-400) Neutrophils (%) (Auto) 67 % (31-73) Lymphocytes (%) (Auto) 20 % (24-48) L Monocytes (%) (Auto) 12 % (0-9) H Eosinophils (%) (Auto) 1 % (0-3) Basophils (%) (Auto) 0 % (0-3) Neutrophils # (Auto) 4.3 x10^3/uL (1.8-7.7) Lymphocytes # (Auto) 1.3 x10^3/uL (1.0-4.8) Monocytes # (Auto) 0.7 x10^3/uL (0.0-1.1) Eosinophils # (Auto) 0.0 x10^3/uL (0.0-0.7) Basophils # (Auto) 0.0 x10^3/uL (0.0-0.2) Erythrocyte Sedimentation Rate 50 (0-15) H Laboratory Tests 06/14/19 05:00 ASSESSMENT/PLAN ASSESSMENT/PLAN 1. Anemia, GI bleed; s/p 3 units PRBC's 2. Ulcerative colitis, refractory 3. Recurrent C-diff 4. Acute CVA; ? cardioembolic. Not candidate for TPA with GI bleed 5. Hyperlipidemia 6. Hypothyroidism; quit taking levothyroxine 7. GERD Recommendations Transfer for cardiac monitoring Echo with bubble study- patient now agreeable TSH, lipids No ASA, OAC with GI bleeding Supportive care Further pending above Follow GI/neuro recs RODERICK EGAN MD 06/14/195: CARDIAC CONSULT ASSESSMENT/PLAN ASSESSMENT/PLAN Patient seen and examined. Agree with DIABETES EDUCATION COORDINATOR's assessment and plan, Agree with 2D echo with bubble study to rule out PFO as a cause of paradoxical embolization Neurology following for CVA and GI following for GIB/ulcerative colitis Thank you for your consultation BRYAN KEENAN APRN Jun 14, 2019 15:52 RODERICK EGAN MD Jun 14, 2019 19:35
--- NOTE | 2019-06-14 16:08 | NUR ---
SW following pt. PT/OT/ST pending. SW will await for PT/OT recommendation to assess skilled needs. Will continue to follow.
[2019-06-14 19:04] VITALS: BP 93/58
[2019-06-14] MEDS: LACTOBACILLUS RHAMNOSUS GG 1 CAPSULE. PO SCH (20:20)
[2019-06-14 23:25] VITALS: BP 88/52
[2019-06-15 03:48] VITALS: BP 93/53
[2019-06-15] MEDS: HYOSCYAMINE 0.125 MG TAB.RAPDIS PO SCH ×5 (06:21→23:56)
[2019-06-15 07:20] VITALS: BP 95/65
[2019-06-15] MEDS: FERROUS SULFATE 325 MG TABLET. PO SCH ×2 (08:30→16:37)
[2019-06-15] MEDS: LACTOBACILLUS RHAMNOSUS GG 1 CAPSULE. PO SCH ×2 (08:30→21:02)
[2019-06-15] MEDS: predniSONE 20 MG TABLET PO SCH (08:30)
[2019-06-15] MEDS: PANTOPRAZOLE 40 MG TABLET.DR. PO SCH (08:30)
[2019-06-15] MEDS: DICYCLOMINE HCL 10 MG CAPSULE PO SCH ×3 (08:30→21:02)
[2019-06-15] MEDS: [UNRECOGNIZED DRUG - REMARK] PO SCH ×2 (08:30→21:02)
[2019-06-15] MEDS: ASPIRIN CHEWABLE 81 MG TABLET. PO SCH (08:30)
[2019-06-15] MEDS: VANCOMYCIN 125 MG/2.5 ML ORAL SOLUTION. PO SCH ×4 (08:31→21:01)
[2019-06-15] MEDS: PSYLLIUM HUSK (SUGAR FREE) 1 PKT PACKET PO SCH (08:31)
--- NOTE | 2019-06-15 09:50 | PDOC ---
Infectious Disease Note Subjective Subjective Says still having diarrhea, some blood, about 8 or so a day Appetite remains good Left arm weakness No F/C/S ROS ROS per HPI Vital Sign Vital Signs Vital Signs Date Time Temp Pulse Resp B/P (MAP) Pulse Ox O2 Delivery O2 Flow Rate FiO2 06/15/19 07:20 98.3 66 18 95/65 (75) 99 Room Air 98.3 Physical Exam PHYSICAL EXAM GENERAL: Sitting on the side of the bed, eating, NAD HEENT: Pupils equal, oral cavity, pharynx is clear. Edentulous NECK: Supple. Good range of motion. LUNGS: Clear to auscultation bilaterally. HEART: S1, S2. ABDOMEN: Mildly distended, soft, NT + BS no guarding. EXTREMITIES: No clubbing, cyanosis or gross edema. SKIN: Warm to touch without signs of rash. NEUROLOGIC: Alert and oriented x 3. PEREZ PIV Labs Lab Laboratory Tests Test 06/15/19 03:40 Triglycerides Level 83 mg/dL (0-150) Cholesterol Level 131 mg/dL (0-200) LDL Cholesterol, Calculated 70 mg/dL (0-100) VLDL Cholesterol, Calculated 17 mg/dL (0-40) Non-HDL Cholesterol Calculated 87 mg/dL (0-129) HDL Cholesterol 44 mg/dL (40-60) Cholesterol/HDL Ratio 3.[address] head No acute intracranial hemorrhage. MRI 1. Multiple acute right cerebral hemispheric infarcts predominantly posterior watershed territory. 2. Small chronic right cerebellar infarcts. 3. No intracranial arterial stenosis or occlusion. 4. No evidence of sinus venous thrombosis. 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 Objective Assessment Hematochezia Ulcerative colitis Immunosuppression C-diff - 06/11 with h/o + 04/24 Anemia Recent thrush - no signs now CVA w/ left arm weakness Plan Plan of Care Cont Vanc 500 mg with immunosuppression. Uncertain if C-diff is causing infection or colonization with UC flare Await further treatment for hematochezia Not a transplant candidate sec to immunosuppression F/u response Echo pending Neurology and cardiology following Anticipate home with Dificid and then will eval need for Vanc taper Attending Co-Sign Attending Co-Sign The patient was seen and interviewed as well as examined at the bedside. The chart was reviewed. The case was discussed. Agree with the plan of care. LYNNETTE STONE DISPLAY DECORATOR Jun 15, 2019 09:49 BARBRA ZAMUDIO MD Jun 15, 2019 16:46
--- NOTE | 2019-06-15 10:03 | PDOC ---
PROGRESS NOTES Chief Complaint Chief Complaint A/P: Acute blood loss anemia - Hb 6.9 from 8.2 over a month ago. Transfused 1u PRBC overnight with Hb 6.4 --> 2 u PRBC --> Hb 9 Severe colitis - flex sig 04/30: large tender but not thrombosed external hemorrhoids; Severe colitis in rectum , sigmoid and descending colon - to extent of scope passage- no obvious pseudomembranes seen. recent colonoscopy in [place] reportedly w/ ulcerative colitis. Tapered on PO steroids History of C. difficile - s/p treatment from 04/24/19 culture positive. Repeat c. difficile now Severe protein-calorie malnutrition - will get post anesthesia room nurse involved now Immunosuppression - due for his injection today of remicade, will consult GI. Lactic acidosis - likely from blood loss, will hydrate Multiple acute right cerebral hemispheric infarcts predominantly 06/15 posterior watershed territory. Small chronic right cerebellar infarcts. No intracranial arterial stenosis or occlusion. No evidence of sinus venous thrombosis. FEN - NSS + clear liquid diet (no red jello) PPX - SCDs, PPI FULL CODE Inpatient for acute blood loss anemia, symptomatic will restart IV solumedrol 06/15 ECHO NEUROLOGY CONSULT 39 MIN PT EXAM, CHART REVIEW, > 50% OF TIME SPENT WITH EXAM, CHART REVIEW, PT CARE COORDINATION History of Present Illness History of Present Illness Mr Nesbitt is a 53 y/o male who was diagnosed w/ ulcerative colitis in [place] on 03/30/19 and recent diagnosis of c. difficile colitis 04/24/19 who comes in today with grossly bloody bowel movements. He was noted with Hb 6.9 in ED, lactate of 2.4 Diffuse abd pain, gas (worse in evening), liquid stools (8-10 daily - small w/ red blood every third stool), tenesmus, decreased appetite, weight loss (30 pounds), insomnia, fatigue. Albumin is 1.8-->1.5 Tuesday06/08/19 he had labs with H&H of 8.8/30.8. Pt reports he has multiple episodes of bloody stools today and feels his fatigue has increased. Pt denies CP/palpitations, N/V, fever, or urinary sxs. Pt reports he has had some exertional SOA- denies currently. Pt reports mid abd intermittent cramping. 06/12: Hb down to 6.4 overnight after 1u PRBC. He does not feel any better, still had a few bloody BM. He still has pain. No SOB or CP, but feels his heart racing and very weak, pale. C. difficile returned positive Better today - still some diarrhea, more solid. Less blood. More energy. Associated bloating/gas. No SOB or CP. Seen by neurology for transient left sided arm tingling up to shoulder and visual disturbances. CT head negative. He is very upset today, feels he should have had MRI brain 2 weeks ago when he told his outpatient physicians about his visual symptoms. His left arm tingling occurred yesterday after IV access Vitals Vitals Vital Signs Date Time Temp Pulse Resp B/P (MAP) Pulse Ox O2 Delivery O2 Flow Rate FiO2 06/15/19 08:00 Room Air 06/15/19 07:20 98.3 66 18 95/65 (75) 99 98.3 Physical Exam Physical Exam GENERAL: Sitting on the side of the bed, eating, NAD HEENT: Pupils equal, oral cavity, pharynx is clear. Edentulous NECK: Supple. Good range of motion. LUNGS: Clear to auscultation bilaterally. HEART: S1, S2. ABDOMEN: Mildly distended, soft, NT + BS no guarding. EXTREMITIES: No clubbing, cyanosis or gross edema. SKIN: Warm to touch without signs of rash. NEUROLOGIC: Alert and oriented x 3. PEREZ PIV General: Alert, Oriented X3, Cooperative, No acute distress Heart: Regular rate, Normal S1, Other Lungs: Clear Abdomen: Soft, No tenderness Extremities: No cyanosis, No edema, Normal pulses Skin: No rashes, No breakdown, No significant lesion Labs LABS Determination of any degree of stenosis is based on NASCET criteria. Comparison: None Findings: MRI brain: Multifocal small infarcts involving the right posterior parietal and occipital lobes with additional infarcts involving the right frontal and parietal lobes including the deep white matter. Predominantly involving the right posterior watershed territory. Chronic small right cerebellar infarcts. Mild brain parenchymal volume loss. Postoperative changes left orbit. Mild scattered paranasal sinus mucosal thickening most prominent within the ethmoid sinuses. Mastoid air cells are clear. MRV: The superior sagittal sinus drains into the right transverse sinus exclusively. 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 No evidence of sinus venous thrombosis. MRA head: Internal carotid arteries: No stenosis, occlusion or aneurysm. Middle cerebral arteries: No stenosis, occlusion or aneurysm. Anterior cerebral arteries: No stenosis, occlusion or aneurysm. Posterior cerebral arteries: No stenosis, occlusion or aneurysm. Basilar artery: No stenosis, occlusion or aneurysm. Vertebral arteries: No stenosis, occlusion or aneurysm. Results discussed with patient's nurse at 12:50 PM on 06/14/2019. Impression: 1. Multiple acute right cerebral hemispheric infarcts predominantly posterior watershed territory. 2. Small chronic right cerebellar infarcts. 3. No intracranial arterial stenosis or occlusion. 4. No evidence of sinus venous thrombosis. 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 Electronically signed by: Brett Horowitz DO (06/14/2019 12:52 PM) [id number] Laboratory Tests Test 06/15/19 03:40 Triglycerides Level 83 mg/dL (0-150) Cholesterol Level 131 mg/dL (0-200) LDL Cholesterol, Calculated 70 mg/dL (0-100) VLDL Cholesterol, Calculated 17 mg/dL (0-40) Non-HDL Cholesterol Calculated 87 mg/dL (0-129) HDL Cholesterol 44 mg/dL (40-60) Cholesterol/HDL Ratio 3.0 Assessment and Plan Assessmemt and Plan Problems Medical Problems: (1) Abdominal pain Status: Acute (2) Anemia due to blood loss Status: Acute (3) Colitis Status: Acute (4) External hemorrhoids Status: Chronic (5) GI bleed Status: Acute (6) Severe protein-calorie malnutrition Status: Chronic Comment Review of Relevant I have reviewed the following items maria teresa (where applicable) has been applied. Labs Laboratory Tests Test 06/14/19 05:00 06/15/19 03:40 White Blood Count 6.4 x10^3/uL (4.0-11.0) Red Blood Count 3.29 x10^6/uL (4.30-5.70) Hemoglobin 8.6 g/dL (13.0-17.5) Hematocrit 26.8 % (39.0-53.0) Mean Corpuscular Volume 81 fL (79-100) Mean Corpuscular Hemoglobin 26 pg (25-35) Mean Corpuscular Hemoglobin Concent 32 g/dL (31-37) Red Cell Distribution Width 19.2 % (11.5-14.5) Platelet Count 349 x10^3/uL (140-400) Neutrophils (%) (Auto) 67 % (31-73) Lymphocytes (%) (Auto) 20 % (24-48) Monocytes (%) (Auto) 12 % (0-9) Eosinophils (%) (Auto) 1 % (0-3) Basophils (%) (Auto) 0 % (0-3) Neutrophils # (Auto) 4.3 x10^3/uL (1.8-7.7) Lymphocytes # (Auto) 1.3 x10^3/uL (1.0-4.8) Monocytes # (Auto) 0.7 x10^3/uL (0.0-1.1) Eosinophils # (Auto) 0.0 x10^3/uL (0.0-0.7) Basophils # (Auto) 0.0 x10^3/uL (0.0-0.2) Erythrocyte Sedimentation Rate 50 (0-15) Thyroid Stimulating Hormone (TSH) 11.202 uIU/mL (0.358-3.74) Triglycerides Level 83 mg/dL (0-150) Cholesterol Level 131 mg/dL (0-200) LDL Cholesterol, Calculated 70 mg/dL (0-100) VLDL Cholesterol, Calculated 17 mg/dL (0-40) Non-HDL Cholesterol Calculated 87 mg/dL (0-129) HDL Cholesterol 44 mg/dL (40-60) Cholesterol/HDL Ratio 3.0 Laboratory Tests Test 06/15/19 03:40 Triglycerides Level 83 mg/dL (0-150) Cholesterol Level 131 mg/dL (0-200) LDL Cholesterol, Calculated 70 mg/dL (0-100) VLDL Cholesterol, Calculated 17 mg/dL (0-40) Non-HDL Cholesterol Calculated 87 mg/dL (0-129) HDL Cholesterol 44 mg/dL (40-60) Cholesterol/HDL Ratio 3.0 Medications Current Medications Sodium Chloride 1,000 ml @ 1,000 mls/hr 1X ONCE IV Last administered on 06/11/19at 15:42; Start 06/11/19 at 15:45; Stop 06/11/19 at 16:44; Status DC Dicyclomine HCl (Bentyl) 20 mg 1X ONCE IM Last administered on 06/11/19at 15:42; Start 06/11/19 at 15:45; Stop 06/11/19 at 15:46; Status DC Ondansetron HCl (Zofran) 4 mg PRN Q8HRS PRN IV NAUSEA/VOMITING; Start 06/11/19 at 17:00; Stop 06/12/19 at 16:59; Status DC Fentanyl Citrate (Fentanyl 2ml Vial) 50 mcg PRN Q2HRS PRN IV PAIN; Start 06/11/19 at 17:00; Stop 06/12/19 at 16:59; Status DC Dicyclomine HCl (Bentyl) 10 mg TID PO Last administered on 06/15/19 08:31; Start 06/11/19 at 21:00 Ferrous Sulfate (Feosol) 325 mg DAILY08 PO Last administered on 06/13/19 08:35; Start 06/12/19 at 08:00; Stop 06/13/19 at 12:33; Status DC Hyoscyamine (Anaspaz) 0.125 mg Q6HRS PO Last administered on 06/15/19 06:21; Start 06/11/19 at 20:00 Oxycodone/ Acetaminophen (Percocet 5/325) 1 tab PRN Q4HRS PRN PO SEVERE PAIN 7- 10; Start 06/11/19 at 20:15 Simethicone (Gas-X) 80 mg PRN Q6HRS PRN PO GAS / BLOATING; Start 06/11/19 at 20:15 Non-Formulary Medication (Mesalamine (Apriso)) 2 cap BID PO Last administered on 06/15/19 08:31; Start 06/11/19 at 21:00 Pantoprazole Sodium (Protonix) 40 mg DAILYAC PO Last administered on 06/15/19 08:31; Start 06/12/19 at 07:30 Psyllium Hydrophilic Mucilloid (Metamucil Fiber Packet) 1 pkt DAILY PO ; Start 06/12/19 at 09:00 Pharmacy Consult (C.diff Med Screen By Rx) 1 each 1X ONCE MC Last administered on 06/12/19at 08:36; Start 06/11/19 at 22:15; Stop 06/11/19 at 22:16; Status DC Iron Sucrose 500 mg/Sodium Chloride 275 ml @ 78.571 mls/ hr 1X ONCE IV Last administered on 06/12/19at 11:25; Start 06/12/19 at 11:00; Stop 06/12/19 at 14:29; Status DC Methylprednisolone Sodium Succinate (SOLU-Medrol 40MG VIAL) 40 mg Q8HRS IV Last administered on 06/13/19 05:24; Start 06/12/19 at 14:00; Stop 06/13/19 at 12:33; Status DC Vancomycin HCl (Vancomycin Oral Solution) 125 mg [id number] PO ; Start 06/12/19 at 14:30; Stop 06/12/19 at 14:56; Status DC Vancomycin HCl (Vancomycin Oral Solution) 500 mg [id number] PO Last administered on 06/15/19 08:31; Start 06/12/19 at 15:01 Ferrous Sulfate (Feosol) 325 mg BIDWMEALS PO Last administered on 06/15/19 08:31; Start 06/13/19 at 17:00 Prednisone (Prednisone) 60 mg DAILY PO Last administered on 06/15/19 08:31; Start 06/14/19 at 09:00 Ondansetron HCl (Zofran) 4 mg PRN Q6HRS PRN IV NAUSEA/VOMITING Last administered on 06/13/19 18:59; Start 06/13/19 at 18:45 Aspirin (Ecotrin) 81 mg DAILYWBKFT PO ; Start 06/14/19 at 08:00; Stop 06/13/19 at 19:30; Status DC Aspirin (Ecotrin) 81 mg 1X STAT PO Last administered on 06/13/19 19:37; Start 06/13/19 at 19:30; Stop 06/13/19 at 19:33; Status DC Lactobacillus Rhamnosus (Culturelle) 1 cap BID PO Last administered on 06/15/19 08:31; Start 06/14/19 at 21:00 Acetaminophen (Tylenol) 650 mg PRN Q6HRS PRN PO TEMP > 100.4F; Start 06/14/19 at 13:15 Acetaminophen (Tylenol Supp) 650 [address]N Q4HRS PRN CT TEMP > 100.4F; Start 06/14/19 at 13:15 Aspirin (Children'S Aspirin) 81 mg DAILYWBKFT PO Last administered on 06/15/19 08:31; Start 06/15/19 at 08:00 Active Scripts Active Simethicone 80 Mg Tab.chew 80 Mg PO PRN Q6HRS PRN 30 Days Anaspaz (Hyoscyamine Sulfate) 0.125 Mg Tab.rapdis 0.125 Mg PO Q6HRS 10 Days Percocet 5-325 Mg Tablet (Oxycodone/Acetaminophen) 1 Each Tablet 1 Tab PO PRN Q4HRS PRN 14 Days Reported Ferrous Sulfate 325 Mg Tablet 325 Mg PO DAILY Red Yeast Rice 600 Mg Capsule 600 Mg PO DAILY Fiber (Psyllium Husk) 0.52 Gm Capsule 0.52 Gm PO DAILY Omeprazole 40 Mg Capsule.dr 1 Cap PO DAILY Centrum Silver Tablet (Multivits-Min/Fa/Lycopene/Lut) 1 Each Tablet 1 Each PO DAILY Nystatin 100,000 Unit/1 Ml Oral.susp 10 Ml PO QID Dicyclomine Hcl 10 Mg Capsule 1 Cap PO TID Apriso (Mesalamine) 0.375 Gm Cap.er.24h 2 Cap PO BID Vitals/I & O Vital Sign - Last 24 Hours 06/14/19 06/14/19 06/14/19 06/14/19 11:00 15:00 19:04 20:20 Temp 99.0 98.3 98.2 99.0 98.3 98.2 Pulse 71 66 66 Resp 18 18 18 B/P (MAP) 91/57 (68) 99/64 (76) 93/58 (70) Pulse Ox 97 95 96 O2 Delivery Room Air Room Air Room Air Room Air 06/14/19 06/15/19 06/15/19 06/15/19 23:25 03:48 07:20 08:00 Temp 98.2 97.8 98.3 98.2 97.8 98.3 Pulse 55 60 66 Resp 16 18 18 B/P (MAP) 88/52 (64) 93/53 (66) 95/65 (75) Pulse Ox 97 99 99 O2 Delivery Room Air Room Air Room Air Room Air Intake and Output 06/14/19 06/14/19 06/15/19 14:59 22:59 06:59 Intake Total 180 ml 50 ml 150 ml Balance 180 ml 50 ml 150 ml JAZMÍN HALL MD Jun 15, 2019 10:03
[2019-06-15 11:00] VITALS: BP 86/55
--- NOTE | 2019-06-15 11:10 | PDOC ---
Subjective: Subjective: Gas, bleeding, diarrhea - all ongoing though slightly better than prior to admission. "I thought we were going to treat this more aggressively." Objective: Objective: Note hematology consult requested, cardiology also following. Vital Signs: Vital Signs Date Time Temp Pulse Resp B/P (MAP) Pulse Ox O2 Delivery O2 Flow Rate FiO2 06/15/19 08:00 Room Air 06/15/19 07:20 98.3 66 18 95/65 (75) 99 98.3 Imaging: MRI Impression: 1. Multiple acute right cerebral hemispheric infarcts predominantly posterior watershed territory. 2. Small chronic right cerebellar infarcts. 3. No intracranial arterial stenosis or occlusion. 4. No evidence of sinus venous thrombosis. 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 [employer] Bedside Swallow Eval Swallow eval completed. See full rpt in interventions section. IMPRESSIONS: Normal oropharyngeal swallow. No indication of oropharyngeal delay or weakness. Motor speech WNLs, no evidence of communication impairment in brief screen. RECOMMENDATIONS: Con't regular diet w/thin liquids. General precautions. No additional [employer] services indicated at this time. SHELTON Lowery. PE: GEN: NAD LUNGS: CTAB HEART: RRR ABD: NABS, soft, doesn't seem tender NEURO/PSYCH: A & O �3 A/P: Chronic diarrhea and hematochezia w/ UC and recurrent C Diff - was due for 3rd dose of Humira earlier this week ANA Left arm numbness - MRI as above w/ multiple acute right cerebral hemispheric infarcts, neuro following Hypothyroidism -- He is more pleasant today. Have had several detailed discussions w/ him re: treatment - still has questions and complaints for me today. He asks about getting more IV steroids - will discuss w/ Dr. Fowler. Recheck labs. HALIE GROSS Jun 15, 2019 11:10
[2019-06-15 11:23] LABS: HEMATOCRIT 26.9 % (39.0-53.0); HEMOGLOBIN 8.3 g/dL (13.0-17.5); RED BLOOD COUNT 3.18 x10^6/uL (4.30-5.70); RED CELL DISTRIBUTION WIDTH 20.1 % (11.5-14.5); WHITE BLOOD COUNT 7.6 x10^3/uL (4.0-11.0)
[2019-06-15 11:29] LABS: CALCIUM 8.2 mg/dL (8.5-10.1); CREATININE 0.7 mg/dL (0.7-1.3); GFR 117.1; POTASSIUM 4.4 mmol/L (3.5-5.1)
--- NOTE | 2019-06-15 12:59 | PDOC ---
PROGRESS NOTES Assessment Problems Medical Problems: (1) Abdominal pain Status: Acute (2) Anemia due to blood loss Status: Acute (3) Colitis Status: Acute (4) External hemorrhoids Status: Chronic (5) GI bleed Status: Acute (6) Severe protein-calorie malnutrition Status: Chronic Multiple acute right cerebral hemispheric infarcts predominantly posterior watershed territory, with negative MR angiogram and MR venogram. Transient visual obscurations, negative ophthalmology workup, could be repeated transient ischemic attacks Sedimentation rate is 50 Plan I discussed risk, benefits, and alternatives, will continue low-dose aspirin Cardiology consult regarding possibility of patent foramen ovale even though outside Echo was negative. I requested results of the outside Echo Hematology consult regarding possible hypercoaguable state related to the Crohn's disease Rehabilitation modalities. Favorable lipid profile, does not need statin Subjective Feels left arm is better Objective Vital Signs Date Time Temp Pulse Resp B/P (MAP) Pulse Ox O2 Delivery O2 Flow Rate FiO2 06/15/19 11:00 98.1 64 18 86/55 (65) 97 Room Air 98.1 Intake and Output 06/15/19 06:59 Intake Total 380 ml Balance 380 ml Intake Oral 380 ml # Voids 2 # Bowel Movements 1 PHYSICAL EXAM Alert. Oriented to time, place and person. PERRL. EOMI. CN: no focal findings. Muscle tone: normal. Muscle strength: 5/5, no pronator drift DTR: 2+ Plantar reflex: flexor Gait: not examined in bed. Sensory exam: Hypesthesia, entire left arm to level of shoulder. No cerebellar signs elicited. Review of Relevant I have reviewed the following items maria teresa (where applicable) has been applied. Labs Laboratory Tests Test 06/14/19 05:00 06/15/19 03:40 White Blood Count 6.4 x10^3/uL (4.0-11.0) 7.6 x10^3/uL (4.0-11.0) Red Blood Count 3.29 x10^6/uL (4.30-5.70) 3.18 x10^6/uL (4.30-5.70) Hemoglobin 8.6 g/dL (13.0-17.5) 8.3 g/dL (13.0-17.5) Hematocrit 26.8 % (39.0-53.0) 26.9 % (39.0-53.0) Mean Corpuscular Volume 81 fL (79-100) 85 fL (79-100) Mean Corpuscular Hemoglobin 26 pg (25-35) 26 pg (25-35) Mean Corpuscular Hemoglobin Concent 32 g/dL (31-37) 31 g/dL (31-37) Red Cell Distribution Width 19.2 % (11.5-14.5) 20.1 % (11.5-14.5) Platelet Count 349 x10^3/uL (140-400) 367 x10^3/uL (140-400) Neutrophils (%) (Auto) 67 % (31-73) Lymphocytes (%) (Auto) 20 % (24-48) Monocytes (%) (Auto) 12 % (0-9) Eosinophils (%) (Auto) 1 % (0-3) Basophils (%) (Auto) 0 % (0-3) Neutrophils # (Auto) 4.3 x10^3/uL (1.8-7.7) Lymphocytes # (Auto) 1.3 x10^3/uL (1.0-4.8) Monocytes # (Auto) 0.7 x10^3/uL (0.0-1.1) Eosinophils # (Auto) 0.0 x10^3/uL (0.0-0.7) Basophils # (Auto) 0.0 x10^3/uL (0.0-0.2) Erythrocyte Sedimentation Rate 50 (0-15) Thyroid Stimulating Hormone (TSH) 11.202 uIU/mL (0.358-3.74) Sodium Level 138 mmol/L (136-145) Potassium Level 4.4 mmol/L (3.5-5.1) Chloride Level 104 mmol/L (98-107) Carbon Dioxide Level 29 mmol/L (21-32) Anion Gap 5 (6-14) Blood Urea Nitrogen 12 mg/dL (8-26) Creatinine 0.7 mg/dL (0.7-1.3) Estimated GFR (Cockcroft-Gault) 117.1 Glucose Level 78 mg/dL (70-99) Calcium Level 8.2 mg/dL (8.5-10.1) Triglycerides Level 83 mg/dL (0-150) Cholesterol Level 131 mg/dL (0-200) LDL Cholesterol, Calculated 70 mg/dL (0-100) VLDL Cholesterol, Calculated 17 mg/dL (0-40) Non-HDL Cholesterol Calculated 87 mg/dL (0-129) HDL Cholesterol 44 mg/dL (40-60) Cholesterol/HDL Ratio 3.0 Laboratory Tests Test 06/15/19 03:40 White Blood Count 7.6 x10^3/uL (4.0-11.0) Red Blood Count 3.18 x10^6/uL (4.30-5.70) Hemoglobin 8.3 g/dL (13.0-17.5) Hematocrit 26.9 % (39.0-53.0) Mean Corpuscular Volume 85 fL (79-100) Mean Corpuscular Hemoglobin 26 pg (25-35) Mean Corpuscular Hemoglobin Concent 31 g/dL (31-37) Red Cell Distribution Width 20.1 % (11.5-14.5) Platelet Count 367 x10^3/uL (140-400) Sodium Level 138 mmol/L (136-145) Potassium Level 4.4 mmol/L (3.5-5.1) Chloride Level 104 mmol/L (98-107) Carbon Dioxide Level 29 mmol/L (21-32) Anion Gap 5 (6-14) Blood Urea Nitrogen 12 mg/dL (8-26) Creatinine 0.7 mg/dL (0.7-1.3) Estimated GFR (Cockcroft-Gault) 117.1 Glucose Level 78 mg/dL (70-99) Calcium Level 8.2 mg/dL (8.5-10.1) Triglycerides Level 83 mg/dL (0-150) Cholesterol Level 131 mg/dL (0-200) LDL Cholesterol, Calculated 70 mg/dL (0-100) VLDL Cholesterol, Calculated 17 mg/dL (0-40) Non-HDL Cholesterol Calculated 87 mg/dL (0-129) HDL Cholesterol 44 mg/dL (40-60) Cholesterol/HDL Ratio 3.0 Medications Current Medications Sodium Chloride 1,000 ml @ 1,000 mls/hr 1X ONCE IV Last administered on 06/11/19at 15:42; Start 06/11/19 at 15:45; Stop 06/11/19 at 16:44; Status DC Dicyclomine HCl (Bentyl) 20 mg 1X ONCE IM Last administered on 06/11/19at 15:42; Start 06/11/19 at 15:45; Stop 06/11/19 at 15:46; Status DC Ondansetron HCl (Zofran) 4 mg PRN Q8HRS PRN IV NAUSEA/VOMITING; Start 06/11/19 at 17:00; Stop 06/12/19 at 16:59; Status DC Fentanyl Citrate (Fentanyl 2ml Vial) 50 mcg PRN Q2HRS PRN IV PAIN; Start 06/11/19 at 17:00; Stop 06/12/19 at 16:59; Status DC Dicyclomine HCl (Bentyl) 10 mg TID PO Last administered on 06/15/19 08:31; Start 06/11/19 at 21:00 Ferrous Sulfate (Feosol) 325 mg DAILY08 PO Last administered on 06/13/19at 08:35; Start 06/12/19 at 08:00; Stop 06/13/19 at 12:33; Status DC Hyoscyamine (Anaspaz) 0.125 mg Q6HRS PO Last administered on 06/15/19at 06:21; Start 06/11/19 at 20:00 Oxycodone/ Acetaminophen (Percocet 5/325) 1 tab PRN Q4HRS PRN PO SEVERE PAIN 7-10; Start 06/11/19 at 20:15 Simethicone (Gas-X) 80 mg PRN Q6HRS PRN PO GAS / BLOATING; Start 06/11/19 at 20:15 Non-Formulary Medication (Mesalamine (Apriso)) 2 cap BID PO Last administered on 06/15/19 08:31; Start 06/11/19 at 21:00 Pantoprazole Sodium (Protonix) 40 mg DAILYAC PO Last administered on 06/15/19at 08:31; Start 06/12/19 at 07:30 Psyllium Hydrophilic Mucilloid (Metamucil Fiber Packet) 1 pkt DAILY PO ; Start 06/12/19 at 09:00 Pharmacy Consult (C.diff Med Screen By Rx) 1 each 1X ONCE MC Last administered on 06/12/19at 08:36; Start 06/11/19 at 22:15; Stop 06/11/19 at 22:16; Status DC Iron Sucrose 500 mg/Sodium Chloride 275 ml @ 78.571 mls/ hr 1X ONCE IV Last administered on 06/12/19 11:25; Start 06/12/19 at 11:00; Stop 06/12/19 at 14:29; Status DC Methylprednisolone Sodium Succinate (SOLU-Medrol 40MG VIAL) 40 mg Q8HRS IV Last administered on 06/13/19at 05:24; Start 06/12/19 at 14:00; Stop 06/13/19 at 12:33; Status DC Vancomycin HCl (Vancomycin Oral Solution) 125 mg [id number] PO ; Start 06/12/19 at 14:30; Stop 06/12/19 at 14:56; Status DC Vancomycin HCl (Vancomycin Oral Solution) 500 mg [id number] PO Last administered on 06/15/19 08:31; Start 06/12/19 at 15:01 Ferrous Sulfate (Feosol) 325 mg BIDWMEALS PO Last administered on 06/15/19 08:31; Start 06/13/19 at 17:00 Prednisone (Prednisone) 60 mg DAILY PO Last administered on 06/15/19 08:31; Start 06/14/19 at 09:00 Ondansetron HCl (Zofran) 4 mg PRN Q6HRS PRN IV NAUSEA/VOMITING Last administered on 06/13/19at 18:59; Start 06/13/19 at 18:45 Aspirin (Ecotrin) 81 mg DAILYWBKFT PO ; Start 06/14/19 at 08:00; Stop 06/13/19 at 19:30; Status DC Aspirin (Ecotrin) 81 mg 1X STAT PO Last administered on 06/13/19 19:37; Start 06/13/19 at 19:30; Stop 06/13/19 at 19:33; Status DC Lactobacillus Rhamnosus (Culturelle) 1 cap BID PO Last administered on 06/15/19 08:31; Start 06/14/19 at 21:00 Acetaminophen (Tylenol) 650 mg PRN Q6HRS PRN PO TEMP > 100.4F; Start 06/14/19 at 13:15 Acetaminophen (Tylenol Supp) 650 mg PRN Q4HRS PRN LA TEMP > 100.4F; Start 06/14/19 at 13:15 Aspirin (Children'S Aspirin) 81 mg DAILYWBKFT PO Last administered on 06/15/19 08:31; Start 06/15/19 at 08:00 Active Scripts Active Simethicone 80 Mg Tab.chew 80 Mg PO PRN Q6HRS PRN 30 Days Anaspaz (Hyoscyamine Sulfate) 0.125 Mg Tab.rapdis 0.125 Mg PO Q6HRS 10 Days Percocet 5-325 Mg Tablet (Oxycodone/Acetaminophen) 1 Each Tablet 1 Tab PO PRN Q4HRS PRN 14 Days Reported Ferrous Sulfate 325 Mg Tablet 325 Mg PO DAILY Red Yeast Rice 600 Mg Capsule 600 Mg PO DAILY Fiber (Psyllium Husk) 0.52 Gm Capsule 0.52 Gm PO DAILY Omeprazole 40 Mg Capsule.dr 1 Cap PO DAILY Centrum Silver Tablet (Multivits-Min/Fa/Lycopene/Lut) 1 Each Tablet 1 Each PO DAILY Nystatin 100,000 Unit/1 Ml Oral.susp 10 Ml PO QID Dicyclomine Hcl 10 Mg Capsule 1 Cap PO TID Apriso (Mesalamine) 0.375 Gm Cap.er.24h 2 Cap PO BID Vitals/I & O Vital Sign - Last 24 Hours 06/14/19 06/14/19 06/14/19 06/14/19 15:00 19:04 20:20 23:25 Temp 98.3 98.2 98.2 98.3 98.2 98.2 Pulse 66 66 55 Resp 18 18 16 B/P (MAP) 99/64 (76) 93/58 (70) 88/52 (64) Pulse Ox 95 96 97 O2 Delivery Room Air Room Air Room Air Room Air 06/15/19 06/15/19 06/15/19 06/15/19 03:48 07:20 08:00 11:00 Temp 97.8 98.3 98.1 97.8 98.3 98.1 Pulse 60 66 64 Resp 18 18 18 B/P (MAP) 93/53 (66) 95/65 (75) 86/55 (65) Pulse Ox 99 99 97 O2 Delivery Room Air Room Air Room Air Room Air Intake and Output 06/14/19 06/14/19 06/15/19 14:59 22:59 06:59 Intake Total 180 ml 50 ml 150 ml Balance 180 ml 50 ml 150 ml Images BRAIN W/O CONTRAST ANGIOGRAPHY BRAIN WO CONTRAST, ANGIOGRAPHY BRAIN WO CONTRAST, BRAIN W/O CONTRAST History: Transient visual difficulties. Technique: Multiplanar multisequence MRI of the brain without contrast. 3-D [id number] MR angiography was performed of the brain. 2-D [id number] MRV of the brain. 3-D reconstructions were performed. Determination of any degree of stenosis is based on NASCET criteria. Comparison: None Findings: MRI brain: Multifocal small infarcts involving the right posterior parietal and occipital lobes with additional infarcts involving the right frontal and parietal lobes including the deep white matter. Predominantly involving the right posterior watershed territory. Chronic small right cerebellar infarcts. Mild brain parenchymal volume loss. Postoperative changes left orbit. Mild scattered paranasal sinus mucosal thickening most prominent within the ethmoid sinuses. Mastoid air cells are clear. MRV: The superior sagittal sinus drains into the right transverse sinus exclusively. 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 No evidence of sinus venous thrombosis. MRA head: Internal carotid arteries: No stenosis, occlusion or aneurysm. Middle cerebral arteries: No stenosis, occlusion or aneurysm. Anterior cerebral arteries: No stenosis, occlusion or aneurysm. Posterior cerebral arteries: No stenosis, occlusion or aneurysm. Basilar artery: No stenosis, occlusion or aneurysm. Vertebral arteries: No stenosis, occlusion or aneurysm. Results discussed with patient's nurse at 12:50 PM on 06/14/2019. Impression: 1. Multiple acute right cerebral hemispheric infarcts predominantly posterior watershed territory. 2. Small chronic right cerebellar infarcts. 3. No intracranial arterial stenosis or occlusion. 4. No evidence of sinus venous thrombosis. 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 BHANU SOSA MD Jun 15, 2019 12:59
--- NOTE | 2019-06-15 15:09 | PDOC ---
PROGRESS NOTES Subjective Subjective No new complaints Objective Objective Vital Signs Date Time Temp Pulse Resp B/P (MAP) Pulse Ox O2 Delivery O2 Flow Rate FiO2 06/15/19 11:00 98.1 64 18 86/55 (65) 97 Room Air 98.1 Intake and Output 06/15/19 07:00 Intake Total 380 ml Balance 380 ml Intake Oral 380 ml # Voids 2 # Bowel Movements 1 Physical Exam Abdomen: Soft, No tenderness Heart: Regular rate, Other Extremities: No edema, Normal pulses General: Alert, Oriented X3, Cooperative, No acute distress HEENT: Atraumatic, Mucous membr. moist/pink Lungs: Clear to auscultation MUSCULOSKELETAL: Osteoarthritic changes both hands Neuro: Normal speech, Sensation intact Psych/Mental Status: Mental status NL, Other (flat affect ) Skin: No rashes, No breakdown, No significant lesion Assessment Assessment 1. Anemia, GI bleed; s/p 3 units PRBC's 2. Ulcerative colitis, refractory 3. Recurrent C-diff 4. Acute CVA; ? cardioembolic. Not candidate for TPA with GI bleed 5. Hyperlipidemia 6. Hypothyroidism; quit taking levothyroxine 7. GERD Recommendations Echo with bubble study pending Follow GI/neuro recs Plan Plan of Care Problems Medical Problems: (1) Abdominal pain Status: Acute (2) Anemia due to blood loss Status: Acute (3) Colitis Status: Acute (4) External hemorrhoids Status: Chronic (5) GI bleed Status: Acute (6) Severe protein-calorie malnutrition Status: Chronic Comment Review of Relevant I have reviewed the following items maria teresa (where applicable) has been applied. Labs Laboratory Tests Test 06/15/19 03:40 White Blood Count 7.6 x10^3/uL (4.0-11.0) Red Blood Count 3.18 x10^6/uL (4.30-5.70) Hemoglobin 8.3 g/dL (13.0-17.5) Hematocrit 26.9 % (39.0-53.0) Mean Corpuscular Volume 85 fL (79-100) Mean Corpuscular Hemoglobin 26 pg (25-35) Mean Corpuscular Hemoglobin Concent 31 g/dL (31-37) Red Cell Distribution Width 20.1 % (11.5-14.5) Platelet Count 367 x10^3/uL (140-400) Sodium Level 138 mmol/L (136-145) Potassium Level 4.4 mmol/L (3.5-5.1) Chloride Level 104 mmol/L (98-107) Carbon Dioxide Level 29 mmol/L (21-32) Anion Gap 5 (6-14) Blood Urea Nitrogen 12 mg/dL (8-26) Creatinine 0.7 mg/dL (0.7-1.3) Estimated GFR (Cockcroft-Gault) 117.1 Glucose Level 78 mg/dL (70-99) Calcium Level 8.2 mg/dL (8.5-10.1) Triglycerides Level 83 mg/dL (0-150) Cholesterol Level 131 mg/dL (0-200) LDL Cholesterol, Calculated 70 mg/dL (0-100) VLDL Cholesterol, Calculated 17 mg/dL (0-40) Non-HDL Cholesterol Calculated 87 mg/dL (0-129) HDL Cholesterol 44 mg/dL (40-60) Cholesterol/HDL Ratio 3.0 Medications Current Medications Aspirin (Children'S Aspirin) 81 mg DAILYWBKFT PO Last administered on 06/15/19at 08:31; Start 06/15/19 at 08:00 Lactobacillus Rhamnosus (Culturelle) 1 cap BID PO Last administered on 06/15/19at 08:31; Start 06/14/19 at 21:00 Vitals/I & O Vital Sign - Last 24 Hours 06/14/19 06/14/19 06/14/19 06/15/19 19:04 20:20 23:25 03:48 Temp 98.2 98.2 97.8 98.2 98.2 97.8 Pulse 66 55 60 Resp 18 16 18 B/P (MAP) 93/58 (70) 88/52 (64) 93/53 (66) Pulse Ox 96 97 99 O2 Delivery Room Air Room Air Room Air Room Air 06/15/19 06/15/19 06/15/19 07:20 08:00 11:00 Temp 98.3 98.1 98.3 98.1 Pulse 66 64 Resp 18 18 B/P (MAP) 95/65 (75) 86/55 (65) Pulse Ox 99 97 O2 Delivery Room Air Room Air Room Air Intake and Output 06/14/19 06/14/19 06/15/19 15:00 23:00 07:00 Intake Total 180 ml 50 ml 150 ml Balance 180 ml 50 ml 150 ml RODERICK EGAN MD Jun 15, 2019 15:09
[2019-06-15 15:10] VITALS: BP 87/57
--- NOTE | 2019-06-15 15:12 | NUR ---
SW following pt. No skilled intervention needed at this time.
--- NOTE | 2019-06-15 15:46 | CARD ---
MR#: [id number] Date of Study: 06/15/2019 Ordering Physician: SAUNDRA ROGERS, Referring Physician: SAUNDRA ROGERS, Tech: Lorelei Gutierrez [facility] APPROVED REPORT EXAM: Two-dimensional and M-mode echocardiogram with Doppler, color Doppler with bubble study. Other Information Quality : AverageHR: 60bpm Rhythm : NSR INDICATION CVA/TIA 2D DIMENSIONS RVDd3.0 (2.9-3.5cm)Left Atrium(2D)3.8 (1.6-4.0cm) IVSd1.1 (0.7-1.1cm)Aortic Root(2D)3.4 (2.0-3.7cm) LVDd5.3 (3.9-5.9cm)LVOT Diameter1.9 (1.8-2.4cm) PWd0.9 (0.7-1.1cm)LVDs3.6 (2.5-4.0cm) FS (%) 32.2 %SV79.8 ml LVEF(%)60.0 (>50%) Aortic Valve AoV Peak Ovidio.157.6cm/sAoV VTI32.8cm AO Peak GR.9.9mmHgLVOT Peak Ovidio.106.9cm/s AO Mean GR.5mmHgAVA (VMAX)1.94cm2 ANDRAE (VTI)2.00cm2 Mitral Valve MV E Jwbweelt35.8cm/sMV DECEL [id number] MV A Wshmfxpl68.9cm/sE/A Ratio0.9 Pulmonary Valve PV Peak Rzsfciqh942.4cm/s Tricuspid Valve TR P. Eqmjdfre468lp/sRAP NGKSJNKS4idRq TR Peak Gr.[id number] LEFT VENTRICLE The left ventricle is normal size. There is normal left ventricular wall thickness. The left ventricu lar systolic function is normal. The Ejection Fraction is 55-60%. There is normal LV segmental wall m otion. Transmitral Doppler flow pattern is Grade I-abnormal relaxation pattern. RIGHT VENTRICLE The right ventricle is normal size. There is normal right ventricular wall thickness. The right ventr icular systolic function is normal. ATRIA The left atrium size is normal. The right atrium size is normal. The interatrial septum is intact wit h no evidence for an atrial septal defect or patent foramen ovale as noted on 2-D or Doppler imaging. Injection of bubbles documented no interatrial shunt. AORTIC VALVE The aortic valve is normal in structure and function. The aortic valve is trileaflet. Doppler and Col or Flow revealed trace aortic regurgitation. There is no significant aortic valvular stenosis. There is no aortic valvular vegetation. MITRAL VALVE The mitral valve is thickened but opens well. There is no evidence of mitral valve prolapse. There is no mitral valve stenosis. Doppler and Color-flow revealed mild mitral regurgitation. TRICUSPID VALVE The tricuspid valve is normal in structure and function. Doppler and Color Flow revealed trace tricus pid regurgitation. The PA pressure was estimated at 27 mmHg. There is no tricuspid valve prolapse or vegetation. There is no tricuspid valve stenosis. PULMONIC VALVE The pulmonary valve is normal in structure and function. Doppler and Color Flow revealed no pulmonic valvular regurgitation. There is no pulmonic valvular stenosis. GREAT VESSELS The aortic root is normal in size. The ascending aorta is normal in size. The IVC is normal in size a nd collapses >50% with inspiration. PERICARDIAL EFFUSION There is no evidence of significant pericardial effusion. Critical Notification Critical Value: No <Conclusion> The left ventricular systolic function is normal. The Ejection Fraction is 55-60%. There is normal LV segmental wall motion. Transmitral Doppler flow pattern is Grade I-abnormal relaxation pattern. Mild mitral regurgitation. Trace tricuspid regurgitation. The PA pressure was estimated at 27 mmHg. There is no evidence of significant pericardial effusion. Injection of bubbles documented no interatrial shunt. Signed by : Rom Abdullahi, Electronically Approved : 06/15/2019 15:45:50
[2019-06-15] MEDS ORDERED: IRON SUCROSE COMPLEX 500 MG in IV NORMAL SALINE 250ML 250 ML IV ONE (17:00)
[2019-06-15 19:55] VITALS: BP 87/57
[2019-06-15] MEDS: methylPREDNISolone SOD SUCC PF 40 MG/ML VIAL. IV SCH (21:02)
[2019-06-15 23:10] VITALS: BP 101/62
--- NOTE | 2019-06-15 23:33 | CONS ---
DATE OF CONSULTATION: 06/15/2019 HEMATOLOGY-ONCOLOGY CONSULTATION REQUESTING PHYSICIAN: Dr. Anthony Conley. REASON FOR CONSULTATION: Possible hypercoagulable state due to ulcerative colitis in a patient with multiple acute right cerebral hemispheric infarcts. HISTORY OF PRESENT ILLNESS: The patient is a 53-year-old gentleman who was diagnosed with ulcerative colitis in 03/2019. He was diagnosed in [place] and started on mesalamine and prednisone. He has had a history of normal colonoscopy in 2017. He was admitted to [facility] in 04/2019 with abdominal pain. He had a flexible sigmoidoscopy by Dr. Pena on 04/30/2019 that showed severe colitis in the rectum, sigmoid, descending colon without obvious pseudomembranes and pathology was consistent with chronic active ulcerative colitis. He also had a history of C. diff colitis at that time. EGD on 05/04/2019 was done for dysphagia and it revealed GERD, negative for Phan's esophagus and negative H. pylori. He underwent esophageal dilatation. He was started on Humira in 05/2019. He also takes Apriso 2 pills b.i.d. His hemoglobin on 05/04/2019 was 8.2. He takes prednisone 10 mg daily and iron supplementation. He had worsening diarrhea and blood in the stools. Hemoglobin was noted to be 6.6 on 06/08/2019 and he was admitted to [facility]. He received 3 units of blood transfusion, hemoglobin improved from 6.9 on 06/11/2019 to 8.3 on 06/15/2019. His erythrocyte sedimentation rate was elevated at 50. The patient was then evaluated by Dr. Conley for transient visual loss. He was seen by Ophthalmology who felt that he may be having transient ischemic attacks. He underwent an MRI of the brain on 06/14/2019 that revealed multiple acute right cerebral hemispheric infarcts and small chronic right cerebellar infarcts. Dr. Conley recommended a Hematology consultation for hypercoagulable state workup related to ulcerative colitis. PAST MEDICAL HISTORY: Ulcerative colitis, GERD, C. diff colitis, external hemorrhoids, retinal detachment surgery. FAMILY HISTORY: Paternal uncle had pancreatic cancer. SOCIAL HISTORY: He has quit smoking. REVIEW OF SYSTEMS: A 12-point review of system was performed. Pertinent positives are mentioned in the history of present illness. Rest of the system review is negative. PHYSICAL EXAMINATION: GENERAL APPEARANCE: The patient is a 53-year-old gentleman who is in no acute cardiorespiratory distress. VITAL SIGNS: Blood pressure 86/55 and temperature 98.1. HEENT: Head atraumatic and normocephalic. EYES: No icterus. NECK: Supple. CHEST: Bilaterally symmetrical. No crepitations or rhonchi heard. HEART: S1, S2 normal. ABDOMEN: Soft and nontender. CENTRAL NERVOUS SYSTEM: No focal deficits. LYMPHATICS: No lymphadenopathy. SKIN: No rashes. PSYCHOLOGIC: Mood and affect are appropriate. MUSCULOSKELETAL: No joint effusions. LABORATORY DATA: From 06/11/2019, WBC 7.2, hemoglobin 6.9, platelet count 579 and MCV 77. Hemoglobin after 3 units of PRBC transfusion was up to 8.3 on 06/15/2019. Creatinine 1.0, calcium 8.6, total bilirubin 0.2, AST 17, ALT 13, alkaline phosphatase 100, total protein 6.6 and albumin 1.8. IMPRESSION AND PLAN: 1. Probable hypercoagulable state due to underlying inflammatory bowel disease/ulcerative colitis. Thromboembolic events have been described in patient with inflammatory bowel disease. Both ulcerative colitis and Crohn's disease can put the patient at a higher risk of thromboembolic event. Studies have reported at least 3-4 fold more incidence of thromboembolic events when compared to the general population. Venous thromboembolism is more common. It is hard to give a direct association between ulcerative colitis and his current infarcts, but it is a possibility. I will also check hypercoagulable state workup with fibrinogen level, protein C, protein S, anti-thrombin III, factor V Leiden and prothrombin gene mutation and lupus anticoagulant. The patients who have active disease at a higher risk for thromboembolic events. His ESR is high and is on Humira at this time. 2. 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 Management per Dr. Conley. 3. Hypochromic microcytic anemia, which I suspect is due to iron deficiency. s/p venofer. 4. Ulcerative colitis. He is on Humira. Continue management per Gastroenterology. WILL HAWK MD DR: CAMILLA/katrina JOB#: [id number] / [id number] MEEK
[2019-06-16 03:00] VITALS: BP 93/63
[2019-06-16] MEDS: HYOSCYAMINE 0.125 MG TAB.RAPDIS PO SCH ×3 (06:26→18:07)
[2019-06-16] MEDS: methylPREDNISolone SOD SUCC PF 40 MG/ML VIAL. IV SCH ×3 (06:26→22:11)
[2019-06-16 07:38] VITALS: BP 92/60
[2019-06-16] MEDS: PANTOPRAZOLE 40 MG TABLET.DR. PO SCH (08:14)
[2019-06-16] MEDS: DICYCLOMINE HCL 10 MG CAPSULE PO SCH ×3 (08:14→22:12)
[2019-06-16] MEDS: PSYLLIUM HUSK (SUGAR FREE) 1 PKT PACKET PO SCH (08:14)
[2019-06-16] MEDS: ASPIRIN CHEWABLE 81 MG TABLET. PO SCH (08:14)
[2019-06-16] MEDS: LACTOBACILLUS RHAMNOSUS GG 1 CAPSULE. PO SCH (08:14)
[2019-06-16] MEDS: FERROUS SULFATE 325 MG TABLET. PO SCH ×2 (08:14→18:07)
[2019-06-16] MEDS: [UNRECOGNIZED DRUG - REMARK] PO SCH ×2 (08:15→22:13)
[2019-06-16] MEDS: VANCOMYCIN 125 MG/2.5 ML ORAL SOLUTION. PO SCH ×4 (08:58→22:11)
--- NOTE | 2019-06-16 09:10 | PDOC ---
Infectious Disease Note Subjective Subjective Less bouts of diarrhea, 4-5 stools last night down from 8-10. Thicker consistency Appetite remains good Left arm weakness No F/C/S/cramps/N/V/CP ROS ROS per HPI otherwise neg Vital Sign Vital Signs Vital Signs Date Time Temp Pulse Resp B/P (MAP) Pulse Ox O2 Delivery O2 Flow Rate FiO2 06/16/19 07:38 98.1 51 18 92/60 (71) 97 Room Air 98.1 Physical Exam PHYSICAL EXAM GENERAL: Sitting on the side of the bed, eating, NAD HEENT: Pupils equal, oral cavity, pharynx is clear. Edentulous NECK: Supple. Good range of motion. LUNGS: Clear to auscultation bilaterally. HEART: S1, S2. ABDOMEN: Mildly distended, soft, NT + BS no guarding. EXTREMITIES: No clubbing, cyanosis or gross edema. SKIN: Warm to touch without signs of rash. NEUROLOGIC: Alert and oriented x 3. PEREZ PIV Labs Lab Laboratory Tests Test 06/15/19 15:30 Iron Level 15 ug/dL (65-175) Total Iron Binding Capacity 154 ug/dL (250-450) Iron Saturation 10 % (15-34) Ferritin 391 ng/mL (26-388) Vitamin B12 Level 400 pg/mL (247-911) Micro Echo <Conclusion> The left ventricular systolic function is normal. The Ejection Fraction is 55-60%. There is normal LV segmental wall motion. Transmitral Doppler flow pattern is Grade I-abnormal relaxation pattern. Mild mitral regurgitation. Trace tricuspid regurgitation. The PA pressure was estimated at 27 mmHg. There is no evidence of significant pericardial effusion. Injection of bubbles documented no interatrial shunt. Objective Assessment Hematochezia Ulcerative colitis on Humira and steroids Immunosuppression C-diff - 06/11 with h/o + 04/24 Anemia Recent thrush - no signs now CVA w/ left arm weakness Probable hypercoagulable state - hem/onc following Plan Plan of Care Cont Vanc 500 mg with immunosuppression. Uncertain if C-diff is causing infection or colonization with UC flare - Stools are starting to form more and less cramps Not a transplant candidate sec to immunosuppression Anticipate home with Dificid and then will eval need for Vanc taper Attending Co-Sign Attending Co-Sign The patient was seen and interviewed as well as examined at the bedside. The chart was reviewed. The case was discussed. Agree with the plan of care. LYNNETTE STONE APRN Jun 16, 2019 09:10 BARBRA ZAMUDIO MD Jun 16, 2019 15:27
--- NOTE | 2019-06-16 10:46 | PDOC ---
PROGRESS NOTES Chief Complaint Chief Complaint A/P: Acute blood loss anemia - Hb 6.9 from 8.2 over a month ago. Transfused 1u PRBC with Hb 6.4 --> 2 u PRBC --> Hb 9 Severe colitis - flex sig 04/30: large tender but not thrombosed external hemorrhoids; Severe colitis in rectum , sigmoid and descending colon - to extent of scope passage- no obvious pseudomembranes seen. recent colonoscopy in [place] reportedly w/ ulcerative colitis. Tapered on PO steroids History of C. difficile - s/p treatment from 04/24/19 culture positive. Repeat c. difficile now Severe protein-calorie malnutrition - will get bobbin disker involved now Immunosuppression - due for his injection today of remicade, will consult GI. Lactic acidosis - likely from blood loss, will hydrate Multiple acute right cerebral hemispheric infarcts predominantly 06/15 posterior watershed territory. Small chronic right cerebellar infarcts. No intracranial arterial stenosis or occlusion. No evidence of sinus venous thrombosis. Probable hypercoagulable state - hem/onc following c diff pos FEN - NSS + clear liquid diet (no red jello) PPX - SCDs, PPI FULL CODE Inpatient for acute blood loss anemia, symptomatic IV solumedrol 06/15 ECHO NEUROLOGY CONSULT Vanc 500 mg with immunosuppression. 37 MIN PT EXAM, CHART REVIEW, > 50% OF TIME SPENT WITH EXAM, CHART REVIEW, PT CARE COORDINATION History of Present Illness History of Present Illness Mr Nesbitt is a 53 y/o male who was diagnosed w/ ulcerative colitis in [place] on 03/30/19 and recent diagnosis of c. difficile colitis 04/24/19 who comes in today with grossly bloody bowel movements. He was noted with Hb 6.9 in ED, lactate of 2.4 Diffuse abd pain, gas (worse in evening), liquid stools (8-10 daily - small w/ red blood every third stool), tenesmus, decreased appetite, weight loss (30 pounds), insomnia, fatigue. Albumin is 1.8-->1.5 Tuesday06/08/19 he had labs with H&H of 8.8/30.8. Pt reports he has multiple episodes of bloody stools today and feels his fatigue has increased. Pt denies CP/palpitations, N/V, fever, or urinary sxs. Pt reports he has had some exertional SOA- denies currently. Pt reports mid abd intermittent cramping. 06/12: Hb down to 6.4 overnight after 1u PRBC. He does not feel any better, still had a few bloody BM. He still has pain. No SOB or CP, but feels his heart racing and very weak, pale. C. difficile returned positive Better today - still some diarrhea, more solid. Less blood. More energy. Associated bloating/gas. No SOB or CP. Seen by neurology for transient left sided arm tingling up to shoulder and visual disturbances. CT head negative. He is very upset today, feels he should have had MRI brain 2 weeks ago when he told his outpatient physicians about his visual symptoms. His left arm tingling occurred yesterday after IV access Vitals Vitals Vital Signs Date Time Temp Pulse Resp B/P (MAP) Pulse Ox O2 Delivery O2 Flow Rate FiO2 06/16/19 08:00 Room Air 06/16/19 07:38 98.1 51 18 92/60 (71) 97 98.1 Physical Exam Physical Exam GENERAL: in bed, NAD HEENT: Pupils equal, oral cavity, pharynx is clear. Edentulous NECK: Supple. Good range of motion. LUNGS: Clear to auscultation bilaterally. HEART: S1, S2. ABDOMEN: Mildly distended, soft, NT + BS no guarding. EXTREMITIES: No clubbing, cyanosis or gross edema. SKIN: Warm to touch without signs of rash. NEUROLOGIC: Alert and oriented x 3. PEREZ PIV General: Alert, Oriented X3, Cooperative, No acute distress Heart: Regular rate, Normal S1, Other Lungs: Clear Abdomen: Normal bowel sounds, Soft, No tenderness Extremities: No clubbing, No cyanosis, No edema, Normal pulses Skin: No rashes, No breakdown, No significant lesion Labs LABS Laboratory Tests Test 06/15/19 15:30 Iron Level 15 ug/dL (65-175) Total Iron Binding Capacity 154 ug/dL (250-450) Iron Saturation 10 % (15-34) Ferritin 391 ng/mL (26-388) Vitamin B12 Level 400 pg/mL (247-911) Assessment and Plan Assessmemt and Plan Problems Medical Problems: (1) Abdominal pain Status: Acute (2) Anemia due to blood loss Status: Acute (3) Colitis Status: Acute (4) External hemorrhoids Status: Chronic (5) GI bleed Status: Acute (6) Severe protein-calorie malnutrition Status: Chronic * 250' Ambulation Comments * Pt with steady gait with no device. Pt demonstrates ability to bean picker pen off of the floor, take 5 steps backwards, and turn in a tangirnaq without LOB. Stairs Assistance Required * Independent Number of Stairs * 2-4 Stairs Assistive Device * Rail on Right Stairs Comments * Simulated stairs completed this date. Pt able to demonstrate SL squats on BLE x3 with independence. Other Information * Pt with no concerns with mobility this date. No limitations seen, pt safe to return home upon dc from hospital. PT to sign off at this time, if further PT indicated, please send new orders. Bed Mobility For KU Functional Outcomes Tool * Complete [place] Transfers Bed To Chair For KU Functional Outcomes Tool * Complete [place] Gait Walking On Level Surfaces * Complete [place] Walking Distances For KU Functional Tool * >201' Number of KU Functional Outcomes Tool Questions Answered * 4 KU Functional Outcomes Tool Score * 7.0 Testing considered to assess G code/modifier * KU Functional Outcomes Pt/caregiver agrees with plan of care/goals * Yes Patient condition at conclusion of therapy * Pt in bed * Call light in reach * Phone in reach * PtIn no apparent distress * Pt denies further needs Communicated Patient Care With (Name, Title) * Maikel RN No Further Skilled P.T. Intervention Required * Eval only-No PT Needs Discharge Recommendations * Home independent Discharge Recommendation - DME * None Safety/Judgement * Within Functional Limits Communication * WFL Vision/Perception * Eye/hand coord. deficit Vision/Neurological * Double vision/diplopia Proprioception * Decreased Proprioception Location * Left Upper Extremity Tone * Baseline Coordination * Fine motor coord. Decr. Activity Tolerance * Fair - Activity Tolerance/ Vitals * no signs or symptoms of distress Range of Motion * WFL BUE Strength * WFL BUE Sitting Balance * 5 moves >2" all planes Standing Balance * 4+ Moves 1-2" all planes Pain Comments * pt denies pain Chair Transfer * Independent Functional Mobility * Independent Ambulation Assistive Device * No Device Therapeutic Exercise * provided pt yellow theraband and super soft casas theraputty, education provided on HEP to improve strength and coordination, pt verbalized and demonstrated understanding Patient Stated Goal * Pt's goal to return home Rehab Potential to Achieve Goals * Good Learning Preferences * One-on-One Instruction Factors Facilitating Goal Achievement * Supportive caregiver * Prior level of function Patient condition at conclusion of therapy * Pt in bed * Call light in reach * Phone in reach * PtIn no apparent distress * Pt denies further needs Communicated Patient Care With (Name, Title) * TJ Pascual Goal 2: Pt will be able to complete: * BUE strengthening/coordination exercises Goal 2 Required Assistance Level * Independent Goal 2 Assessment * Goal Met No Further Skilled OT Intrevention Required * Instruction Completed * Goals Met Discharge Recommendations * Home independent Discharge Recommendation - DME * None Comment Review of Relevant I have reviewed the following items maria teresa (where applicable) has been applied. Labs Laboratory Tests Test 06/15/19 03:40 06/15/19 15:30 White Blood Count 7.6 x10^3/uL (4.0-11.0) Red Blood Count 3.18 x10^6/uL (4.30-5.70) Hemoglobin 8.3 g/dL (13.0-17.5) Hematocrit 26.9 % (39.0-53.0) Mean Corpuscular Volume 85 fL (79-100) Mean Corpuscular Hemoglobin 26 pg (25-35) Mean Corpuscular Hemoglobin Concent 31 g/dL (31-37) Red Cell Distribution Width 20.1 % (11.5-14.5) Platelet Count 367 x10^3/uL (140-400) Absolute Reticulocyte Count 0.132 x10^6/uL (0.020-0.120) Percent Reticulocyte Count 4.1 % (0.5-2.3) Immature Reticulocyte Fraction 0.68 (0.20-0.60) Sodium Level 138 mmol/L (136-145) Potassium Level 4.4 mmol/L (3.5-5.1) Chloride Level 104 mmol/L (98-107) Carbon Dioxide Level 29 mmol/L (21-32) Anion Gap 5 (6-14) Blood Urea Nitrogen 12 mg/dL (8-26) Creatinine 0.7 mg/dL (0.7-1.3) Estimated GFR (Cockcroft-Gault) 117.1 Glucose Level 78 mg/dL (70-99) Calcium Level 8.2 mg/dL (8.5-10.1) Triglycerides Level 83 mg/dL (0-150) Cholesterol Level 131 mg/dL (0-200) LDL Cholesterol, Calculated 70 mg/dL (0-100) VLDL Cholesterol, Calculated 17 mg/dL (0-40) Non-HDL Cholesterol Calculated 87 mg/dL (0-129) HDL Cholesterol 44 mg/dL (40-60) Cholesterol/HDL Ratio 3.0 Iron Level 15 ug/dL (65-175) Total Iron Binding Capacity 154 ug/dL (250-450) Iron Saturation 10 % (15-34) Ferritin 391 ng/mL (26-388) Vitamin B12 Level 400 pg/mL (247-911) Laboratory Tests Test 06/15/19 15:30 Iron Level 15 ug/dL (65-175) Total Iron Binding Capacity 154 ug/dL (250-450) Iron Saturation 10 % (15-34) Ferritin 391 ng/mL (26-388) Vitamin B12 Level 400 pg/mL (247-911) Medications Current Medications Sodium Chloride 1,000 ml @ 1,000 mls/hr 1X ONCE IV Last administered on 06/11/19 15:42; Start 06/11/19 at 15:45; Stop 06/11/19 at 16:44; Status DC Dicyclomine HCl (Bentyl) 20 mg 1X ONCE IM Last administered on 06/11/19at 15:42; Start 06/11/19 at 15:45; Stop 06/11/19 at 15:46; Status DC Ondansetron HCl (Zofran) 4 mg PRN Q8HRS PRN IV NAUSEA/VOMITING; Start 06/11/19 at 17:00; Stop 06/12/19 at 16:59; Status DC Fentanyl Citrate (Fentanyl 2ml Vial) 50 mcg PRN Q2HRS PRN IV PAIN; Start 9 at 17:00; Stop 06/12/19 at 16:59; Status DC Dicyclomine HCl (Bentyl) 10 mg TID PO Last administered on 06/16/19at 08:19; Start 06/11/19 at 21:00 Ferrous Sulfate (Feosol) 325 mg DAILY08 PO Last administered on 06/13/19at 08:35; Start 06/12/19 at 08:00; Stop 06/13/19 at 12:33; Status DC Hyoscyamine (Anaspaz) 0.125 mg Q6HRS PO Last administered on 06/16/19at 06:29; Start 06/11/19 at 20:00 Oxycodone/ Acetaminophen (Percocet 5/325) 1 tab PRN Q4HRS PRN PO SEVERE PAIN 7- 10; Start 06/11/19 at 20:15 Simethicone (Gas-X) 80 mg PRN Q6HRS PRN PO GAS / BLOATING; Start 06/11/19 at 20:15 Non-Formulary Medication (Mesalamine (Apriso)) 2 cap BID PO Last administered on 06/16/19at 08:19; Start 06/11/19 at 21:00 Pantoprazole Sodium (Protonix) 40 mg DAILYAC PO Last administered on 06/16/19at 08:19; Start 06/12/19 at 07:30 Psyllium Hydrophilic Mucilloid (Metamucil Fiber Packet) 1 pkt DAILY PO ; Start 06/12/19 at 09:00 Pharmacy Consult (C.diff Med Screen By Rx) 1 each 1X ONCE MC Last administered on 06/12/19at 08:36; Start 06/11/19 at 22:15; Stop 06/11/19 at 22:16; Status DC Iron Sucrose 500 mg/Sodium Chloride 275 ml @ 78.571 mls/ hr 1X ONCE IV Last administered on 06/12/19at 11:25; Start 06/12/19 at 11:00; Stop 06/12/19 at 14:29; Status DC Methylprednisolone Sodium Succinate (SOLU-Medrol 40MG VIAL) 40 mg Q8HRS IV Last administered on 06/13/19at 05:24; Start 06/12/19 at 14:00; Stop 06/13/19 at 12:33; Status DC Vancomycin HCl (Vancomycin Oral Solution) 125 mg [id number] PO ; Start 06/12/19 at 14:30; Stop 06/12/19 at 14:56; Status DC Vancomycin HCl (Vancomycin Oral Solution) 500 mg [id number] PO Last administered on 06/16/19at 08:58; Start 06/12/19 at 15:01 Ferrous Sulfate (Feosol) 325 mg BIDWMEALS PO Last administered on 06/16/19at 08:19; Start 06/13/19 at 17:00 Prednisone (Prednisone) 60 mg DAILY PO Last administered on 06/15/19at 08:31; Start 06/14/19 at 09:00; Stop 06/15/19 at 17:00; Status DC Ondansetron HCl (Zofran) 4 mg PRN Q6HRS PRN IV NAUSEA/VOMITING Last administered on 06/13/19at 18:59; Start 06/13/19 at 18:45 Aspirin (Ecotrin) 81 mg DAILYWBKFT PO ; Start 06/14/19 at 08:00; Stop 06/13/19 at 19:30; Status DC Aspirin (Ecotrin) 81 mg 1X STAT PO Last administered on 06/13/19at 19:37; Start 06/13/19 at 19:30; Stop 06/13/19 at 19:33; Status DC Lactobacillus Rhamnosus (Culturelle) 1 cap BID PO Last administered on 06/16/19at 08:19; Start 06/14/19 at 21:00 Acetaminophen (Tylenol) 650 mg PRN Q6HRS PRN PO TEMP > 100.4F; Start 06/14/19 at 13:15 Acetaminophen (Tylenol Supp) 650 mg PRN Q4HRS PRN [place] TEMP > 100.4F; Start 06/14/19 at 13:15 Aspirin (Children'S Aspirin) 81 mg DAILYWBKFT PO Last administered on 06/16/19at 08:19; Start 06/15/19 at 08:00 Iron Sucrose 500 mg/Sodium Chloride 275 ml @ 78.571 mls/ hr 1X ONCE IV Last administered on 06/15/19at 17:40; Start 06/15/19 at 17:00; Stop 06/15/19 at 20:29; Status DC Methylprednisolone Sodium Succinate (SOLU-Medrol 40MG VIAL) 40 mg Q8HRS IV Last administered on 06/16/19at 06:29; Start 06/15/19 at 22:00 Active Scripts Active Simethicone 80 Mg Tab.chew 80 Mg PO PRN Q6HRS PRN 30 Days Anaspaz (Hyoscyamine Sulfate) 0.125 Mg Tab.rapdis 0.125 Mg PO Q6HRS 10 Days Percocet 5-325 Mg Tablet (Oxycodone/Acetaminophen) 1 Each Tablet 1 Tab PO PRN Q4HRS PRN 14 Days Reported Ferrous Sulfate 325 Mg Tablet 325 Mg PO DAILY Red Yeast Rice 600 Mg Capsule 600 Mg PO DAILY Fiber (Psyllium Husk) 0.52 Gm Capsule 0.52 Gm PO DAILY Omeprazole 40 Mg Capsule.dr 1 Cap PO DAILY Centrum Silver Tablet (Multivits-Min/Fa/Lycopene/Lut) 1 Each Tablet 1 Each PO DAILY Nystatin 100,000 Unit/1 Ml Oral.susp 10 Ml PO QID Dicyclomine Hcl 10 Mg Capsule 1 Cap PO TID Apriso (Mesalamine) 0.375 Gm Cap.er.24h 2 Cap PO BID Vitals/I & O Vital Sign - Last 24 Hours 06/15/19 06/15/19 06/15/19 06/15/19 11:00 15:10 19:55 20:25 Temp 98.1 97.6 98.4 98.1 97.6 98.4 Pulse 64 64 58 Resp 18 18 18 B/P (MAP) 86/55 (65) 87/57 (67) 87/57 (67) Pulse Ox 97 97 95 O2 Delivery Room Air Room Air Room Air Room Air 06/15/19 06/16/19 06/16/19 06/16/19 23:10 03:00 07:38 08:00 Temp 97.8 97.9 98.1 97.8 97.9 98.1 Pulse 48 51 51 Resp 20 18 18 B/P (MAP) 101/62 (75) 93/63 (73) 92/60 (71) Pulse Ox 92 94 97 O2 Delivery Room Air Room Air Room Air Room Air Intake and Output 06/15/19 06/15/19 06/16/19 15:00 23:00 07:00 Intake Total 320 ml 150 ml 0 ml Balance 320 ml 150 ml 0 ml JAZMÍN HALL MD Jun 16, 2019 10:46
[2019-06-16 11:42] VITALS: BP 92/59
--- NOTE | 2019-06-16 13:03 | PDOC ---
G I PROGRESS NOTE Subjective Still with 5-7 stools daily, some at night. Reports no bleeding. Physical Exam Lungs clear. RRR Abdomen soft, not tender nor distended. Review of Relevant I have reviewed the following items maria teresa (where applicable) has been applied. Labs Laboratory Tests Test 06/15/19 03:40 06/15/19 15:30 White Blood Count 7.6 x10^3/uL (4.0-11.0) Red Blood Count 3.18 x10^6/uL (4.30-5.70) Hemoglobin 8.3 g/dL (13.0-17.5) Hematocrit 26.9 % (39.0-53.0) Mean Corpuscular Volume 85 fL (79-100) Mean Corpuscular Hemoglobin 26 pg (25-35) Mean Corpuscular Hemoglobin Concent 31 g/dL (31-37) Red Cell Distribution Width 20.1 % (11.5-14.5) Platelet Count 367 x10^3/uL (140-400) Absolute Reticulocyte Count 0.132 x10^6/uL (0.020-0.120) Percent Reticulocyte Count 4.1 % (0.5-2.3) Immature Reticulocyte Fraction 0.68 (0.20-0.60) Sodium Level 138 mmol/L (136-145) Potassium Level 4.4 mmol/L (3.5-5.1) Chloride Level 104 mmol/L (98-107) Carbon Dioxide Level 29 mmol/L (21-32) Anion Gap 5 (6-14) Blood Urea Nitrogen 12 mg/dL (8-26) Creatinine 0.7 mg/dL (0.7-1.3) Estimated GFR (Cockcroft-Gault) 117.1 Glucose Level 78 mg/dL (70-99) Calcium Level 8.2 mg/dL (8.5-10.1) Triglycerides Level 83 mg/dL (0-150) Cholesterol Level 131 mg/dL (0-200) LDL Cholesterol, Calculated 70 mg/dL (0-100) VLDL Cholesterol, Calculated 17 mg/dL (0-40) Non-HDL Cholesterol Calculated 87 mg/dL (0-129) HDL Cholesterol 44 mg/dL (40-60) Cholesterol/HDL Ratio 3.0 Iron Level 15 ug/dL (65-175) Total Iron Binding Capacity 154 ug/dL (250-450) Iron Saturation 10 % (15-34) Ferritin 391 ng/mL (26-388) Vitamin B12 Level 400 pg/mL (247-911) Laboratory Tests Test 06/15/19 15:30 Iron Level 15 ug/dL (65-175) Total Iron Binding Capacity 154 ug/dL (250-450) Iron Saturation 10 % (15-34) Ferritin 391 ng/mL (26-388) Vitamin B12 Level 400 pg/mL (247-911) Vitals/I & O Vital Sign - Last 24 Hours 06/15/19 06/15/19 06/15/19 06/15/19 15:10 19:55 20:25 23:10 Temp 97.6 98.4 97.8 97.6 98.4 97.8 Pulse 64 58 48 Resp 18 18 20 B/P (MAP) 87/57 (67) 87/57 (67) 101/62 (75) Pulse Ox 97 95 92 O2 Delivery Room Air Room Air Room Air Room Air 06/16/19 06/16/19 06/16/19 06/16/19 03:00 07:38 08:00 11:42 Temp 97.9 98.1 97.4 97.9 98.1 97.4 Pulse 51 51 58 Resp 18 18 18 B/P (MAP) 93/63 (73) 92/60 (71) 92/59 (70) Pulse Ox 94 97 96 O2 Delivery Room Air Room Air Room Air Room Air Intake and Output 06/15/19 06/15/19 06/16/19 15:00 23:00 07:00 Intake Total 320 ml 150 ml 0 ml Balance 320 ml 150 ml 0 ml Problem List Problems Medical Problems: (1) Abdominal pain Status: Acute (2) Anemia due to blood loss Status: Acute (3) Colitis Status: Acute (4) External hemorrhoids Status: Chronic (5) GI bleed Status: Acute (6) Severe protein-calorie malnutrition Status: Chronic Assessment UC with "flare", on iv steroids. Is improved from presentation. Superimposed C.diff-mediated disease. Hard to separate one from the other in terms of contribution to ongoing symptoms. Plan of Care: Continue current Tx, Mgmt Plan of Care Note Once not having nocturnal stools, probably could consider discharge. AVERY VELASQUEZ MD Jun 16, 2019 13:03
[2019-06-16 15:54] VITALS: BP 87/50
[2019-06-16 19:25] VITALS: BP 110/77
[2019-06-16 23:30] VITALS: BP 110/73
[2019-06-17] MEDS: HYOSCYAMINE 0.125 MG TAB.RAPDIS PO SCH ×5 (00:28→20:20)
[2019-06-17 03:40] VITALS: BP 101/62
[2019-06-17 04:52] LABS: BASO % 0 % (0-3); EOS % 0 % (0-3); HEMATOCRIT 27.4 % (39.0-53.0); HEMOGLOBIN 8.6 g/dL (13.0-17.5); LYMPH # 0.8 x10^3/uL (1.0-4.8); LYMPH % 11 % (24-48); MEAN CORPUSCULAR HEMOGLOBIN 27 pg (25-35); MEAN CORPUSCULAR HGB CONC 32 g/dL (31-37); MEAN CORPUSCULAR VOLUME 84 fL (79-100); MONO # 0.3 x10^3/uL (0.0-1.1); MONO % 5 % (0-9); NEUT # 5.6 x10^3/uL (1.8-7.7); NEUT % 84 % (31-73); PLATELET COUNT 441 x10^3/uL (140-400); RED BLOOD COUNT 3.25 x10^6/uL (4.30-5.70); RED CELL DISTRIBUTION WIDTH 21.5 % (11.5-14.5); WHITE BLOOD COUNT 6.7 x10^3/uL (4.0-11.0)
[2019-06-17 05:10] LABS: ALBUMIN 1.5 g/dL (3.4-5.0); ALBUMIN/GLOBULIN RATIO 0.4 (1.0-1.7); CALCIUM 8.1 mg/dL (8.5-10.1); CREATININE 0.6 mg/dL (0.7-1.3); GFR 139.9; POTASSIUM 4.6 mmol/L (3.5-5.1); TOTAL BILIRUBIN 0.1 mg/dL (0.2-1.0); TOTAL PROTEIN 5.3 g/dL (6.4-8.2)
[2019-06-17 05:57] LABS: % BANDS 11 % (0-9); % LYMPHS 16 % (24-48); % METAS 2 % (0-0); % MONOS 4 % (0-10); % MYELOS 1 % (0-0); % SEGS 66 % (35-66)
[2019-06-17 05:58] LABS: PLT ESTIMATE INCREASED (ADEQUATE)
[2019-06-17 05:59] LABS: ANISOCYTOSIS MOD
[2019-06-17] MEDS: methylPREDNISolone SOD SUCC PF 40 MG/ML VIAL. IV SCH (06:37)
[2019-06-17 07:29] VITALS: BP 96/61
[2019-06-17] MEDS: PANTOPRAZOLE 40 MG TABLET.DR. PO SCH (08:27)
[2019-06-17] MEDS: PSYLLIUM HUSK (SUGAR FREE) 1 PKT PACKET PO SCH (08:27)
[2019-06-17] MEDS: VANCOMYCIN 125 MG/2.5 ML ORAL SOLUTION. PO SCH ×4 (08:27→20:15)
[2019-06-17] MEDS: FERROUS SULFATE 325 MG TABLET. PO SCH ×2 (08:27→17:21)
[2019-06-17] MEDS: DICYCLOMINE HCL 10 MG CAPSULE PO SCH ×3 (08:28→20:20)
[2019-06-17] MEDS: [UNRECOGNIZED DRUG - REMARK] PO SCH ×2 (08:30→20:26)
[2019-06-17] MEDS: ASPIRIN CHEWABLE 81 MG TABLET. PO SCH (08:59)
--- NOTE | 2019-06-17 09:24 | PDOC ---
Infectious Disease Note Subjective Subjective 6 stools last night, formed except for one Mild cramps and bloating Appetite remains good No F/C/S//N/V/CP ROS ROS per HPI Vital Sign Vital Signs Vital Signs Date Time Temp Pulse Resp B/P (MAP) Pulse Ox O2 Delivery O2 Flow Rate FiO2 06/17/19 08:00 Room Air 06/17/19 07:29 97.8 49 18 96/61 (73) 98 97.8 Physical Exam PHYSICAL EXAM GENERAL: Propped up in bed, alert, reading HEENT: Oral cavity, pharynx is clear. Edentulous NECK: Supple. Good range of motion. LUNGS: Clear to auscultation bilaterally. HEART: S1, S2. ABDOMEN: Mildly distended, soft, NT + BS no guarding. EXTREMITIES: No clubbing, cyanosis or gross edema. SKIN: Warm to touch without signs of rash. NEUROLOGIC: Alert and oriented x 3. PEREZ PIV Labs Lab Laboratory Tests Test 06/17/19 04:20 White Blood Count 6.7 x10^3/uL (4.0-11.0) Red Blood Count 3.25 x10^6/uL (4.30-5.70) Hemoglobin 8.6 g/dL (13.0-17.5) Hematocrit 27.4 % (39.0-53.0) Mean Corpuscular Volume 84 fL (79-100) Mean Corpuscular Hemoglobin 27 pg (25-35) Mean Corpuscular Hemoglobin Concent 32 g/dL (31-37) Red Cell Distribution Width 21.5 % (11.5-14.5) Platelet Count 441 x10^3/uL (140-400) Neutrophils (%) (Auto) 84 % (31-73) Lymphocytes (%) (Auto) 11 % (24-48) Monocytes (%) (Auto) 5 % (0-9) Eosinophils (%) (Auto) 0 % (0-3) Basophils (%) (Auto) 0 % (0-3) Neutrophils # (Auto) 5.6 x10^3/uL (1.8-7.7) Lymphocytes # (Auto) 0.8 x10^3/uL (1.0-4.8) Monocytes # (Auto) 0.3 x10^3/uL (0.0-1.1) Eosinophils # (Auto) 0.0 x10^3/uL (0.0-0.7) Basophils # (Auto) 0.0 x10^3/uL (0.0-0.2) Segmented Neutrophils % 66 % (35-66) Band Neutrophils % 11 % (0-9) Lymphocytes % 16 % (24-48) Monocytes % 4 % (0-10) Metamyelocytes % 2 % (0-0) Myelocytes % 1 % (0-0) Platelet Estimate Increased (ADEQUATE) Basophilic Stippling Present Anisocytosis Mod Sodium Level 139 mmol/L (136-145) Potassium Level 4.6 mmol/L (3.5-5.1) Chloride Level 105 mmol/L (98-107) Carbon Dioxide Level 29 mmol/L (21-32) Anion Gap 5 (6-14) Blood Urea Nitrogen 11 mg/dL (8-26) Creatinine 0.6 mg/dL (0.7-1.3) Estimated GFR (Cockcroft-Gault) 139.9 BUN/Creatinine Ratio 18 (6-20) Glucose Level 123 mg/dL (70-99) Calcium Level 8.1 mg/dL (8.5-10.1) Total Bilirubin 0.1 mg/dL (0.2-1.0) Aspartate Amino Transf (AST/SGOT) 23 U/L (15-37) Alanine Aminotransferase (ALT/SGPT) 40 U/L (16-63) Alkaline Phosphatase 87 U/L (46-116) Total Protein 5.3 g/dL (6.4-8.2) Albumin 1.5 g/dL (3.4-5.0) Albumin/Globulin Ratio 0.4 (1.0-1.7) Micro Echo <Conclusion> The left ventricular systolic function is normal. The Ejection Fraction is 55-60%. There is normal LV segmental wall motion. Transmitral Doppler flow pattern is Grade I-abnormal relaxation pattern. Mild mitral regurgitation. Trace tricuspid regurgitation. The PA pressure was estimated at 27 mmHg. There is no evidence of significant pericardial effusion. Injection of bubbles documented no interatrial shunt. 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 Uncertain if C-diff is causing infection or colonization with UC flare - Stools are starting to form more and less cramps Not a transplant candidate sec to immunosuppression Anticipate home with Dificid and then will eval need for Vanc taper On po Steroids now Attending Co-Sign Attending Co-Sign The patient was seen and interviewed as well as examined at the bedside. The chart was reviewed. The case was discussed. Agree with the plan of care. LYNNETTE STONE APRN Jun 17, 2019 09:24 BARBRA ZAMUDIO MD Jun 17, 2019 13:23
--- NOTE | 2019-06-17 11:07 | PDOC ---
PROGRESS NOTES Chief Complaint Chief Complaint A/P: Acute blood loss anemia - Hb 6.9 from 8.2 over a month ago. Transfused 1u PRBC with Hb 6.4 --> 2 u PRBC --> Hb 9 Severe colitis - flex sig 04/30: large tender but not thrombosed external hemorrhoids; Severe colitis in rectum , sigmoid and descending colon - to extent of scope passage- no obvious pseudomembranes seen. recent colonoscopy in [place] reportedly w/ ulcerative colitis. Tapered on PO steroids History of C. difficile - s/p treatment from 04/24/19 culture positive. Repeat c. difficile now Severe protein-calorie malnutrition - will get bagel maker involved now Immunosuppression - due for his injection today of remicade, will consult GI. Lactic acidosis - likely from blood loss, will hydrate Multiple acute right cerebral hemispheric infarcts predominantly 06/15 posterior watershed territory. Small chronic right cerebellar infarcts. No intracranial arterial stenosis or occlusion. No evidence of sinus venous thrombosis. Probable hypercoagulable state - hem/onc following c diff pos severe protein-caloric malnutrition FEN - NSS + clear liquid diet (no red jello) PPX - SCDs, PPI FULL CODE Inpatient for acute blood loss anemia, symptomatic IV solumedrol 06/15 ECHO NEUROLOGY CONSULT Vanc 500 mg with immunosuppression. labs ; fibrinogen level, protein C, protein S, anti-thrombin III, factor V Leiden and prothrombin gene mutation and lupus anticoagulant 27 MIN PT EXAM, CHART REVIEW, > 50% OF TIME SPENT WITH EXAM, CHART REVIEW, PT CARE COORDINATION History of Present Illness History of Present Illness Mr Nesbitt is a 53 y/o male who was diagnosed w/ ulcerative colitis in [place] on 03/30/19 and recent diagnosis of c. difficile colitis 04/24/19 who comes in today with grossly bloody bowel movements. He was noted with Hb 6.9 in ED, lactate of 2.4 Diffuse abd pain, gas (worse in evening), liquid stools (8-10 daily - small w/ red blood every third stool), tenesmus, decreased appetite, weight loss (30 pounds), insomnia, fatigue. Albumin is 1.8-->1.5 Tuesday06/08/19 he had labs with H&H of 8.8/30.8. Pt reports he has multiple episodes of bloody stools today and feels his fatigue has increased. Pt denies CP/palpitations, N/V, fever, or urinary sxs. Pt reports he has had some exertional SOA- denies currently. Pt reports mid abd intermittent cramping. 06/12: Hb down to 6.4 overnight after 1u PRBC. He does not feel any better, still had a few bloody BM. He still has pain. No SOB or CP, but feels his heart racing and very weak, pale. C. difficile returned positive Better today - still some diarrhea, more solid. Less blood. More energy. Associated bloating/gas. No SOB or CP. Seen by neurology for transient left sided arm tingling up to shoulder and visual disturbances. CT head negative. He is very upset today, feels he should have had MRI brain 2 weeks ago when he told his outpatient physicians about his visual symptoms. His left arm tingling occurred yesterday after IV access Vitals Vitals Vital Signs Date Time Temp Pulse Resp B/P (MAP) Pulse Ox O2 Delivery O2 Flow Rate FiO2 06/17/19 08:00 Room Air 06/17/19 07:29 97.8 49 18 96/61 (73) 98 97.8 Physical Exam Physical Exam GENERAL: Propped up in bed, alert, reading HEENT: Oral cavity, pharynx is clear. Edentulous NECK: Supple. Good range of motion. LUNGS: Clear to auscultation bilaterally. HEART: S1, S2. ABDOMEN: Mildly distended, soft, NT + BS no guarding. EXTREMITIES: No clubbing, cyanosis or gross edema. SKIN: Warm to touch without signs of rash. NEUROLOGIC: Alert and oriented x 3. PEREZ PIV General: Alert, Oriented X3, Cooperative, No acute distress Heart: Regular rate, Normal S1, Other Lungs: Clear Abdomen: Normal bowel sounds, Soft, No tenderness Extremities: No clubbing, No cyanosis, No edema, Normal pulses Skin: No rashes, No breakdown, No significant lesion Labs LABS Laboratory Tests Test 06/17/19 04:20 White Blood Count 6.7 x10^3/uL (4.0-11.0) Red Blood Count 3.25 x10^6/uL (4.30-5.70) Hemoglobin 8.6 g/dL (13.0-17.5) Hematocrit 27.4 % (39.0-53.0) Mean Corpuscular Volume 84 fL (79-100) Mean Corpuscular Hemoglobin 27 pg (25-35) Mean Corpuscular Hemoglobin Concent 32 g/dL (31-37) Red Cell Distribution Width 21.5 % (11.5-14.5) Platelet Count 441 x10^3/uL (140-400) Neutrophils (%) (Auto) 84 % (31-73) Lymphocytes (%) (Auto) 11 % (24-48) Monocytes (%) (Auto) 5 % (0-9) Eosinophils (%) (Auto) 0 % (0-3) Basophils (%) (Auto) 0 % (0-3) Neutrophils # (Auto) 5.6 x10^3/uL (1.8-7.7) Lymphocytes # (Auto) 0.8 x10^3/uL (1.0-4.8) Monocytes # (Auto) 0.3 x10^3/uL (0.0-1.1) Eosinophils # (Auto) 0.0 x10^3/uL (0.0-0.7) Basophils # (Auto) 0.0 x10^3/uL (0.0-0.2) Segmented Neutrophils % 66 % (35-66) Band Neutrophils % 11 % (0-9) Lymphocytes % 16 % (24-48) Monocytes % 4 % (0-10) Metamyelocytes % 2 % (0-0) Myelocytes % 1 % (0-0) Platelet Estimate Increased (ADEQUATE) Basophilic Stippling Present Anisocytosis Mod Sodium Level 139 mmol/L (136-145) Potassium Level 4.6 mmol/L (3.5-5.1) Chloride Level 105 mmol/L (98-107) Carbon Dioxide Level 29 mmol/L (21-32) Anion Gap 5 (6-14) Blood Urea Nitrogen 11 mg/dL (8-26) Creatinine 0.6 mg/dL (0.7-1.3) Estimated GFR (Cockcroft-Gault) 139.9 BUN/Creatinine Ratio 18 (6-20) Glucose Level 123 mg/dL (70-99) Calcium Level 8.1 mg/dL (8.5-10.1) Total Bilirubin 0.1 mg/dL (0.2-1.0) Aspartate Amino Transf (AST/SGOT) 23 U/L (15-37) Alanine Aminotransferase (ALT/SGPT) 40 U/L (16-63) Alkaline Phosphatase 87 U/L (46-116) Total Protein 5.3 g/dL (6.4-8.2) Albumin 1.5 g/dL (3.4-5.0) Albumin/Globulin Ratio 0.4 (1.0-1.7) Assessment and Plan Assessmemt and Plan Problems Medical Problems: (1) Abdominal pain Status: Acute (2) Anemia due to blood loss Status: Acute (3) Colitis Status: Acute (4) External hemorrhoids Status: Chronic (5) GI bleed Status: Acute (6) Severe protein-calorie malnutrition Status: Chronic Comment Review of Relevant I have reviewed the following items maria teresa (where applicable) has been applied. Labs Laboratory Tests Test 06/15/19 15:30 06/17/19 04:20 Iron Level 15 ug/dL (65-175) Total Iron Binding Capacity 154 ug/dL (250-450) Iron Saturation 10 % (15-34) Ferritin 391 ng/mL (26-388) Vitamin B12 Level 400 pg/mL (247-911) White Blood Count 6.7 x10^3/uL (4.0-11.0) Red Blood Count 3.25 x10^6/uL (4.30-5.70) Hemoglobin 8.6 g/dL (13.0-17.5) Hematocrit 27.4 % (39.0-53.0) Mean Corpuscular Volume 84 fL (79-100) Mean Corpuscular Hemoglobin 27 pg (25-35) Mean Corpuscular Hemoglobin Concent 32 g/dL (31-37) Red Cell Distribution Width 21.5 % (11.5-14.5) Platelet Count 441 x10^3/uL (140-400) Neutrophils (%) (Auto) 84 % (31-73) Lymphocytes (%) (Auto) 11 % (24-48) Monocytes (%) (Auto) 5 % (0-9) Eosinophils (%) (Auto) 0 % (0-3) Basophils (%) (Auto) 0 % (0-3) Neutrophils # (Auto) 5.6 x10^3/uL (1.8-7.7) Lymphocytes # (Auto) 0.8 x10^3/uL (1.0-4.8) Monocytes # (Auto) 0.3 x10^3/uL (0.0-1.1) Eosinophils # (Auto) 0.0 x10^3/uL (0.0-0.7) Basophils # (Auto) 0.0 x10^3/uL (0.0-0.2) Segmented Neutrophils % 66 % (35-66) Band Neutrophils % 11 % (0-9) Lymphocytes % 16 % (24-48) Monocytes % 4 % (0-10) Metamyelocytes % 2 % (0-0) Myelocytes % 1 % (0-0) Platelet Estimate Increased (ADEQUATE) Basophilic Stippling Present Anisocytosis Mod Sodium Level 139 mmol/L (136-145) Potassium Level 4.6 mmol/L (3.5-5.1) Chloride Level 105 mmol/L (98-107) Carbon Dioxide Level 29 mmol/L (21-32) Anion Gap 5 (6-14) Blood Urea Nitrogen 11 mg/dL (8-26) Creatinine 0.6 mg/dL (0.7-1.3) Estimated GFR (Cockcroft-Gault) 139.9 BUN/Creatinine Ratio 18 (6-20) Glucose Level 123 mg/dL (70-99) Calcium Level 8.1 mg/dL (8.5-10.1) Total Bilirubin 0.1 mg/dL (0.2-1.0) Aspartate Amino Transf (AST/SGOT) 23 U/L (15-37) Alanine Aminotransferase (ALT/SGPT) 40 U/L (16-63) Alkaline Phosphatase 87 U/L (46-116) Total Protein 5.3 g/dL (6.4-8.2) Albumin 1.5 g/dL (3.4-5.0) Albumin/Globulin Ratio 0.4 (1.0-1.7) Laboratory Tests Test 06/17/19 04:20 White Blood Count 6.7 x10^3/uL (4.0-11.0) Red Blood Count 3.25 x10^6/uL (4.30-5.70) Hemoglobin 8.6 g/dL (13.0-17.5) Hematocrit 27.4 % (39.0-53.0) Mean Corpuscular Volume 84 fL (79-100) Mean Corpuscular Hemoglobin 27 pg (25-35) Mean Corpuscular Hemoglobin Concent 32 g/dL (31-37) Red Cell Distribution Width 21.5 % (11.5-14.5) Platelet Count 441 x10^3/uL (140-400) Neutrophils (%) (Auto) 84 % (31-73) Lymphocytes (%) (Auto) 11 % (24-48) Monocytes (%) (Auto) 5 % (0-9) Eosinophils (%) (Auto) 0 % (0-3) Basophils (%) (Auto) 0 % (0-3) Neutrophils # (Auto) 5.6 x10^3/uL (1.8-7.7) Lymphocytes # (Auto) 0.8 x10^3/uL (1.0-4.8) Monocytes # (Auto) 0.3 x10^3/uL (0.0-1.1) Eosinophils # (Auto) 0.0 x10^3/uL (0.0-0.7) Basophils # (Auto) 0.0 x10^3/uL (0.0-0.2) Segmented Neutrophils % 66 % (35-66) Band Neutrophils % 11 % (0-9) Lymphocytes % 16 % (24-48) Monocytes % 4 % (0-10) Metamyelocytes % 2 % (0-0) Myelocytes % 1 % (0-0) Platelet Estimate Increased (ADEQUATE) Basophilic Stippling Present Anisocytosis Mod Sodium Level 139 mmol/L (136-145) Potassium Level 4.6 mmol/L (3.5-5.1) Chloride Level 105 mmol/L (98-107) Carbon Dioxide Level 29 mmol/L (21-32) Anion Gap 5 (6-14) Blood Urea Nitrogen 11 mg/dL (8-26) Creatinine 0.6 mg/dL (0.7-1.3) Estimated GFR (Cockcroft-Gault) 139.9 BUN/Creatinine Ratio 18 (6-20) Glucose Level 123 mg/dL (70-99) Calcium Level 8.1 mg/dL (8.5-10.1) Total Bilirubin 0.1 mg/dL (0.2-1.0) Aspartate Amino Transf (AST/SGOT) 23 U/L (15-37) Alanine Aminotransferase (ALT/SGPT) 40 U/L (16-63) Alkaline Phosphatase 87 U/L (46-116) Total Protein 5.3 g/dL (6.4-8.2) Albumin 1.5 g/dL (3.4-5.0) Albumin/Globulin Ratio 0.4 (1.0-1.7) Medications Current Medications Sodium Chloride 1,000 ml @ 1,000 mls/hr 1X ONCE IV Last administered on 06/11/19 15:42; Start 06/11/19 at 15:45; Stop 06/11/19 at 16:44; Status DC Dicyclomine HCl (Bentyl) 20 mg 1X ONCE IM Last administered on 06/11/19at 15:42; Start 06/11/19 at 15:45; Stop 06/11/19 at 15:46; Status DC Ondansetron HCl (Zofran) 4 mg PRN Q8HRS PRN IV NAUSEA/VOMITING; Start 06/11/19 at 17:00; Stop 06/12/19 at 16:59; Status DC Fentanyl Citrate (Fentanyl 2ml Vial) 50 mcg PRN Q2HRS PRN IV PAIN; Start 06/11/19 at 17:00; Stop 06/12/19 at 16:59; Status DC Dicyclomine HCl (Bentyl) 10 mg TID PO Last administered on 06/17/19at 08:32; Start 06/11/19 at 21:00 Ferrous Sulfate (Feosol) 325 mg DAILY08 PO Last administered on 06/13/19at 08:35; Start 06/12/19 at 08:00; Stop 06/13/19 at 12:33; Status DC Hyoscyamine (Anaspaz) 0.125 mg Q6HRS PO Last administered on 06/17/19at 06:39; Start 06/11/19 at 20:00 Oxycodone/ Acetaminophen (Percocet 5/325) 1 tab PRN Q4HRS PRN PO SEVERE PAIN 7- 10; Start 06/11/19 at 20:15 Simethicone (Gas-X) 80 mg PRN Q6HRS PRN PO GAS / BLOATING; Start 06/11/19 at 20:15 Non-Formulary Medication (Mesalamine (Apriso)) 2 cap BID PO Last administered on 06/17/19at 08:32; Start 06/11/19 at 21:00 Pantoprazole Sodium (Protonix) 40 mg DAILYAC PO Last administered on 06/17/19at 08:32; Start 06/12/19 at 07:30 Psyllium Hydrophilic Mucilloid (Metamucil Fiber Packet) 1 pkt DAILY PO ; Start 06/12/19 at 09:00 Pharmacy Consult (C.diff Med Screen By Rx) 1 each 1X ONCE [facility] Last administered on 06/12/19at 08:36; Start 06/11/19 at 22:15; Stop 06/11/19 at 22:16; Status DC Iron Sucrose 500 mg/Sodium Chloride 275 ml @ 78.571 mls/ hr 1X ONCE IV Last administered on 06/12/19at 11:25; Start 06/12/19 at 11:00; Stop 06/12/19 at 14:29; Status DC Methylprednisolone Sodium Succinate (SOLU-Medrol 40MG VIAL) 40 mg Q8HRS IV Last administered on 06/13/19at 05:24; Start 06/12/19 at 14:00; Stop 06/13/19 at 12:33; Status DC Vancomycin HCl (Vancomycin Oral Solution) 125 mg [id number] PO ; Start 06/12/19 at 14:30; Stop 06/12/19 at 14:56; Status DC Vancomycin HCl (Vancomycin Oral Solution) 500 mg [id number] PO Last administered on 06/17/19at 08:32; Start 06/12/19 at 15:01 Ferrous Sulfate (Feosol) 325 mg BIDWMEALS PO Last administered on 06/17/19at 08:32; Start 06/13/19 at 17:00 Prednisone (Prednisone) 60 mg DAILY PO Last administered on 06/15/19at 08:31; Start 06/14/19 at 09:00; Stop 06/15/19 at 17:00; Status DC Ondansetron HCl (Zofran) 4 mg PRN Q6HRS PRN IV NAUSEA/VOMITING Last administered on 06/13/19at 18:59; Start 06/13/19 at 18:45 Aspirin (Ecotrin) 81 mg DAILYWBKFT PO ; Start 06/14/19 at 08:00; Stop 06/13/19 at 19:30; Status DC Aspirin (Ecotrin) 81 mg 1X STAT PO Last administered on 06/13/19at 19:37; Start 06/13/19 at 19:30; Stop 06/13/19 at 19:33; Status DC Lactobacillus Rhamnosus (Culturelle) 1 cap BID PO Last administered on 06/16/19at 08:19; Start 06/14/19 at 21:00; Stop 06/16/19 at 13:19; Status DC Acetaminophen (Tylenol) 650 mg PRN Q6HRS PRN PO TEMP > 100.4F; Start 06/14/19 at 13:15 Acetaminophen (Tylenol Supp) 650 mg PRN Q4HRS PRN SC TEMP > 100.4F; Start 06/14/19 at 13:15 Aspirin (Children'S Aspirin) 81 mg DAILYWBKFT PO Last administered on 06/17/19at 09:00; Start 06/15/19 at 08:00 Iron Sucrose 500 mg/Sodium Chloride 275 ml @ 78.571 mls/ hr 1X ONCE IV Last administered on 06/15/19at 17:40; Start 06/15/19 at 17:00; Stop 06/15/19 at 20:29; Status DC Methylprednisolone Sodium Succinate (SOLU-Medrol 40MG VIAL) 40 mg Q8HRS IV Last administered on 06/17/19at 06:39; Start 06/15/19 at 22:00 Active Scripts Active Simethicone 80 Mg Tab.chew 80 Mg PO PRN Q6HRS PRN 30 Days Anaspaz (Hyoscyamine Sulfate) 0.125 Mg Tab.rapdis 0.125 Mg PO Q6HRS 10 Days Percocet 5-325 Mg Tablet (Oxycodone/Acetaminophen) 1 Each Tablet 1 Tab PO PRN Q4HRS PRN 14 Days Reported Ferrous Sulfate 325 Mg Tablet 325 Mg PO DAILY Red Yeast Rice 600 Mg Capsule 600 Mg PO DAILY Fiber (Psyllium Husk) 0.52 Gm Capsule 0.52 Gm PO DAILY Omeprazole 40 Mg Capsule.dr 1 Cap PO DAILY Centrum Silver Tablet (Multivits-Min/Fa/Lycopene/Lut) 1 Each Tablet 1 Each PO DAILY Nystatin 100,000 Unit/1 Ml Oral.susp 10 Ml PO QID Dicyclomine Hcl 10 Mg Capsule 1 Cap PO TID Apriso (Mesalamine) 0.375 Gm Cap.er.24h 2 Cap PO BID Vitals/I & O Vital Sign - Last 24 Hours 06/16/19 06/16/19 06/16/19 06/16/19 11:42 15:54 19:25 20:21 Temp 97.4 98.1 98.4 97.4 98.1 98.4 Pulse 58 55 51 Resp 18 18 18 B/P (MAP) 92/59 (70) 87/50 (62) 110/77 (88) Pulse Ox 96 95 96 O2 Delivery Room Air Room Air Room Air Room Air 06/16/19 06/17/19 06/17/19 06/17/19 23:30 03:40 07:29 08:00 Temp 98.0 97.9 97.8 98.0 97.9 97.8 Pulse 52 49 49 Resp 18 18 18 B/P (MAP) 110/73 (85) 101/62 (75) 96/61 (73) Pulse Ox 92 94 98 O2 Delivery Room Air Room Air Room Air Room Air Intake and Output 06/16/19 06/16/19 06/17/19 14:59 22:59 06:59 Intake Total 450 ml 300 ml 0 ml Balance 450 ml 300 ml 0 ml JAZMÍN HALL MD Jun 17, 2019 11:07
[2019-06-17 11:21] VITALS: BP 94/59
--- NOTE | 2019-06-17 11:54 | PDOC ---
G I PROGRESS NOTE Subjective Up several times to stool last night. Stools are firming up however. Physical Exam Lungs clear. RRR Abdomen soft, not distended. Review of Relevant I have reviewed the following items maria teresa (where applicable) has been applied. Labs Laboratory Tests Test 06/15/19 15:30 06/17/19 04:20 Iron Level 15 ug/dL (65-175) Total Iron Binding Capacity 154 ug/dL (250-450) Iron Saturation 10 % (15-34) Ferritin 391 ng/mL (26-388) Vitamin B12 Level 400 pg/mL (247-911) White Blood Count 6.7 x10^3/uL (4.0-11.0) Red Blood Count 3.25 x10^6/uL (4.30-5.70) Hemoglobin 8.6 g/dL (13.0-17.5) Hematocrit 27.4 % (39.0-53.0) Mean Corpuscular Volume 84 fL (79-100) Mean Corpuscular Hemoglobin 27 pg (25-35) Mean Corpuscular Hemoglobin Concent 32 g/dL (31-37) Red Cell Distribution Width 21.5 % (11.5-14.5) Platelet Count 441 x10^3/uL (140-400) Neutrophils (%) (Auto) 84 % (31-73) Lymphocytes (%) (Auto) 11 % (24-48) Monocytes (%) (Auto) 5 % (0-9) Eosinophils (%) (Auto) 0 % (0-3) Basophils (%) (Auto) 0 % (0-3) Neutrophils # (Auto) 5.6 x10^3/uL (1.8-7.7) Lymphocytes # (Auto) 0.8 x10^3/uL (1.0-4.8) Monocytes # (Auto) 0.3 x10^3/uL (0.0-1.1) Eosinophils # (Auto) 0.0 x10^3/uL (0.0-0.7) Basophils # (Auto) 0.0 x10^3/uL (0.0-0.2) Segmented Neutrophils % 66 % (35-66) Band Neutrophils % 11 % (0-9) Lymphocytes % 16 % (24-48) Monocytes % 4 % (0-10) Metamyelocytes % 2 % (0-0) Myelocytes % 1 % (0-0) Platelet Estimate Increased (ADEQUATE) Basophilic Stippling Present Anisocytosis Mod Sodium Level 139 mmol/L (136-145) Potassium Level 4.6 mmol/L (3.5-5.1) Chloride Level 105 mmol/L (98-107) Carbon Dioxide Level 29 mmol/L (21-32) Anion Gap 5 (6-14) Blood Urea Nitrogen 11 mg/dL (8-26) Creatinine 0.6 mg/dL (0.7-1.3) Estimated GFR (Cockcroft-Gault) 139.9 BUN/Creatinine Ratio 18 (6-20) Glucose Level 123 mg/dL (70-99) Calcium Level 8.1 mg/dL (8.5-10.1) Total Bilirubin 0.1 mg/dL (0.2-1.0) Aspartate Amino Transf (AST/SGOT) 23 U/L (15-37) Alanine Aminotransferase (ALT/SGPT) 40 U/L (16-63) Alkaline Phosphatase 87 U/L (46-116) Total Protein 5.3 g/dL (6.4-8.2) Albumin 1.5 g/dL (3.4-5.0) Albumin/Globulin Ratio 0.4 (1.0-1.7) Laboratory Tests Test 06/17/19 04:20 White Blood Count 6.7 x10^3/uL (4.0-11.0) Red Blood Count 3.25 x10^6/uL (4.30-5.70) Hemoglobin 8.6 g/dL (13.0-17.5) Hematocrit 27.4 % (39.0-53.0) Mean Corpuscular Volume 84 fL (79-100) Mean Corpuscular Hemoglobin 27 pg (25-35) Mean Corpuscular Hemoglobin Concent 32 g/dL (31-37) Red Cell Distribution Width 21.5 % (11.5-14.5) Platelet Count 441 x10^3/uL (140-400) Neutrophils (%) (Auto) 84 % (31-73) Lymphocytes (%) (Auto) 11 % (24-48) Monocytes (%) (Auto) 5 % (0-9) Eosinophils (%) (Auto) 0 % (0-3) Basophils (%) (Auto) 0 % (0-3) Neutrophils # (Auto) 5.6 x10^3/uL (1.8-7.7) Lymphocytes # (Auto) 0.8 x10^3/uL (1.0-4.8) Monocytes # (Auto) 0.3 x10^3/uL (0.0-1.1) Eosinophils # (Auto) 0.0 x10^3/uL (0.0-0.7) Basophils # (Auto) 0.0 x10^3/uL (0.0-0.2) Segmented Neutrophils % 66 % (35-66) Band Neutrophils % 11 % (0-9) Lymphocytes % 16 % (24-48) Monocytes % 4 % (0-10) Metamyelocytes % 2 % (0-0) Myelocytes % 1 % (0-0) Platelet Estimate Increased (ADEQUATE) Basophilic Stippling Present Anisocytosis Mod Sodium Level 139 mmol/L (136-145) Potassium Level 4.6 mmol/L (3.5-5.1) Chloride Level 105 mmol/L (98-107) Carbon Dioxide Level 29 mmol/L (21-32) Anion Gap 5 (6-14) Blood Urea Nitrogen 11 mg/dL (8-26) Creatinine 0.6 mg/dL (0.7-1.3) Estimated GFR (Cockcroft-Gault) 139.9 BUN/Creatinine Ratio 18 (6-20) Glucose Level 123 mg/dL (70-99) Calcium Level 8.1 mg/dL (8.5-10.1) Total Bilirubin 0.1 mg/dL (0.2-1.0) Aspartate Amino Transf (AST/SGOT) 23 U/L (15-37) Alanine Aminotransferase (ALT/SGPT) 40 U/L (16-63) Alkaline Phosphatase 87 U/L (46-116) Total Protein 5.3 g/dL (6.4-8.2) Albumin 1.5 g/dL (3.4-5.0) Albumin/Globulin Ratio 0.4 (1.0-1.7) Vitals/I & O Vital Sign - Last 24 Hours 06/16/19 06/16/19 06/16/19 06/16/19 15:54 19:25 20:21 23:30 Temp 98.1 98.4 98.0 98.1 98.4 98.0 Pulse 55 51 52 Resp 18 18 18 B/P (MAP) 87/50 (62) 110/77 (88) 110/73 (85) Pulse Ox 95 96 92 O2 Delivery Room Air Room Air Room Air Room Air 06/17/19 06/17/19 06/17/19 06/17/19 03:40 07:29 08:00 11:21 Temp 97.9 97.8 98.5 97.9 97.8 98.5 Pulse 49 49 61 Resp 18 18 18 B/P (MAP) 101/62 (75) 96/61 (73) 94/59 (71) Pulse Ox 94 98 100 O2 Delivery Room Air Room Air Room Air Room Air Intake and Output 06/16/19 06/16/19 06/17/19 15:00 23:00 07:00 Intake Total 450 ml 300 ml 0 ml Balance 450 ml 300 ml 0 ml Problem List Problems Medical Problems: (1) Abdominal pain Status: Acute (2) Anemia due to blood loss Status: Acute (3) Colitis Status: Acute (4) External hemorrhoids Status: Chronic (5) GI bleed Status: Acute (6) Severe protein-calorie malnutrition Status: Chronic Assessment CARMEL, seems responding. C.diff, also better. Plan of Care: Continue current Tx, Mgmt Plan of Care Note Will try po steroids. AVERY VELASQUEZ MD Jun 17, 2019 11:54
[2019-06-17 15:02] VITALS: BP 95/58
[2019-06-17 19:55] VITALS: BP 103/64
[2019-06-18 03:58] VITALS: BP 110/69
[2019-06-18] MEDS: HYOSCYAMINE 0.125 MG TAB.RAPDIS PO SCH ×2 (05:40→12:44)
[2019-06-18 07:00] VITALS: BP 94/65
[2019-06-18] MEDS: PANTOPRAZOLE 40 MG TABLET.DR. PO SCH (08:24)
[2019-06-18] MEDS: FERROUS SULFATE 325 MG TABLET. PO SCH ×2 (08:24→16:27)
[2019-06-18] MEDS: DICYCLOMINE HCL 10 MG CAPSULE PO SCH ×2 (08:24→12:43)
[2019-06-18] MEDS: ASPIRIN CHEWABLE 81 MG TABLET. PO SCH (08:24)
[2019-06-18] MEDS: [UNRECOGNIZED DRUG - REMARK] PO SCH (08:25)
[2019-06-18] MEDS: PSYLLIUM HUSK (SUGAR FREE) 1 PKT PACKET PO SCH (08:25)
[2019-06-18] MEDS: VANCOMYCIN 125 MG/2.5 ML ORAL SOLUTION. PO SCH ×3 (08:25→16:27)
[2019-06-18] MEDS ORDERED: predniSONE 20 MG TABLET PO SCH (09:00)
--- NOTE | 2019-06-18 09:29 | PDOC ---
Subjective: Subjective: Upset and cursing again. "Not getting anywhere," "no one tells me anything," "no one cares that I'm bleeding," "no one cares I had a stroke," "I can't afford this," "nothing is being done except people stop by to get a paycheck" "everyone else got to go home and see their families and I had to pay someone to mow my lawn," also says he's on this floor to be on the heart monitor but he's not being monitored and hasn't seen the career manager to discuss his test results. Die Operator present for my visit. MANY complaints but biggest GI issue this morning is not getting much rest durpardeep g the night because he's up going to the bathroom - last night was from 7-10:00 p.m. and then 2:00-7:00 a.m. Sometimes small stools, sometimes larger amount. Sometimes watery, sometimes mushy. Sometimes w/ red blood. Sometimes w/ urgency and no results. Sometimes w/ gas cramps. I asked if IV steroids made a difference over the weekend - "I don't know, I didn't even know you put me on the pills until two days later." Objective: Objective: Reviewed chart - seemed to imply that diarrhea and bleeding were some better over the weekend. Per ID note - Anticipate home with [facility] and then will eval need for Vanc taper Vital Signs: Vital Signs Date Time Temp Pulse Resp B/P (MAP) Pulse Ox O2 Delivery O2 Flow Rate FiO2 06/18/19 08:00 Room Air 06/18/19 07:00 98.1 60 16 94/65 (75) 98 98.1 Imaging: Echo 06/15 <Conclusion> The left ventricular systolic function is normal. The Ejection Fraction is 55-60%. There is normal LV segmental wall motion. Transmitral Doppler flow pattern is Grade I-abnormal relaxation pattern. Mild mitral regurgitation. Trace tricuspid regurgitation. The PA pressure was estimated at 27 mmHg. There is no evidence of significant pericardial effusion. Injection of bubbles documented no interatrial shunt. PE: GEN: NAD LUNGS: room air ABD: NABS, S/ND/NT NEURO/PSYCH: A & O �3, angry A/P: UC, recurrent C Diff - chronic diarrhea and hematochezia, some gas/cramping ANA - stable (checked 06/17) CVA Hypothyroidism - TSH 11 -- Ongoing symptoms. Upset again. Will review w/ Dr. Fowler - ?back to IV steroids again Defer thyroid treatment to primary - d/w nurse. HALIE GROSS Jun 18, 2019 09:29
[2019-06-18 11:22] VITALS: BP 91/61
[2019-06-18] MEDS ORDERED: LEVOTHYROXINE 75 MCG TABLET PO SCH (11:30)
--- NOTE | 2019-06-18 11:50 | PDOC ---
PROGRESS NOTES Subjective Subjective HPI - f/u of Probable hypercoagulable state due to underlying inflammatory bowel disease/ulcerative colitis. ROS - has rectal bleeding Objective Objective Vital Signs Date Time Temp Pulse Resp B/P (MAP) Pulse Ox O2 Delivery O2 Flow Rate FiO2 06/18/19 11:22 98.1 79 14 91/61 (71) 95 Room Air 98.1 Intake and Output 06/18/19 07:00 Intake Total 940 ml Balance 940 ml Intake Oral 940 ml # Voids 4 # Bowel Movements 2 Physical Exam General: Alert, No acute distress Neuro: Normal speech Psych/Mental Status: Mental status NL Assessment Assessment Problems Medical Problems: (1) Abdominal pain Status: Acute (2) Anemia due to blood loss Status: Acute (3) Colitis Status: Acute (4) External hemorrhoids Status: Chronic (5) GI bleed Status: Acute (6) Severe protein-calorie malnutrition Status: Chronic IMPRESSION AND PLAN: 1. Probable hypercoagulable state due to underlying inflammatory bowel disease/ulcerative colitis. Thromboembolic events have been described in patient with inflammatory bowel disease. Both ulcerative colitis and Crohn's disease can put the patient at a higher risk of thromboembolic event. Studies have reported at least 3-4 fold more incidence of thromboembolic events when compared to the general population. Venous thromboembolism is more common. It is hard to give a direct association between ulcerative colitis and his current infarcts, but it is a possibility. I will also check hypercoagulable state workup with fibrinogen level, protein C, protein S, anti-thrombin III, factor V Leiden and prothrombin gene mutation and lupus anticoagulant. The patients who have active disease at a higher risk for thromboembolic events. His ESR is high and is on Humira at this time. Continue management of ulcerative colitis per GI and management of CVA per Dr Vizcarra. Results of hypercoagulable state work up would not change management administrator. No further recommendations. Pls call if needed. 2. 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 Management per Dr. Conley. 3. Hypochromic microcytic anemia, which I suspect is due to iron deficiency. s/p venofer x 2.. 4. Ulcerative colitis. He is on Humira. Continue management per Gastroenterology. Comment Review of Relevant I have reviewed the following items maria teresa (where applicable) has been applied. Labs Laboratory Tests Test 06/17/19 04:20 White Blood Count 6.7 x10^3/uL (4.0-11.0) Red Blood Count 3.25 x10^6/uL (4.30-5.70) Hemoglobin 8.6 g/dL (13.0-17.5) Hematocrit 27.4 % (39.0-53.0) Mean Corpuscular Volume 84 fL (79-100) Mean Corpuscular Hemoglobin 27 pg (25-35) Mean Corpuscular Hemoglobin Concent 32 g/dL (31-37) Red Cell Distribution Width 21.5 % (11.5-14.5) Platelet Count 441 x10^3/uL (140-400) Neutrophils (%) (Auto) 84 % (31-73) Lymphocytes (%) (Auto) 11 % (24-48) Monocytes (%) (Auto) 5 % (0-9) Eosinophils (%) (Auto) 0 % (0-3) Basophils (%) (Auto) 0 % (0-3) Neutrophils # (Auto) 5.6 x10^3/uL (1.8-7.7) Lymphocytes # (Auto) 0.8 x10^3/uL (1.0-4.8) Monocytes # (Auto) 0.3 x10^3/uL (0.0-1.1) Eosinophils # (Auto) 0.0 x10^3/uL (0.0-0.7) Basophils # (Auto) 0.0 x10^3/uL (0.0-0.2) Segmented Neutrophils % 66 % (35-66) Band Neutrophils % 11 % (0-9) Lymphocytes % 16 % (24-48) Monocytes % 4 % (0-10) Metamyelocytes % 2 % (0-0) Myelocytes % 1 % (0-0) Platelet Estimate Increased (ADEQUATE) Basophilic Stippling Present Anisocytosis Mod Sodium Level 139 mmol/L (136-145) Potassium Level 4.6 mmol/L (3.5-5.1) Chloride Level 105 mmol/L (98-107) Carbon Dioxide Level 29 mmol/L (21-32) Anion Gap 5 (6-14) Blood Urea Nitrogen 11 mg/dL (8-26) Creatinine 0.6 mg/dL (0.7-1.3) Estimated GFR (Cockcroft-Gault) 139.9 BUN/Creatinine Ratio 18 (6-20) Glucose Level 123 mg/dL (70-99) Calcium Level 8.1 mg/dL (8.5-10.1) Total Bilirubin 0.1 mg/dL (0.2-1.0) Aspartate Amino Transf (AST/SGOT) 23 U/L (15-37) Alanine Aminotransferase (ALT/SGPT) 40 U/L (16-63) Alkaline Phosphatase 87 U/L (46-116) Total Protein 5.3 g/dL (6.4-8.2) Albumin 1.5 g/dL (3.4-5.0) Albumin/Globulin Ratio 0.4 (1.0-1.7) Medications Current Medications Sodium Chloride 1,000 ml @ 1,000 mls/hr 1X ONCE IV Last administered on 06/11/19at 15:42; Start 06/11/19 at 15:45; Stop 06/11/19 at 16:44; Status DC Dicyclomine HCl (Bentyl) 20 mg 1X ONCE IM Last administered on 06/11/19at 15:42; Start 06/11/19 at 15:45; Stop 06/11/19 at 15:46; Status DC Ondansetron HCl (Zofran) 4 mg PRN Q8HRS PRN IV NAUSEA/VOMITING; Start 06/11/19 at 17:00; Stop 06/12/19 at 16:59; Status DC Fentanyl Citrate (Fentanyl 2ml Vial) 50 mcg PRN Q2HRS PRN IV PAIN; Start 06/11/19 at 17:00; Stop 06/12/19 at 16:59; Status DC Dicyclomine HCl (Bentyl) 10 mg TID PO Last administered on 06/18/19at 08:27; Start 06/11/19 at 21:00 Ferrous Sulfate (Feosol) 325 mg DAILY08 PO Last administered on 06/13/19at 08:35; Start 06/12/19 at 08:00; Stop 06/13/19 at 12:33; Status DC Hyoscyamine (Anaspaz) 0.125 mg Q6HRS PO Last administered on 06/18/19at 05:40; Start 06/11/19 at 20:00 Oxycodone/ Acetaminophen (Percocet 5/325) 1 tab PRN Q4HRS PRN PO SEVERE PAIN 7- 10 Last administered on 06/17/19 20:26; Start 06/11/19 at 20:15 Simethicone (Gas-X) 80 mg PRN Q6HRS PRN PO GAS / BLOATING Last administered on 06/17/19 20:26; Start 06/11/19 at 20:15 Non-Formulary Medication (Mesalamine (Apriso)) 2 cap BID PO Last administered on 06/18/19 08:27; Start 06/11/19 at 21:00 Pantoprazole Sodium (Protonix) 40 mg DAILYAC PO Last administered on 06/18/19 08:27; Start 06/12/19 at 07:30 Psyllium Hydrophilic Mucilloid (Metamucil Fiber Packet) 1 pkt DAILY PO ; Start 06/12/19 at 09:00 Pharmacy Consult (C.diff Med Screen By Rx) 1 each 1X ONCE MC Last administered on 06/12/19at 08:36; Start 06/11/19 at 22:15; Stop 06/11/19 at 22:16; Status DC Iron Sucrose 500 mg/Sodium Chloride 275 ml @ 78.571 mls/ hr 1X ONCE IV Last administered on 06/12/19 11:25; Start 06/12/19 at 11:00; Stop 06/12/19 at 14:29; Status DC Methylprednisolone Sodium Succinate (SOLU-Medrol 40MG VIAL) 40 mg Q8HRS IV Last administered on 06/13/19 05:24; Start 06/12/19 at 14:00; Stop 06/13/19 at 12:33; Status DC Vancomycin HCl (Vancomycin Oral Solution) 125 mg [id number] PO ; Start 06/12/19 at 14:30; Stop 06/12/19 at 14:56; Status DC Vancomycin HCl (Vancomycin Oral Solution) 500 mg [id number] PO Last administered on 06/18/19 08:27; Start 06/12/19 at 15:01 Ferrous Sulfate (Feosol) 325 mg BIDWMEALS PO Last administered on 06/18/19 08:27; Start 06/13/19 at 17:00 Prednisone (Prednisone) 60 mg DAILY PO Last administered on 06/15/19 08:31; Start 06/14/19 at 09:00; Stop 06/15/19 at 17:00; Status DC Ondansetron HCl (Zofran) 4 mg PRN Q6HRS PRN IV NAUSEA/VOMITING Last administered on 06/13/19at 18:59; Start 06/13/19 at 18:45 Aspirin (Ecotrin) 81 mg DAILYWBKFT PO ; Start 06/14/19 at 08:00; Stop 06/13/19 at 19:30; Status DC Aspirin (Ecotrin) 81 mg 1X STAT PO Last administered on 06/13/19at 19:37; Start 06/13/19 at 19:30; Stop 06/13/19 at 19:33; Status DC Lactobacillus Rhamnosus (Culturelle) 1 cap BID PO Last administered on 06/16/19at 08:19; Start 06/14/19 at 21:00; Stop 06/16/19 at 13:19; Status DC Acetaminophen (Tylenol) 650 mg PRN Q6HRS PRN PO TEMP > 100.4F; Start 06/14/19 at 13:15 Acetaminophen (Tylenol Supp) 650 mg PRN Q4HRS PRN NM TEMP > 100.4F; Start 06/14/19 at 13:15 Aspirin (Children'S Aspirin) 81 mg DAILYWBKFT PO Last administered on 06/18/19at 08:27; Start 06/15/19 at 08:00 Iron Sucrose 500 mg/Sodium Chloride 275 ml @ 78.571 mls/ hr 1X ONCE IV Last administered on 06/15/19at 17:40; Start 06/15/19 at 17:00; Stop 06/15/19 at 20:29; Status DC Methylprednisolone Sodium Succinate (SOLU-Medrol 40MG VIAL) 40 mg Q8HRS IV Last administered on 06/17/19at 06:39; Start 06/15/19 at 22:00; Stop 06/17/19 at 11:57; Status DC Prednisone (Prednisone) 60 mg DAILY PO Last administered on 06/18/19at 08:27; Start 06/18/19 at 09:00 Levothyroxine Sodium (Synthroid) 75 mcg DAILY06 PO ; Start 06/18/19 at 11:30 Active Scripts Active Simethicone 80 Mg Tab.chew 80 Mg PO PRN Q6HRS PRN 30 Days Anaspaz (Hyoscyamine Sulfate) 0.125 Mg Tab.rapdis 0.125 Mg PO Q6HRS 10 Days Percocet 5-325 Mg Tablet (Oxycodone/Acetaminophen) 1 Each Tablet 1 Tab PO PRN Q4HRS PRN 14 Days Reported Ferrous Sulfate 325 Mg Tablet 325 Mg PO DAILY Red Yeast Rice 600 Mg Capsule 600 Mg PO DAILY Fiber (Psyllium Husk) 0.52 Gm Capsule 0.52 Gm PO DAILY Omeprazole 40 Mg Capsule.dr 1 Cap PO DAILY Centrum Silver Tablet (Multivits-Min/Fa/Lycopene/Lut) 1 Each Tablet 1 Each PO DAILY Nystatin 100,000 Unit/1 Ml Oral.susp 10 Ml PO QID Dicyclomine Hcl 10 Mg Capsule 1 Cap PO TID Apriso (Mesalamine) 0.375 Gm Cap.er.24h 2 Cap PO BID Vitals/I & O Vital Sign - Last 24 Hours 06/17/19 06/17/19 06/17/19 06/18/19 15:02 19:55 23:31 03:58 Temp 98.6 98.3 98.0 98.6 98.3 98.0 Pulse 61 53 61 52 Resp 18 16 16 16 B/P (MAP) 95/58 (70) 103/64 (77) 110/69 (83) Pulse Ox 96 95 97 O2 Delivery Room Air Room Air Room Air Room Air 06/18/19 06/18/19 06/18/19 07:00 08:00 11:22 Temp 98.1 98.1 98.1 98.1 Pulse 60 79 Resp 16 14 B/P (MAP) 94/65 (75) 91/61 (71) Pulse Ox 98 95 O2 Delivery Room Air Room Air Room Air Intake and Output 06/17/19 06/17/19 06/18/19 15:00 23:00 07:00 Intake Total 400 ml 540 ml Balance 400 ml 540 ml WILL HAWK MD Jun 18, 2019 11:50
--- NOTE | 2019-06-18 11:59 | NUR ---
pt refuses to take any medication for his thyroid. Dr. Borja notified.
--- NOTE | 2019-06-18 12:00 | PDOC ---
Infectious Disease Note Subjective Subjective feeling better ROS ROS no n/v diarrhea improving no fever Vital Sign Vital Signs Vital Signs Date Time Temp Pulse Resp B/P (MAP) Pulse Ox O2 Delivery O2 Flow Rate FiO2 06/18/19 11:22 98.1 79 14 91/61 (71) 95 Room Air 98.1 Physical Exam PHYSICAL EXAM GENERAL: Propped up in bed, alert, reading HEENT: Oral cavity, pharynx is clear. Edentulous NECK: Supple. Good range of motion. LUNGS: Clear to auscultation bilaterally. HEART: S1, S2. ABDOMEN: Mildly distended, soft, NT + BS no guarding. EXTREMITIES: No clubbing, cyanosis or gross edema. SKIN: Warm to touch without signs of rash. NEUROLOGIC: Alert and oriented x 3. PEREZ PIV Objective Assessment Recurrent C-diff, 06/11 and 04/24 Ulcerative colitis on Humira and steroids Immunosuppression Hematochezia Anemia Recent thrush - no signs now CVA w/ left arm weakness Probable hypercoagulable state - hem/onc following Plan Plan of Care Cont Vanc 500 mg with immunosuppression. Uncertain if C-diff is causing infection or colonization with UC flare - Stools are starting to form more and less cramps Not a transplant candidate sec to immunosuppression Anticipate home with Dificid and then will eval need for Vanc taper On po Steroids now pt should be on po vanco for long time will d/w ss to see the cost YUE ALBARRAN MD Jun 18, 2019 12:00
--- NOTE | 2019-06-18 12:21 | PDOC ---
PROGRESS NOTES Chief Complaint Chief Complaint DISCHARGE DX Acute blood loss anemia - Hb 6.9 from 8.2 over a month ago. Transfused 1u PRBC with Hb 6.4 --> 2 u PRBC --> Hb 9 Severe colitis - flex sig 04/30: large tender but not thrombosed external hemorrhoids; Severe colitis in rectum , sigmoid and descending colon - to extent of scope passage- no obvious pseudomembranes seen. recent colonoscopy in [place] reportedly w/ ulcerative colitis. Tapered on PO steroids History of C. difficile - s/p treatment from 04/24/19 culture positive. Repeat c. difficile now Severe protein-calorie malnutrition - will get legal analyst involved now Immunosuppression - due for his injection today of remicade, will consult GI. Lactic acidosis - likely from blood loss, will hydrate Multiple acute right cerebral hemispheric infarcts predominantly 06/15 posterior watershed territory. Small chronic right cerebellar infarcts. No intracranial arterial stenosis or occlusion. No evidence of sinus venous thrombosis. Probable hypercoagulable state - hem/onc following c diff pos severe protein-caloric malnutrition FEN - NSS + clear liquid diet (no red jello) PPX - SCDs, PPI FULL CODE Inpatient for acute blood loss anemia, symptomatic IV solumedrol 06/15 ECHO NEUROLOGY CONSULT Vanc 500 mg with immunosuppression. labs ; fibrinogen level, protein C, protein S, anti-thrombin III, factor V Leiden and prothrombin gene mutation and lupus anticoagulant Anticipate home with Dificid and then will eval need for Vanc taper po vanco for FPC 37 MIN PT EXAM, CHART REVIEW, > 50% OF TIME SPENT WITH EXAM, CHART REVIEW, PT CARE COORDINATION History of Present Illness History of Present Illness Mr Nesbitt is a 53 y/o male who was diagnosed w/ ulcerative colitis in [place] on 03/30/19 and recent diagnosis of c. difficile colitis 04/24/19 who comes in today with grossly bloody bowel movements. He was noted with Hb 6.9 in ED, lactate of 2.4 Diffuse abd pain, gas (worse in evening), liquid stools (8-10 daily - small w/ red blood every third stool), tenesmus, decreased appetite, weight loss (30 pounds), insomnia, fatigue. Albumin is 1.8-->1.5 Tuesday06/08/19 he had labs with H&H of 8.8/30.8. Pt reports he has multiple episodes of bloody stools today and feels his fatigue has increased. Pt denies CP/palpitations, N/V, fever, or urinary sxs. Pt reports he has had some exertional SOA- denies currently. Pt reports mid abd intermittent cramping. 06/12: Hb down to 6.4 overnight after 1u PRBC. He does not feel any better, still had a few bloody BM. He still has pain. No SOB or CP, but feels his heart racing and very weak, pale. C. difficile returned positive Better today - still some diarrhea, more solid. Less blood. More energy. Associated bloating/gas. No SOB or CP. Seen by neurology for transient left sided arm tingling up to shoulder and visual disturbances. CT head negative. He is very upset today, feels he should have had MRI brain 2 weeks ago when he told his outpatient physicians about his visual symptoms. His left arm tingling occurred yesterday after IV access HOME TODAY 06/18 PER ID Vitals Vitals Vital Signs Date Time Temp Pulse Resp B/P (MAP) Pulse Ox O2 Delivery O2 Flow Rate FiO2 06/18/19 11:22 98.1 79 14 91/61 (71) 95 Room Air 98.1 Physical Exam Physical Exam GENERAL: Propped up in bed, alert, reading HEENT: Oral cavity, pharynx is clear. Edentulous NECK: Supple. Good range of motion. LUNGS: Clear to auscultation bilaterally. HEART: S1, S2. ABDOMEN: Mildly distended, soft, NT + BS no guarding. EXTREMITIES: No clubbing, cyanosis or gross edema. SKIN: Warm to touch without signs of rash. NEUROLOGIC: Alert and oriented x 3. PEREZ PIV General: Alert, Oriented X3, Cooperative, No acute distress Heart: Regular rate, Normal S1, Other Lungs: Clear Abdomen: Normal bowel sounds, Soft, No tenderness Extremities: No clubbing, No cyanosis, No edema, Normal pulses Skin: No rashes, No breakdown, No significant lesion Assessment and Plan Assessmemt and Plan Problems Medical Problems: (1) Abdominal pain Status: Acute (2) Anemia due to blood loss Status: Acute (3) Colitis Status: Acute (4) External hemorrhoids Status: Chronic (5) GI bleed Status: Acute (6) Severe protein-calorie malnutrition Status: Chronic Comment Review of Relevant I have reviewed the following items maria teresa (where applicable) has been applied. Labs Laboratory Tests Test 06/17/19 04:20 White Blood Count 6.7 x10^3/uL (4.0-11.0) Red Blood Count 3.25 x10^6/uL (4.30-5.70) Hemoglobin 8.6 g/dL (13.0-17.5) Hematocrit 27.4 % (39.0-53.0) Mean Corpuscular Volume 84 fL (79-100) Mean Corpuscular Hemoglobin 27 pg (25-35) Mean Corpuscular Hemoglobin Concent 32 g/dL (31-37) Red Cell Distribution Width 21.5 % (11.5-14.5) Platelet Count 441 x10^3/uL (140-400) Neutrophils (%) (Auto) 84 % (31-73) Lymphocytes (%) (Auto) 11 % (24-48) Monocytes (%) (Auto) 5 % (0-9) Eosinophils (%) (Auto) 0 % (0-3) Basophils (%) (Auto) 0 % (0-3) Neutrophils # (Auto) 5.6 x10^3/uL (1.8-7.7) Lymphocytes # (Auto) 0.8 x10^3/uL (1.0-4.8) Monocytes # (Auto) 0.3 x10^3/uL (0.0-1.1) Eosinophils # (Auto) 0.0 x10^3/uL (0.0-0.7) Basophils # (Auto) 0.0 x10^3/uL (0.0-0.2) Segmented Neutrophils % 66 % (35-66) Band Neutrophils % 11 % (0-9) Lymphocytes % 16 % (24-48) Monocytes % 4 % (0-10) Metamyelocytes % 2 % (0-0) Myelocytes % 1 % (0-0) Platelet Estimate Increased (ADEQUATE) Basophilic Stippling Present Anisocytosis Mod Sodium Level 139 mmol/L (136-145) Potassium Level 4.6 mmol/L (3.5-5.1) Chloride Level 105 mmol/L (98-107) Carbon Dioxide Level 29 mmol/L (21-32) Anion Gap 5 (6-14) Blood Urea Nitrogen 11 mg/dL (8-26) Creatinine 0.6 mg/dL (0.7-1.3) Estimated GFR (Cockcroft-Gault) 139.9 BUN/Creatinine Ratio 18 (6-20) Glucose Level 123 mg/dL (70-99) Calcium Level 8.1 mg/dL (8.5-10.1) Total Bilirubin 0.1 mg/dL (0.2-1.0) Aspartate Amino Transf (AST/SGOT) 23 U/L (15-37) Alanine Aminotransferase (ALT/SGPT) 40 U/L (16-63) Alkaline Phosphatase 87 U/L (46-116) Total Protein 5.3 g/dL (6.4-8.2) Albumin 1.5 g/dL (3.4-5.0) Albumin/Globulin Ratio 0.4 (1.0-1.7) Medications Current Medications Sodium Chloride 1,000 ml @ 1,000 mls/hr 1X ONCE IV Last administered on 06/11/19at 15:42; Start 06/11/19 at 15:45; Stop 06/11/19 at 16:44; Status DC Dicyclomine HCl (Bentyl) 20 mg 1X ONCE IM Last administered on 06/11/19at 15:42; Start 06/11/19 at 15:45; Stop 06/11/19 at 15:46; Status DC Ondansetron HCl (Zofran) 4 mg PRN Q8HRS PRN IV NAUSEA/VOMITING; Start 06/11/19 at 17:00; Stop 06/12/19 at 16:59; Status DC Fentanyl Citrate (Fentanyl 2ml Vial) 50 mcg PRN Q2HRS PRN IV PAIN; Start 06/11/19 at 17:00; Stop 06/12/19 at 16:59; Status DC Dicyclomine HCl (Bentyl) 10 mg TID PO Last administered on 06/18/19at 08:27; Start 06/11/19 at 21:00 Ferrous Sulfate (Feosol) 325 mg DAILY08 PO Last administered on 06/13/19at 08:35; Start 06/12/19 at 08:00; Stop 06/13/19 at 12:33; Status DC Hyoscyamine (Anaspaz) 0.125 mg Q6HRS PO Last administered on 06/18/19 05:40; Start 06/11/19 at 20:00 Oxycodone/ Acetaminophen (Percocet 5/325) 1 tab PRN Q4HRS PRN PO SEVERE PAIN 7- 10 Last administered on 06/17/19 20:26; Start 06/11/19 at 20:15 Simethicone (Gas-X) 80 mg PRN Q6HRS PRN PO GAS / BLOATING Last administered on 06/17/19 20:26; Start 06/11/19 at 20:15 Non-Formulary Medication (Mesalamine (Apriso)) 2 cap BID PO Last administered on 06/18/19 08:27; Start 06/11/19 at 21:00 Pantoprazole Sodium (Protonix) 40 mg DAILYAC PO Last administered on 06/18/19 08:27; Start 06/12/19 at 07:30 Psyllium Hydrophilic Mucilloid (Metamucil Fiber Packet) 1 pkt DAILY PO ; Start 06/12/19 at 09:00 Pharmacy Consult (C.diff Med Screen By Rx) 1 each 1X ONCE MC Last administered on 06/12/19 08:36; Start 06/11/19 at 22:15; Stop 06/11/19 at 22:16; Status DC Iron Sucrose 500 mg/Sodium Chloride 275 ml @ 78.571 mls/ hr 1X ONCE IV Last administered on 06/12/19 11:25; Start 06/12/19 at 11:00; Stop 06/12/19 at 14:29; Status DC Methylprednisolone Sodium Succinate (SOLU-Medrol 40MG VIAL) 40 mg Q8HRS IV Last administered on 06/13/19 05:24; Start 06/12/19 at 14:00; Stop 06/13/19 at 12:33; Status DC Vancomycin HCl (Vancomycin Oral Solution) 125 mg [id number] PO ; Start 06/12/19 at 14:30; Stop 06/12/19 at 14:56; Status DC Vancomycin HCl (Vancomycin Oral Solution) 500 mg [id number] PO Last administered on 06/18/19 08:27; Start 06/12/19 at 15:01 Ferrous Sulfate (Feosol) 325 mg BIDWMEALS PO Last administered on 06/18/19 08:27; Start 06/13/19 at 17:00 Prednisone (Prednisone) 60 mg DAILY PO Last administered on 06/15/19 08:31; Start 06/14/19 at 09:00; Stop 06/15/19 at 17:00; Status DC Ondansetron HCl (Zofran) 4 mg PRN Q6HRS PRN IV NAUSEA/VOMITING Last administered on 06/13/19 18:59; Start 06/13/19 at 18:45 Aspirin (Ecotrin) 81 mg DAILYWBKFT PO ; Start 06/14/19 at 08:00; Stop 06/13/19 at 19:30; Status DC Aspirin (Ecotrin) 81 mg 1X STAT PO Last administered on 06/13/19 19:37; Start 06/13/19 at 19:30; Stop 06/13/19 at 19:33; Status DC Lactobacillus Rhamnosus (Culturelle) 1 cap BID PO Last administered on 06/16/19 08:19; Start 06/14/19 at 21:00; Stop 06/16/19 at 13:19; Status DC Acetaminophen (Tylenol) 650 mg PRN Q6HRS PRN PO TEMP > 100.4F; Start 06/14/19 at 13:15 Acetaminophen (Tylenol Supp) 650 mg PRN Q4HRS PRN PA TEMP > 100.4F; Start 06/14/19 at 13:15 Aspirin (Children'S Aspirin) 81 mg DAILYWBKFT PO Last administered on 06/18/19 08:27; Start 06/15/19 at 08:00 Iron Sucrose 500 mg/Sodium Chloride 275 ml @ 78.571 mls/ hr 1X ONCE IV Last administered on 06/15/19 17:40; Start 06/15/19 at 17:00; Stop 06/15/19 at 20:29; Status DC Methylprednisolone Sodium Succinate (SOLU-Medrol 40MG VIAL) 40 mg Q8HRS IV Last administered on 06/17/19 06:39; Start 06/15/19 at 22:00; Stop 06/17/19 at 11:57; Status DC Prednisone (Prednisone) 60 mg DAILY PO Last administered on 06/18/19 08:27; Start 06/18/19 at 09:00 Levothyroxine Sodium (Synthroid) 75 mcg DAILY06 PO ; Start 06/18/19 at 11:30 Active Scripts Active Simethicone 80 Mg Tab.chew 80 Mg PO PRN Q6HRS PRN 30 Days Anaspaz (Hyoscyamine Sulfate) 0.125 Mg Tab.rapdis 0.125 Mg PO Q6HRS 10 Days Percocet 5-325 Mg Tablet (Oxycodone/Acetaminophen) 1 Each Tablet 1 Tab PO PRN Q4HRS PRN 14 Days Reported Ferrous Sulfate 325 Mg Tablet 325 Mg PO DAILY Red Yeast Rice 600 Mg Capsule 600 Mg PO DAILY Fiber (Psyllium Husk) 0.52 Gm Capsule 0.52 Gm PO DAILY Omeprazole 40 Mg Capsule.dr 1 Cap PO DAILY Centrum Silver Tablet (Multivits-Min/Fa/Lycopene/Lut) 1 Each Tablet 1 Each PO DAILY Nystatin 100,000 Unit/1 Ml Oral.susp 10 Ml PO QID Dicyclomine Hcl 10 Mg Capsule 1 Cap PO TID Apriso (Mesalamine) 0.375 Gm Cap.er.24h 2 Cap PO BID Vitals/I & O Vital Sign - Last 24 Hours 06/17/19 06/17/19 06/17/19 06/18/19 15:02 19:55 23:31 03:58 Temp 98.6 98.3 98.0 98.6 98.3 98.0 Pulse 61 53 61 52 Resp 18 16 16 16 B/P (MAP) 95/58 (70) 103/64 (77) 110/69 (83) Pulse Ox 96 95 97 O2 Delivery Room Air Room Air Room Air Room Air 06/18/19 06/18/19 06/18/19 07:00 08:00 11:22 Temp 98.1 98.1 98.1 98.1 Pulse 60 79 Resp 16 14 B/P (MAP) 94/65 (75) 91/61 (71) Pulse Ox 98 95 O2 Delivery Room Air Room Air Room Air Intake and Output 06/17/19 06/17/19 06/18/19 14:59 22:59 06:59 Intake Total 400 ml 540 ml Balance 400 ml 540 ml JAZMÍN HALL MD Jun 18, 2019 12:21
--- NOTE | 2019-06-18 12:37 | NUR ---
SW following pt. Spoke with ID and RN to call in PO Jon to pt's Pharmacy. On previous admission, co-pay was very expensive and pt went home with LYNSEY Nelson from [facility]- [phone]. Will continue to follow.
--- NOTE | 2019-06-18 14:46 | PDOC3 ---
Discharge Summary Date of Admission: Jun 11, 2019 Date of Discharge: Jun 18, 2019 Follow-Up: 3-5 days Admitting Diagnosis comment: DISCHARGE DX Acute blood loss anemia - Hb 6.9 from 8.2 over a month ago. Transfused 1u PRBC with Hb 6.4 --> 2 u PRBC --> Hb 9 Severe colitis - flex sig 04/30: large tender but not thrombosed external hemorrhoids; Severe colitis in rectum , sigmoid and descending colon - to extent of scope passage- no obvious pseudomembranes seen. recent colonoscopy in [place] reportedly w/ ulcerative colitis. Tapered on PO steroids History of C. difficile - s/p treatment from 04/24/19 culture positive. Repeat c. difficile POS Severe protein-calorie malnutrition - will get therapeutic recreation director involved now Immunosuppression - . Lactic acidosis - likely from blood loss, Multiple acute right cerebral hemispheric infarcts predominantly 8/9 posterior watershed territory. Small chronic right cerebellar infarcts. No intracranial arterial stenosis or occlusion. No evidence of sinus venous thrombosis. Probable hypercoagulable state - hem/onc following c diff pos severe protein-caloric malnutrition FEN - REGULAR DIET PPX - SCDs, PPI FULL CODE Inpatient for acute blood loss anemia, symptomatic IV solumedrol 06/15 ECHO NEUROLOGY CONSULT Vanc 500 mg with immunosuppression. 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 difficile colitis 04/24/19 who comes in today with grossly bloody bowel movements. He was noted with Hb 6.9 in ED, lactate of 2.4 Diffuse abd pain, gas (worse in evening), liquid stools (8-10 daily - small w/ red blood every third stool), tenesmus, decreased appetite, weight loss (30 pounds), insomnia, fatigue. Albumin is 1.8-->1.5 Tuesday06/08/19 he had labs with H&H of 8.8/30.8. Pt reports he has multiple episodes of bloody stools today and feels his fatigue has increased. Pt denies CP/palpitations, N/V, fever, or urinary sxs. Pt reports he has had some exertional SOA- denies currently. Pt reports mid abd intermittent cramping. 06/12: Hb down to 6.4 overnight after 1u PRBC. He does not feel any better, still had a few bloody BM. He still has pain. No SOB or CP, but feels his heart racing and very weak, pale. C. difficile returned positive Better today - still some diarrhea, more solid. Less blood. More energy. Associated bloating/gas. No SOB or CP. Seen by neurology for transient left sided arm tingling up to shoulder and visual disturbances. CT head negative. He is very upset today, feels he should have had MRI brain 2 weeks ago when he told his outpatient physicians about his visual symptoms. His left arm tingling occurred yesterday after IV access HOME TODAY 06/18 PER ID Vitals Vitals Vital Signs Date Time Temp Pulse Resp B/P (MAP) Pulse Ox O2 Delivery O2 Flow Rate FiO2 06/18/19 11:22 98.1 79 14 91/61 (71) 95 Room Air 98.1 Physical Exam Physical Exam GENERAL: Propped up in bed, alert, reading HEENT: Oral cavity, pharynx is clear. Edentulous NECK: Supple. Good range of motion. LUNGS: Clear to auscultation bilaterally. HEART: S1, S2. ABDOMEN: Mildly distended, soft, NT + BS no guarding. EXTREMITIES: No clubbing, cyanosis or gross edema. SKIN: Warm to touch without signs of rash. NEUROLOGIC: Alert and oriented x 3. PEREZ PIV General: Alert, Oriented X3, Cooperative, No acute distress Heart: Regular rate, Normal S1, Other Lungs: Clear Abdomen: Normal bowel sounds, Soft, No tenderness Extremities: No clubbing, No cyanosis, No edema, Normal pulses Skin: No rashes, No breakdown, No significant lesion FINAL DIAGNOSIS Problems Medical Problems: (1) Abdominal pain Status: Acute (2) Anemia due to blood loss Status: Acute (3) Colitis Status: Acute (4) External hemorrhoids Status: Chronic (5) GI bleed Status: Acute (6) Severe protein-calorie malnutrition Status: Chronic Brief Hospital Course Mr. Nesbitt is a 53 old [sex] who presented with [ ] Discharge Medications Current Medications Sodium Chloride 1,000 ml @ 1,000 mls/hr 1X ONCE IV Last administered on 06/11/19 15:42; Start 06/11/19 at 15:45; Stop 06/11/19 at 16:44; Status DC Dicyclomine HCl (Bentyl) 20 mg 1X ONCE IM Last administered on 06/11/19 15:42; Start 06/11/19 at 15:45; Stop 06/11/19 at 15:46; Status DC Ondansetron HCl (Zofran) 4 mg PRN Q8HRS PRN IV NAUSEA/VOMITING; Start 06/11/19 at 17:00; Stop 06/12/19 at 16:59; Status DC Fentanyl Citrate (Fentanyl 2ml Vial) 50 mcg PRN Q2HRS PRN IV PAIN; Start 06/11/19 at 17:00; Stop 06/12/19 at 16:59; Status DC Dicyclomine HCl (Bentyl) 10 mg TID PO Last administered on 06/18/19 12:46; Start 06/11/19 at 21:00 Ferrous Sulfate (Feosol) 325 mg DAILY08 PO Last administered on 06/13/19 08:35; Start 06/12/19 at 08:00; Stop 06/13/19 at 12:33; Status DC Hyoscyamine (Anaspaz) 0.125 mg Q6HRS PO Last administered on 06/18/19 12:46; Start 06/11/19 at 20:00 Oxycodone/ Acetaminophen (Percocet 5/325) 1 tab PRN Q4HRS PRN PO SEVERE PAIN 7- 10 Last administered on 06/17/19 20:26; Start 06/11/19 at 20:15 Simethicone (Gas-X) 80 mg PRN Q6HRS PRN PO GAS / BLOATING Last administered on 06/17/19 20:26; Start 06/11/19 at 20:15 Non-Formulary Medication (Mesalamine (Apriso)) 2 cap BID PO Last administered on 06/18/19 08:27; Start 06/11/19 at 21:00 Pantoprazole Sodium (Protonix) 40 mg DAILYAC PO Last administered on 06/18/19at 08:27; Start 06/12/19 at 07:30 Psyllium Hydrophilic Mucilloid (Metamucil Fiber Packet) 1 pkt DAILY PO ; Start 06/12/19 at 09:00 Pharmacy Consult (CMiriamdiff Med Screen By Rx) 1 each 1X ONCE MC Last administered on 06/12/19at 08:36; Start 06/11/19 at 22:15; Stop 06/11/19 at 22:16; Status DC Iron Sucrose 500 mg/Sodium Chloride 275 ml @ 78.571 mls/ hr 1X ONCE IV Last administered on 06/12/19at 11:25; Start 06/12/19 at 11:00; Stop 06/12/19 at 14:29; Status DC Methylprednisolone Sodium Succinate (SOLU-Medrol 40MG VIAL) 40 mg Q8HRS IV Last administered on 06/13/19at 05:24; Start 06/12/19 at 14:00; Stop 06/13/19 at 12:33; Status DC Vancomycin HCl (Vancomycin Oral Solution) 125 mg [id number] PO ; Start 06/12/19 at 14:30; Stop 06/12/19 at 14:56; Status DC Vancomycin HCl (Vancomycin Oral Solution) 500 mg [id number] PO Last administered on 06/18/19at 12:46; Start 06/12/19 at 15:01 Ferrous Sulfate (Feosol) 325 mg BIDWMEALS PO Last administered on 06/18/19at 08:27; Start 06/13/19 at 17:00 Prednisone (Prednisone) 60 mg DAILY PO Last administered on 06/15/19at 08:31; Start 06/14/19 at 09:00; Stop 06/15/19 at 17:00; Status DC Ondansetron HCl (Zofran) 4 mg PRN Q6HRS PRN IV NAUSEA/VOMITING Last administered on 06/13/19at 18:59; Start 06/13/19 at 18:45 Aspirin (Ecotrin) 81 mg DAILYWBKFT PO ; Start 06/14/19 at 08:00; Stop 06/13/19 at 19:30; Status DC Aspirin (Ecotrin) 81 mg 1X STAT PO Last administered on 06/13/19at 19:37; Start 06/13/19 at 19:30; Stop 06/13/19 at 19:33; Status DC Lactobacillus Rhamnosus (Culturelle) 1 cap BID PO Last administered on 06/16/19at 08:19; Start 06/14/19 at 21:00; Stop 06/16/19 at 13:19; Status DC Acetaminophen (Tylenol) 650 mg PRN Q6HRS PRN PO TEMP > 100.4F; Start 06/14/19 at 13:15 Acetaminophen (Tylenol Supp) 650 mg PRN Q4HRS PRN OK TEMP > 100.4F; Start 06/14/19 at 13:15 Aspirin (Children'S Aspirin) 81 mg DAILYWBKFT PO Last administered on 06/18/19at 08:27; Start 06/15/19 at 08:00 Iron Sucrose 500 mg/Sodium Chloride 275 ml @ 78.571 mls/ hr 1X ONCE IV Last administered on 06/15/19at 17:40; Start 06/15/19 at 17:00; Stop 06/15/19 at 20:29; Status DC Methylprednisolone Sodium Succinate (SOLU-Medrol 40MG VIAL) 40 mg Q8HRS IV Last administered on 06/17/19at 06:39; Start 06/15/19 at 22:00; Stop 06/17/19 at 11:57; Status DC Prednisone (Prednisone) 60 mg DAILY PO Last administered on 06/18/19at 08:27; Start 06/18/19 at 09:00 Levothyroxine Sodium (Synthroid) 75 mcg DAILY06 PO ; Start 06/18/19 at 11:30 Active Scripts Active Simethicone 80 Mg Tab.chew 80 Mg PO PRN Q6HRS PRN 30 Days Anaspaz (Hyoscyamine Sulfate) 0.125 Mg Tab.rapdis 0.125 Mg PO Q6HRS 10 Days Percocet 5-325 Mg Tablet (Oxycodone/Acetaminophen) 1 Each Tablet 1 Tab PO PRN Q4HRS PRN 14 Days Reported Ferrous Sulfate 325 Mg Tablet 325 Mg PO DAILY Red Yeast Rice 600 Mg Capsule 600 Mg PO DAILY Fiber (Psyllium Husk) 0.52 Gm Capsule 0.52 Gm PO DAILY Omeprazole 40 Mg Capsule.dr 1 Cap PO DAILY Centrum Silver Tablet (Multivits-Min/Fa/Lycopene/Lut) 1 Each Tablet 1 Each PO DAILY Nystatin 100,000 Unit/1 Ml Oral.susp 10 Ml PO QID Dicyclomine Hcl 10 Mg Capsule 1 Cap PO TID Apriso (Mesalamine) 0.375 Gm Cap.er.24h 2 Cap PO BID Vital Signs Vital Signs Date Time Temp Pulse Resp B/P (MAP) Pulse Ox O2 Delivery O2 Flow Rate FiO2 06/18/19 11:22 98.1 79 14 91/61 (71) 95 Room Air 98.1 Labs Laboratory Tests Test 06/17/19 04:20 White Blood Count 6.7 x10^3/uL (4.0-11.0) Red Blood Count 3.25 x10^6/uL (4.30-5.70) Hemoglobin 8.6 g/dL (13.0-17.5) Hematocrit 27.4 % (39.0-53.0) Mean Corpuscular Volume 84 fL (79-100) Mean Corpuscular Hemoglobin 27 pg (25-35) Mean Corpuscular Hemoglobin Concent 32 g/dL (31-37) Red Cell Distribution Width 21.5 % (11.5-14.5) Platelet Count 441 x10^3/uL (140-400) Neutrophils (%) (Auto) 84 % (31-73) Lymphocytes (%) (Auto) 11 % (24-48) Monocytes (%) (Auto) 5 % (0-9) Eosinophils (%) (Auto) 0 % (0-3) Basophils (%) (Auto) 0 % (0-3) Neutrophils # (Auto) 5.6 x10^3/uL (1.8-7.7) Lymphocytes # (Auto) 0.8 x10^3/uL (1.0-4.8) Monocytes # (Auto) 0.3 x10^3/uL (0.0-1.1) Eosinophils # (Auto) 0.0 x10^3/uL (0.0-0.7) Basophils # (Auto) 0.0 x10^3/uL (0.0-0.2) Segmented Neutrophils % 66 % (35-66) Band Neutrophils % 11 % (0-9) Lymphocytes % 16 % (24-48) Monocytes % 4 % (0-10) Metamyelocytes % 2 % (0-0) Myelocytes % 1 % (0-0) Platelet Estimate Increased (ADEQUATE) Basophilic Stippling Present Anisocytosis Mod Sodium Level 139 mmol/L (136-145) Potassium Level 4.6 mmol/L (3.5-5.1) Chloride Level 105 mmol/L (98-107) Carbon Dioxide Level 29 mmol/L (21-32) Anion Gap 5 (6-14) Blood Urea Nitrogen 11 mg/dL (8-26) Creatinine 0.6 mg/dL (0.7-1.3) Estimated GFR (Cockcroft-Gault) 139.9 BUN/Creatinine Ratio 18 (6-20) Glucose Level 123 mg/dL (70-99) Calcium Level 8.1 mg/dL (8.5-10.1) Total Bilirubin 0.1 mg/dL (0.2-1.0) Aspartate Amino Transf (AST/SGOT) 23 U/L (15-37) Alanine Aminotransferase (ALT/SGPT) 40 U/L (16-63) Alkaline Phosphatase 87 U/L (46-116) Total Protein 5.3 g/dL (6.4-8.2) Albumin 1.5 g/dL (3.4-5.0) Albumin/Globulin Ratio 0.4 (1.0-1.7) Allergies Allergies Coded Allergies Type Severity Reaction Last Updated Verified No Known Drug Allergies 04/30/19 No Disposition/Orders: D/C to Home Patient Instructions D/C PLANNING 37 MIN JAZMÍN HALL MD Jun 18, 2019 14:46
[2019-06-18] MEDS ORDERED: FIDA200T PO (14:51)
[2019-06-18] MEDS ORDERED: ASPI-630 PO (14:51)
[2019-06-18] MEDS ORDERED: PRED20TA PO (14:51)
[2019-06-18] MEDS ORDERED: LEVO75TA PO (14:51)
[2019-06-18] MEDS ORDERED: VANC500V PO (14:51)
--- NOTE | 2019-06-18 14:57 | DISCH ---
DISCHARGE INSTRUCTIONS Condition on Discharge Condition on Discharge: Stable Activity After Discharge Activity Instructions for Disc: Activity as tolerated Lifting Instructions after Dis: No heavy lifting Exercise Instruction after Dis: Walk 10 min, 3 x per day, Progress as tolerated Driving Instructions after Dis: Do not drive today Weight Bearing Status after Di: As tolerated Diet after Discharge Diet after Discharge: Low Fat Diet Texture: Regular Liquid Texture: Thin Liquid Swallowing Supervision: None needed Checks after Discharge Checks after discharge: Check blood press - daily Contacting the DR. after DC Call your doctor for: If your condition worsens Follow-Up Follow up with: ID IN 2 WEEKS Follow Up With: GI IN 2 WEEKS Treatment/Equipment after DC Adaptive Equipment Issued: None JAZMÍN HALL MD Jun 18, 2019 14:57
[2019-06-18 15:00] VITALS: BP_SYST 77; BP_SYST 86; BP_DIAS 41; BP_DIAS 52
--- NOTE | 2019-06-18 16:53 | NUR ---
Discharge Note: PT DISCHARGED HOME WITH SELF CARE. PT LEFT FACILITY VIA PRIVATE VEHICLE WITH FRIEND AT 1655. PT STABLE AND ALERT UPON DISCHARGE. PT PIV REMOVED FROM L FA WITHOUT COMPLICATIONS, BANDAGE APPLIED. PT EDUCATED ABOUT DISCHARGE MEDICATIONS, DISCHARGE INSTRUCTIONS, AND FOLLOW-UP INSTRUCTIONS. PT REFUSED TO TAKE SYNTHROID MEDICATION, STATES THAT HE WILL NOT TAKE ANY MEDICATION FOR HIS THYROID. PT EDUCATED ABOUT CONSEQUENCES OF NOT TAKING THE MEDICATION AND STATED THAT HE WAS OK WITH THAT. PT VOICED NO OTHER CONCERNS AT THIS TIME. SANDRINE VELAZQUEZ [address] Discharge instructions and discharge home medications reviewed with Patient and a copy given. All questions have been answered and understanding verbalized.
--- NOTE | 2019-06-18 18:52 | PDOC ---
PROGRESS NOTES Assessment Assessment IMPRESSION: Multiple right posterior watershed infarcts. Bilateral transient vision loss. Crohn's disease. GI bleeding. Anemia. C. diff. Old right cerebellar infarct. Hx of retinal detachment. RECOMMENDATIONS/PLAN: ASA 81 mg daily. Treat medical diseases. FU with PCP. FU with GI. FU with Neurology Dr. Vizcarra. Past Medical History GI: GERD (kidney stones), Inflam bowel disease (UC), Other (diarrhea) Heme/Onc: Anemia NOS Endocrine: Hypothyroidism Past Surgical History Cataract Removal, Other (retinal detachment) Family History Cancer, CAD Social History Quit tobacco, occasional alcohol Allergies No Known Drug Allergies (Unverified , 04/30/19) ROS Negative for fever, chills, weight loss, shortness of breath, chest pain, indigestion, hematochezia, melena, and dysuria. Full 14-point review of systems is negative. MEDICATIONS: Refer to MAR PHYSICAL EXAMINATION: General appearance in no acute distress. HEENT: Normocephalic and nontraumatic. Eyes, nose, ears, and throat are unremarkable. Hearing decrease. Neck is supple. No lymphadenopathy. No bruits are heard over the carotid artery. No Crepitus. Cardiovascular: S1, S2, regular rate and rhythm. Pulmonary: Clear to auscultation bilaterally. Abdomen: Bowel sounds are positive. Extremities: No rash, lesions, or edema. No restriction of range of motion NEUROLOGICAL EXAMINATION: Alert. Oriented to time, place and person. PERRL. EOMI. CN: no focal findings. Muscle tone: within normal. Muscle strength: 5 DTR: 2 Plantar reflex: Flexor response bilaterally Gait: not examined in bed. Sensory exam: no abnormal findings. No cerebellar signs elicited. F-T-N test accurate. Objective Objective Vital Signs Date Time Temp Pulse Resp B/P (MAP) Pulse Ox O2 Delivery O2 Flow Rate FiO2 06/18/19 15:00 86/52 (63) 06/18/19 15:00 98.7 66 16 96 Room Air 98.7 Intake and Output 06/18/19 07:00 Intake Total 940 ml Balance 940 ml Intake Oral 940 ml # Voids 4 # Bowel Movements 2 Vitals Signs Vitals VS - Last 72 Hours, by Label Date Time Temp Pulse Resp B/P (MAP) Pulse Ox O2 Delivery O2 Flow Rate FiO2 06/18/19 15:00 86/52 (63) 8/12/19 15:00 98.7 66 16 77/41 (53) 96 Room Air 98.7 06/18/19 11:22 98.1 79 14 91/61 (71) 95 Room Air 98.1 06/18/19 08:00 Room Air 06/18/19 07:00 98.1 60 16 94/65 (75) 98 Room Air 98.1 06/18/19 03:58 98.0 52 16 110/69 (83) 97 Room Air 98.0 06/17/19 23:31 61 16 Room Air 06/17/19 19:55 98.3 53 16 103/64 (77) 95 Room Air 98.3 06/17/19 15:02 98.6 61 18 95/58 (70) 96 Room Air 98.6 06/17/19 11:21 98.5 61 18 94/59 (71) 100 Room Air 98.5 06/17/19 08:00 Room Air 06/17/19 07:29 97.8 49 18 96/61 (73) 98 Room Air 97.8 Medication Medications Current Medications Fidaxomicin (Dificid) 200 mg BID PO ; Start 06/18/19 at 21:00; Stop 06/18/19 at 16:57; Status DC Levothyroxine Sodium (Synthroid) 75 mcg DAILY06 PO ; Start 06/18/19 at 11:30; Stop 06/18/19 at 16:57; Status DC Prednisone (Prednisone) 60 mg DAILY PO Last administered on 06/18/19at 08:27; Start 06/18/19 at 09:00; Stop 06/18/19 at 16:57; Status DC Comment Review of Relevant I have reviewed the following items maria teresa (where applicable) has been applied. ABIGAIL ALCANTAR MD Jun 18, 2019 18:52
[2019-06-18] MEDS ORDERED: FIDAXOMICIN 200 MG TABLET PO SCH (21:00)
== END 2019-06-18 16:56 | disposition home or self-care (01) | DRG 371 ==
LOC: ER 14:19 → 5 NORTH 16:05 → 6 SOUTH 06-14 18:50
PROVIDERS: ADMIT Internal Medicine; ATTEND Internal Medicine
PROC: 30233N1 Transfusion of Nonautologous Red Blood Cells into Peripheral Vein, Percutaneous Approach (ICD-10-PCS; principal; 2019-06-11)
DX: A04.71 Enterocolitis due to Clostridium difficile, recurrent (principal); E43 Unspecified severe protein-calorie malnutrition; I63.9 Cerebral infarction, unspecified; D62 Acute posthemorrhagic anemia; K51.90 Ulcerative colitis, unspecified, without complications; E87.2 Acidosis; K92.2 Gastrointestinal hemorrhage, unspecified; H53.129 Transient visual loss, unspecified eye; G47.00 Insomnia, unspecified; K21.9 Gastro-esophageal reflux disease without esophagitis; F41.9 Anxiety disorder, unspecified; E03.9 Hypothyroidism, unspecified; E78.5 Hyperlipidemia, unspecified; H54.62 Unqualified visual loss, left eye, normal vision right eye; Z68.22 Body mass index [BMI] 22.0-22.9, adult; Z87.891 Personal history of nicotine dependence; Z80.0 Family history of malignant neoplasm of digestive organs; Z87.442 Personal history of urinary calculi; Z82.49 Family history of ischemic heart disease and other diseases of the circulatory system; Z79.82 Long term (current) use of aspirin; Z79.899 Other long term (current) drug therapy; Z83.3 Family history of diabetes mellitus; Z86.19 Personal history of other infectious and parasitic diseases; Z86.73 Personal history of transient ischemic attack (TIA), and cerebral infarction without residual deficits
CPT/HCPCS: 36415; 70450; 70544; 70551; 80048; 80053; 80061; 81001; 82607; 82728; 83540; 83550; 83605; 83690; 83735; 84443; 85007; 85025; 85027; 85045; 85300; 85302; 85306; 85610; 85651; 85730; 86147; 86850; 86900; 86901; 86920; 87493; 93306; 96360; 96372; J0500; J1756; J2405; J2920; J7030; J7050; J7512; P9016; 92610; 97110; 99285-25; G0378